=== PATIENT | female | born 2000 | race Caucasian/White ===

== ENCOUNTER 2022-12-10 15:01 | Outpatient (OUT) | payer BC, SELFPAY ==
[2022-12-10 15:49] LABS: Basophils Percent Auto 0.3 % (0.2-2.0); Eosinophils Absolute Auto 0.2 10^3/uL (0.0-0.7); Eosinophils Percent Auto 1.5 % (0.9-7.0); Hematocrit 38.3 % (36.0-48.0); Hemoglobin 12.8 g/dL (12.0-16.0); Immature Granulocytes Abs Auto 0.04 10^3/uL (0.00-0.03); Immature Granulocytes Pct Auto 0.3 % (0.0-0.5); Lymphocytes Absolute Auto 3.1 10^3/uL (1.2-3.8); Mean Corpuscular HGB Conc 33.4 g/dL (29.9-35.2); Mean Corpuscular Hemoglobin 28.4 pg (26.7-34.0); Mean Corpuscular Volume 85.1 fL (81.0-99.0); Mean Platelet Volume 10.7 fL (9.5-13.5); Monocytes Percent Auto 7.3 % (1.7-12.0); Neutrophils Percent Auto 67.6 % (43.0-75.0); Platelet Count 292 10^3/uL (150-450); Red Cell Distribution Width 13.2 % (11.0-15.0); White Blood Count 13.3 10^3/uL (4.0-11.0)
[2022-12-10 15:55] LABS: Bilirubin Urine NEGATIVE (NEGATIVE); Blood Urine NEGATIVE (NEGATIVE); Clarity Urine CLEAR (CLEAR); Color Urine LT. YELLOW (YELLOW); Glucose Urine UA NEGATIVE (NEGATIVE); Ketones Urine NEGATIVE (NEGATIVE); Leukocyte Esterase Urine NEGATIVE (NEGATIVE); Nitrite Urine NEGATIVE (NEGATIVE); Protein Urine NEGATIVE (NEG/TRACE); Specific Gravity Urine <=1.005 (1.005-1.025); Urobilinogen Urine 0.2 EU/dL (0.2-1.0)
[2022-12-10 16:05] LABS: Estimated Average Glucose 97 mg/dL
[2022-12-10 16:12] LABS: Bacteria Urine SMALL #/HPF (NONE SEEN); Cast Seen? NONE SEEN #/LPF (NONE SEEN); Crystals Seen? None Seen #/HPF (None Seen); Mucus Urine NONE SEEN (NONE SEEN); RBC Urine 0-2 #/HPF (0-2); Squamous Epithelial Cell Urine FEW #/LPF (NONE/RARE); Urine Culture Indicated ALREADY ORDERED; WBC Urine 0-2 #/HPF (NONE SEEN)
[2022-12-10 16:14] LABS: Amphetamine Screen Urine NEGATIVE (NEGATIVE); Barbiturates Screen Urine NEGATIVE (NEGATIVE); Benzodiazepines Screen Urine NEGATIVE (NEGATIVE); Buprenorphine Screen Urine NEGATIVE (NEGATIVE); Cannabinoid Screen Urine NEGATIVE (NEGATIVE); Cocaine Screen Urine NEGATIVE (NEGATIVE); Methadone Screen Urine NEGATIVE (NEGATIVE); Methamphetamines Screen Urine NEGATIVE (NEGATIVE); Opiate Screen Urine NEGATIVE (NEGATIVE); Oxycodone Screen Urine NEGATIVE (NEGATIVE); Phencyclidine Screen Urine NEGATIVE (NEGATIVE); Tricyclic Antidepressant Urine NEGATIVE (NEGATIVE)
[2022-12-10 16:50] LABS: Thyroid Stimulating Hormone 1.643 uIU/mL (0.358-3.740)
[2022-12-12 04:11] LABS: HBsAg Screen Negative (Negative); HCV Antibody Non Reactive (Non Reactive); HIV Ab/p24 Ag Screen Non Reactive (Non Reactive)
[2022-12-12 06:11] LABS: Rubella Antibodies, IgG 3.12 index (Immune >0.99)
[2022-12-12 07:08] LABS: Neisseria gonorrhoeae, NAA Negative (Negative)
[2022-12-12 10:08] LABS: Rapid Plasma Reagin, Quant Non Reactive titer (NonRea<1:1)
== END 2022-12-10 15:02 | disposition home or self-care (01) ==
LOC: LAB 15:13
PROVIDERS: PCP Family Medicine; Visit Provider Midwife
DX: Z34.81 Encounter for supervision of other normal pregnancy, first trimester (principal); N91.2 Amenorrhea, unspecified
CPT/HCPCS: 36415; 80307; 81001; 83036; 84443; 85025; 86592; 86762; 86803; 86850; 86900; 86901; 87086; 87340; 87389; 87491; 87591

== ENCOUNTER 2023-01-08 13:00 | Day surgery (SDC) | payer BC, SELFPAY ==
[2023-01-08] VITALS (13 sets, daily range): BP systolic 90–130; BP diastolic 50–79; PULSE 70–103; RESP 10–21; TEMP 36.7; O2SAT 96–100; BMI 25.7
[2023-01-08 13:24] LABS: Basophils Percent Auto 0.2 % (0.2-2.0); Eosinophils Absolute Auto 0.1 10^3/uL (0.0-0.7); Eosinophils Percent Auto 1.1 % (0.9-7.0); Hematocrit 39.9 % (36.0-48.0); Hemoglobin 13.6 g/dL (12.0-16.0); Immature Granulocytes Abs Auto 0.02 10^3/uL (0.00-0.03); Immature Granulocytes Pct Auto 0.2 % (0.0-0.5); Lymphocytes Absolute Auto 2.5 10^3/uL (1.2-3.8); Lymphocytes Percent Auto 24.5 % (20.5-60.0); Mean Corpuscular HGB Conc 34.1 g/dL (29.9-35.2); Mean Corpuscular Hemoglobin 28.7 pg (26.7-34.0); Mean Corpuscular Volume 84.2 fL (81.0-99.0); Mean Platelet Volume 10.7 fL (9.5-13.5); Monocytes Absolute Auto 0.8 10^3/uL (0.3-0.8); Monocytes Percent Auto 7.9 % (1.7-12.0); Neutrophils Absolute Auto 6.7 10^3/uL (1.4-6.5); Neutrophils Percent Auto 66.1 % (43.0-75.0); Platelet Count 273 10^3/uL (150-450); Red Blood Count 4.74 10^6/uL (4.20-5.40); Red Cell Distribution Width 12.9 % (11.0-15.0); White Blood Count 10.2 10^3/uL (4.0-11.0)
[2023-01-08] MEDS: LACTATED RINGER'S SOLUTION 1,000 ML 50 ML IV (13:47)
[2023-01-08 13:58] LABS: HCG Quantitative 4919 mIU/mL
[2023-01-08] MEDS: LACTATED RINGER'S SOLUTION 1,000 ML 150 ML IV (16:20)
--- NOTE | 2023-01-08 16:43 | P.ON_ITS ---
Brief Operative Note Date of procedure: 01/08/23 Pre-op diagnosis: missed Post-op diagnosis: same as pre-op Procedure: NAME OF PROCEDURE: [D&C suction ] PROCEDURE: The patient was taken back to the OR where she was given general anesthesia without difficulty. She was then placed in dorsal lithotomy position, prepped and draped in the normal sterile fashion. A weighted speculum was placed in the patient's vagina and the anterior lip of the cervix was identified and grasped with a single-tooth tenaculum. The patient was then gently dilated using Hegar dilators after we had sounded roughly to 10 cm. The suction curette was then tested. The suction curette was then placed in the patient's uterus and products of conception were removed using an 8-[place] suction curette. ?Excellent hemostasis was noted. The patient tolerated the procedure well. Sponge, lap, and needle counts were correct x 2. All instruments were then removed from the patient's vagina. The patient was taken to the Recovery Room in stable condition. ??
[2023-01-08] MEDS: HYDROCODONE/ACET 5-325 MG TABLET 1 TAB PO (17:32)
--- NOTE | 2023-01-08 17:58 | PC.NURSE ---
pt voids without difficulty
== END 2023-01-08 18:00 | disposition home or self-care (01) ==
PROVIDERS: PCP Family Medicine; Visit Provider Obstetrics & Gynecology
PROC: (CPT 59820; principal; 2023-01-08 14:30)
DX: O02.1 Missed abortion (principal)
CPT/HCPCS: 59820; 36415; 84702; 85025; 86850; 86900; 86901; 88305; J2704

== ENCOUNTER 2023-11-18 13:45 | Inpatient (IN) | payer BC, SELFPAY ==
[2023-11-18] VITALS (30 sets, daily range): BP systolic 107–137; BP diastolic 57–79; PULSE 67–104; TEMP 36.2–36.8
--- OUTSIDE RECORDS SUMMARY | 2023-11-18 14:10 | XMS_ITS | CCD ---
Author Organization [facility] Care Team Providers Care Monomer Recovery Operator Name Role Phone GARRET GOMEZ JR Admitting Unavailable GARRET GOMEZ JR Attending Unavailable JOSSE, DR NIALL Craft Primary Care Unavailable GARRET GOMEZ JR Consulting Unavailable ROSALINDA, DR HERNANDEZ Admitting Unavailable ROSALINDA, DR HERNANDEZ Attending Unavailable ROSALINDA, DR HERNANDEZ Primary Care Unavailable ROSALINDA, DR HERNANDEZ Consulting Unavailable Bk, DO Vesna Attending Provider MD David Pascual Primary Care Provider [phone] DO Olga Santoyo Attending Provider DO Olga Santoyo Admit Provider [phone] David Pascual Primary Care Unavailable Nataprtrentonra, Vesna Admitting Unavailable Natlaura, Vesna Attending Unavailable David Pascual Primary Care Unavailable Nataprawira, Vesna Admitting Unavailable Natkaylinra, Vesna Attending Unavailable Olga Santoyo Attending Unavailable David Pascual Primary Care Unavailable Olga Santoyo Admitting Unavailable David Pascual Primary Care Unavailable William, Lo Admitting Unavailable William, Lo Attending Unavailable Olga Santoyo Attending Unavailable David Pascual Primary Care Unavailable Olga Santoyo Admitting Unavailable Yumiko Key MD Primary Care Provider CECILIA MADDEN Attending Unavailable ROWANOMARIELE Dee Dee Referring Unavailable FLOROCECILIA Attending Unavailable FLOROCECILIA Attending Unavailable FLOROANA LILIACECILIA L Referring Unavailable FLORO, CECILIA Funez Attending Unavailable FLOROCECILIA Attending Unavailable FLOROCECILIA Attending Unavailable FLORO, CECILIA L Referring Unavailable CECILIA MADDEN Attending Unavailable CECILIA MADDEN Attending Unavailable CECILIA MADDEN Attending Unavailable CECILIA MADDEN Attending Unavailable Medications Current Medications Medication Drug Class(es) Dates Sig (Normalized) Sig (Original) ibuprofen 600 mg oral tablet (1 source) Nonsteroidal Anti-inflammatory Drug Start: 12-18-2021 take 600 mg by mouth every six hours Ibuprofen Active 600 MG PO Q6H 30 December 18, 2021 12:00am Pnv Cmb#95-Ferrous Fumarate-Fa () 28 mg iron- 800 mcg tablet (1 source) Start: 12-15-2021 take 1 tablet by mouth once daily Pnv Cmb#95-Ferrous Fumarate-Fa () 28 mg iron- 800 mcg tablet Active 1 TAB PO Daily December 15, 2021 12:00am Vit-Fe Fumarate-FA ( Vitamins) 28-0.8 MG tablet (3 sources) Start: 07-06-2022 take 1 tablet by mouth in the morning Vit-Fe Fumarate-FA ( Vitamins) 28-0.8 MG tablet Take 1 tablet by mouth in the morning. 0 07/06/2022 Active Completed/Discontinued Medications Medication Drug Class(es) Dates Sig (Normalized) Sig (Original) Norethindrone-E.Es tradiol-Iron (4 sources) Estrogen Start: 08-28-2020 End: 11-10-2021 Norethindrone-E.Est radiol-Iron (June04/18 (28)) 1 mg-20 mcg (21)/75 mg (7) tablet Discontinued 1 TAB PO Daily August 28, 2020 12:00am November 10, 2021 4:41pm Magnesium (4 sources) Start: 12-15-2021 End: 12-18-2021 take 400 mg by mouth once daily Magnesium Discontinued 400 MG PO Daily December 15, 2021 12:00am December 18, 2021 12:23pm magnesium 250 MG tablet Problems Active Problems Problem Classification Problem Date Documented Da te Episodic/Chronic Abdominal pain (5 sources) Left lower quadrant pain; Translations: [Left lower quadrant pain] Onset: 09-24-2020 08-28-2020 Episodic Other female genital disorders (2 sources) History of past delivery; Translations: [Status post vaginal delivery] 12-17-2021 Episodic Other gastrointestinal disorders (4 sources) Mixed irritable bowel syndrome; Translations: [MIXED IRRITABLE BOWEL SYNDROME] Onset: 09-19-2020 Chronic Other gastrointestinal disorders (4 sources) Alteration in bowel elimination; Translations: [Change in bowel habit] 08-28-2020 Episodic Other and delivery including normal (2 sources) Normal ; Translations: [Encounter for supervision of other normal , first trimester] 05-14-2023 Episodic Residual codes; unclassified (1 source) 35 weeks gestation of ; Translations: [35 weeks gestation of ] Onset: 11-19-2021 Episodic Unclassified (1 source) Encounter for care and examination of lactating mother; Translations: [Encounter for care and examination of lactating mother] Onset: 12-20-2021 Unclassified (1 source) Encounter for supervision of normal first , third trimester; Translations: [Encounter for supervision of normal first , third trimester] Onset: 12-15-2021 Unclassified (1 source) Other specified related conditions, third trimester; Translations: [Other specified related conditions, third trimester] Onset: 12-07-2021 Unclassified (1 source) Encounter for screening for Streptococcus B; Translations: [Encounter for screening for Streptococcus B] Onset: 11-19-2021 Unclassified (1 source) Decreased movements, third trimester, not applicable or unspecified; Translations: [Decreased movements, third trimester, not applicable or unspecified] Onset: 11-10-2021 Past or Other Problems Problem Classification Problem Date Documented Da te Episodic/Chronic Other gastrointestinal disorders (1 source) Fecal urgency; Translations: [FECAL URGENCY] Onset: 09-24-2020 Episodic Results Test Name Value Interpretation Reference Range Facility US OB FOLLOW UP TRANSABDOMIN AL APPROACHon 09-22-2023 OB FOLLOW UP TRANSABDOMINAL APPROACH FINDINGS: A single, live intrauterine is present with normal cardiac rate of 145 beats per minute. Normal activity and amniotic fluid volume. Amniotic fluid index is 13.0 cm. Morphology is grossly normal. The cervix is long and closed, 3.9cm. The placenta is anterior, Grade 2 not associated with the cervical os. The current sonographic age is 31 weeks and 0 days, based on the following measurements: BPD 7.9 cm (31 weeks, 5 days) Head Circumference 28.3cm (31 weeks, 0 days) Abdominal Circumference 26.6cm (30 weeks, 5 days) Femur Length 5.9 cm (30 weeks, 5 days) Presentation Cephalic Placenta Anterior Grade 2 Weight (g) by Percentile 41.3 % * These measurements result in an estimated date of delivery of November 24, 2023 The current estimated weight is 1674 grams ( 3 pound, 10 ounces). IMPRESSION: Single, live intrauterine , current sonographic age of 31 weeks and 0 days, with an estimated date of delivery of November 24, 2023. * Estimated Weight (g) by Percentile is based upon an accurate estimated age based on last menstrual period. TRANSCRIBED BY: ELECTRONICALLY SIGNED BY: Desean Taylor MD Normal Not Available US OB 14+ WEEKS ANATOMY SCAN on 07-08-2023 US OB 14+ WEEKS ANATOMY SCAN This is a summary report. The complete report is available in the patient's medical record. If you cannot access the medical record, please contact the sending organization for a detailed fax or copy. US OB 14+ WEEKS ANATOMY SCAN: 07/08/2023 4:14 PM CLINICAL HISTORY: . Second/third trimester ultrasound COMPARISON: April 15, 2023 Transabdominal ultrasound of the gravid uterus was performed. FINDINGS: A single live intrauterine is noted in breech position. cardiac activity measures approximately 145 beats per minute. A grade 0 placenta is anterior without evidence of an abnormal subplacental collection or previa. The amniotic fluid volume appears within normal limits for gestation. The amniotic fluid index measures 15.98 cm. The following measurements were obtained: BPD 4.6 cm, HC 17.3 cm, AC 14.6 cm, FL 3.2 cm, which corresponds to an aggregate gestational age of 19 weeks 6 days. Estimated weight is 318 g which corresponds to 69.5 percentile based on LMP.. cerebral ventricles, posterior fossa, spine, kidneys, urinary bladder, four-chamber heart, diaphragm, stomach, three-vessel cord, cord insertion and extremities appear within normal limits. There is no free fluid noted in the maternal pelvis. Neither maternal ovary is identified. IMPRESSION: SINGLE LIVE INTRAUTERINE CORRESPONDING TO APPROXIMATELY 19 WEEKS 6 DAYS WITH AN EXPECTED DUE DATE OF NOVEMBER 26, 2023.. NO GROSS ABNORMALITIES IDENTIFIED, WITHIN THE LIMITS OF THE STUDY. ELECTRONICALLY SIGNED BY: Hevre Leo DO Normal Not Available US OB < 14 WEEKS EARLYon US OB < 14 WEEKS EARLY EXAMINATION: Endovaginal examination of the pelvis. HISTORY: Amenorrhea. COMPARISON: None TECHNIQUE: Endovaginal examination of the pelvis. FINDINGS: Uterus measures 11.2 x 7.1 x 5.6, AP and transverse dimension. There is a single IUP with estimated gestational age based by crown-rump length of 7 weeks 3 days +/-1-week with a heart rate of 153 bpm. Yolk sac is identified. The right ovary measures 3.2 x 2.7 x 2.2 cm. Small cysts most likely physiological function noted. Spectral and color flow seen. The left ovary measures 2.9 x 2.1 x 1.7 cm. Small cyst most likely physiologic nonfunctional noted. Spectral and color flow. No free fluid. IMPRESSION: A SINGLE AP WITH ESTIMATED GESTATIONAL AGE BASED ON CROWN-RUMP LENGTH IS 7 WEEKS 3 DAYS +/-1-WEEK WITH A HEART RATE OF 153 BPM. ANATOMY IS NOT ASSESSED DUE TO EARLY GESTATIONAL AGE ELECTRONICALLY SIGNED BY: Demian Gray MD Normal Not Available Basophils Auto (Bld) [#/Vol] Ordered By: Olga Santoyo on 12-17-2021 Basophils (Bld) [#/Vol] 0.1 10*3/uL 0.0-0.2 [facility] Basophils/100 WBC Auto (Bld) Ordered By: Olga Santoyo on 12-17-2021 Basophils/100 WBC (Bld) 0.4 % . [facility] Blood hemoglobin measurement (mass/volume)Ordered By: Olga Santoyo on 12-17-2021 Hemoglobin (Bld) [Mass/Vol] 9.6 g/dL 11.8-15.4 [facility] Blood leukocytes automated c ount (number/volume)Ordered By: Olga Santoyo on 12-17-2021 WBC (Bld) [#/Vol] 16.1 10*3/uL 4.5-11.0 [facility] Complete Blood Count Auto Di ffon 12-17-2021 Basophils (Bld) [#/Vol] 0.1 10*3/uL Normal 0.0-0.2 [facility] Comment on above: Order Comment: Comme nt Draw at 630 am Result Comment: PERF ORMED BY: [place] [address] PATHOLOGIST PSYCHOLOGIST CHIEF NATALYA ESTEBAN M.D. Performed By: #### C BC #### [address] Basophils/100 WBC (Bld) 0.4 % Normal . [facility] Comment on above: Order Comment: Comme nt Draw at 630 am Performed By: #### C BC #### [address] Eosinophils (Bld) [#/Vol] 0.1 10*3/uL Normal 0.0-0.45 [facility] Comment on above: Order Comment: Comme nt Draw at 630 am Performed By: #### C BC #### [address] Eosinophils/100 WBC (Bld) 0.8 % Normal . [facility] Comment on above: Order Comment: Comme nt Draw at 630 am Performed By: #### C BC #### [address] Erythrocyte distribution width (RBC) [Ratio] 13.7 % Normal 11.9-15.3 [facility] Comment on above: Order Comment: Comme nt Draw at 630 am Performed By: #### C BC #### [address] Hematocrit (Bld) [Volume fraction] 29.4 % Low 34.0-46.4 [facility] Comment on above: Order Comment: Comme nt Draw at 630 am Performed By: #### C BC #### [place] [address] [place] Hemoglobin (Bld) [Mass/Vol] 9.6 g/dL Low 11.8-15.4 [facility] Comment on above: Order Comment: Comme nt Draw at 630 am Performed By: #### C BC #### [place] [address] [place] Lymphocytes (Bld) [#/Vol] 3.1 10*3/uL Normal 1.00-4.8 [facility] Comment on above: Order Comment: Comme nt Draw at 630 am Performed By: #### C BC #### [address] Lymphocytes/100 WBC (Bld) 19.2 % Normal . [facility] Comment on above: Order Comment: Comme nt Draw at 630 am Performed By: #### C BC #### [address] MCH (RBC) [Entitic mass] 28.4 pg Normal 24.7-34.3 [facility] Comment on above: Order Comment: Comme nt Draw at 630 am Performed By: #### C BC #### [address] MCV (RBC) [Entitic vol] 86.6 fL Normal 80-100 [facility] Comment on above: Order Comment: Comme nt Draw at 630 am Performed By: #### C BC #### [address] Mean Corpuscular HGB Conc 32.8 g/dL Normal 32.0-35.0 [facility] Comment on above: Order Comment: Comme nt Draw at 630 am Performed By: #### C BC #### [address] Monocytes (Bld) [#/Vol] 1.4 10*3/uL High 0.0-0.8 [facility] Comment on above: Order Comment: Comme nt Draw at 630 am Performed By: #### C BC #### [place] [address] [place] Monocytes/100 WBC (Bld) 8.5 % Normal . [facility] Comment on above: Order Comment: Comme nt Draw at 630 am Performed By: #### C BC #### [address] Neutrophils (Bld) [#/Vol] 11.5 10*3/uL High 1.8-7.7 [facility] Comment on above: Order Comment: Comme nt Draw at 630 am Performed By: #### C BC #### [place] [address] [place] Neutrophils/100 WBC (Bld) 71.1 % Normal . [facility] Comment on above: Order Comment: Comme nt Draw at 630 am Performed By: #### C BC #### [place] [address] [place] Nucleated RBC/100 WBC (Bld) [Ratio] 0.1 % Normal 0-0.5 [facility] Comment on above: Order Comment: Comme nt Draw at 630 am Performed By: #### C BC #### [address] Platelet mean volume (Bld) [Entitic vol] 10.6 fL Normal 6.3-10.7 [facility] Comment on above: Order Comment: Comme nt Draw at 630 am Performed By: #### C BC #### [place] [address] [place] Platelets (Bld) [#/Vol] 182 10*3/uL Normal 150-450 [facility] Comment on above: Order Comment: Comme nt Draw at 630 am Performed By: #### C BC #### [place] [address] [place] RBC (Bld) [#/Vol] 3.39 10*6/uL Low 3.60-5.00 [facility] Comment on above: Order Comment: Comme nt Draw at 630 am Performed By: #### C BC #### [place] [address] [place] WBC (Bld) [#/Vol] 16.1 10*3/uL High 4.5-11.0 [facility] Comment on above: Order Comment: Comme nt Draw at 630 am Performed By: #### C BC #### [place] [address] [place] Eosinophils Auto (Bld) [#/Vo l]Ordered By: Olga Santoyo on 12-17-2021 Eosinophils (Bld) [#/Vol] 0.1 10*3/uL 0.0-0.45 [facility] Eosinophils/100 WBC Auto (Bl d)Ordered By: Olga Santoyo on 12-17-2021 Eosinophils/100 WBC (Bld) 0.8 % . [facility] Erythrocyte distribution wid th Auto (RBC) [Ratio]Ordered By: Olga Santoyo on 12-17-2021 Erythrocyte distribution width (RBC) [Ratio] 13.7 % 11.9-15.3 [facility] Hematocrit Auto (Bld) [Volum e fraction]Ordered By: Olga Santoyo on 12-17-2021 Hematocrit (Bld) [Volume fraction] 29.4 % 34.0-46.4 [facility] Laboratory - Hematology and Cell countsOrdered By: Olga Santoyo on 12-17-2021 Nucleated RBC/100 WBC (Bld) [Ratio] 0.1 % 0-0.5 [facility] Lymphocytes Auto (Bld) [#/Vo l]Ordered By: Olga Santoyo on 12-17-2021 Lymphocytes (Bld) [#/Vol] 3.1 10*3/uL 1.00-4.8 [facility] Lymphocytes/100 WBC Auto (Bl d)Ordered By: Olga Santoyo on 12-17-2021 Lymphocytes/100 WBC (Bld) 19.2 % . [facility] MCH Auto (RBC) [Entitic mass ]Ordered By: Olga Santoyo on 12-17-2021 MCH (RBC) [Entitic mass] 28.4 pg 24.7-34.3 [facility] MCHC Auto (RBC) [Mass/Vol]Or dered By: Olga Santoyo on 12-17-2021 MCHC (RBC) [Mass/Vol] 32.8 g/dL 32.0-35.0 [facility] MCV Auto (RBC) [Entitic vol] Ordered By: Olga Santoyo on 12-17-2021 MCV (RBC) [Entitic vol] 86.6 fL 80-100 [facility] Monocytes Auto (Bld) [#/Vol] Ordered By: Olga Santoyo on 12-17-2021 Monocytes (Bld) [#/Vol] 1.4 10*3/uL 0.0-0.8 [facility] Monocytes/100 WBC Auto (Bld) Ordered By: Olga Yarelis on 12-17-2021 Monocytes/100 WBC (Bld) 8.5 % . [facility] Neutrophils Auto (Bld) [#/Vo l]Ordered By: Olga Santoyo on 12-17-2021 Neutrophils (Bld) [#/Vol] 11.5 10*3/uL 1.8-7.7 [facility] Neutrophils/100 WBC Auto (Bl d)Ordered By: Olga Yarelis on 12-17-2021 Neutrophils/100 WBC (Bld) 71.1 % . [facility] Platelet mean volume Auto (B ld) [Entitic vol]Ordered By: Olgajas Santoyo on 12-17-2021 Platelet mean volume (Bld) [Entitic vol] 10.6 fL 6.3-10.7 [facility] Platelets Auto (Bld) [#/Vol] Ordered By: Olga Yarelis on 12-17-2021 Platelets (Bld) [#/Vol] 182 10*3/uL 150-450 [facility] RBC Auto (Bld) [#/Vol]Ordere d By: Olgajas Santoyo on 12-17-2021 RBC (Bld) [#/Vol] 3.39 10*6/uL 3.60-5.00 [facility] ABO/RH Typeon 12-16-2021 ABO and Rh group Nom (Bld) Blood group A Rh(D) positive Normal [facility] Comment on above: Result Comment: PERF ORMED BY: [facility] [address] [place] [address] PATHOLOGIST PSYCHOLOGIST CHIEF NATALYA ESTEBAN M.D. COVID-19 Antigenon 2 COVID-19 Antigen Healthcare Worker?: Y Reference Range: Negative Negative results, from patients with symptom onset beyond five days, should be treated as presumptive and confirmation with a molecular assay, if necessary, for patient management, may be performed. Negative results do not rule out COVID-19 and should not be used as the sole basis for treatment or patient management decisions, including infection control decisions. Negative results should be considered in the context of a patient's recent exposures, history and the presence of clinical signs and symptoms consistent with COVID-19. The Lucy SARS Antigen BRODY does not differentiate between SARS-CoV and SARS-CoV-2. This test was developed and its performance characteristic determined by [employer] and validated at [facility]. This test has not been FDA cleared or approved. This test has been authorized by FDA under an Emergency Use Authorization (EUA). This test has been validated in accordance with the FDA's Guidance Document (Policy for Diagnostics Testing in Laboratories Certified to Perform High Complexity Testing under CLIA prior to Emergency Use Authorization for Coronavirus Disease-2019 during the Public Health Emergency) issued on June 30, 2019. This test is only authorized for the duration of time the declaration that circumstances exist justifying the authorization of the emergency use of in vitro diagnostic tests for detection of SARS-CoV-2 virus and/or diagnosis of COVID-19 infection under section 564(b)(1) of the Act, 21 U.S.C. 360bbb-3(b)(1), unless the authorization is terminated or revoked sooner. SARS-CoV+SARS-CoV-2 (COVID-19) Ag [Presence] in Respiratory specimen by Rapid immunoassay Negative for SARS Antigen by BRODY PERFORMED BY: [place] [address] PATHOLOGIST PSYCHOLOGIST CHIEF NATALYA ESTEBAN M.D. Normal [facility] Comment on above: Performed By: #### U A, OBUDS #### [place] [id number] [facility] Complete Blood Count Auto Di ffon 12-16-2021 Basophils (Bld) [#/Vol] 0.1 10*3/uL Normal 0.0-0.2 [facility] Comment on above: Result Comment: PERF ORMED BY: [place] [address] PATHOLOGIST PSYCHOLOGIST CHIEF NATALYA ESTEBAN M.D. Performed By: #### C BC #### [place] [address] [place] Basophils/100 WBC (Bld) 0.8 % Normal . [facility] Comment on above: Performed By: #### C BC #### [address] Eosinophils (Bld) [#/Vol] 0.2 10*3/uL Normal 0.0-0.45 [facility] Comment on above: Performed By: #### C BC #### [address] Eosinophils/100 WBC (Bld) 1.0 % Normal . [facility] Comment on above: Performed By: #### C BC #### [address] Erythrocyte distribution width (RBC) [Ratio] 13.8 % Normal 11.9-15.3 [facility] Comment on above: Performed By: #### C BC #### [address] Hematocrit (Bld) [Volume fraction] 36.7 % Normal 34.0-46.4 [facility] Comment on above: Performed By: #### C BC #### [address] Hemoglobin (Bld) [Mass/Vol] 12.2 g/dL Normal 11.8-15.4 [facility] Comment on above: Performed By: #### C BC #### [address] Lymphocytes (Bld) [#/Vol] 3.1 10*3/uL Normal 1.00-4.8 [facility] Comment on above: Performed By: #### C BC #### [address] Lymphocytes/100 WBC (Bld) 18.2 % Normal . [facility] Comment on above: Performed By: #### C BC #### [address] MCH (RBC) [Entitic mass] 28.4 pg Normal 24.7-34.3 [facility] Comment on above: Performed By: #### C BC #### [facility] [address] [place] [address] [place] MCV (RBC) [Entitic vol] 85.5 fL Normal 80-100 [facility] Comment on above: Performed By: #### C BC #### [facility] [address] [place] [id number] [facility] Mean Corpuscular HGB Conc 33.2 g/dL Normal 32.0-35.0 [facility] Comment on above: Performed By: #### C BC #### [facility] [address] [place] [address] [place] Monocytes (Bld) [#/Vol] 1.4 10*3/uL High 0.0-0.8 [facility] Comment on above: Performed By: #### C BC #### [facility] [address] [place] [address] [place] Monocytes/100 WBC (Bld) 8.1 % Normal . [facility] Comment on above: Performed By: #### C BC #### [facility] [address] [place] [address] [place] Neutrophils (Bld) [#/Vol] 12.2 10*3/uL High 1.8-7.7 [facility] Comment on above: Performed By: #### C BC #### [facility] [address] [place] [id number] [place] Neutrophils/100 WBC (Bld) 71.9 % Normal . [facility] Comment on above: Performed By: #### C BC #### [facility] [address] [place] [address] [place] Nucleated RBC/100 WBC (Bld) [Ratio] 0.1 % Normal 0-0.5 [facility] Comment on above: Performed By: #### C BC #### [facility] [address] Platelet mean volume (Bld) [Entitic vol] 10.8 fL High 6.3-10.7 [facility] Comment on above: Performed By: #### C BC #### [place] [address] [place] Platelets (Bld) [#/Vol] 220 10*3/uL Normal 150-450 [facility] Comment on above: Performed By: #### C BC #### [address] RBC (Bld) [#/Vol] 4.29 10*6/uL Normal 3.60-5.00 [facility] Comment on above: Performed By: #### C BC #### [address] WBC (Bld) [#/Vol] 17.0 10*3/uL High 4.5-11.0 [facility] Comment on above: Performed By: #### C BC #### [place] [address] [place] Dipstick and Microscopicon 0 12-16-2021 Appearance (U) Clear Normal Clear [facility] Comment on above: Order Comment: Name Collection Type:: Clean-Voided Midstream Performed By: #### O BUDS, ADDONUAPLUS #### [address] Bacteria,Urine None Seen Normal None Seen [facility] Comment on above: Order Comment: Name Collection Type:: Clean-Voided Midstream Performed By: #### O BUDS, ADDONUAPLUS #### [address] Bilirubin,Urine Negative Normal Negative [facility] Comment on above: Order Comment: Name Collection Type:: Clean-Voided Midstream Performed By: #### O BUDS, ADDONUAPLUS #### [place] [address] [place] Glucose Ql (U) Normal Normal Normal [facility] Comment on above: Order Comment: Name Collection Type:: Clean-Voided Midstream Performed By: #### O BUDS, ADDONUAPLUS #### [place] [address] [place] Hyaline Casts,Urine 0-8 Normal 0-8 [facility] Comment on above: Order Comment: Name Collection Type:: Clean-Voided Midstream Result Comment: PERF ORMED BY: [place] [address] PATHOLOGIST PSYCHOLOGIST CHIEF NATALYA ESTEBAN M.D. Performed By: #### O BUDS, ADDONUAPLUS #### [facility] [address] [place] [address] [place] Ketones Ql (U) Negative Normal Negative [facility] Comment on above: Order Comment: Name Collection Type:: Clean-Voided Midstream Performed By: #### O BUDS, ADDONUAPLUS #### [place] [address] [place] Leukocyte esterase Test strip Ql (U) Negative Normal Negative [facility] Comment on above: Order Comment: Name Collection Type:: Clean-Voided Midstream Performed By: #### O BUDS, ADDONUAPLUS #### [place] [address] [place] Nitrite,Urine Negative Normal Negative [facility] Comment on above: Order Comment: Name Collection Type:: Clean-Voided Midstream Performed By: #### O BUDS, ADDONUAPLUS #### [place] [address] [place] Occult Blood,Urine Negative Normal Negative [facility] Comment on above: Order Comment: Name Collection Type:: Clean-Voided Midstream Result Comment: PERF ORMED BY: [place] [address] PATHOLOGIST PSYCHOLOGIST CHIEF NATALYA ESTEBAN M.D. Performed By: #### O BUDS, ADDONUAPLUS #### [facility] [address] [place] [address] [place] Protein,Urine Trace High Negative [facility] Comment on above: Order Comment: Name Collection Type:: Clean-Voided Midstream Performed By: #### O BUDS, ADDONUAPLUS #### [facility] [address] [place] [address] [place] RBC,Urine 1-2 Normal 0-4 [facility] Comment on above: Order Comment: Name Collection Type:: Clean-Voided Midstream Performed By: #### O BUDS, ADDONUAPLUS #### [facility] [address] [place] [address] Specificy Albia,Urine 1.022 Normal 1.001-1.030 [facility] Comment on above: Order Comment: Name Collection Type:: Clean-Voided Midstream Performed By: #### O BUDS, ADDONUAPLUS #### [address] Squamous Epithelial Cell,Urine 0-1 Normal 0-2 [facility] Comment on above: Order Comment: Name Collection Type:: Clean-Voided Midstream Performed By: #### O BUDS, ADDONUAPLUS #### [address] Urobilinogen,Urine Normal Normal Normal [facility] Comment on above: Order Comment: Name Collection Type:: Clean-Voided Midstream Performed By: #### O BUDS, ADDONUAPLUS #### [address] WBC,Urine 1-2 Normal 0-4 [facility] Comment on above: Order Comment: Name Collection Type:: Clean-Voided Midstream Performed By: #### O BUDS, ADDONUAPLUS #### [address] OB Urine Drug Screen (NO THC )on 12-16-2021 Amphetamine Screen,Urine Negative Normal Negative [facility] Comment on above: Performed By: #### O BUDS, ADDONUAPLUS #### [address] Barbiturate Screen,Urine Negative Normal Negative [facility] Comment on above: Performed By: #### O BUDS, ADDONUAPLUS #### [place] [address] [place] Benzodiazepines Screen,Urine Negative Normal Negative [facility] Comment on above: Performed By: #### O BUDS, ADDONUAPLUS #### [address] Cocaine Screen,Urine Negative Normal Negative [facility] Comment on above: Performed By: #### O BUDS, ADDONUAPLUS #### [address] Opiate Screen,Urine Negative Normal Negative [facility] Comment on above: Performed By: #### O BUDS, ADDONUAPLUS #### [address] Phencyclidine Screen, Urine Negative Normal Negative [facility] Comment on above: Result Comment: Thes e are unconfirmed results and should not be used for legal purposes. Drug Cut-Off Concentration: AMPH 1000 ng/mL RONEL 200 ng/mL JUANITO 200 ng/mL COCM 300 ng/mL OP 300 ng/mL PCP 25 ng/mL PERFORMED BY: [place] [address] PATHOLOGIST PSYCHOLOGIST CHIEF NATALYA ESTEBAN M.D. Performed By: #### O BUDS, ADDONUAPLUS #### [address] Lucy Ag Negativeon 12-17-19 Lucy Ag Negative Negative Normal Negative [facility] Comment on above: Result Comment: This is a duplicate Lucy SARS Antigen (BRODY) result to be used for statistical tracking purpose only. PERFORMED BY: [place] [address] PATHOLOGIST PSYCHOLOGIST CHIEF NATALYA ESTEBAN M.D. Performed By: #### U A, OBUDS #### [address] Amphetamine Screen Ql (U)Ord ered By: Olga Santoyo on 12-15-2021 Amphetamines Ql (U) Negative Negative [facility] Automated erythrocytes count in urine sediment (number/area)Ordered By: Olga Santoyo on 12-15-2021 RBC Auto (Urine sed) [#/Area] 1-2 [HPF] 0-4 [facility] Automated leukocytes count i n urine sediment (number/area)Ordered By: Olga Santoyo on 12-15-2021 WBC Auto (Urine sed) [#/Area] 1-2 [HPF] 0-4 [facility] Automated urine color determ inationOrdered By: Olga Santoyo on 12-15-2021 Color (U) Yellow Normal Yellow [facility] Comment on above: Order Comment: Name Collection Type:: Clean-Voided Midstream Performed By: #### O BUDS, ADDONUAPLUS #### [facility] [address] Barbiturates [Presence] in U rineOrdered By: Olga Santoyo on 12-15-2021 Barbiturates Ql (U) Negative Negative [facility] Benzodiazepines [Presence] i n UrineOrdered By: Olga Santoyo on 12-15-2021 Benzodiazepines Ql (U) Negative Negative [facility] Bilirubin Test strip Ql (U)O rdered By: Olga Santoyo on 12-15-2021 Bilirubin Ql (U) Negative Negative [facility] COVID-19 SOFIAOrdered By: Cem Santoyo on 12-15-2021 SARS-CoV+SARS-CoV-2 (COVID-19) Ag IA.rapid Ql (Resp) Negative Negative [facility] Comment on above: This is a duplicate Lucy SARS Antigen (BRODY) result to be used for statistical tracking purpose only. Ketones Auto test strip (U) [Mass/Vol]Ordered By: Olga Santoyo on 12-15-2021 Ketones (U) [Mass/Vol] Negative Negative [facility] - Drug toxicology Ordered By: Olga Santoyo on 12-15-2021 Opiates Ql (U) Negative Negative [facility] Laboratory - UrinalysisOrder ed By: Olga Santoyo on 12-15-2021 Hyaline casts LM Ql (Urine sed) 0-8 [LPF] 0-8 [facility] Nitrite Test strip Ql (U)Ord ered By: Olga Santoyo on 12-15-2021 Nitrite Ql (U) Negative Negative [facility] No Panel InformationOrdered By: Olga Santoyo on 12-15-2021 SARS Antigen (LFIA) [facility] Phencyclidine Screen Ql (U)O rdered By: Olga Santoyo on 12-15-2021 Phencyclidine Ql (U) Negative Negative [facility] Comment on above: These are unconfirme d results and should not be used for legal purposes. Drug Cut-Off Concentration: AMPH 1000 ng/mL RONEL 200 ng/mL JUANITO 200 ng/mL COCM 300 ng/mL OP 300 ng/mL PCP 25 ng/mL Protein Auto test strip (U) [Mass/Vol]Ordered By: Olga Santoyo on 12-15-2021 Protein (U) [Mass/Vol] Trace mg/dL Negative [facility] Specific gravity Auto test s trip (U) [Rel density]Ordered By: Olga Santoyo on 12-15-2021 Specific gravity (U) [Rel density] 1.022 1.001-1.030 [facility] Squamous epithelial cells de tection in urine sediment by light microscopyOrdered By: Olga Santoyo on 12-15-2021 Epithelial cells.squamous LM Ql (Urine sed) 0-1 [HPF] 0-2 [facility] Urine bacteria detection by automated methodOrdered By: Olga Santoyo on 12-15-2021 Bacteria Auto Ql (U) None seen None Seen [facility] Urine clarity by refractomet ry automatedOrdered By: Olga Santoyo on 12-15-2021 Clarity Refractometry automated (U) Clear Clear [facility] Urine cocaine detectionOrder ed By: Olga Santoyo on 12-15-2021 Cocaine Ql (U) Negative Negative [facility] Urine glucose measurement by automated test strip (mass/volume)Ordered By: Olga Santoyo on 12-15-2021 Glucose Auto test strip (U) [Mass/Vol] Normal mg/dL Normal [facility] Urine hemoglobin detection b y automated test stripOrdered By: Olga Santoyo on 12-15-2021 Hemoglobin Auto test strip Ql (U) Negative Negative [facility] Urine leukocyte esterase det ection by automated test stripOrdered By: Olga Santoyo on 12-15-2021 Leukocyte esterase Auto test strip Ql (U) Negative Negative [facility] Urine pH measurement by auto mated test stripOrdered By: Olga Santoyo on 12-15-2021 pH (U) 6.5 [pH] Normal 5.0-9.0 [facility] Comment on above: Order Comment: Name Collection Type:: Clean-Voided Midstream Performed By: #### O BUDS, ADDONUAPLUS #### [facility] [address] [place] [address] Urobilinogen Auto test strip (U) [Mass/Vol]Ordered By: Olga Santoyo on 12-15-2021 Urobilinogen (U) [Mass/Vol] Normal mg/dL Normal [facility] Amphetamine Screen Ql (U)Ord ered By: VESNA BOURGEOIS on 12-07-2021 Amphetamines Ql (U) Negative Negative [facility] Barbiturates [Presence] in U rineOrdered By: VESNA BOURGEOIS on 12-07-2021 Barbiturates Ql (U) Negative Negative [facility] Benzodiazepines [Presence] i n UrineOrdered By: VESNA BOURGEOIS on 12-07-2021 Benzodiazepines Ql (U) Negative Negative [facility] Bilirubin Test strip Ql (U)O rdered By: VESNA BOURGEOIS on 12-07-2021 Bilirubin Ql (U) Negative Negative [facility] Color Auto (U)Ordered By: ECHO BOURGEOIS on 12-07-2021 Color (U) Yellow Yellow [facility] Ketones Auto test strip (U) [Mass/Vol]Ordered By: VESNA BOURGEOIS on 12-07-2021 Ketones (U) [Mass/Vol] Negative Negative [facility] - Drug toxicology Ordered By: VESNA BOURGEOIS on 12-07-2021 Opiates Ql (U) Negative Negative [facility] Nitrite Test strip Ql (U)Ord ered By: VESNA BOURGEOIS on 12-07-2021 Nitrite Ql (U) Negative Negative [facility] OB Urine Drug Screen (NO THC )on 12-07-2021 Amphetamine Screen,Urine Negative Normal Negative [facility] Comment on above: Performed By: #### U A, OBUDS #### [facility] [address] [place] [address] Barbiturate Screen,Urine Negative Normal Negative [facility] Comment on above: Performed By: #### U A, OBUDS #### [facility] [address] [place] [address] [place] Benzodiazepines Screen,Urine Negative Normal Negative [facility] Comment on above: Performed By: #### U A, OBUDS #### [facility] [address] [place] [address] [place] Cocaine Screen,Urine Negative Normal Negative [facility] Comment on above: Performed By: #### U A, OBUDS #### [facility] [address] [place] [address] Opiate Screen,Urine Negative Normal Negative [facility] Comment on above: Performed By: #### U A, OBUDS #### [address] Phencyclidine Screen, Urine Negative Normal Negative [facility] Comment on above: Result Comment: Thes e are unconfirmed results and should not be used for legal purposes. Drug Cut-Off Concentration: AMPH 1000 ng/mL RONEL 200 ng/mL JUANITO 200 ng/mL COCM 300 ng/mL OP 300 ng/mL PCP 25 ng/mL PERFORMED BY: [place] [address] PATHOLOGIST PSYCHOLOGIST CHIEF NATALYA ESTEBAN M.D. Performed By: #### U A, OBUDS #### [facility] [address] [place] [address] Phencyclidine Screen Ql (U)O rdered By: VESNA BOURGEOIS on 12-07-2021 Phencyclidine Ql (U) Negative Negative [facility] Comment on above: These are unconfirme d results and should not be used for legal purposes. Drug Cut-Off Concentration: AMPH 1000 ng/mL RONEL 200 ng/mL JUANITO 200 ng/mL COCM 300 ng/mL OP 300 ng/mL PCP 25 ng/mL Protein Auto test strip (U) [Mass/Vol]Ordered By: VESNA BOURGEOIS on 12-07-2021 Protein (U) [Mass/Vol] Negative Negative [facility] Specific gravity Auto test s trip (U) [Rel density]Ordered By: VESNACorazon BOURGEOIS on 12-07-2021 Specific gravity (U) [Rel density] 1.009 1.001-1.030 [facility] Urinalysison 12-07-2021 Appearance (U) Clear Normal Clear [facility] Comment on above: Order Comment: Name Collection Type:: Clean-Voided Midstream Performed By: #### U A, OBUDS #### [facility] [address] [place] [address] Bilirubin,Urine Negative Normal Negative [facility] Comment on above: Order Comment: Name Collection Type:: Clean-Voided Midstream Performed By: #### U A, OBUDS #### [address] Color (U) Yellow Normal Yellow [facility] Comment on above: Order Comment: Name Collection Type:: Clean-Voided Midstream Performed By: #### U A, OBUDS #### [address] Glucose Ql (U) Normal Normal Normal [facility] Comment on above: Order Comment: Name Collection Type:: Clean-Voided Midstream Performed By: #### U A, OBUDS #### [facility] [address] [place] [address] Ketones Ql (U) Negative Normal Negative [facility] Comment on above: Order Comment: Name Collection Type:: Clean-Voided Midstream Performed By: #### U A, OBUDS #### [facility] [address] [place] [address] [place] Leukocyte esterase Test strip Ql (U) Negative Normal Negative [facility] Comment on above: Order Comment: Name Collection Type:: Clean-Voided Midstream Performed By: #### U A, OBUDS #### [facility] [address] [place] [address] [place] Nitrite,Urine Negative Normal Negative [facility] Comment on above: Order Comment: Name Collection Type:: Clean-Voided Midstream Performed By: #### U A, OBUDS #### [address] Occult Blood,Urine Negative Normal Negative [facility] Comment on above: Order Comment: Name Collection Type:: Clean-Voided Midstream Result Comment: PERF ORMED BY: [place] [address] PATHOLOGIST PSYCHOLOGIST CHIEF NATALYA ESTEBAN M.D. Performed By: #### U A, OBUDS #### [address] pH (U) 7.0 [pH] Normal 5.0-9.0 [facility] Comment on above: Order Comment: Name Collection Type:: Clean-Voided Midstream Performed By: #### U A, OBUDS #### [address] Protein,Urine Negative Normal Negative [facility] Comment on above: Order Comment: Name Collection Type:: Clean-Voided Midstream Performed By: #### U A, OBUDS #### [address] Specificy Alb[place],Urine 1.009 Normal 1.001-1.030 [facility] Comment on above: Order Comment: Name Collection Type:: Clean-Voided Midstream Performed By: #### U A, OBUDS #### [place] [address] [place] Urobilinogen,Urine Normal Normal Normal [facility] Comment on above: Order Comment: Name Collection Type:: Clean-Voided Midstream Performed By: #### U A, OBUDS #### [place] [address] [place] Urine clarity by refractomet ry automatedOrdered By: VESNA BOURGEOIS on 12-07-2021 Clarity Refractometry automated (U) Clear Clear [facility] Urine cocaine detectionOrder ed By: VESNA BOURGEOIS on 12-07-2021 Cocaine Ql (U) Negative Negative [facility] Urine glucose measurement by automated test strip (mass/volume)Ordered By: VESNA BOURGEOIS on 12-07-2021 Glucose Auto test strip (U) [Mass/Vol] Normal mg/dL Normal [facility] Urine hemoglobin detection b y automated test stripOrdered By: VESNA BOURGEOIS on 12-07-2021 Hemoglobin Auto test strip Ql (U) Negative Negative [facility] Urine leukocyte esterase det ection by automated test stripOrdered By: VESNA BOURGEOIS on 12-07-2021 Leukocyte esterase Auto test strip Ql (U) Negative Negative [facility] Urobilinogen Auto test strip (U) [Mass/Vol]Ordered By: VESNA BOURGEOIS on 12-07-2021 Urobilinogen (U) [Mass/Vol] Normal mg/dL Normal [facility] pH Auto test strip (U)Ordere d By: VESNA BOURGEOIS on 12-07-2021 pH (U) 7.0 [pH] 5.0-9.0 [facility] S. agalactiae Org specific c x Ql (Unsp spec)Ordered By: Olga Santoyo on 11-23-2021 Streptococcus agalactiae culture No Group B Beta Streptococcus Isolated 3 Days [facility] Strep B Cultureon 11-19-2021 Strep B Culture Reason for Exam 35 weeks gestation of ; screening for stre Vaginal/Rectal Comment vaginal, ecc, rectal Reason for Exam: 35 weeks gestation of ; screening for stre : Vaginal/Rectal Comment: vaginal, ecc, rectal No Group B Beta Streptococcus Isolated 3 Days PERFORMED BY: [place] [address] PATHOLOGIST PSYCHOLOGIST CHIEF NATALYA ESTEBAN M.D. Normal [facility] Comment on above: Performed By: #### C USTB #### [address] Amphetamine Screen Ql (U)Ord ered By: VESNA BOURGEOIS on 11-10-2021 Amphetamines Ql (U) Negative Negative [facility] Barbiturates [Presence] in U rineOrdered By: VESNA BOURGEOIS on 11-10-2021 Barbiturates Ql (U) Negative Negative [facility] Benzodiazepines [Presence] i n UrineOrdered By: VESNA BOURGEOIS on 11-10-2021 Benzodiazepines Ql (U) Negative Negative [facility] Bilirubin Test strip Ql (U)O rdered By: VESNA BOURGEOIS on 11-10-2021 Bilirubin Ql (U) Negative Negative [facility] Color Auto (U)Ordered By: ECHO BOURGEOIS on 11-10-2021 Color (U) Yellow Yellow [facility] Ketones Auto test strip (U) [Mass/Vol]Ordered By: VESNA BOURGEOIS on 11-10-2021 Ketones (U) [Mass/Vol] Negative Negative [facility] - Drug toxicology Ordered By: VESNA BOURGEOIS on 11-10-2021 Opiates Ql (U) Negative Negative [facility] Nitrite Test strip Ql (U)Ord ered By: VESNA BOURGEOIS on 11-10-2021 Nitrite Ql (U) Negative Negative [facility] OB Urine Drug Screen (NO THC )on 11-10-2021 Amphetamine Screen,Urine Negative Normal Negative [facility] Comment on above: Performed By: #### U A, OBUDS #### [facility] [address] [place] [address] [place] Barbiturate Screen,Urine Negative Normal Negative [facility] Comment on above: Performed By: #### U A, OBUDS #### [facility] [address] [place] [address] [place] Benzodiazepines Screen,Urine Negative Normal Negative [facility] Comment on above: Performed By: #### U A, OBUDS #### [facility] [address] [place] [address] [place] Cocaine Screen,Urine Negative Normal Negative [facility] Comment on above: Performed By: #### U A, OBUDS #### [facility] [address] [place] [address] [place] Opiate Screen,Urine Negative Normal Negative [facility] Comment on above: Performed By: #### U A, OBUDS #### [facility] [address] [place] [address] [place] Phencyclidine Screen, Urine Negative Normal Negative [facility] Comment on above: Result Comment: Thes e are unconfirmed results and should not be used for legal purposes. Drug Cut-Off Concentration: AMPH 1000 ng/mL RONEL 200 ng/mL JUANITO 200 ng/mL COCM 300 ng/mL OP 300 ng/mL PCP 25 ng/mL PERFORMED BY: [place] [address] PATHOLOGIST PSYCHOLOGIST CHIEF NATALYA ESTEBAN M.D. Performed By: #### U A, OBUDS #### [facility] [address] [place] [address] Phencyclidine Screen Ql (U)O rdered By: VESNA BOURGEOIS on 11-10-2021 Phencyclidine Ql (U) Negative Negative [facility] Comment on above: These are unconfirme d results and should not be used for legal purposes. Drug Cut-Off Concentration: AMPH 1000 ng/mL RONEL 200 ng/mL JUANITO 200 ng/mL COCM 300 ng/mL OP 300 ng/mL PCP 25 ng/mL Protein Auto test strip (U) [Mass/Vol]Ordered By: VESNA BOURGEOIS on 11-10-2021 Protein (U) [Mass/Vol] Negative Negative [facility] Specific gravity Auto test s trip (U) [Rel density]Ordered By: VESNA BOURGEOIS on 11-10-2021 Specific gravity (U) [Rel density] 1.004 1.001-1.030 [facility] Urinalysison 11-10-2021 Appearance (U) Clear Normal Clear [facility] Comment on above: Order Comment: Name Collection Type:: Clean-Voided Midstream Performed By: #### U A, OBUDS #### [facility] [address] [place] [address] [place] Bilirubin,Urine Negative Normal Negative [facility] Comment on above: Order Comment: Name Collection Type:: Clean-Voided Midstream Performed By: #### U A, OBUDS #### [facility] [address] [place] [address] [place] Color (U) Yellow Normal Yellow [facility] Comment on above: Order Comment: Name Collection Type:: Clean-Voided Midstream Performed By: #### U A, OBUDS #### [facility] [address] [place] [address] [place] Glucose Ql (U) Normal Normal Normal [facility] Comment on above: Order Comment: Name Collection Type:: Clean-Voided Midstream Performed By: #### U A, OBUDS #### [facility] [address] [place] [address] Ketones Ql (U) Negative Normal Negative [facility] Comment on above: Order Comment: Name Collection Type:: Clean-Voided Midstream Performed By: #### U A, OBUDS #### [place] [address] [place] Leukocyte esterase Test strip Ql (U) Negative Normal Negative [facility] Comment on above: Order Comment: Name Collection Type:: Clean-Voided Midstream Performed By: #### U A, OBUDS #### [place] [address] [place] Nitrite,Urine Negative Normal Negative [facility] Comment on above: Order Comment: Name Collection Type:: Clean-Voided Midstream Performed By: #### U A, OBUDS #### [place] [address] [place] Occult Blood,Urine Negative Normal Negative [facility] Comment on above: Order Comment: Name Collection Type:: Clean-Voided Midstream Result Comment: PERF ORMED BY: [place] [address] PATHOLOGIST PSYCHOLOGIST CHIEF NATALYA ESTEBAN M.D. Performed By: #### U A, OBUDS #### [facility] [address] [place] [address] [place] pH (U) 7.0 [pH] Normal 5.0-9.0 [facility] Comment on above: Order Comment: Name Collection Type:: Clean-Voided Midstream Performed By: #### U A, OBUDS #### [facility] [address] [place] [address] [place] Protein,Urine Negative Normal Negative [facility] Comment on above: Order Comment: Name Collection Type:: Clean-Voided Midstream Performed By: #### U A, OBUDS #### [facility] [address] Specificy Alb[place],Urine 1.004 Normal 1.001-1.030 [facility] Comment on above: Order Comment: Name Collection Type:: Clean-Voided Midstream Performed By: #### U A, OBUDS #### [facility] [address] [place] [address] [place] Urobilinogen,Urine Normal Normal Normal [facility] Comment on above: Order Comment: Name Collection Type:: Clean-Voided Midstream Performed By: #### U A, OBUDS #### [facility] [address] Urine clarity by refractomet ry automatedOrdered By: VESNA BOURGEOIS on 11-10-2021 Clarity Refractometry automated (U) Clear Clear [facility] Urine cocaine detectionOrder ed By: VESNA BOURGEOIS on 11-10-2021 Cocaine Ql (U) Negative Negative [facility] Urine glucose measurement by automated test strip (mass/volume)Ordered By: VESNA BOURGEOIS on 11-10-2021 Glucose Auto test strip (U) [Mass/Vol] Normal mg/dL Normal [facility] Urine hemoglobin detection b y automated test stripOrdered By: VESNA BOURGEOIS on 11-10-2021 Hemoglobin Auto test strip Ql (U) Negative Negative [facility] Urine leukocyte esterase det ection by automated test stripOrdered By: VESNA BOURGEOIS on 11-10-2021 Leukocyte esterase Auto test strip Ql (U) Negative Negative [facility] Urobilinogen Auto test strip (U) [Mass/Vol]Ordered By: VESNA BOURGEOIS on 11-10-2021 Urobilinogen (U) [Mass/Vol] Normal mg/dL Normal [facility] pH Auto test strip (U)Ordere d By: VESNA BOURGEOIS on 11-10-2021 pH (U) 7.0 [pH] 5.0-9.0 [facility] CBC AUTO DIFFon 12-28-2020 BASO # 0.0 103/ul Normal 0.0-0.1 [facility] [place] [facility] Comment on above: Performed By: #### C BC #### [facility] [address] [place] [address] Dr. Annie Wright Basophils/100 WBC (Bld) 0.4 % Normal 0.2-2.0 [facility] Comment on above: Performed By: #### C BC #### [facility] [address] [place] [address] Dr. Annie Wright EO # 0.2 103/ul Normal 0.0-0.7 [facility] [place] [facility] Comment on above: Performed By: #### C BC #### [facility] [address] [place] [address] Dr. Annie Wright Eosinophils/100 WBC (Bld) 2.3 % Normal 0.9-7.0 [facility] [place] [facility] Comment on above: Performed By: #### C BC #### [facility] [address] [place] [address] Dr. Annie Wright Erythrocyte distribution width (RBC) [Ratio] 12.4 % Normal 11.0-15.0 [facility] [place] [facility] Comment on above: Performed By: #### C BC #### [facility] [address] [place] [address] Dr. Annie Wright Hematocrit (Bld) [Volume fraction] 39.4 % Normal 36.0-48.0 [facility] [place] [facility] Comment on above: Performed By: #### C BC #### [facility] [address] [place] [address] Dr. Annie Wright Hemoglobin (Bld) [Mass/Vol] 13.3 g/dL Normal 12.0-16.0 [facility] [place] [facility] Comment on above: Performed By: #### C BC #### [facility] [address] [place] [address] Dr. Annie Wright IG # 0.03 10e3/ul Normal 0.00-0.03 [facility] [place] [facility] Comment on above: Performed By: #### C BC #### [facility] [address] [place] [address] Dr. Annie Wright IG % 0.4 % Normal 0.0-0.5 [facility] [place] [facility] Comment on above: Performed By: #### C BC #### [facility] [address] [place] [address] Dr. Annie Wright LYMPH # 3.1 103/ul Normal 1.2-3.8 [facility] [place] [facility] Comment on above: Performed By: #### C BC #### [facility] [address] [place] [address] Dr. Annie Wright Lymphocytes/100 WBC (Bld) 38.3 % Normal 20.5-60.0 [facility] [place] [facility] Comment on above: Performed By: #### C BC #### [facility] [address] [place] [address] Dr. Annie Wright MANUAL DIFF REQ NO Normal [facility] Comment on above: Performed By: #### C BC #### [facility] [address] [place] [address] Dr. Annie Wright MCH (RBC) [Entitic mass] 29.3 pg Normal 26.7-34.0 [facility] [place] [facility] Comment on above: Performed By: #### C BC #### [facility] [address] [place] [address] Dr. Annie Wright MCHC (RBC) [Mass/Vol] 33.8 g/dL Normal 29.9-35.2 [facility] [place] [facility] Comment on above: Performed By: #### C BC #### [facility] [address] [place] [address] Dr. Annie Wright MCV (RBC) [Entitic vol] 86.8 fL Normal 81.0-99.0 [facility] Comment on above: Performed By: #### C BC #### [facility] [address] [place] [address] Dr. Annie Wright MONO # 0.7 103/ul Normal 0.3-0.8 [facility] [place] [facility] Comment on above: Performed By: #### C BC #### [facility] [address] [place] [address] Dr. Annie Wright Monocytes/100 WBC (Bld) 8.5 % Normal 1.7-12.0 [facility] Comment on above: Performed By: #### C BC #### [facility] [address] [place] [address] Dr. Annie Wright NEUT # 4.0 103/ul Normal 1.4-6.5 [facility] [place] [facility] Comment on above: Performed By: #### C BC #### [facility] [address] [place] [address] Dr. Annie Wright Neutrophils/100 WBC (Bld) 50.1 % Normal 43.0-75.0 [facility] [place] [facility] Comment on above: Performed By: #### C BC #### [facility] [address] [place] [address] Dr. Annie Wright Platelet mean volume (Bld) [Entitic vol] 10.9 fL Normal 9.5-13.5 [facility] [place] [facility] Comment on above: Performed By: #### C BC #### [facility] [address] [place] [address] Dr. Annie Wright PLT 228 103/ul Normal 150-450 [facility] [place] [facility] Comment on above: Performed By: #### C BC #### [facility] [address] [place] [address] Dr. Annie Wright RBC 4.54 106/ul Normal 4.20-5.40 [facility] [place] [facility] Comment on above: Performed By: #### C BC #### [facility] [address] [place] [address] Dr. Annie Wright WBC 8.0 103/ul Normal 4.0-11.0 [facility] [place] [facility] Comment on above: Performed By: #### C BC #### [facility] [address] [place] [address] Dr. Annie Wright FREE THYROXINE INDEX T7on FTI 2.02 Normal [facility] [place] [facility] Comment on above: Performed By: #### T SH, LIPID, CMP, T7 #### [facility] [address] [place] [address] Dr. Annie Wright T3U 32.0 % Normal 23.5-40.5 [facility] [place] [facility] Comment on above: Performed By: #### T SH, LIPID, CMP, T7 #### [facility] [address] [address] [address] Annie Wright T4 [Mass/Vol] 6.30 ug/dL Normal 5.53-11.00 [facility] Comment on above: Performed By: #### T SH, LIPID, CMP, T7 #### [facility] [address] [address] [address] Annie Wright GLYCOHEMOGLOBIN A1Con 2020 ADA RECOMMENDATION ADA THERAPEUTIC TARGET 6.0 - 7.0 ACTION SUGGESTED > 7.0 Normal [facility] [place] [facility] Comment on above: Performed By: #### A 1C #### [facility] [address] [address] [address] Annie Wright Glucose [Mass/Vol] 100 mg/dL Normal [facility] Comment on above: Performed By: #### A 1C #### [facility] [address] [address] [address] Annie Wright HbA1c (Bld) [Mass fraction] 5.1 % Normal <=6.0 [facility] [place] [facility] Comment on above: Performed By: #### A 1C #### [facility] [address] [address] [address] Annie Wright LIPID PROFILEon 12-28-2020 CHOL-HDL RATIO NORM SEE BELOW Normal [facility] Comment on above: Result Comment: 3.3 - 4.4 LOW RISK 4.4 - 7.1 AVERAGE RISK 7.1 - 11.0 MODERATE RISK >11.0 HIGH RISK Performed By: #### T SH, LIPID, CMP, T7 #### [facility] [address] [address] [address] Annie Wright Cholesterol [Mass/Vol] 156 mg/dL Normal <=200 [facility] Comment on above: Performed By: #### T SH, LIPID, CMP, T7 #### [facility] [address] [address] [address] Annie Wright Cholesterol in HDL [Mass/Vol] 62 mg/dL Normal [facility] [place] [facility] Comment on above: Performed By: #### T SH, LIPID, CMP, T7 #### [facility] [address] [address] [address] Annie Wright Cholesterol in LDL [Mass/Vol] 82.8 mg/dL Normal [facility] [place] [facility] Comment on above: Performed By: #### T SH, LIPID, CMP, T7 #### [facility] [address] [address] [address] Annie Wright Cholesterol.total/Choles terol in HDL [Mass ratio] 2.5 {ratio} Normal [facility] [place] [facility] Comment on above: Performed By: #### T SH, LIPID, CMP, T7 #### [facility] [address] [address] [address] Annie Wright HDL NORMAL > or = 60 mg/dl - LOW CARDIOVASCULAR RISK <40 mg/dl - HIGH CARDIOVASCULAR RISK Normal [facility] [place] [facility] Comment on above: Performed By: #### T SH, LIPID, CMP, T7 #### [facility] [address] [address] [address] Annie Wright LDL CALC NORMAL SEE BELOW Normal [facility] Comment on above: Result Comment: <100 mg/dl OPTIMAL 100 - 129 mg/dl NEAR OR ABOVE OPTIMAL 130 - 159 mg/dl BORDERLINE HIGH 160 - 189 mg/dl HIGH >190 mg/dl VERY HIGH Performed By: #### T SH, LIPID, CMP, T7 #### [facility] [address] [address] [address] Annie Wright Triglyceride [Mass/Vol] 56 mg/dL Normal <=150 [facility] Comment on above: Performed By: #### T SH, LIPID, CMP, T7 #### [facility] [address] [address] [address] Annie Wright VLDL CALC 11.2 mg/dL Normal [facility] [place] [facility] Comment on above: Performed By: #### T SH, LIPID, CMP, T7 #### [facility] [address] [address] [address] Annie Wright PROF 14(COMP METB)on 021 Albumin [Mass/Vol] 4.2 g/dL Normal 3.5-5.0 [facility] Comment on above: Performed By: #### T SH, LIPID, CMP, T7 #### [facility] [address] [address] [address] Annie Wright Albumin/Globulin [Mass ratio] 1.1 {ratio} Normal [facility] [place] [facility] Comment on above: Performed By: #### T SH, LIPID, CMP, T7 #### [facility] [address] [address] [address] Annie Wright ALP [Catalytic activity/Vol] 53 U/L Normal 38-126 [facility] [place] [facility] Comment on above: Performed By: #### T SH, LIPID, CMP, T7 #### [facility] [address] [address] [address] Annie Wright ALT [Catalytic activity/Vol] 36 U/L Normal 9-52 [facility] [place] [facility] Comment on above: Performed By: #### T SH, LIPID, CMP, T7 #### [facility] [address] [address] [address] Annie Wright Anion gap [Moles/Vol] 11.3 mmol/L Normal [facility] Comment on above: Performed By: #### T SH, LIPID, CMP, T7 #### [facility] [address] [address] [address] Annie Wright AST [Catalytic activity/Vol] 25 U/L Normal 14-36 [facility] [place] [facility] Comment on above: Performed By: #### T SH, LIPID, CMP, T7 #### [facility] [address] [address] [address] Annie Wright Bilirubin [Mass/Vol] 0.4 mg/dL Normal 0.2-1.3 [facility] [place] [facility] Comment on above: Performed By: #### T SH, LIPID, CMP, T7 #### [facility] [address] [address] [address] Annie Wright Calcium [Mass/Vol] 9.2 mg/dL Normal 8.4-10.2 [facility] Comment on above: Performed By: #### T SH, LIPID, CMP, T7 #### [facility] [address] [address] [address] Annie Wright Chloride [Moles/Vol] 105 mmol/L Normal 98-107 [facility] [place] [facility] Comment on above: Performed By: #### T SH, LIPID, CMP, T7 #### [facility] [address] [address] [address] Annie Wright CO2 [Moles/Vol] 28.8 mmol/L Normal 22.0-30.0 [facility] Comment on above: Performed By: #### T SH, LIPID, CMP, T7 #### [facility] [address] [place] [address] Dr. Annie Wright Creatinine [Mass/Vol] 0.63 mg/dL Normal 0.52-1.04 [facility] [place] [facility] Comment on above: Performed By: #### T SH, LIPID, CMP, T7 #### [facility] [address] [place] [address] Dr. Annie Wright EGFR-AF SALVADOREAN >60 Normal >=60 [facility] Comment on above: Performed By: #### T SH, LIPID, CMP, T7 #### [facility] [address] [place] [address] Dr. Annie Wright EGFR-NON AF SALVADOREAN >60 Normal >=60 [facility] [place] [facility] Comment on above: Performed By: #### T SH, LIPID, CMP, T7 #### [facility] [address] [place] [address] Dr. Annie Wright Globulin (S) [Mass/Vol] 3.7 g/dL Normal [facility] Comment on above: Performed By: #### T SH, LIPID, CMP, T7 #### [facility] [address] [address] [address] Annie Wright Glucose [Mass/Vol] 91 mg/dL Normal 74-106 [facility] Comment on above: Performed By: #### T SH, LIPID, CMP, T7 #### [facility] [address] [place] [address] Dr. Annie Wright Potassium [Moles/Vol] 4.1 mmol/L Normal 3.4-5.0 [facility] [place] [facility] Comment on above: Performed By: #### T SH, LIPID, CMP, T7 #### [facility] [address] [place] [address] Dr. Annie Wright Protein [Mass/Vol] 7.9 g/dL Normal 6.1-8.2 [facility] Comment on above: Performed By: #### T SH, LIPID, CMP, T7 #### [facility] [address] [place] [address] Dr. Annie Wright Sodium [Moles/Vol] 141 mmol/L Normal 137-145 [facility] Comment on above: Performed By: #### T SH, LIPID, CMP, T7 #### [facility] [address] [place] [address] Dr. Annie Wright Urea nitrogen [Mass/Vol] 11.0 mg/dL Normal 7.0-17.0 [facility] [place] [facility] Comment on above: Performed By: #### T SH, LIPID, CMP, T7 #### [facility] [address] [place] [address] Dr. Annie Wright Urea nitrogen/Creatinine [Mass ratio] 17.5 mg/mg Normal [facility] [place] [facility] Comment on above: Performed By: #### T SH, LIPID, CMP, T7 #### [facility] [address] [place] [address] Dr. Annie Wright TSHon 12-28-2020 TSH 1.702 uIU/mL Normal 0.470-4.680 [facility] Comment on above: Performed By: #### T SH, LIPID, CMP, T7 #### [facility] [address] [place] [address] Dr. Annie Wright TSH RANGE SEE BELOW Normal [facility] Comment on above: Result Comment: <0.3 4 UIU/ml HYPERTHYROID 0.34-5.60 UIU/ml EUTHYROID >5.60 UIU/ml HYPOTHYROID Performed By: #### T SH, LIPID, CMP, T7 #### [facility] [address] [place] [address] Dr. Annie Wright [employer] Cytology Reporton 2020 [employer] Cytology Report Clinical Information Specimen Collection Date: 11/15/20 LMP: 11/01/20 Type of specimen: Cervical/endocervica l Hormonal Rx: Yes HPV testing ordered only if ASCUS Pap. Purpose of smear: Regular periodic exam/screening Pap. GY Specimen A Liquid Prep Pap Smear, Reflex if ASCUS Adequacy Alpha Response SAT ANATOMICPATHOLOGY Endocervical Alpha Response EC/TZONE + ANATOMICPATHOLOGY Statement of Adequacy Satisfactory for Evaluation. Transformation Zone Present. Diagnosis Alpha Response GY NILM ANATOMICPATHOLOGY Diagnosis NEGATIVE FOR INTRAEPITHELIAL LESION OR MALIGNANCY. Completed by: RIZWAN Chacon (ASCP) (Electronically signed by) 11/22/20 11:29 EDT GY Disclaimer Interp The PAP smear is a screening test with an inherent, but low, probability of error. A negative report indicates a low probability of significant cervical pathology. Your patient should be reminded to consult you immediately if she experiences new symptoms and to continue having regular PAP smears in the future. GY Disclaimer Alpha [employer] Disclaimer ANATOMICPATHOLOGY Normal [facility] Comment on above: Performed By: #### G YNCYTREP #### [facility] (DEFAULT) [address] [place] [address] Gynecology Office/Clinic Not cam 11-15-2020 Gynecology Office/Clinic Note Chief Complaint Annual History of Present Illness Pelvic Pain: No Painful Sex: No Abnormal Vaginal Discharge: No Abnormal Vaginal Bleeding: No Vaginal Dryness: No Vaginal Itch: No Vaginal Burning: No Vaginal Odor: No Hot Flashes: No Breast Lump: No Breast Pain: No Contraception Type: control pill (Micronor) Menstrual Periods: Yes Last Menstrual Period: 11/01/20 Periods Are: Heavy Days Between Periods: 28-30 days Menstrual Flow Days: 3 Pain With Period: Yes Flow Start Pain: Yes Pain Starts Days Before Period: back pain 1 day prior Periods Regular: Yes Pass Clots: No Miss School/Work Due to Periods: No Sexually Active: Yes Forced to Have Sex: No 20 y/o G0 Annual. First pap smear. Started Micronor in August and had menses in September and October. Menses are improved with personal care aide bleeding since starting Micronor. Back pain starts day before and cramps start day of menses. She got in August. They are considering attempting in the next couple of months. Menses: At age 10. Due to significant menorrhagia. Patient was placed on an OCP at the age of 13. Patient has been on oral contraceptive pill since that time. She has attempted at least 3 different pills including Junel 04/18. Patient is currently on Micronor. Patient also notices low back pain each time she is bleeding. Patient complains of sharp LLQ pain off and on x 2 years. The pain is followed by urgent diarrhea. Patient experiences this several times weekly. She does also admit to occasional constipation. She was evaluated by her primary care physician who diagnosed her with IBS?D and placed her on Xifaxan. Patient notices minimal improvement. She was evaluated by GI and had colonoscopy. No abnormalities found. She states that her primary care physician advised that she follow-up with our office due to her concern of endometriosis. Family history: Patient with a maternal aunt who has endometriosis. Not in her mother. Saw Dr. Gomez ([facility] GI on 08/02/20. Had colonoscopy 08/28/20: Normal per patient. She has tried Xifaxan and dicyclomine. Review of Systems Head Migraines: No Headaches: No Eyes Corrective lenses: Yes Blurred vision: No Ears, Nose, Throat Congestion: No Vertigo: No Sore throat: No Nasal drainage: No Cardio Respiratory Peripheral edema: No Heart Irregularity: No Chest Pain: No Shortness of Breath: No Gastrointestinal Bloating: Yes Bloating comment: IBS Reflux/heartburn: No Abdominal Pain: Yes Abdominal Pain comment: IBS Change in bowel habits: No Urinary Urinary Incontinence: No Urinary frequency: No Nocturia: No Urgency: No Painful urination: No Musculoskeletal Back pain: Yes Back pain comment: on menses Muscle aches: No Joint pain: No Integumentary Lesions: No Moles: No Acne: No Hair changes: No Psycho Social Sleep Problems: Yes Sleep Problems comment: falling asleep Anxiety: No Suicidal Ideation: No Homicidal Ideation: No Depression: No Hematologic/Lymphati c Thromboembolism: No Bruising: No Bleeding tendencies: No Endocrine Abnormal weight gain: No Abnormal weight loss: No Fatigue: No Physical Exam Vitals & Measurements BP: 110/60 HT: 167 cm WT: 64.6 kg WT: 64.6 kg (Dosing) BMI: 23.16 General: Alert and oriented, well nourished, no acute distress. Eye: PERRL, EOMI, normal conjunctiva. HEENT: Normocephalic, clear tympanic membranes, normal hearing, moist oral mucosa, no scleral icterus, no sinus tenderness. Neck: Supple, non-tender, no lymphadenopathy. Lungs: Clear to auscultation and percussion, non-labored respiration. Heart: Normal rate, regular rhythm, no murmur, gallop or edema. Abdomen: Soft, non-tender, non-distended, normal bowel sounds, no masses. Musculoskeletal: Normal range of motion and strength, no tenderness or swelling. Skin: Skin is warm, dry and pink, no rashes or lesions. Neurologic: Awake, alert, and oriented X3. Psychiatric: Cooperative, appropriate mood and affect. Breast exam: No fibrocystic changes noted bilaterally, no masses, tenderness, skin changes or nipple discharge. External Genitalia: Normal urethral meatus, no lesions, vulvar skin intact. Genitourinary: Normal vaginal mucosa, no lesions or abnormal discharge, cervix intact without lesions or bleeding. Pap smear done. No cystocele or rectocele. Bimanual exam: Normal sized, non-tender, mobile uterus. No adnexal tenderness or masses. Assessment/Plan 1. Encounter for gynecological examination . Recommend monthly self breast exam and call with any changes or concerns. 2. Recommend healthy diet. 3. Recommend exercise 30 min 5 days weekly. 4. Recommend vitamin D 1000-2000IU daily. 5. Will start daily PNV. 6. You will be notified of pap smear results with in 1-2 weeks. Please call the office if you have not been notified with in 2 weeks. Follow up with Annual and as needed Medical Decision Making Chronic conditions (more content not included)... Normal [facility] CELIAC ANTIBODIES PROFILEon 09-20-2020 Deamidated Gliadin Abs, IgA 11 units Normal 0-19 [facility] [place] [facility] Comment on above: Result Comment: Nega tive 0 - 19 Weak Positive 20 - 30 Moderate to Strong Positive >30 Performed By: #### C ELIACP #### [facility] [address] [place], [place] [address] Fredrick Paez Deamidated Gliadin Abs, IgG 2 units Normal 0-19 [facility] [place] [facility] Comment on above: Result Comment: Nega tive 0 - 19 Weak Positive 20 - 30 Moderate to Strong Positive >30 Performed By: #### C ELIACP #### [facility] [address], [place] [address] Fredrick Paez Endomysial Antibody IgA Negative Normal Negative [facility] Comment on above: Performed By: #### C ELIACP #### [facility] [address] [place], [place] [id number] Fredrick Paez Immunoglobulin A, Qn, Serum 223 mg/dL Normal 87-352 [facility] [place] [facility] Comment on above: Performed By: #### C ELIACP #### [facility] [address] [place], [place] [id number] Fredrick Paez t-Transglutaminase (tTG) IgA <2 Normal 0-3 [facility] [place] [facility] Comment on above: Result Comment: Nega tive 0 - 3 Weak Positive 4 - 10 Positive >10 . Tissue Transglutaminase (tTG) has been identified as the endomysial antigen. Studies have demonstr- ated that endomysial IgA antibodies have over 99% specificity for gluten sensitive enteropathy. Performed By: #### C ELIACP #### [facility] [address] [place] [address] Fredrick Paez t-Transglutaminase (tTG) IgG 5 U/mL Normal 0-5 [facility] [place] [facility] Comment on above: Result Comment: Nega tive 0 - 5 Weak Positive 6 - 9 Positive >9 Performed By: #### C ELIACP #### [facility] [address] [place] [address] Fredrick Jeannine CBC AUTO DIFFon 09-19-2020 BASO # 0.0 103/ul Normal 0.0-0.1 [facility] [place] [facility] Comment on above: Performed By: #### C BC #### [facility] [address] [place], [place] [id number] Fredrick Paez Basophils/100 WBC (Bld) 0.5 % Normal 0.2-2.0 [facility] Comment on above: Performed By: #### C BC #### [facility] [address] [place], [place] [id number] Fredrickmichele Paez EO # 0.2 103/ul Normal 0.0-0.7 [facility] [place] [facility] Comment on above: Performed By: #### C BC #### [facility] [address] [place], [place] [id number] Fredrick Jeannine Eosinophils/100 WBC (Bld) 1.9 % Normal 0.9-7.0 [facility] [place] [facility] Comment on above: Performed By: #### C BC #### [facility] [address] [place] [address] Fredrickmichele Paez Erythrocyte distribution width (RBC) [Ratio] 12.5 % Normal 11.0-15.0 [facility] [place] [facility] Comment on above: Performed By: #### C BC #### [facility] [address] [place] [address] Fredrick Jeannine Hematocrit (Bld) [Volume fraction] 40.1 % Normal 36.0-48.0 [facility] [place] [facility] Comment on above: Performed By: #### C BC #### [facility] [address] [place] [address] Fredrickmichele Paez Hemoglobin (Bld) [Mass/Vol] 13.1 g/dL Normal 12.0-16.0 [facility] [place] [facility] Comment on above: Performed By: #### C BC #### [facility] [address] [place] [address] Fredrick Jeannine IG # 0.03 10e3/ul Normal 0.00-0.03 [facility] [place] [facility] Comment on above: Performed By: #### C BC #### [facility] [address] [place] [address] Fredrick Jeannine IG % 0.4 % Normal 0.0-0.5 [facility] [place] [facility] Comment on above: Performed By: #### C BC #### [facility] [address] [place] [address] Fredrick Jeannine LYMPH # 2.5 103/ul Normal 1.2-3.8 [facility] Comment on above: Performed By: #### C BC #### [facility] [address] [place] [address] Fredrick Jeannine Lymphocytes/100 WBC (Bld) 32.0 % Normal 20.5-60.0 [facility] [place] [facility] Comment on above: Performed By: #### C BC #### [facility] [address] [place] [address] Fredrick Jeannine MANUAL DIFF REQ NO Normal [facility] Comment on above: Performed By: #### C BC #### [facility] [address] [place], [place] [address] Fredrickmichele Paez MCH (RBC) [Entitic mass] 28.5 pg Normal 26.7-34.0 [facility] [place] [facility] Comment on above: Performed By: #### C BC #### [facility] [address] [place] [id number] Fredrickmichele Paez MCHC (RBC) [Mass/Vol] 32.7 g/dL Normal 29.9-35.2 [facility] [place] [facility] Comment on above: Performed By: #### C BC #### [facility] [address] [id number] Fredrickmichele Paez MCV (RBC) [Entitic vol] 87.4 fL Normal 81.0-99.0 [facility] Comment on above: Performed By: #### C BC #### [facility] [address] [place], [place] [id number] Fredrick Jonesen MONO # 0.7 103/ul Normal 0.3-0.8 [facility] [place] [facility] Comment on above: Performed By: #### C BC #### [facility] [address] [place], [place] [phone] Fredrick Jonesen Monocytes/100 WBC (Bld) 9.1 % Normal 1.7-12.0 [facility] Comment on above: Performed By: #### C BC #### [facility] [address] [place], [place] [phone] Fredrickmichele Jonesen NEUT # 4.4 103/ul Normal 1.4-6.5 [facility] [place] [facility] Comment on above: Performed By: #### C BC #### [facility] [address] [place], [place] [phone] Fredrick Jeannine Neutrophils/100 WBC (Bld) 56.1 % Normal 43.0-75.0 [facility] [place] [facility] Comment on above: Performed By: #### C BC #### [facility] [address] [place], [place] [phone] Fredrick Jeannine Platelet mean volume (Bld) [Entitic vol] 10.8 fL Normal 9.5-13.5 [facility] [place] [facility] Comment on above: Performed By: #### C BC #### [facility] [address], [place] [address] Fredrick Jeannine PLT 266 103/ul Normal 150-450 [facility] [place] [facility] Comment on above: Performed By: #### C BC #### [facility] [address] [place], [place] [address] Fredrick Jeannine RBC 4.59 106/ul Normal 4.20-5.40 [facility] [place] [facility] Comment on above: Performed By: #### C BC #### [facility] [address] [place], [place] [address] Fredrick Jeannine WBC 7.9 103/ul Normal 4.0-11.0 [facility] [place] [facility] Comment on above: Performed By: #### C BC #### [facility] [address] [place] [phone] Fredrickmichele Jonesen PROF 14(COMP METB)on 021 Albumin [Mass/Vol] 3.9 g/dL Normal 3.5-5.0 [facility] Comment on above: Performed By: #### C MP #### [facility] [address] [place] [address] Fredrick Jeannine Albumin/Globulin [Mass ratio] 1.0 {ratio} Normal [facility] [place] [facility] Comment on above: Performed By: #### C MP #### [facility] [address] [place] [address] Fredrick Jeannine ALP [Catalytic activity/Vol] 55 U/L Normal 38-126 [facility] Comment on above: Performed By: #### C MP #### [facility] [address] [place] [address] Fredrick Jeannine ALT [Catalytic activity/Vol] 22 U/L Normal 9-52 [facility] [place] [facility] Comment on above: Performed By: #### C MP #### [facility] [address] [place], [place] [phone] Fredrick Jeannine Anion gap [Moles/Vol] 13.2 mmol/L Normal [facility] Comment on above: Performed By: #### C MP #### [facility] [address] [address] Fredrick Jeannine AST [Catalytic activity/Vol] 17 U/L Normal 14-36 [facility] [place] [facility] Comment on above: Performed By: #### C MP #### [facility] [address] [address] Fredrick Jeannine Bilirubin [Mass/Vol] 0.3 mg/dL Normal 0.2-1.3 [facility] [place] [facility] Comment on above: Performed By: #### C MP #### [facility] [address] [address] Fredrick Jeannine Calcium [Mass/Vol] 9.0 mg/dL Normal 8.4-10.2 [facility] Comment on above: Performed By: #### C MP #### [facility] [address] [place] [address] Fredrick Jeannine Chloride [Moles/Vol] 105 mmol/L Normal 98-107 [facility] [place] [facility] Comment on above: Performed By: #### C MP #### [facility] [address] [place] [address] Fredrick Jeannine CO2 [Moles/Vol] 27.7 mmol/L Normal 22.0-30.0 [facility] Comment on above: Performed By: #### C MP #### [facility] [address] [place] [address] Fredrick Jeannine Creatinine [Mass/Vol] 0.65 mg/dL Normal 0.52-1.04 [facility] [place] [facility] Comment on above: Performed By: #### C MP #### [facility] [address] [place] [address] Fredrick Jeannine EGFR-AF SALVADOREAN >60 Normal >=60 [facility] Comment on above: Performed By: #### C MP #### [facility] [address] [place], [place] [phone] Fredrick Jeannine EGFR-NON AF SALVADOREAN >60 Normal >=60 [facility] [place] [facility] Comment on above: Performed By: #### C MP #### [facility] [address] [place] [address] Fredrick Jeannine Globulin (S) [Mass/Vol] 4.1 g/dL Normal [facility] Comment on above: Performed By: #### C MP #### [facility] [address] [place], [place] [address] Fredrick Jeannine Glucose [Mass/Vol] 98 mg/dL Normal 74-106 [facility] Comment on above: Performed By: #### C MP #### [facility] [address] [place], [place] [address] Fredrick Jeannine Potassium [Moles/Vol] 3.9 mmol/L Normal 3.4-5.0 [facility] [place] [facility] Comment on above: Performed By: #### C MP #### [facility] [address] [place], [place] [address] Fredrick Jeannine Protein [Mass/Vol] 8.0 g/dL Normal 6.1-8.2 [facility] Comment on above: Performed By: #### C MP #### [facility] [address] [id number] Fredrick Jeannine Sodium [Moles/Vol] 142 mmol/L Normal 137-145 [facility] Comment on above: Performed By: #### C MP #### [facility] [address] [place], [place] [address] Fredrick Jeannine Urea nitrogen [Mass/Vol] 10.0 mg/dL Normal 7.0-17.0 [facility] [place] [facility] Comment on above: Performed By: #### C MP #### [facility] [address], [place] [address] Fredrick Jeannine Urea nitrogen/Creatinine [Mass ratio] 15.4 mg/mg Normal [facility] [place] [facility] Comment on above: Performed By: #### C MP #### [facility] [address], [place] [address] Fredrick Jeannine Gynecology Office/Clinic Not cam 09-03-2020 Gynecology Office/Clinic Note Chief Complaint F/u pelvic pain per SW History of Present Illness Contraception Type: control pill Last Menstrual Period: 06/02/20 Frequency of Menstruation: irregular Abnormal vaginal discharge: No Clotting with periods: No Heavy periods: No Irregular periods: Yes Painful periods: No Pelvic pain: No Spotting: Yes Vaginal itch/burning/odor: No Additional HPI details: 20 y/o G0 F/u pelvic pain per Monique. Was to symptom track. Lower back pain day before and day one of menses. She has been on OCPs x 7 years. Menses were moderate to heavy prior to being on OCPs. Denies any significant cramping or pain. She has abdominal bloating. She takes Pepto Bismol regularly. Will be attempting in the next year. Symptom tracker showed abdominal bloating many days of the month. She just got this past weekend. Leaving for her honeymoon in one week. Menses: At age 10. Due to significant menorrhagia. Patient was placed on an OCP at the age of 13. Patient has been on oral contraceptive pill since that time. She has attempted at least [address] Tuyet Estrella due to breakthrough bleeding. Patient is currently on 04/18. She continues to experience BTB during active pills and have very light flow during the placebo week. Patient also notices low back pain each time she is bleeding. Patient complains of sharp LLQ pain off and on x 2 years. The pain is followed by urgent diarrhea. Patient experiences this several times weekly. She does also admit to occasional constipation. Patient was recently seen by her primary care physician who diagnosed her with IBS?D and placed her on Xifaxan. Patient notices minimal improvement. She was evaluated by GI and had colonoscopy. No abnormalities found. She states that her primary care physician advised that she follow-up with our office due to her concern of endometriosis. Family history: Patient with a maternal aunt who has endometriosis. Not in her mother. Saw Dr. Gomez ([facility] GI on 08/02/20. Had colonoscopy 08/28/20: Normal per patient. She has tried Xifaxan and dicyclomine 06/14/2020 US Transvaginal EXAM(S) PREFORMED: Transvaginal ultrasound INDICATIONS: Left lower abdominal pain/back pain Irregular menses History of IBS and bowel issues Patient on control since age of 13 LMP: June 02, 2020 UTERUS: 7.6 x 3.6 x 3.1 cm ENDOMETRIAL THICKNESS: 2.4mm LEFT OVARY: 3.3 x 3.0 x 2.3 cm RIGHT OVARY: 3.8 x 4.6 x 3.6 cm IMPRESSION: Anteverted, mostly homogeneous uterus. The uterus appears normal and size shape and architecture. The endometrial lining is thin. No obvious uterine or endometrial masses could be visualized. Left ovary is normal in size and shape Good follicular reserve. There is a simple cyst seen within the right ovarian tissue measuring 3.5 x 2.8 x 3.6 cm. Several small daughter cyst are seen within this cyst. A small amount of free fluid is seen adjacent to the right ovary. Review of Systems Ears, Nose, Throat Congestion: No Vertigo: No Sore throat: No Nasal drainage: No Cardio Respiratory Peripheral edema: No Heart Irregularity: No Chest Pain: No Shortness of Breath: No Gastrointestinal Bloating: No Reflux/heartburn: No Abdominal Pain: No Change in bowel habits: Yes Urinary Urinary Incontinence: No Urinary frequency: No Nocturia: No Urgency: No Painful urination: No Musculoskeletal Backpain: Yes Physical Exam Vitals & Measurements T: 37.0 ?C (Oral) HR: 74 (Peripheral) RR: 16 BP: 112/73 HT: 166 cm WT: 63.5 kg BMI: 23.04 General: Alert and oriented, well nourished, no acute distress. Abdomen: Soft, non-tender, non-distended, normal bowel sounds, no masses. Neurologic: Awake, alert, and oriented X3. Psychiatric: Cooperative, appropriate mood and affect. Assessment/Plan 1. Bloating 2. Upset stomach Discussed possible endometriosis but her symptoms are not classic for this. Recommend trial of progesterone only control first. She is agreeable to this. Discussed progesterone only control pills. They need to be taken daily at the same time each day. If you miss a pill by 3 hours or more then you must use a back up method of control, such as condoms, for 48 hours. You may experience irregular menstrual cycles with this control. Possible side effects include nausea, breast tenderness, headaches, or dizziness. These usually clear up with in 2-3 months. Please call if you have any significant side effects. Continue following with GI and there recommendations. Discussed doing a trial of a gluten free diet. She is given information on this. Discussed food sensitivity testing at [facility] Follow up 3 months Medical Decision Making Chronic conditions NOT treated during this visit that affected my overall medical decision making: [none] Treatment plans discussed but not opted for at this time: [Diagnostic laparoscopy] Prescribed medication that (more content not included)... Normal [facility] Gynecology Office/Clinic Not cam 06-21-2020 Gynecology Office/Clinic Note Chief Complaint Follow up on Pelvic Ultrasound Results due to Irregular Menses History of Present Illness Contraception Type: control pill Last Menstrual Period: 06/02/20 Abnormal vaginal discharge: No Breast lumps/pain: No Hot flashes: No Night sweats: No Painful sex: No Pelvic pain: No Vaginal dryness: No Vaginal itch/burning/odor: No Additional HPI details: 20 y/o, G0, Follow up on Pelvic Ultrasound Results due to Irregular Menses Patient is here as an ultrasound follow-up done due to pelvic pain. The ultrasound that is done is essentially normal. Normal-sized uterus with thin endometrial stripe. Normal-appearing ovaries with a simple cyst noted on the right ovary. Nothing on the left ovary in the area of patient's pain. There appears to be normal movement of bilateral ovary. No acute signs of endometriosis. We reviewed the ultrasound in addition to patient's current symptoms. Patient does have gastrointestinal symptoms, specifically diarrhea that affects her on a daily basis. Patient has never been evaluated by GI. From Last OV Note on 06/13/20: Additional HPI details: 20 y/o, G0, Irregular periods, and Discuss Endometriosis. Patient here to discuss her symptoms of pelvic pain and irregular menses. Menses: At age 10. Due to significant dysmenorrhea and menorrhagia patient was placed on an OCP at the age of 13. Patient has been on oral contraceptive pill since that time. She has attempted at least [address] Tuyet Estrella due to breakthrough bleeding. Patient is currently on 04/18. She continues to experience BTB during active pills and have very light flow during the placebo week. Patient also notices low back pain each time she is bleeding. Patient complains of sharp LLQ pain off and on x 2 years. The pain is followed by urgent diarrhea. Patient experiences this several times weekly. She does also admit to occasional constipation. Patient was recently seen by her primary care physician who diagnosed her with IBS?D and placed her on Xifaxan. She has been on this medication for just 2 weeks. Patient notices minimal improvement. She states that her primary care physician advised that she follow-up with our office due to her concern of endometriosis. Family history: Patient with a maternal aunt who has endometriosis. Not in her mother. Review of Systems Cardio Respiratory Peripheral edema: No Heart Irregularity: No Chest Pain: No Shortness of Breath: No Gastrointestinal Bloating: No Reflux/heartburn: No Abdominal Pain: No Change in bowel habits: No Urinary Urinary Incontinence: No Urinary frequency: No Nocturia: No Urgency: No Painful urination: No Physical Exam Vitals & Measurements BP: 102/56 HT: 165 cm WT: 64.3 kg WT: 64.3 kg (Dosing) BMI: 23.62 Constitutional: Alert and oriented x 3. Neurologic: CN II-XII grossly intact. Psychiatric: Pleasant and cooperative. NAD. Additional Vitals BP Position/Location: Sitting, Left arm Assessment/Plan 1. Irregular menses Ordered: Referral to Gastroenterology 2. Abdominal pain Patient is aware of the essentially normal pelvic ultrasound. 2 months worth of symptom tracker's are given to the patient in order to for her to document the bleeding/pain. She will remain on 04/18. She will see gastrointestinal specialist to assure not the main source of her symptoms. Patient's mother request patient to see Dr. Paniagua [place]. Referral is placed. Follow-up with Dr. Tuyet Andrade in 2 months time to reevaluate patient's symptoms, follow-up on results of the GI referral, and further determine the need for diagnostic laparoscopy based on patient's symptoms. Patient verbalized understanding and is agreeable. 3. Diarrhea Orders: External Referral Medical Decision Making Chronic conditions NOT treated during this visit that affected my overall medical decision making: [] Treatment plans discussed but not opted for at this time: [] Prescribed medication that requires intensive monitoring for toxicity: [] I have reviewed the patient?s medication list for medication interactions/contrai ndications and/or for upcoming procedures: [yes or no] Time Spent with the Patient I have personally spent [] minutes on this date, directly related to today's patient visit, including pre and post visit work, for this date of service. Time listed does not include time spent on separately billable services. Problem List/Past Medical History Ongoing Abdominal pain Back pain Irregular menses Historical No qualifying data Procedure/Surgical History wisdom teeth extraction (09/07/2017) Medications 04/18 oral tablet, See Instructions, 3 refills multivitamin, Daily Xifaxan 550 mg oral tablet, 1650 mg= 3 tabs, Oral, Daily Allergies No Known Allergies Social History Alcohol Current, 1-2 times per month Nutrition/Health Caffeine intake amount: denies. Sexual Sexually active: Yes. Substance Abus (more content not included)... Normal [facility] US Transvaginalon 06-18-2020 US Transvaginal EXAM(S) PREFORMED: Transvaginal ultrasound INDICATIONS: Left lower abdominal pain/back pain Irregular menses History of IBS and bowel issues Patient on control since age of 13 LMP: June 02, 2020 UTERUS: 7.6 x 3.6 x 3.1 cm ENDOMETRIAL THICKNESS: 2.4mm LEFT OVARY: 3.3 x 3.0 x 2.3 cm RIGHT OVARY: 3.8 x 4.6 x 3.6 cm COMMENTS: IMPRESSION: Anteverted, mostly homogeneous uterus. The uterus appears normal and size shape and architecture. The endometrial lining is thin. No obvious uterine or endometrial masses could be visualized. Left ovary is normal in size and shape Good follicular reserve. There is a simple cyst seen within the right ovarian tissue measuring 3.5 x 2.8 x 3.6 cm. Several small daughter cyst are seen within this cyst. A small amount of free fluid is seen adjacent to the right ovary. Patient does not have any pain in the area of the right ovary during ultrasound. Final Signed by: Tuyet Estrella DO Signed (Electronic Signature): 06/18/2020 9:09 am Transcribed by: CONCHITA Transcribed DT/TM: 06/14/2020 2:23 (If Report Is Signed, Electronically Signed in Other Vendor System) Normal [facility] Gynecology Office/Clinic Not cam 06-13-2020 Gynecology Office/Clinic Note Chief Complaint Discuss Endometriosis History of Present Illness Contraception Type: control pill Last Menstrual Period: 06/02/20 Frequency of Menstruation: Irregular Abnormal vaginal discharge: No Breast lumps/pain: No Clotting with periods: No Heavy periods: No Hot flashes: No Irregular periods: Yes Night sweats: No Painful periods: Yes Painful sex: No Pelvic pain: No Spotting: No Vaginal dryness: No Vaginal itch/burning/odor: No Additional HPI details: 20 y/o, G0, Irregular periods, and Discuss Endometriosis. Patient here to discuss her symptoms of pelvic pain and irregular menses. Menses: At age 10. Due to significant dysmenorrhea and menorrhagia patient was placed on an OCP at the age of 13. Patient has been on oral contraceptive pill since that time. She has attempted at least [address] Tuyet Estrella due to breakthrough bleeding. Patient is currently on June04/18. She continues to experience BTB during active pills and have very light flow during the placebo week. Patient also notices low back pain each time she is bleeding. Patient complains of sharp LLQ pain off and on x 2 years. The pain is followed by urgent diarrhea. Patient experiences this several times weekly. She does also admit to occasional constipation. Patient was recently seen by her primary care physician who diagnosed her with IBS?D and placed her on Xifaxan. She has been on this medication for just 2 weeks. Patient notices minimal improvement. She states that her primary care physician advised that she follow-up with our office due to her concern of endometriosis. Family history: Patient with a maternal aunt who has endometriosis. Not in her mother. Review of Systems Cardio Respiratory Peripheral edema: No Heart Irregularity: No Chest Pain: No Shortness of Breath: No Gastrointestinal Bloating: No Reflux/heartburn: No Abdominal Pain: Yes Abdominal Pain comment: I am on medication for this from my family doctor, and having a lot of lower left sharp abdominal pain per pt. Change in bowel habits: Yes Change in bowel habits comment: Constipation/diarrhe a per pt. Urinary Urinary Incontinence: No Urinary frequency: No Nocturia: No Urgency: No Painful urination: No Physical Exam Vitals & Measurements BP: 118/78 HT: 165 cm WT: 64.4 kg WT: 64.4 kg (Dosing) BMI: 23.65 Constitutional: Alert and oriented x 3. Neck: Supple, non-tender. Normal thyroid. No lymphadenopathy. Lungs: Clear to auscultation and percussion. Non-labored respiration. Heart: Normal rate and regular rhythm. No murmur. No edema. Abdominal: BS active. Soft and non-distended. No tenderness. Negative rebound. Neurologic: CN II-XII grossly intact. Psychiatric: Pleasant and cooperative. NAD. Additional Vitals Body Mass Index Measured: 23.65 kg/m2 BP Position/Location: Sitting, Left arm Assessment/Plan 1. Irregular menses We have a lengthy discussion about endometriosis. Patient is aware we can evaluate an ultrasound to look for acute findings, however, endometriosis cannot fully be diagnosed without surgery. We do discuss her symptoms as being consistent with IBS?D. She is aware that gastrointestinal symptoms can often times be similar. She is encouraged to continue tracking those symptoms and following up with her primary care provider. Ultrasound and follow-up. Ordered: US Transvaginal 2. Abdominal pain 3. Back pain Medical Decision Making Chronic conditions NOT treated during this visit that affected my overall medical decision making: [] Treatment plans discussed but not opted for at this time: [] Prescribed medication that requires intensive monitoring for toxicity: [] I have reviewed the patient?s medication list for medication interactions/contrai ndications and/or for upcoming procedures: [yes or no] Time Spent with the Patient I have personally spent [] minutes on this date, directly related to today's patient visit, including pre and post visit work, for this date of service. Time listed does not include time spent on separately billable services. Problem List/Past Medical History Ongoing Abdominal pain Back pain Irregular menses Historical No qualifying data Procedure/Surgical History wisdom teeth extraction (09/07/2017) Medications 04/18 oral tablet, See Instructions, 3 refills multivitamin, Daily Xifaxan 550 mg oral tablet, 1650 mg= 3 tabs, Oral, Daily Allergies No Known Allergies Social History Alcohol Never Nutrition/Health Caffeine intake amount: denies. Sexual Sexually active: Yes. Substance Abuse Denies All Tobacco Never (less than 100 in lifetime) Use:. Family History Breast cancer: Grandmother (P). Endometriosis: Mother.Negative: Father, Grandfather (M), Grandfather (P), Grandmother (M) and Grandmother (P). Diagnostic Results No qualifying data available (XRay) No qualifying data available (CT) No qualifying data availa (more content not included)... Normal [facility] Dermatopathologyon 0 Dermatopathology [facility] [address] [place] [id number] DERMATOPATHOLOGY REPORT Name:MAHNAZ MATA. Rec #. [id number] Location: [facility] Date of Procedure: 10/27/2019 Race: Date Received: 10/31/2019 /Sex: 2000 (Age: 19) / F Date Reported: 11/01/2019 Other: Submitting Physician:KELLIE MCCORMICK APRN, INDEPENDENT LIVING SPECIALIST-C FINAL DIAGNOSIS SKIN, MID BACK, BIOPSY: COMPOUND NEVUS, PRESENT ON THE DEEP AND PERIPHERAL MARGIN. Electronically Signed Out by SRINIVASA PERALES M.D. Electronically Signed Out By SRINIVASA PERALES MD/[facility] By the signature on this report, the individual or group listed as making the Final Interpretation/Diagn osis certifies that they have reviewed this case. Clinical History: 1.1 x 1.0cm IDN vs. dysplastic nevus. Biopsy. Specimens Submitted As: A: SKIN, MID BACK Gross Description: Received in formalin is one pineda-brown piece of skin measuring [id number]. The specimen is inked and embedded in toto. ink/10/31/2019 Microscopic Description: Microscopic analysis shows a symmetric proliferation of melanocytes in epidermis and dermis. Melanocytes nest regularly along the dermal-epidermal junction, and dermal melanocytes mature with increasing depth in dermis. The melanocytes show no cytologic atypia. Normal [facility] Comment on above: Performed By: #### D #### Dermatopathology Vital Signs Date Time Vital Sign Value Performing Clinician Robert harrison 05-14-2023 15:57-0500 Body mass index (BMI) [Ratio] 27.96 kg/m2 CeciliaAsteres [facility] Work Phone: [facility] 05-14-2023 15:57-0500 Body weight 76.2 kg [employer] [facility] Work Phone: [facility] 05-14-2023 15:57-0500 Diastolic blood pressure 78 mm[Hg] [facility] 05-14-2023 15:57-0500 Systolic blood pressure 120 mm[Hg] [facility] 12-18-2021 08:35-0400 Body temperature 97.8 [degF] DO Vesna Nataprawira Work Phone: [facility] 12-18-2021 08:35-0400 Diastolic blood pressure 74 mm[Hg] DO Vesna Nataprawira Work Phone: [facility] 12-18-2021 08:35-0400 Heart rate 75 /min DO Vesna Nataprawira Work Phone: [facility] 12-18-2021 08:35-0400 Respiratory rate 16 /min DO Vesna Nataprawira Work Phone: [facility] 12-18-2021 08:35-0400 SaO2% (BldA) [Mass fraction] 98 % DO Vesna Nataprawira Work Phone: [facility] 12-18-2021 08:35-0400 Systolic blood pressure 119 mm[Hg] DO Vesna Nataprawira Work Phone: [facility] 12-15-2021 22:59-0400 Body height 165.1 cm DO Vesna Nataprawira Work Phone: [facility] 12-15-2021 22:59-0400 Body weight 83.91 kg DO Vesna Nataprawira Work Phone: [facility] 12-07-2021 16:38-0400 Respiratory rate 20 /min DO Vesna Nataprawira Work Phone: [facility] 12-07-2021 15:02-0400 Body height 167.64 cm DO Vesna Nataprawira Work Phone: [facility] 12-07-2021 15:02-0400 Body weight 81.64 kg DO Vesna Nataprawira Work Phone: [facility] 12-07-2021 15:01-0400 Body temperature 98.1 [degF] DO Vesna Nataprawira Work Phone: [facility] 12-07-2021 15:01-0400 Diastolic blood pressure 70 mm[Hg] DO Vesna Nataprawira Work Phone: [facility] 12-07-2021 15:01-0400 Heart rate 85 /min DO Vesna Nataprawira Work Phone: [facility] 12-07-2021 15:01-0400 Systolic blood pressure 124 mm[Hg] DO Vesna Nataprawira Work Phone: [facility] 11-10-2021 16:47-0400 SaO2% (BldA) [Mass fraction] 100 % DO Vesna Nataprawira Work Phone: [facility] 11-10-2021 16:46-0400 Diastolic blood pressure 66 mm[Hg] DO Vesna Nataprawira Work Phone: [facility] 11-10-2021 16:46-0400 Heart rate 75 /min DO Vesna Nataprawira Work Phone: [facility] 11-10-2021 16:46-0400 Systolic blood pressure 122 mm[Hg] DO Vesna Nataprawira Work Phone: [facility] 11-10-2021 16:43-0400 Body height 165.1 cm DO Vesna Nataprawira Work Phone: [facility] 11-10-2021 16:43-0400 Body weight 77.11 kg DO Vesna Nataprawira Work Phone: [facility] Encounters Encounter Date Encounter Type Care Provider Facility Start: 11-10-2023 End: 11-10-2023 ambulatory CECILIA L FLORO Not Available Start: 11-03-2023 End: 11-03-2023 ambulatory CECILIA L FLORO Not Available Start: 10-20-2023 End: 10-20-2023 ambulatory CECILIA L FLORO Not Available Start: 10-06-2023 End: 10-06-2023 ambulatory CECILIA L FLORO Not Available Start: 09-22-2023 End: 09-22-2023 ambulatory CECILIA L FLORO Not Available Start: 09-08-2023 End: 09-08-2023 ambulatory CECILIA L FLORO Not Available Start: 08-05-2023 End: 08-05-2023 ambulatory CECILIA L FLORO Not Available Start: 07-09-2023 End: 07-09-2023 ambulatory CECILIA L FLORO Not Available Start: 07-08-2023 End: 07-08-2023 ambulatory CECILIA L FLORO Not Available Start: 06-11-2023 End: 06-11-2023 ambulatory CECILIA L FLORO Not Available Start: 05-14-2023 End: 05-14-2023 Subsequent care visit Cecilia Dee Dee Elamo CNM Work Phone: [facility] Comment on above: Encounter for superv ision of other normal in first trimester (Primary Dx) Start: 05-14-2023 End: 05-14-2023 ambulatory CECILIA L FLORO Not Available Start: 05-14-2023 Bamboo flowsheet Cecilia L Uday ro CNM Work Phone: [facility] Start: 05-14-2023 Bamboo flowsheet Cecilia L Uday ro CNM Work Phone: [facility] Start: 04-15-2023 End: 04-15-2023 ambulatory CECILIA L FLORO Not Available Start: 12-20-2021 End: 12-20-2021 ambulatory David Pascual Facility:[facility] Start: 12-15-2021 End: 12-18-2021 Evaluation and management of inpatient Olgajas Santoyo Facility:[facility] Start: 12-15-2021 End: 12-18-2021 Evaluation and management of inpatient DO Vesna Vinodra Work Phone: [facility] Start: 12-07-2021 End: 12-07-2021 ambulatory David M Elderpadmini Facility:[facility] Start: 12-07-2021 End: 12-07-2021 Patient encounter procedure DO Vesna Nataprawira Work Phone: [facility] - [facility] Start: 11-19-2021 End: 11-19-2021 ambulatory Olga Murciaradha Facility:[facility] Start: 11-19-2021 End: 11-19-2021 Departed Referred DO Vesna Bourgeois Work Phone: [facility] Start: 11-10-2021 End: 11-10-2021 ambulatory David Pascual Facility:[facility] Start: 11-10-2021 End: 11-10-2021 Patient encounter procedure DO Vesna Bougreois Work Phone: [facility] - [facility] Start: 01-04-2021 Encounter for genera l adult medical examination without abnormal findings DR DAVID PASCUAL [facility] Start: 12-28-2020 End: 12-29-[address] DAVID PASCUAL Facility:[facility] Start: 12-28-2020 End: 12-29-2020 Encounter for general adult medical examination without abnormal findings DR DAVID PASCUAL Facility:[facility] Start: 09-19-2020 End: 09-20-2020 ambulatory GARRET GOMEZ Facility:[facility] Procedures Date Procedure Procedure Detail Performing Clinician SARS Antigen (LFIA) DO Vesna Bourgeois Work Phone: Streptococcus agalactiae culture DO Vesna Bourgeois Work Phone: Plan of Treatment Date Care Activity Detail Author Start: 06-11-2023 End: 06-11-2023 Patient encounter procedure 06/11/2023 4:30 PM EDT Routine [facility] [address] [place] [address] Cecilia Madden, CNM [address] [place] [address] [facility] Start: 05-14-2023 End: 05-14-2023 Patient encounter procedure 05/14/2023 4:00 PM EST Routine [facility] [address] [place] [address] Cecilia Madden, CNM [address] [place] [address] Arrived [facility] Comment on above: Arrived Start: 11-28-2022 Influenza vaccination Influenz a Vaccine (#1) [facility] Start: 12-18-2021 [facility] Work Phone: Start: 12-16-2021 Hospital admission [facility] Work Phone: Start: 12-15-2021 End: 12-15-2021 [facility] Work Phone: Start: 12-07-2021 [facility] Work Phone: Start: 12-07-2021 Hospital admission [facility] Work Phone: Start: 11-19-2021 End: 11-19-2021 Departed Referred Departed Referred [facility] Start: 11-10-2021 [facility] Work Phone: Start: 11-10-2021 Hospital admission [facility] Work Phone: Patient Education [facility] Work Phone: Patient referral [facility] Work Phone: Reagin Ab [Presence] in Serum by RPR [facility] Work Phone: Payers Date Payer Category Payer Self-pay [id number] 2021 Unknown BCBS BCBS [id number] 2021-Present [phone] [address] [place] [address] [id number] 1999 Unknown [id number] 2.16.840.1.386000.3.579.2.593 1999 Unknown [id number] 2.16.840.1.402270.3.579.2.593 1999 Unknown [id number] 2.16.840.1.959597.3.579.2.1259 1999 Unknown [id number] 2.16.840.1.393405.3.579.2.1259 1999 Unknown [id number] 2.16.840.1.087012.3.579.2.1259 1999 Unknown [id number] 2.16.840.1.207818.3.579.2.1259 1999 Unknown [id number] 2.16.840.1.397049.3.579.2.1259 1999 Unknown [id number] 2.16.840.1.903467.3.579.2.1259 1999 Unknown [id number] 2.16.840.1.092485.3.579.2.1259 1999 Unknown [id number] 2.16.840.1.989918.3.579.2.1259 1999 Unknown [id number] 2.16.840.1.714161.3.579.2.1259 1999 Unknown [id number] 2.16.840.1.613556.3.579.2.1259 1999 Unknown [id number] 2.16.840.1.464720.3.579.2.1259 1999 Unknown [id number] 2.16.840.1.728755.3.579.2.1259 1999 Unknown [id number] 2.16.840.1.713772.3.579.2.1259 1959 Unknown [id number] 1959 Unknown [id number] Unknown [id number] 2.16.840.1.762125.3.579.2.531 Unknown [id number] 2.16.840.1.345051.3.579.2.531 Unknown [id number] 2.16.840.1.280221.3.579.2.531 Unknown [id number] 2.16.840.1.019548.3.579.2.531 Unknown [id number] 2.16.840.1.300442.3.579.2.531 Social History Date Type Detail Facility Start: 08-28-2020 End: 12-04-2022 Tobacco smoking status NHIS Never smoked tobacco (finding) [facility] Start: 2000 Sex Assigned At Female [facility] Start: 12-04-2022 Tobacco use and exposure Smokeless tobacco non-user [facility] Start: 04-15-2023 Alcohol intake Ex-drinker (finding) [facility] Start: 04-15-2023 History of Social function [facility] Start: 04-15-2023 Tobacco use panel [facility] Start: 03-05-2023 [facility] Start: 11-06-2022 Gender identity Identifies as female gender (finding) [facility] Start: 11-06-2022 Sexual orientation Heterosexual (finding) [facility] Goals Date Patient Goal Desired Activity /State Functional Status Date Assessment Result Facility 12-18-2021 Functional status Patient at Baseline [facility] Work Phone: Mental Status Date Assessment Result Facility 12-18-2021 Cognitive function Cognitive Sta tus Patient at Baseline [facility] Work Phone: History of Present illness Narrative 05-14-2023 Cecilia Madden CNM - 05/14/2023 4:00 PM EST Note Date & Type Note Facility 05-14-2023 History of Presen t illness Narrative Subjective No chief complaint on file. Mahnaz River is a 23 y.o. at 12w0d with a working estimated date of delivery of 11/26/2023, by Last Menstrual Period who presents for a routine visit. She denies vaginal bleeding, leakage of fluid, decreased movements, and contractions. Her is complicated by: history of miscarriage The following portions of the chart were reviewed this encounter and updated as appropriate: Objective Physical Exam weight: 168 lb, Pregravid BMI: 27.96 Expected Total Weight Gain: 15 lb-25 lb BP: 120/78 Urine glucose-negative,protein-negative Labs reviewed Imaging Assessment/Plan Diagnoses and all orders for this visit: Encounter for supervision of other normal in first trimester Continue vitamin. Labs reviewed. Follow up in 4 weeks for a routine visit. documented in this encounter [facility] Progress note 12-18-2021 Note Date & Type Note Facility 12-18-2021 Progress note Note Date/Time December 18, 2021 6:25am [facility] [address] [place] [address] [facility] [facility] Progress Note Signed Patient: Mahnaz River MR#: [id number] : 2000 Acct:[id number] Age/Sex: 21 / F Adm Date: 2 Loc: Room: [address] [place] [address] Type: ADM IN Attending Dr: Olga Santoyo DO Copies to: ~ Date of Service: 12/18/2021 OB - PN: Subj Subjective Post Delivery Day #: Day 2 Interval history: Patient is doing well and denies complaints. She is ambulating and urinating without difficulty. Positive bowel movements since delivery.Tolerating meals. Denies shortness of breath, swelling, calf tenderness, EDGAR, vision changes. Baby is doing well. She is but has been experiencing breast pain. She is working with consultants and baby is currently supplementing with donor milk. OB - PN: Obj Exam Physical Exam Vital signs: Vital Signs - 8 hr 12/17/21 23:30 Temperature 98.0 F Pulse Rate [Monitor] 77 Respiratory Rate 18 Blood Pressure [Left Arm] 111/65 02 Sat by Pulse Oximetry 96 Oxygen Delivery Method Room Air Narrative: General: No acute distress. HEENT: Conjunctivae clear. No scleral icterus. CV: Regular rate and rhythm. No murmurs, rubs, or gallops Respiratory: Breathing comfortably on room air. Clear to auscultation bilaterally. No wheezes, rhonchi, rales Abdominal: Soft, nondistended, nontender. Normoactive bowel sounds. Fundus is firm below the umbilicus Extremities: Mild swelling, No cyanosis, clubbing.No calf tenderness Skin: No rashes or lesions Neuro: No focal neurologic deficit Psych: Good eye contact, appropriate mood and affect, speech is clear OB - PN: Obj Data Labs CBC & Chem 7: 12/17/21 06:33 Labs: 12/17/21 06:33: Uncorrected WBC Count 16.1 H, MCV 86.6, MCH 28.4, MCHC 32.8, RDW13.7, Plt Count 182, MPV 10.6, Neut % (Auto) 71.1, Lymph % (Auto) 19.2, [place] % (Auto) 8.5, Eos % (Auto) 0.8, Baso % (Auto) 0.4, Neut # (Auto) 11.5 H, Lymph # (Auto) 3.1, [place] # (Auto) 1.4 H, Eos # (Auto) 0.1, Baso # (Auto) 0.1, Nucleated RBC % (auto) 0.1 Assessment/Plan Assessment (1) Status post vaginal delivery: Status: Acute Plan Ms. River is 21 year old primipara female 2 status post vaginal delivery at 39 weeks and 1 day. Delivery with nuchal cord x2 and second degree perineal laceration. Continue Routine care Blues: Patient reports appropriately, spouse in room for support Breast: Working with management consultant. She has been experiencing breast pain with . Baby is supplementing with donor milk as needed. Belly: Abdominal pain is controlled. Fundus is appropriately sized Bottom: pain is controlled. Continue ibuprofen and Tylenol Bladder: Urinating appropriately Baby: Baby is doing well. Bowels: Pt has had one BM post delivery. Encourage ambulation and hydration. Offer stool softener as needed Bleeding: lochia appropriate. Predelivery Hgb 12.2. EBL 300cc. Postdelivery Hgb 9.6. Asymptomatic Plan day: 2 Vaginal delivery plan (if applicable): routine care, discharge home and follow up 6 weeks Documented By: Ashli Cruz DO, RES 12/18/21 0625 Signed By: <Electronically signed by RES Ashli Cruz> 12/18/21 [id number] <Electronically signed by MD FLOYD GAVIN> 12/18/21 0744 [facility] Work Phone: Progress note 12-17-2021 Note Date & Type Note Facility 12-17-2021 Progress note Note Date/Time December 17, 2021 6:25am [facility] [address] [place] [address] [address] [facility] [facility] Progress Note Signed Patient: Mahnaz River MR#: [id number] : 2000 Acct:[id number] Age/Sex: 21 / F Adm Date: 2 Loc: Room: [address] [place] [address] Type: ADM IN Attending Dr: Olga Santoyo DO Copies to: ~ Date of Service: 12/17/2021 OB - PN: Subj Subjective Post Delivery Day #: Day 1 Interval history: Patient is doing well and denies complaints. She is ambulating and urinating without difficulty. She has not had a bowel movement since delivery, but is passing flatus. Pain and cramping is tolerable, rates a 3. Reports minimal vaginal bleeding, denies large clots. Denies lightheadedness, dizziness, chest pain, shortness of breath, swelling, calf tenderness, EDGAR, vision changes. Baby is doing well. She is but has been experiencing breast pain. She is working with consultants and baby is currently using donor milk. OB - PN: Obj Exam Physical Exam Vital signs: Vital Signs - 8 hr 12/16/21 23:28 Temperature 97.3 F L Pulse Rate [Monitor] 88 Respiratory Rate 18 Blood Pressure [Left Arm] 120/78 02 Sat by Pulse Oximetry 96 Oxygen Delivery Method Room Air Narrative: General: No acute distress. Resting comfortably in bed. HEENT: Conjunctivae clear. No scleral icterus. CV: Regular rate and rhythm. No murmurs, rubs, or gallops Respiratory: Breathing comfortably on room air. Clear to auscultation bilaterally. No wheezes, rhonchi, rales Abdominal: Soft, nondistended, nontender. Normoactive bowel sounds. Fundus is firm below the umbilicus Extremities: No swelling, cyanosis, clubbing.No calf tenderness Skin: No rashes or lesions Neuro: No focal neurologic deficit Psych: Good eye contact, appropriate mood and affect, speech is clear OB - PN: Obj Data Labs CBC & Chem 7: 12/17/21 06:33 Assessment/Plan Assessment (1) Status post vaginal delivery: Status: Acute Plan Ms. River is 21 year old primipara female 1 status post vaginal delivery at 39 weeks and 1 day. Delivery with nuchal cord x2 and second degree perineal laceration. Continue Routine care Blues: Patient reports appropriately, spouse in room for support Breast: Working with management consultant to breast feed. She was experiencing significant breast pain. Baby is on donor milk currently. She is planning on trying to pump today and continue working with .Denies issues with babylatching Belly: Abdominal pain is controlled. Fundus is appropriately sized Bottom: pain is controlled. Continue ibuprofen and Tylenol Bladder: Urinating appropriately Baby: Baby is doing well. Bowels: Bowel movements. Encourage ambulation and hydration. Offer stool softener as needed Bleeding: lochia appropriate. Predelivery Hgb 12.2. EBL 300cc. Postdelivery Hgb 9.6. Asymptomatic Plan day: 1 Vaginal delivery plan (if applicable): routine care Documented By: Ashli Cruz DO, RES 12/17/21 0622 Signed By: <Electronically signed by DO HENRY Cruz> 12/17/21 0750 <Electronically signed by Max Sheridan DO> 12/17/21 1142 [facility] Work Phone: Procedure note 12-16-2021 Note Date & Type Note Facility 12-16-2021 Procedure note [facility] Clinical Note 11-12-2020 Note Date & Type Note Facility 11-12-2020 Note Patient Education Ma terials Name: Esperanza Mahnazselin Anne Current Date: 11/12/2020 14:04:51 [place] : 2000 The following sheet(s) are the Patient Education Leaflets for [facility] Breast Health: Breast Self-Awareness What is breast self-awareness? Breast self-awareness is knowing how your breasts normally look and feel. Your breasts change as you go through different stages of your life. So it's important to learn what is normal for your breasts. Breast self-awareness helps you notice any changes in your breasts right away. Report any changes to your healthcare provider. Why is breast self-awareness important? Many experts now say that women should focus on breast self-awareness instead of doing a breast self-examination (BSE). These experts include the [place] [employer], the U.S. Preventive Services Task Force, and the [place] [employer]st[employer] Gynec[employer]. Some experts even advise not teaching women to do a BSE. That's because research hasn't shown a clear benefit to doing BSEs. Breast self-awareness is different than a BSE. Breast self-awareness isn't about following a certain method and schedule. It's about knowing what's normal for your breasts. That way you can notice even small changes right away. If you see any changes, report them to your healthcare provider. Changes to look for Call your healthcare provider if you find any changes in your breasts that concern you. These changes may include: ? A lump ? Nipple discharge other than breastmilk, especially a bloody discharge ? Swelling ? A change in size or shape ? Skin irritation, such as redness, thickening, or dimpling of the skin ? Swollen lymph nodes in the armpit ? Nipple problems, such as pain or redness If you find a lump Contact your provider if you find lumpiness in one breast, feel something different in the tissue, or feel a definite lump. Sometimes lumpiness may be due to menstrual changes. But there may be reason for concern. Your provider may want to see you right away if you have: ? Nipple discharge that is bloody ? Skin changes on your breast, such as dimpling or puckering It's normal to be upset if you find a lump. But it's important to contact your provider right away. Remember that most breast lumps are benign. This means they are not cancer. ? 2914-0009 [employer]. [address] [place] [address], [place] [address]. All rights reserved. This information is not intended as a substitute for professional medical care. Always follow your healthcare professional's instructions. [facility] Clinical Note 08-29-2020 Note Date & Type Note Facility 08-29-2020 Note Patient Education Ma terials Name: Mahnaz Mata Current Date: 08/29/2020 09:18:19 [place] : 2000 [facility]: [id number] The following sheet(s) are the Patient Education Leaflets for Mahnaz Mata 4 Steps for Eating Healthier Changing the way you eat can improve your health. It can lower your cholesterol and blood pressure, and help you stay at a healthy weight. Your diet doesn't have to be bland and boring to be healthy. Just watch your calories and follow these steps: Step 1. Eat fewer unhealthy fats ? Choose more fish and lean meats instead of fatty cuts of meat. ? Skip butter and lard, and use less margarine. ? Pass on foods that have palm, coconut, or hydrogenated oils. ? Eat fewer high-fat dairy foods like cheese, ice cream, and whole milk. ? Get a heart-healthy cookbook and try some low-fat recipes. Step 2. Go light on salt ? Keep the saltshaker off the table. ? Limit high-salt ingredients, such as soy sauce, bouillon, and garlic salt. ? Instead of adding salt when cooking, season your food with herbs and flavorings. Try lemon, garlic, and onion, or salt-free herb seasonings. ? Limit convenience foods, such as boxed or canned foods and restaurant food. ? Read food labels and choose lower-sodium options. Step 3. Limit sugar ? Pause before you add sugars to pancakes, cereal, coffee, or tea. This includes white and brown table sugar, syrup, honey, and molasses. Cut your usual amount by half. ? Use non-sugar sweeteners. Stevia, aspartame, and sucralose can satisfy a sweet tooth without adding calories. ? Swap out sugar-filled soda and other drinks. Buy sugar-free or low-calorie beverages. Remember water is always the best choice. ? Read labels and choose foods with less added sugar. Keep in mind that dairy foods and foods with fruit will have some natural sugar. ? Cut the sugar in recipes by 1/3 to 1/2. Boost the flavor with extracts like almond, vanilla, or orange. Or add spices such as cinnamon or nutmeg. Step 4. Eat more fiber ? Eat fresh fruits and vegetables every day. ? Boost your diet with whole grains. Go for oats, whole-grain rice, and bran. ? Add beans and lentils to your meals. ? Drink more water to match your fiber increase to help prevent constipation. ? 4016-9896 [employer]. [address] [place] [address]. All rights reserved. This information is not intended as a substitute for professional medical care. Always follow your healthcare professional's instructions. [facility] Evaluation note Note Date & Type Note Facility Evaluation note No assessment information availa [facility] [facility] Work Phone: Evaluation note Note Date & Type Note Facility Evaluation note Diagnosis Onset Date Status post vaginal delivery acute [facility] Work Phone: Evaluation note Note Date & Type Note Facility Evaluation note Diagnosis Encounter for supervision of other normal in first trimester- Primary documented in this encounter [facility] Summary Purpose Family History No Family History Records Found Relationship Condition Age at Onset Recorded Date/T [place] Not Specified No pertinent family history Unknown Advance Directives No Advanced Directives Records Found Advance Directive Response Recorded Date/ Time Advance Directives No August 21 1 2:19pm Chief Complaint and Reason for Visit Chief Complaint no baby movement z3A.35 Z36.85 Chief Complaint no baby movement z3A.35 Z36.85 IUP (Intrauterine ) Chief Complaint no baby movement z3A.35 Z36.85 IUP (Intrauterine ) IUP (Intrauterine ) Reason for Visit Status post vaginal delivery Additional Source Comments INFORMATION SOURCE (unrecogn ized section and content) DATE CREATED AUTHOR 11/02/2019 [facility] DATE CREATED AUTHOR AUTHOR'S ORGANIZ ATION 04/26/2021 [facility] DATE CREATED AUTHOR AUTHOR'S ORGANIZ ATION 05/14/[address] [facility] DATE CREATED AUTHOR AUTHOR'S ORGANIZ ATION 01/08/2022 [facility] DATE CREATED AUTHOR AUTHOR'S ORGANIZ ATION 11/15/2023 [facility] EPIC Care Teams (unrecognized sec tion and content) Team Status: Inactive Member Role Status Dates David Pascual MD Primary Care Provider Active Olga Rinkes , DO Attending Provider Active Team Status: Inactive Member Role Status Dates Vesna Bourgeois , DO Attending Provider Active David Pascual MD Primary Care Provider Active Team Status: Active Member Role Status Doug Pascual MD Primary Care Provider Active Team Status: Inactive Member Role Status Doug Pascual MD Primary Care Provider Active Vesna Bourgeois , DO Attending Provider Active Team Status: Inactive Member Role Status Dates David Pascual MD Primary Care Provider Active Olga Santoyo , Admit Provider, Attending Provide r Active [employer] Relationship Specialty Start Date End Date Yumiko Key MD [address] [place] [address] PCP - General Family Medicine 11/10/22 [employer] Relationship Specialty Start Date End Date Yumiko Key MD [address] [place] [address] PCP - General Family Medicine 11/10/22 Goals (unrecognized section and content) Goals may be documented in a n alternate sectionGoals may be documented in an alternate sectionGoals may be documented in an alternate section FOR RECORDS PERTAINING TO PATIENTS WHO ARE OR HAVE BEEN ENROLLED IN A CHEMICAL DEPENDENCY/SUBSTANCEABUSE PROGRAM, SOME INFORMATION MAY BE OMITTED. This clinical summary was aggregated from multiple sources. Caution should be exercised in using it in the provision of clinical care. This summary normalizes information from multiple sources, and as a consequence, information in this document may materially change the coding, format and clinical context of patient data. In addition, data may be omitted in some cases. CLINICAL DECISIONS SHOULD BE BASED ON THE PRIMARY CLINICAL RECORDS. [facility] [employer] [facility] provides no warranty or guarantee of the accuracy or completeness of information in this document.
[2023-11-18] MEDS: LACTATED RINGER'S SOLUTION 1,000 ML 125 ML IV ×2 (15:30→16:59)
[2023-11-18 15:46] LABS: Hematocrit 39.7 % (36.0-48.0); Hemoglobin 12.9 g/dL (12.0-16.0); Mean Corpuscular HGB Conc 32.5 g/dL (29.9-35.2); Mean Corpuscular Hemoglobin 27.9 pg (26.7-34.0); Mean Corpuscular Volume 85.7 fL (81.0-99.0); Mean Platelet Volume 11.7 fL (9.5-13.5); Platelet Count 233 10^3/uL (150-450); Red Blood Count 4.63 10^6/uL (4.20-5.40); Red Cell Distribution Width 13.6 % (11.0-15.0); White Blood Count 15.5 10^3/uL (4.0-11.0)
[2023-11-18 15:56] LABS: Amphetamine Screen Urine NEGATIVE (NEGATIVE); Barbiturates Screen Urine NEGATIVE (NEGATIVE); Benzodiazepines Screen Urine NEGATIVE (NEGATIVE); Buprenorphine Screen Urine NEGATIVE (NEGATIVE); Cannabinoid Screen Urine NEGATIVE (NEGATIVE); Cocaine Screen Urine NEGATIVE (NEGATIVE); Methadone Screen Urine NEGATIVE (NEGATIVE); Methamphetamines Screen Urine NEGATIVE (NEGATIVE); Opiate Screen Urine NEGATIVE (NEGATIVE); Oxycodone Screen Urine NEGATIVE (NEGATIVE); Phencyclidine Screen Urine NEGATIVE (NEGATIVE); Tricyclic Antidepressant Urine NEGATIVE (NEGATIVE)
[2023-11-18] MEDS: ROPIVACAINE HCL/PF 400 MG/200 ML PREMIX 6 MG EPIDURAL (17:00)
[2023-11-18] MEDS: OXYTOCIN/0.9 % SODIUM CHLORIDE 20 UNITS/1,000 ML PLAST..BAG 125 UNIT IV (17:56)
--- NOTE | 2023-11-18 18:39 | PM.OBHP ---
OB - H&P: HPI History of Present Illness Chief complaint: LABOR : 3 Para: 1 Gestational age based on last menstrual period: 38.6 History of Present Dating criteria: LMP confirmed by 1st trimester US care: good care Ultrasounds: normal 1st trimester US and normal mid trimester US Medical complications OB: none Labs Blood type: A (+) positive Rubella: immune RPR/VDLR: nonreactive GBS status: negative HBsAG: negative PFSH PFSH Medical History (Updated 11/18/23 @ 18:48 by CECILIA RECINOS APRN, PRISCILA) Miscarriage ?O03.9 - Complete or unspecified spontaneous without complication (ICD-10) Surgical History (Updated 01/08/23 @ 13:27 by Kesha Haro, JACOBO) H/O hernia repair ?Z98.890 - Other specified postprocedural states (ICD-10) ?Z87.19 - Personal history of other diseases of the digestive system (ICD-10) Family History (Updated 01/08/23 @ 13:27 by Kesha Haro, RN) Other Family history of cancer Social History (Updated 01/08/23 @ 13:28 by Kesha Haro, RN) Within the past year, how often did you have a drink containing alcohol: never Score interpretation: A score less than 3 is consistent with normal alcohol consumption. 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 Highest level of school completed/degree received: Bachelor's degree Meds Home Medications and Allergies Home Medications ?Medication ?Instructions ?Recorded ?Confirmed ?Type doxycycline hyclate 100 mg capsule 100 mg PO BID 7 days #14 caps 01/08/23 Rx magnesium 250 mg tablet 250 mg PO DAILY 01/08/23 01/08/23 History Allergies Allergy/AdvReac Type Severity Reaction Status Date / Time No Known Drug Allergies Allergy Unverified 01/08/23 13:28 Exam Constitutional Vital Signs, click to edit/add: Last Vital Signs Temp 97.2 F L 11/18/23 15:00 Pulse 76 11/18/23 18:31 BP 115/61 11/18/23 18:31 Documenting provider has reviewed patient's vital signs: yes Common normals: no apparent distress General appearance: cooperative HENMT Common normals: normocephalic Eye Common normals: EOMs intact bilaterally General eye: normal appearance of both eyes Neck & C-Spine Common normals: full ROM Lymph Lymphatic: no lymphadenopathy noted Chest Common normals: inspection of chest normal Respiratory Common normals: normal respiratory effort and no retractions Effort & inspection: able to speak in complete sentences Auscultation: clear to auscultation bilaterally Cardio Common normals: regular rate and regular rhythm Rate: regular rate Rhythm: regular rhythm GI Inspection: normal to inspection Auscultation: normoactive bowel sounds Palpation: soft Percussion: normal to percussion Common normals: no CVA tenderness Extremity Common normals: normal to inspection Neuro Common normals: oriented x3 Sensorium/orientation: awake, alert, oriented to person, oriented to place and oriented to time Psych Common normals: mental status grossly normal, thought process normal, cooperative, affect normal, speech normal and activity/motor behavior normal Attitude: calm Thought process: normal thought process Results Labs Labs: Short CBC 11/18/23 Range/Units 15:26 WBC 15.5 H (4.0-11.0) 10^3/uL Hgb 12.9 (12.0-16.0) g/dL Hct 39.7 (36.0-48.0) % Plt Count 233 (150-450) 10^3/uL OB - A/P Assessment and Plan (1) Term :
--- NOTE | 2023-11-18 18:48 | PM.OBPRCVD ---
Procedure Intrapartal events: None Induction method: none Delivery monitor: external FHT and external uterine Route of delivery: (compound presentation ) Episiotomy Description: none L&D Laceration Description: perineal - 1st degree Delivery repair: Vicryl Anesthesia type: Epidural Delivery date: 11/18/23 Gender: female presentation: vertex Placental delivery description: Spontaneous cord description: 3 Vessels heart rate - 1 minute: 100 bpm or Greater respiratory effort - 1 minute: Spontaneous/Strong Cry muscle tone - 1 minute: Active Movement reflex response - 1 minute: Prompt Response color - 1 minute: Bluish Hands or Feet total score - 1 minute: 9 heart rate - 5 minute: 100 bpm or Greater respiratory effort - 5 minute: Spontaneous/Strong Cry muscle tone - 5 minute: Active Movement reflex response - 5 minute: Prompt Response color - 5 minute: Bluish Hands or Feet total score - 5 minute: 9
[2023-11-18] MEDS: IBUPROFEN 400 MG TABLET 800 MG PO (19:33)
[2023-11-19] VITALS (7 sets, daily range): BP systolic 100–124; BP diastolic 51–61; PULSE 73–98; TEMP 36.4–36.8
[2023-11-19] MEDS: IBUPROFEN 400 MG TABLET 800 MG PO ×3 (05:00→21:55)
--- NOTE | 2023-11-19 07:42 | P.OBPN_ITS ---
OB - PN: Subj Subjective Patient comments: no complaints [place] status: doing well [place] feeding status: exclusively Exam Constitutional Vital Signs, click to edit/add: Last Vital Signs Temp 98.2 F 11/18/23 20:00 Pulse 92 H 11/19/23 00:01 Resp 16 11/19/23 00:09 BP 117/54 11/19/23 00:01 O2 Del Method Room Air 11/18/23 20:00 Documenting provider has reviewed patient's vital signs: yes Common normals: no apparent distress, average body habitus, oriented x3, no kang itations, healthy appearing, alert and well nourished Exam limitations: altered mental status General appearance: cooperative, comfortable and well kempt Orientation/consciousness: Yes awake, Yes oriented to person, Yes oriented to place and Yes oriented to time HENMT Common normals: normocephalic Eye Common normals: EOMs intact bilaterally General eye: normal appearance of both eyes Neck & C-Spine Common normals: full ROM Lymph Lymphatic: no lymphadenopathy noted Chest Common normals: inspection of chest normal Respiratory Common normals: normal respiratory effort, no retractions, no use of accessory m uscles, clear to auscultation bilaterally and percussion normal Auscultation: clear to auscultation bilaterally Cardio Common normals: regular rate and regular rhythm Rate: regular rate Rhythm: regular rhythm GI Common normals: Normal to inspection, nondistended, normoactive bowel sounds present, soft to palpation and non-tender Auscultation: normoactive bowel sounds Palpation: soft and tender Common normals: no CVA tenderness Back & Pelvis Common normals: no CVA tenderness Extremity Common normals: normal to inspection, full ROM, normal capillary refill, no joint enlargement, no clubbing, cyanosis or edema, no calf tenderness and no pedal edema Neuro Common normals: oriented x3 Sensorium/orientation: awake, alert, oriented to person, oriented to place and oriented to time Psych Common normals: mental status grossly normal, thought process normal, cooperative, affect normal, speech normal, activity/motor behavior normal, denies hallucinations, denies homicidal ideation and denies suicidal ideation Attitude: calm Results Labs Labs: Short CBC 11/18/23 Range/Units 15:26 WBC 15.5 H (4.0-11.0) 10^3/uL Hgb 12.9 (12.0-16.0) g/dL Hct 39.7 (36.0-48.0) % Plt Count 233 (150-450) 10^3/uL OB - PN: A/P Assessment and Plan (1) Term : Plan - Vaginal Delivery day: 1 Plan: routine care Time Spent with Patient Time: Total time spent is greater than 50% in coordination of care (as documented) at patient's floor/unit and/or counseling patient: Total time spent with greater than 50% in coordination of care (as documented) at patient's floor/unit and/or counseling patient: less than 15 minutes
[2023-11-19] MEDS: DOCUSATE SODIUM 100 MG CAPSULE PO ×2 (09:02→21:55)
[2023-11-19] MEDS: ACETAMINOPHEN 325 MG TABLET 650 MG PO ×2 (11:32→17:50)
--- NOTE | 2023-11-19 13:31 | PC.NURSE ---
LC into room to assess latch as mom reports terrible pinch and stinging . 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 Nipples bilaterally excoriated and very tender. No bleeding or cracks noted. Infant in football hold for latch on sofa. Deep latch achieved, immediate suck with audible intermittent swallows noted. Mom states still feels pinch Unable to determine if current pain or discomfort from previous damage. Nipple rounded with 1mm nipple edge appearing to be pinched/compressed. To secong breast in laid back position on bed, mom reports increased comfort, States just old tenderness as baby nurses. Audible swallows noted. attentive to learning and supportive.
[2023-11-20] MEDS: IBUPROFEN 400 MG TABLET 800 MG PO (04:38)
--- NOTE | 2023-11-20 07:51 | P.OBPN_ITS ---
OB - PN: Subj Subjective Patient comments: no complaints and pain well controlled [place] status: doing well Exam Constitutional Vital Signs, click to edit/add: Last Vital Signs Temp 98.2 F 11/19/23 15:45 Pulse 73 11/19/23 21:54 Resp 16 11/19/23 22:00 BP 108/51 11/19/23 21:54 O2 Del Method Room Air 11/19/23 15:45 Documenting provider has reviewed patient's vital signs: yes Common normals: no apparent distress Respiratory Common normals: normal respiratory effort and clear to auscultation bilaterally Cardio Common normals: regular rate and regular rhythm GI Common normals: Normal to inspection, nondistended, normoactive bowel sounds present Extremity Common normals: no clubbing, cyanosis or edema and no calf tenderness OB - PN: A/P Assessment and Plan (1) Term : Plan - Vaginal Delivery day: 1 Plan: routine care Time Spent with Patient Time: Total time spent is greater than 50% in coordination of care (as documented) at patient's floor/unit and/or counseling patient: Total time spent with greater than 50% in coordination of care (as documented) at patient's floor/unit and/or counseling patient: less than 15 minutes
[2023-11-20 09:05] VITALS: BP 112/58; PULSE 77; TEMP 36.5
[2023-11-20 09:07] VITALS: BP 112/58; PULSE 77
[2023-11-20] MEDS: DOCUSATE SODIUM 100 MG CAPSULE PO (09:10)
== END 2023-11-20 11:40 | disposition home or self-care (01) | DRG 807 ==
PROVIDERS: Admitting Provider Midwife; PCP Family Medicine; Visit Provider Midwife
DX: O32.6XX0 Maternal care for compound presentation, not applicable or unspecified (principal); Z37.0 Single live birth; O70.0 First degree perineal laceration during delivery; Z3A.38 38 weeks gestation of pregnancy
CPT/HCPCS: 36415; 59050; 59410; 80307; 85027; 86850; 86900; 86901; 96365; 96366; J0665; J2795; J3010

== ENCOUNTER 2023-11-24 08:30 | Outpatient (OUT) | payer BC, SELFPAY ==
--- OUTSIDE RECORDS SUMMARY | 2023-11-24 08:51 | XMS_ITS | CCD ---
Author Organization [facility] Care Team Providers Care Nailhead Operator Name Role Phone GARRET GOMEZ JR Admitting Unavailable GARRET GOMEZ JR Attending Unavailable JOSSE, DR NIALL Craft Primary Care Unavailable GARRET GOMEZ JR Consulting Unavailable ROSALINDA, DR HERNANDEZ Admitting Unavailable ROSALINDA, DR HERNANDEZ Attending Unavailable ROSALINDA, DR HERNANDEZ Primary Care Unavailable ROSALINDA, DR HERNANDEZ Consulting Unavailable Bk, DO Vesna Attending Provider [phone] MD David Pascual Primary Care Provider [phone] DO Olga Santoyo Attending Provider DO Olga Santoyo Admit Provider [phone] David Pascual Primary Care Unavailable Nataprtrentonra, Vesna Admitting Unavailable Natluara, Vesna Attending Unavailable David Pascual Primary Care [...] Unavailable CECILIA MADDEN Attending Unavailable CECILIA MADDEN Referring Unavailable Medications Current Medications Medication Drug Class(es) [...] Estrogen Start: 08-28-2020 End: 11-10-2021 Norethindrone-E.Est radiol-Iron (Junel Fe 04/18 (28)) 1 mg-20 mcg (21)/75 mg (7) [...] US OB FOLLOW UP TRANSABDOMIN AL APPROACHon 11-17-2023 US OB FOLLOW UP TRANSABDOMINAL APPROACH TITLE OF EXAM: OB Ultrasound: REASON FOR EXAM: Growth TECHNIQUE: Grayscale and color Doppler imaging is performed. Measurements: heart rate: 145 bpm WOLFGANG: 10.9 cm (7.2-23.1) BPD: 9.5 cm HC: 33.6 cm AC: 34.7 cm FL: 7.7 cm GA for sonogram: 38.6 wk (36.3-40.9) Cervix length: 3.7 cm DARCI: 11/27/2023 Weight Estimate: Weight: 3608 gm / 7 lbs, 15 oz (9264-8936) [place]lock Normal: 3359 gm (3087-9931 gm) [place] Wt%: 72% for 38.6 wk (GA selected) 69% for 38.7 wks (LMP) CLINICAL SUMMARY: A single intrauterine is noted in cephalic presentation. heart is observed with a heart rate of 145. growth: Consistent with normal growth. Placenta is located anteriorly. Placenta is Grade II/III Amniotic fluid volume is normal. Limited study. Full anatomical survey not performed. Dictated and transcribed 11/18/23/dpd This report has been electronically signed and approved by the interpreting radiologist. Electronically Signed Harshad Lopez M.D. 2023-11-18 11:08:57 Normal Not Available US OB FOLLOW UP TRANSABDOMIN AL APPROACHon 09-22-2023 US OB FOLLOW UP TRANSABDOMINAL APPROACH FINDINGS: A [...] LIMITS OF THE STUDY. ELECTRONICALLY SIGNED BY: Hever Leo, DO Normal Not Available US OB < [...] 12-17-2021 Basophils (Bld) [#/Vol] 0.1 10*3/uL 0.0-0.2 [facility] Basophils/100 WBC Auto (Bld) Ordered By: Olga Santoyo on 12-17-2021 Basophils/100 WBC (Bld) 0.4 % . [facility] Blood hemoglobin measurement (mass/volume)Ordered By: Olga Santoyo on 12-17-2021 Hemoglobin (Bld) [Mass/Vol] 9.6 g/dL 11.8-15.4 [facility] Blood leukocytes automated c ount (number/volume)Ordered By: Olga Santoyo on 12-17-2021 WBC (Bld) [#/Vol] 16.1 10*3/uL 4.5-11.0 [place] Complete Blood Count Auto Di ffon 12-17-2021 Basophils (Bld) [#/Vol] 0.1 10*3/uL Normal 0.0-0.2 [facility] Comment on above: Order Comment: Comme nt Draw at 630 am Result Comment: PERF ORMED BY: [place] [address] PATHOLOGIST VISUAL MERCHANDISING ASSISTANT NATALYA ESTEBAN M.D. Performed By: #### C BC #### [facility] [address] [place] [address] Basophils/100 WBC (Bld) 0.4 % Normal . [facility] Comment on above: Order Comment: Comme nt Draw at 630 am Performed By: #### C BC #### [facility] [address] Eosinophils (Bld) [#/Vol] 0.1 10*3/uL Normal 0.0-0.45 [facility] Comment on above: Order Comment: Comme nt Draw at 630 am Performed By: #### C BC #### [address] Eosinophils/100 WBC (Bld) 0.8 % Normal . [facility] Comment on above: Order Comment: Comme nt Draw at 630 am Performed By: #### C BC #### [address] Erythrocyte distribution width (RBC) [Ratio] 13.7 % Normal 11.9-15.3 [facility] Comment on above: Order Comment: Comme nt Draw at 630 am Performed By: #### C BC #### [address] Hematocrit (Bld) [Volume fraction] 29.4 % Low 34.0-46.4 [facility] Comment on above: Order Comment: Comme nt Draw at 630 am Performed By: #### C BC #### [address] Hemoglobin (Bld) [Mass/Vol] 9.6 g/dL Low 11.8-15.4 [facility] Comment on above: Order Comment: Comme nt Draw at 630 am Performed By: #### C BC #### [address] Lymphocytes (Bld) [#/Vol] 3.1 10*3/uL Normal 1.00-4.8 [facility] Comment on above: Order Comment: Comme nt Draw at 630 am Performed By: #### C BC #### [address] Lymphocytes/100 WBC (Bld) 19.2 % Normal . [facility] Comment on above: Order Comment: Comme nt Draw at 630 am Performed By: #### C BC #### [address] MCH (RBC) [Entitic mass] 28.4 pg Normal 24.7-34.3 [facility] Comment on above: Order Comment: Comme nt Draw at 630 am Performed By: #### C BC #### [facility] [address] [place] [address] MCV (RBC) [Entitic vol] 86.6 fL Normal 80-100 F [facility] Comment on above: Order Comment: Comme nt Draw at 630 am Performed By: #### C BC #### [address] Mean Corpuscular HGB Conc 32.8 g/dL Normal 32.0-35.0 [facility] Comment on above: Order Comment: Comme nt Draw at 630 am Performed By: #### C BC #### [facility] [address] [place] [address] [place] Monocytes (Bld) [#/Vol] 1.4 10*3/uL High 0.0-0.8 [facility] Comment on above: Order Comment: Comme nt Draw at 630 am Performed By: #### C BC #### [facility] [address] [place] [address] [place] Monocytes/100 WBC (Bld) 8.5 % Normal . [facility] Comment on above: Order Comment: Comme nt Draw at 630 am Performed By: #### C BC #### [facility] [address] [place] [address] [place] Neutrophils (Bld) [#/Vol] 11.5 10*3/uL High 1.8-7.7 [facility] Comment on above: Order Comment: Comme nt Draw at 630 am Performed By: #### C BC #### [place] [address] [place] Neutrophils/100 WBC (Bld) 71.1 % Normal . [facility] Comment on above: Order Comment: Comme nt Draw at 630 am Performed By: #### C BC #### [place] [address] [place] Nucleated RBC/100 WBC (Bld) [Ratio] 0.1 % Normal 0-0.5 [facility] Comment on above: Order Comment: Comme nt Draw at 630 am Performed By: #### C BC #### [address] [address] [place] Platelet mean volume (Bld) [Entitic vol] 10.6 fL Normal 6.3-10.7 [facility] Comment on above: Order Comment: Comme nt Draw at 630 am Performed By: #### C BC #### [facility] [address] Platelets (Bld) [#/Vol] 182 10*3/uL Normal 150-450 [facility] Comment on above: Order Comment: Comme nt Draw at 630 am Performed By: #### C BC #### [facility] [address] [place] [address] RBC (Bld) [#/Vol] 3.39 10*6/uL Low 3.60-5.00 [place] Comment on above: Order Comment: Comme nt Draw at 630 am Performed By: #### C BC #### [facility] [address] [place] [address] WBC (Bld) [#/Vol] 16.1 10*3/uL High 4.5-11.0 [place] Comment on above: Order Comment: Comme nt Draw at 630 am Performed By: #### C BC #### [facility] [address] [place] [address] Eosinophils Auto (Bld) [#/Vo l]Ordered By: Olga Santoyo on 12-17-2021 Eosinophils (Bld) [#/Vol] 0.1 10*3/uL 0.0-0.45 [facility] Eosinophils/100 WBC Auto (Bl d)Ordered By: Olga Santoyo on 12-17-2021 Eosinophils/100 WBC (Bld) 0.8 % . [facility] Erythrocyte distribution wid th Auto (RBC) [Ratio]Ordered By: Olga Santoyo on 12-17-2021 Erythrocyte distribution width (RBC) [Ratio] 13.7 % 11.9-15.3 [facility] Hematocrit Auto (Bld) [Volum e fraction]Ordered By: Olga Santoyo on 12-17-2021 Hematocrit (Bld) [Volume fraction] 29.4 % 34.0-46.4 [facility] - Hematology and Cell countsOrdered By: Olga Santoyo on 12-17-2021 Nucleated RBC/100 WBC (Bld) [Ratio] 0.1 % 0-0.5 [facility] Lymphocytes Auto (Bld) [#/Vo l]Ordered By: Olga Santoyo on 12-17-2021 Lymphocytes (Bld) [#/Vol] 3.1 10*3/uL 1.00-4.8 [facility] Lymphocytes/100 WBC Auto (Bl d)Ordered By: Olga Santoyo on 12-17-2021 Lymphocytes/100 WBC (Bld) 19.2 % . [facility] MCH Auto (RBC) [Entitic mass ]Ordered By: Olga Santoyo on 12-17-2021 MCH (RBC) [Entitic mass] 28.4 pg 24.7-34.3 [facility] MCHC Auto (RBC) [Mass/Vol]Or dered By: Olga Santoyo on 12-17-2021 MCHC (RBC) [Mass/Vol] 32.8 g/dL 32.0-35.0 [facility]ir [facility] MCV Auto (RBC) [Entitic vol] Ordered By: Olga Santoyo on 12-17-2021 MCV (RBC) [Entitic vol] 86.6 fL 80-100 [facility] Monocytes Auto (Bld) [#/Vol] Ordered By: Olga Santoyo on 12-17-2021 Monocytes (Bld) [#/Vol] 1.4 10*3/uL 0.0-0.8 [facility] Monocytes/100 WBC Auto (Bld) Ordered By: Olga Santoyo on 12-17-2021 Monocytes/100 WBC (Bld) 8.5 % . [facility] Neutrophils Auto (Bld) [#/Vo l]Ordered By: Olga Santoyo on 12-17-2021 Neutrophils (Bld) [#/Vol] 11.5 10*3/uL 1.8-7.7 [facility] Neutrophils/100 WBC Auto (Bl d)Ordered By: Olga Santoyo on 12-17-2021 Neutrophils/100 WBC (Bld) 71.1 % . [facility] Platelet mean volume Auto (B ld) [Entitic vol]Ordered By: Olga Santoyo on 12-17-2021 Platelet mean volume (Bld) [Entitic vol] 10.6 fL 6.3-10.7 [facility] Platelets Auto (Bld) [#/Vol] Ordered By: Olga Santoyo on 12-17-2021 Platelets (Bld) [#/Vol] 182 10*3/uL 150-450 [facility] RBC Auto (Bld) [#/Vol]Ordere d By: Olga Divinaradha on 12-17-2021 RBC (Bld) [#/Vol] 3.39 10*6/uL 3.60-5.00 [place] ABO/RH Typeon 12-16-2021 ABO and Rh group Nom (Bld) Blood group A Rh(D) positive Normal [facility] Comment on above: Result Comment: PERF ORMED BY: [facility] [address] [place] [address] PATHOLOGIST VISUAL MERCHANDISING ASSISTANT NATALYA ESTEBAN M.D. COVID-19 Antigenon 2 COVID-19 [...] developed and its performance characteristic determined by [employer] and validated at [facility]. This test has not been FDA cleared [...] for SARS Antigen by [facility] PERFORMED BY: [place] [address] PATHOLOGIST VISUAL MERCHANDISING ASSISTANT NATALYA ESTEBAN M.D. Normal [facility] Comment on above: Performed By: #### U A, OBUDS #### [address] Complete Blood Count Auto Di ffon 12-16-2021 Basophils (Bld) [#/Vol] 0.1 10*3/uL Normal 0.0-0.2 [facility] Comment on above: Result Comment: PERF ORMED BY: [place] [address] PATHOLOGIST VISUAL MERCHANDISING ASSISTANT NATALYA ESTEBAN M.D. Performed By: #### C BC #### [address] Basophils/100 WBC (Bld) 0.8 % Normal . [facility] Comment on above: Performed By: #### C BC #### [address] Eosinophils (Bld) [#/Vol] 0.2 10*3/uL Normal 0.0-0.45 [facility] Comment on above: Performed By: #### C BC #### [address] Eosinophils/100 WBC (Bld) 1.0 % Normal . [facility] Comment on above: Performed By: #### C BC #### [address] Erythrocyte distribution width (RBC) [Ratio] 13.8 % Normal 11.9-15.3 [facility] Comment on above: Performed By: #### C BC #### [address] Hematocrit (Bld) [Volume fraction] 36.7 % Normal 34.0-46.4 [facility] Comment on above: Performed By: #### C BC #### [address] Hemoglobin (Bld) [Mass/Vol] 12.2 g/dL Normal 11.8-15.4 [facility] Comment on above: Performed By: #### C BC #### [address] Lymphocytes (Bld) [#/Vol] 3.1 10*3/uL Normal 1.00-4.8 [facility] Comment on above: Performed By: #### C BC #### [address] Lymphocytes/100 WBC (Bld) 18.2 % Normal . [facility] Comment on above: Performed By: #### C BC #### [address] MCH (RBC) [Entitic mass] 28.4 pg Normal 24.7-34.3 [facility] Comment on above: Performed By: #### C BC #### [address] MCV (RBC) [Entitic vol] 85.5 fL Normal 80-100 F [facility] Comment on above: Performed By: #### C BC #### [address] Mean Corpuscular HGB Conc 33.2 g/dL Normal 32.0-35.0 [facility] Comment on above: Performed By: #### C BC #### [address] Monocytes (Bld) [#/Vol] 1.4 10*3/uL High 0.0-0.8 [facility] Comment on above: Performed By: #### C BC #### [facility] [address] [place] [id number] [place] Monocytes/100 WBC (Bld) 8.1 % Normal . [facility] Comment on above: Performed By: #### C BC #### [facility] [address] [place] [address] [place] Neutrophils (Bld) [#/Vol] 12.2 10*3/uL High 1.8-7.7 [facility] Comment on above: Performed By: #### C BC #### [facility] [address] Neutrophils/100 WBC (Bld) 71.9 % Normal . [facility] Comment on above: Performed By: #### C BC #### [facility] [address] [place] [address] [place] Nucleated RBC/100 WBC (Bld) [Ratio] 0.1 % Normal 0-0.5 [facility] Comment on above: Performed By: #### C BC #### [facility] [address] [place] [address] [place] Platelet mean volume (Bld) [Entitic vol] 10.8 fL High 6.3-10.7 [facility] Comment on above: Performed By: #### C BC #### [facility] [address] [place] [id number] [place] Platelets (Bld) [#/Vol] 220 10*3/uL Normal 150-450 [facility] Comment on above: Performed By: #### C BC #### [facility] [address] [place] [id number] [place] RBC (Bld) [#/Vol] 4.29 10*6/uL Normal 3.60-5.00 [place] Comment on above: Performed By: #### C BC #### [facility] [address] [place] [id number] [place] WBC (Bld) [#/Vol] 17.0 10*3/uL High 4.5-11.0 [place] Comment on above: Performed By: #### C BC #### [place] [address] [place] Dipstick and Microscopicon 0 12-16-2021 Appearance (U) Clear Normal Clear [facility] Comment on above: Order Comment: Name Collection Type:: Clean-Voided Midstream Performed By: #### O BUDS, ADDONUAPLUS #### [place] [address] [place] Bacteria,Urine None Seen Normal None Seen [facility] Comment on above: Order Comment: Name Collection Type:: Clean-Voided Midstream Performed By: #### O BUDS, ADDONUAPLUS #### [place] [address] [place] Bilirubin,Urine Negative Normal Negative [facility] Comment on above: Order Comment: Name Collection Type:: Clean-Voided Midstream Performed By: #### O BUDS, ADDONUAPLUS #### [address] Glucose Ql (U) Normal Normal Normal [facility] Comment on above: Order Comment: Name Collection Type:: Clean-Voided Midstream Performed By: #### O BUDS, ADDONUAPLUS #### [address] Hyaline Casts,Urine 0-8 Normal 0-8 [place] Comment on above: Order Comment: Name Collection Type:: Clean-Voided Midstream Result Comment: PERF ORMED BY: [place] [address] PATHOLOGIST VISUAL MERCHANDISING ASSISTANT NATALYA ESTEBAN M.D. Performed By: #### O BUDS, ADDONUAPLUS #### [place] [address] [place] Ketones Ql (U) Negative Normal Negative [facility] Comment on above: Order Comment: Name Collection Type:: Clean-Voided Midstream Performed By: #### O BUDS, ADDONUAPLUS #### [address] Leukocyte esterase Test strip Ql (U) Negative Normal Negative [facility] Comment on above: Order Comment: Name Collection Type:: Clean-Voided Midstream Performed By: #### O BUDS, ADDONUAPLUS #### [place] [address] [place] Nitrite,Urine Negative Normal Negative [facility] Comment on above: Order Comment: Name Collection Type:: Clean-Voided Midstream Performed By: #### O BUDS, ADDONUAPLUS #### [address] Occult Blood,Urine Negative Normal Negative [facility] Comment on above: Order Comment: Name Collection Type:: Clean-Voided Midstream Result Comment: PERF ORMED BY: [place] [address] PATHOLOGIST VISUAL MERCHANDISING ASSISTANT NATALYA ESTEBAN M.D. Performed By: #### O BUDS, ADDONUAPLUS #### [address] Protein,Urine Trace High Negative [facility] Comment on above: Order Comment: Name Collection Type:: Clean-Voided Midstream Performed By: #### O BUDS, ADDONUAPLUS #### [address] RBC,Urine 1-2 Normal 0-4 [facility] Comment on above: Order Comment: Name Collection Type:: Clean-Voided Midstream Performed By: #### O BUDS, ADDONUAPLUS #### [address] Specificy [place],Urine 1.022 Normal 1.001-1.030 [facility] Comment on above: Order Comment: Name Collection Type:: Clean-Voided Midstream Performed By: #### O BUDS, ADDONUAPLUS #### [place] [address] [place] Squamous Epithelial Cell,Urine 0-1 Normal 0-2 [facility] Comment on above: Order Comment: Name Collection Type:: Clean-Voided Midstream Performed By: #### O BUDS, ADDONUAPLUS #### [address] [place] [address] [place] Urobilinogen,Urine Normal Normal Normal [facility] Comment on above: Order Comment: Name Collection Type:: Clean-Voided Midstream Performed By: #### O BUDS, ADDONUAPLUS #### [facility] [address] [place] [address] [place] WBC,Urine 1-2 Normal 0-4 [facility] Comment on above: Order Comment: Name Collection Type:: Clean-Voided Midstream Performed By: #### O BUDS, ADDONUAPLUS #### [address] OB Urine Drug Screen (NO THC )on 12-16-2021 Amphetamine Screen,Urine Negative Normal Negative [facility] Comment on above: Performed By: #### O BUDS, ADDONUAPLUS #### [address] Barbiturate Screen,Urine Negative Normal Negative [facility] Comment on above: Performed By: #### O BUDS, ADDONUAPLUS #### [place] [address] [place] Benzodiazepines Screen,Urine Negative Normal Negative [facility] Comment on above: Performed By: #### O BUDS, ADDONUAPLUS #### [place] [address] [place] Cocaine Screen,Urine Negative Normal Negative [facility] Comment on above: Performed By: #### O BUDS, ADDONUAPLUS #### [facility] [address] [place] [address] [place] Opiate Screen,Urine Negative Normal Negative [place] Comment on above: Performed By: #### O BUDS, ADDONUAPLUS #### [facility] [address] [place] [address] [place] Phencyclidine Screen, Urine Negative Normal Negative [facility] Comment on above: Result Comment: Thes e are unconfirmed results and should not be used for legal purposes. Drug Cut-Off Concentration: AMPH 1000 ng/mL RONEL 200 ng/mL JUANITO 200 ng/mL COCM 300 ng/mL OP 300 ng/mL PCP 25 ng/mL PERFORMED BY: [place] [address] PATHOLOGIST VISUAL MERCHANDISING ASSISTANT NATALYA ESTEBAN M.D. Performed By: #### O BUDS, ADDONUAPLUS #### [address] Lucy Ag Negativeon 12-17-19 Lucy Ag Negative Negative Normal Negative [facility] Comment on above: Result Comment: This is a duplicate Lucy SARS Antigen (BRODY) result to be used for statistical tracking purpose only. PERFORMED BY: [place] [address] PATHOLOGIST VISUAL MERCHANDISING ASSISTANT NATALYA ESTEBAN M.D. Performed By: #### U A, OBUDS #### [address] Amphetamine Screen Ql (U)Ord ered By: Olga Santoyo on 12-15-2021 Amphetamines Ql (U) Negative Negative [place] Automated erythrocytes count in urine sediment (number/area)Ordered By: Olga Santoyo on 12-15-2021 RBC Auto (Urine sed) [#/Area] 1-2 [HPF] 0-4 [facility] Automated leukocytes count i n urine sediment (number/area)Ordered By: Olga Santoyo on 12-15-2021 WBC Auto (Urine sed) [#/Area] 1-2 [HPF] 0-4 [facility] Automated urine color determ inationOrdered By: Olga Santoyo on 12-15-2021 Color (U) Yellow Normal Yellow [facility] Comment on above: Order Comment: Name Collection Type:: Clean-Voided Midstream Performed By: #### O BUDS, ADDONUAPLUS #### [facility] [address] [place] [address] [place] Barbiturates [Presence] in U rineOrdered By: Olga Santoyo on 12-15-2021 Barbiturates Ql (U) Negative Negative [place] Benzodiazepines [Presence] i n UrineOrdered By: Olga Santoyo on 09-18-2022 Benzodiazepines Ql (U) Negative Negative [facility] Bilirubin Test strip Ql (U)O rdered By: Olga Santoyo on 12-15-2021 Bilirubin Ql (U) Negative Negative [facility] COVID-19 SOFIAOrdered By: Cem Santoyo on 12-15-2021 SARS-CoV+SARS-CoV-2 (COVID-19) Ag IA.rapid Ql (Resp) Negative Negative [facility] Comment on above: This is a duplicate Lucy SARS Antigen (BRODY) result to be used for statistical tracking purpose only. Ketones Auto test strip (U) [Mass/Vol]Ordered By: Olga Santoyo on 12-15-2021 Ketones (U) [Mass/Vol] Negative Negative [facility] - Drug toxicology Ordered By: Olga Santoyo on 12-15-2021 Opiates Ql (U) Negative Negative [facility] - UrinalysisOrder ed By: Olga Santoyo on 12-15-2021 Hyaline casts LM Ql (Urine sed) 0-8 [LPF] 0-8 [facility] Nitrite Test strip Ql (U)Ord ered By: Olga Santoyo on 12-15-2021 Nitrite Ql (U) Negative Negative [facility] No Panel InformationOrdered By: Olga Santoyo on 12-15-2021 SARS Antigen (LFIA) [place] Phencyclidine Screen Ql (U)O rdered By: Olga Santoyo on 12-15-2021 Phencyclidine Ql (U) Negative Negative [facility] Comment on above: These are unconfirme d results and should not be used for legal purposes. Drug Cut-Off Concentration: AMPH 1000 ng/mL RONEL 200 ng/mL JUANTIO 200 ng/mL COCM 300 ng/mL OP 300 ng/mL PCP 25 ng/mL Protein Auto test strip (U) [Mass/Vol]Ordered By: Olga Santoyo on 12-15-2021 Protein (U) [Mass/Vol] Trace mg/dL Negative [facility] Specific gravity Auto test s trip (U) [Rel density]Ordered By: Olga Santoyo on 12-15-2021 Specific gravity (U) [Rel density] 1.022 1.001-1.030 [facility] Squamous epithelial cells de tection in urine sediment by light microscopyOrdered By: Olga Santoyo on 12-15-2021 Epithelial cells.squamous LM Ql (Urine sed) 0-1 [HPF] 0-2 [facility] Urine bacteria detection by automated methodOrdered By: Olga Santoyo on 12-15-2021 Bacteria Auto Ql (U) None seen None Seen [facility] Urine clarity by refractomet ry automatedOrdered By: Olga Santoyo on 12-15-2021 Clarity Refractometry automated (U) Clear Clear [facility] Urine cocaine detectionOrder ed By: Olga Santoyo on 12-15-2021 Cocaine Ql (U) Negative Negative [facility] Urine glucose measurement by automated test strip (mass/volume)Ordered By: Olga Santoyo on 12-15-2021 Glucose Auto test strip (U) [Mass/Vol] Normal mg/dL Normal [facility] Urine hemoglobin detection b y automated test stripOrdered By: Olga Santoyo on 12-15-2021 Hemoglobin Auto test strip Ql (U) Negative Negative [facility] Urine leukocyte esterase det ection by automated test stripOrdered By: Olga Santoyo on 12-15-2021 Leukocyte esterase Auto test strip Ql (U) Negative Negative [facility] Urine pH measurement by auto mated test stripOrdered By: Olga Santoyo on 12-15-2021 pH (U) 6.5 [pH] Normal 5.0-9.0 [facility] Comment on above: Order Comment: Name Collection Type:: Clean-Voided Midstream Performed By: #### O BUDS, ADDONUAPLUS #### [address] Urobilinogen Auto test strip (U) [Mass/Vol]Ordered By: Olga Santoyo on 12-15-2021 Urobilinogen (U) [Mass/Vol] Normal mg/dL Normal [facility] Amphetamine Screen Ql (U)Ord ered By: VESNA BOURGEOIS on 12-07-2021 Amphetamines Ql (U) Negative Negative [place] Barbiturates [Presence] in U rineOrdered By: VESNA BOURGEOIS on 12-07-2021 Barbiturates Ql (U) Negative Negative [place] Benzodiazepines [Presence] i n UrineOrdered By: VESNA BOURGEOIS on 12-07-2021 Benzodiazepines Ql (U) Negative Negative [facility] Bilirubin Test strip Ql (U)O rdered By: VESNA BOURGEOIS on 12-07-2021 Bilirubin Ql (U) Negative Negative [facility] Color Auto (U)Ordered By: ECHO BOURGEOIS on 12-07-2021 Color (U) Yellow Yellow [facility] Ketones Auto test strip (U) [Mass/Vol]Ordered By: VESNA BOURGEOIS on 12-07-2021 Ketones (U) [Mass/Vol] Negative Negative [facility] - Drug toxicology Ordered By: VESNA BOURGEOIS on 12-07-2021 Opiates Ql (U) Negative Negative [facility] Nitrite Test strip Ql (U)Ord ered By: VESNA BOURGEOIS on 12-07-2021 Nitrite Ql (U) Negative Negative [facility] OB Urine Drug Screen (NO THC )on 12-07-2021 Amphetamine Screen,Urine Negative Normal Negative [facility] Comment on above: Performed By: #### U A, OBUDS #### [facility] [address] [place] [address] Barbiturate Screen,Urine Negative Normal Negative [facility] Comment on above: Performed By: #### U A, OBUDS #### [facility] [address] [place] [address] [place] Benzodiazepines Screen,Urine Negative Normal Negative [facility] Comment on above: Performed By: #### U A, OBUDS #### [facility] [address] [place] [address] [place] Cocaine Screen,Urine Negative Normal Negative [facility] Comment on above: Performed By: #### U A, OBUDS #### [facility] [address] [place] [address] [place] Opiate Screen,Urine Negative Normal Negative [place] Comment on above: Performed By: #### U A, OBUDS #### [facility] [address] [place] [address] Phencyclidine Screen, Urine Negative Normal Negative [facility] Comment on above: Result Comment: Thes e are unconfirmed results and should not be used for legal purposes. Drug Cut-Off Concentration: AMPH 1000 ng/mL RONEL 200 ng/mL JUANITO 200 ng/mL COCM 300 ng/mL OP 300 ng/mL PCP 25 ng/mL PERFORMED BY: [place] [address] PATHOLOGIST VISUAL MERCHANDISING ASSISTANT NATALYA ESTEBAN M.D. Performed By: #### U A, OBUDS #### [address] Phencyclidine Screen Ql (U)O rdered By: VESNA BOURGEOIS on 12-07-2021 Phencyclidine Ql (U) Negative Negative [facility] Comment on above: These are unconfirme d results and should not be used for legal purposes. Drug Cut-Off Concentration: AMPH 1000 ng/mL RONEL 200 ng/mL JUANITO 200 ng/mL COCM 300 ng/mL OP 300 ng/mL PCP 25 ng/mL Protein Auto test strip (U) [Mass/Vol]Ordered By: VESNA BOURGEOIS on 12-07-2021 Protein (U) [Mass/Vol] Negative Negative [facility] Specific gravity Auto test s trip (U) [Rel density]Ordered By: VESNA BOURGEOIS on 12-07-2021 Specific gravity (U) [Rel density] 1.009 1.001-1.030 [facility] Urinalysison 12-07-2021 Appearance (U) Clear Normal Clear [facility] Comment on above: Order Comment: Name Collection Type:: Clean-Voided Midstream Performed By: #### U A, OBUDS #### [address] Bilirubin,Urine Negative Normal Negative [facility] Comment on above: Order Comment: Name Collection Type:: Clean-Voided Midstream Performed By: #### U A, OBUDS #### [address] [place] [address] [place] Color (U) Yellow Normal Yellow [facility] Comment on above: Order Comment: Name Collection Type:: Clean-Voided Midstream Performed By: #### U A, OBUDS #### [place] [address] [place] Glucose Ql (U) Normal Normal Normal [facility] Comment on above: Order Comment: Name Collection Type:: Clean-Voided Midstream Performed By: #### U A, OBUDS #### [place] [address] [place] Ketones Ql (U) Negative Normal Negative [facility] Comment on above: Order Comment: Name Collection Type:: Clean-Voided Midstream Performed By: #### U A, OBUDS #### [address] Leukocyte esterase Test strip Ql (U) Negative Normal Negative [facility] Comment on above: Order Comment: Name Collection Type:: Clean-Voided Midstream Performed By: #### U A, OBUDS #### [place] [address] [place] Nitrite,Urine Negative Normal Negative [facility] Comment on above: Order Comment: Name Collection Type:: Clean-Voided Midstream Performed By: #### U A, OBUDS #### [place] [address] [place] Occult Blood,Urine Negative Normal Negative [facility] Comment on above: Order Comment: Name Collection Type:: Clean-Voided Midstream Result Comment: PERF ORMED BY: [place] [address] PATHOLOGIST VISUAL MERCHANDISING ASSISTANT NATALYA ESTEBAN M.D. Performed By: #### U A, OBUDS #### [facility] [address] [place] [address] [place] pH (U) 7.0 [pH] Normal 5.0-9.0 [facility] Comment on above: Order Comment: Name Collection Type:: Clean-Voided Midstream Performed By: #### U A, OBUDS #### [facility] [address] [place] [address] [place] Protein,Urine Negative Normal Negative [facility] Comment on above: Order Comment: Name Collection Type:: Clean-Voided Midstream Performed By: #### U A, OBUDS #### [facility] [address] Specificy [place],Urine 1.009 Normal 1.001-1.030 [facility] Comment on above: Order Comment: Name Collection Type:: Clean-Voided Midstream Performed By: #### U A, OBUDS #### [facility] [address] Urobilinogen,Urine Normal Normal Normal [facility] Comment on above: Order Comment: Name Collection Type:: Clean-Voided Midstream Performed By: #### U A, OBUDS #### [facility] [address] [place] [address] Urine clarity by refractomet ry automatedOrdered By: VESNA BOURGEOIS on 12-07-2021 Clarity Refractometry automated (U) Clear Clear [facility] Urine cocaine detectionOrder ed By: VESNA BOURGEOIS on 12-07-2021 Cocaine Ql (U) Negative Negative [facility] Urine glucose measurement by automated test strip (mass/volume)Ordered By: VESNA BOURGEOIS on 12-07-2021 Glucose Auto test strip (U) [Mass/Vol] Normal mg/dL Normal [facility] Urine hemoglobin detection b y automated test stripOrdered By: VESNA BOURGEOIS on 12-07-2021 Hemoglobin Auto test strip Ql (U) Negative Negative [facility] Urine leukocyte esterase det ection by automated test stripOrdered By: VESNA BOURGEOIS on 12-07-2021 Leukocyte esterase Auto test strip Ql (U) Negative Negative [facility] Urobilinogen Auto test strip (U) [Mass/Vol]Ordered By: VESNA BOURGEOIS on 12-07-2021 Urobilinogen (U) [Mass/Vol] Normal mg/dL Normal [facility] pH Auto test strip (U)Ordere d By: VESNA BOURGEOIS on 12-07-2021 pH (U) 7.0 [pH] 5.0-9.0 [facility] S. agalactiae Org specific c x Ql (Unsp spec)Ordered By: Olga Santoyo on 11-23-2021 Streptococcus agalactiae culture No Group B Beta Streptococcus Isolated 3 Days [facility] Strep B Cultureon 11-19-2021 Strep B Culture Reason for Exam 35 weeks gestation of ; screening for stre Vaginal/Rectal Comment vaginal, ecc, rectal Reason for Exam: 35 weeks gestation of ; screening for stre : Vaginal/Rectal Comment: vaginal, ecc, rectal No Group B Beta Streptococcus Isolated 3 Days PERFORMED BY: [facility] [address] [place] [address] PATHOLOGIST VISUAL MERCHANDISING ASSISTANT NATALYA ESTEBAN M.D. Normal [facility] Comment on above: Performed By: #### C USTB #### [facility] [address] Amphetamine Screen Ql (U)Ord ered By: VESNA BOURGEOIS on 11-10-2021 Amphetamines Ql (U) Negative Negative [place] Barbiturates [Presence] in U rineOrdered By: VESNA BOURGEOIS on 11-10-2021 Barbiturates Ql (U) Negative Negative [place] Benzodiazepines [Presence] i n UrineOrdered By: VESNA BOURGEOIS on 11-10-2021 Benzodiazepines Ql (U) Negative Negative [facility] Bilirubin Test strip Ql (U)O rdered By: VESNA BOURGEOIS on 11-10-2021 Bilirubin Ql (U) Negative Negative [facility] Color Auto (U)Ordered By: ECHO BOURGEOIS on 11-10-2021 Color (U) Yellow Yellow [facility] Ketones Auto test strip (U) [Mass/Vol]Ordered By: VESNA BOURGEOIS on 11-10-2021 Ketones (U) [Mass/Vol] Negative Negative [facility] Laboratory - Drug toxicology Ordered By: VESNA BOURGEOIS on 11-10-2021 Opiates Ql (U) Negative Negative [facility] Nitrite Test strip Ql (U)Ord ered By: VESNA BOURGEOIS on 11-10-2021 Nitrite Ql (U) Negative Negative [facility] OB Urine Drug Screen (NO THC )on 11-10-2021 Amphetamine Screen,Urine Negative Normal Negative [facility] Comment on above: Performed By: #### U A, OBUDS #### [facility] [address] [place] [address] [place] Barbiturate Screen,Urine Negative Normal Negative [facility] Comment on above: Performed By: #### U A, OBUDS #### [facility] [address] [place] [address] [place] Benzodiazepines Screen,Urine Negative Normal Negative [facility] Comment on above: Performed By: #### U A, OBUDS #### [facility] [address] [place] [address] [place] Cocaine Screen,Urine Negative Normal Negative [facility] Comment on above: Performed By: #### U A, OBUDS #### [facility] [address] [place] [address] [place] Opiate Screen,Urine Negative Normal Negative [place] Comment on above: Performed By: #### U A, OBUDS #### [facility] [address] [place] [address] [place] Phencyclidine Screen, Urine Negative Normal Negative [facility] Comment on above: Result Comment: Thes e are unconfirmed results and should not be used for legal purposes. Drug Cut-Off Concentration: AMPH 1000 ng/mL RONEL 200 ng/mL JUANITO 200 ng/mL COCM 300 ng/mL OP 300 ng/mL PCP 25 ng/mL PERFORMED BY: [place] [address] PATHOLOGIST VISUAL MERCHANDISING ASSISTANT NATALYA ESTEBAN M.D. Performed By: #### U A, OBUDS #### [facility] [address] [place] [address] [place] Phencyclidine Screen Ql (U)O rdered By: VESNA BOURGEOIS on 11-10-2021 Phencyclidine Ql (U) Negative Negative [facility] Comment on above: These are unconfirme d results and should not be used for legal purposes. Drug Cut-Off Concentration: AMPH 1000 ng/mL RONEL 200 ng/mL JUANITO 200 ng/mL COCM 300 ng/mL OP 300 ng/mL PCP 25 ng/mL Protein Auto test strip (U) [Mass/Vol]Ordered By: VESNA BOURGEOIS on 11-10-2021 Protein (U) [Mass/Vol] Negative Negative [facility] Specific gravity Auto test s trip (U) [Rel density]Ordered By: VESNA BOURGEOIS on 11-10-2021 Specific gravity (U) [Rel density] 1.004 1.001-1.030 [facility] Urinalysison 11-10-2021 Appearance (U) Clear Normal Clear [facility] Comment on above: Order Comment: Name Collection Type:: Clean-Voided Midstream Performed By: #### U A, OBUDS #### [facility] [address] [place] [address] [place] Bilirubin,Urine Negative Normal Negative [facility] Comment on above: Order Comment: Name Collection Type:: Clean-Voided Midstream Performed By: #### U A, OBUDS #### [facility] [address] [place] [address] [place] Color (U) Yellow Normal Yellow [facility] Comment on above: Order Comment: Name Collection Type:: Clean-Voided Midstream Performed By: #### U A, OBUDS #### [facility] [address] [place] [id number] [place] Glucose Ql (U) Normal Normal Normal [facility] Comment on above: Order Comment: Name Collection Type:: Clean-Voided Midstream Performed By: #### U A, OBUDS #### [facility] [address] [place] [id number] [place] Ketones Ql (U) Negative Normal Negative [facility] Comment on above: Order Comment: Name Collection Type:: Clean-Voided Midstream Performed By: #### U A, OBUDS #### [facility] [address] [place] [id number] [place] Leukocyte esterase Test strip Ql (U) Negative Normal Negative [facility] Comment on above: Order Comment: Name Collection Type:: Clean-Voided Midstream Performed By: #### U A, OBUDS #### [address] Nitrite,Urine Negative Normal Negative [facility] Comment on above: Order Comment: Name Collection Type:: Clean-Voided Midstream Performed By: #### U A, OBUDS #### [address] Occult Blood,Urine Negative Normal Negative [facility] Comment on above: Order Comment: Name Collection Type:: Clean-Voided Midstream Result Comment: PERF ORMED BY: [place] [address] PATHOLOGIST VISUAL MERCHANDISING ASSISTANT NATALYA ESTEBAN M.D. Performed By: #### U A, OBUDS #### [address] pH (U) 7.0 [pH] Normal 5.0-9.0 [facility] Comment on above: Order Comment: Name Collection Type:: Clean-Voided Midstream Performed By: #### U A, OBUDS #### [address] Protein,Urine Negative Normal Negative [facility] Comment on above: Order Comment: Name Collection Type:: Clean-Voided Midstream Performed By: #### U A, OBUDS #### [address] Specificy [place],Urine 1.004 Normal 1.001-1.030 [facility] Comment on above: Order Comment: Name Collection Type:: Clean-Voided Midstream Performed By: #### U A, OBUDS #### [place] [address] [place] Urobilinogen,Urine Normal Normal Normal [facility] Comment on above: Order Comment: Name Collection Type:: Clean-Voided Midstream Performed By: #### U A, OBUDS #### [address] Urine clarity by refractomet ry automatedOrdered By: VESNA BOURGEOIS on 11-10-2021 Clarity Refractometry automated (U) Clear Clear [facility] Urine cocaine detectionOrder ed By: VESNA BOURGEOIS on 11-10-2021 Cocaine Ql (U) Negative Negative [facility] Urine glucose measurement by automated test strip (mass/volume)Ordered By: VESNA BOURGEOIS on 11-10-2021 Glucose Auto test strip (U) [Mass/Vol] Normal mg/dL Normal [facility] Urine hemoglobin detection b y automated test stripOrdered By: VESNA BOURGEOIS on 11-10-2021 Hemoglobin Auto test strip Ql (U) Negative Negative [facility] Urine leukocyte esterase det ection by automated test stripOrdered By: VESNA BOURGEOIS on 11-10-2021 Leukocyte esterase Auto test strip Ql (U) Negative Negative [facility] Urobilinogen Auto test strip (U) [Mass/Vol]Ordered By: VESNA BOURGEOIS on 11-10-2021 Urobilinogen (U) [Mass/Vol] Normal mg/dL Normal [facility] pH Auto test strip (U)Ordere d By: VESNA BOURGEOIS on 11-10-2021 pH (U) 7.0 [pH] 5.0-9.0 [facility] CBC AUTO DIFFon 12-28-2020 BASO # 0.0 103/ul Normal 0.0-0.1 [facility] Comment on above: Performed By: #### C BC #### [facility] [address] [place] [address] Dr. Annie Wright Basophils/100 WBC (Bld) 0.4 % Normal 0.2-2.0 [facility] Comment on above: Performed By: #### C BC #### [facility] [address] [place] [address] Dr. Annie Wright EO # 0.2 103/ul Normal 0.0-0.7 [facility] Comment on above: Performed By: #### C BC #### [facility] [address] [place] [address] Dr. Annie Wright Eosinophils/100 WBC (Bld) 2.3 % Normal 0.9-7.0 [facility] Comment on above: Performed By: #### C BC #### [facility] [address] [place] [address] Dr. Annie Wright Erythrocyte distribution width (RBC) [Ratio] 12.4 % Normal 11.0-15.0 [facility] Comment on above: Performed By: #### C BC #### [facility] [address] [place] [address] Dr. Annie Wright Hematocrit (Bld) [Volume fraction] 39.4 % Normal 36.0-48.0 [facility] Comment on above: Performed By: #### C BC #### [facility] [address] [place] [address] Dr. Annie Wright Hemoglobin (Bld) [Mass/Vol] 13.3 g/dL Normal 12.0-16.0 [facility] Comment on above: Performed By: #### C BC #### [facility] [address] [place] [address] Dr. Annie Wright IG # 0.03 10e3/ul Normal 0.00-0.03 [facility] Comment on above: Performed By: #### C BC #### [facility] [address] [place] [address] Dr. Annie Wright IG % 0.4 % Normal 0.0-0.5 [facility] Comment on above: Performed By: #### C BC #### [facility] [address] [place] [address] Dr. Annie Wright LYMPH # 3.1 103/ul Normal 1.2-3.8 [facility] Comment on above: Performed By: #### C BC #### [facility] [address] [place] [address] Dr. Annie Wright Lymphocytes/100 WBC (Bld) 38.3 % Normal 20.5-60.0 [facility] Comment on above: Performed By: #### C BC #### [facility] [address] [place] [address] Dr. Annie Wright MANUAL DIFF REQ NO Normal [facility] Comment on above: Performed By: #### C BC #### [facility] [address] [place] [address] Dr. Annie Wright MCH (RBC) [Entitic mass] 29.3 pg Normal 26.7-34.0 [facility] Comment on above: Performed By: #### C BC #### [facility] [address] [place] [address] Dr. Annie Wright MCHC (RBC) [Mass/Vol] 33.8 g/dL Normal 29.9-35.2 [facility] Comment on above: Performed By: #### C BC #### [facility] [address] [place] [address] Dr. Annie Wright MCV (RBC) [Entitic vol] 86.8 fL Normal 81.0-99.0 [facility] Comment on above: Performed By: #### C BC #### [facility] [address] [place] [address] Dr. Annie Wright MONO # 0.7 103/ul Normal 0.3-0.8 [facility] Comment on above: Performed By: #### C BC #### [facility] [address] [place] [address] Dr. Annie Wright Monocytes/100 WBC (Bld) 8.5 % Normal 1.7-12.0 [facility] Comment on above: Performed By: #### C BC #### [facility] [address] [place] [address] Dr. Annie Wright NEUT # 4.0 103/ul Normal 1.4-6.5 [facility] Comment on above: Performed By: #### C BC #### [facility] [address] [place] [address] Dr. Annie Wright Neutrophils/100 WBC (Bld) 50.1 % Normal 43.0-75.0 [facility] Comment on above: Performed By: #### C BC #### [facility] [address] [place] [address] Dr. Annie Wright Platelet mean volume (Bld) [Entitic vol] 10.9 fL Normal 9.5-13.5 [facility] Comment on above: Performed By: #### C BC #### [facility] [address] [place] [address] [address] Annie Wright PLT 228 103/ul Normal 150-450 [facility] Comment on above: Performed By: #### C BC #### [facility] [address] [place] [address] [address] Annie Wright RBC 4.54 106/ul Normal 4.20-5.40 [facility] Comment on above: Performed By: #### C BC #### [facility] [address] [place] [address] [address] Annie Wright WBC 8.0 103/ul Normal 4.0-11.0 [facility] Comment on above: Performed By: #### C BC #### [facility] [address] [place] [address] Dr. Annie Wright FREE THYROXINE INDEX T7on FTI 2.02 Normal [facility] Comment on above: Performed By: #### T SH, LIPID, CMP, T7 #### [facility] [address] [place] [address] Dr. Annie Wright T3U 32.0 % Normal 23.5-40.5 [facility] Comment on above: Performed By: #### T SH, LIPID, CMP, T7 #### [facility] [address] [place] [address] [address] Annie Wright T4 [Mass/Vol] 6.30 ug/dL Normal 5.53-11.00 [facility] Comment on above: Performed By: #### T SH, LIPID, CMP, T7 #### [facility] [address] [place] [address] [address] Annie Wright GLYCOHEMOGLOBIN A1Con 2020 ADA RECOMMENDATION ADA THERAPEUTIC TARGET 6.0 - 7.0 ACTION SUGGESTED > 7.0 Normal [facility] Comment on above: Performed By: #### A 1C #### [facility] [address] [place] [address] Dr. Annie Wright Glucose [Mass/Vol] 100 mg/dL Normal [facility] Comment on above: Performed By: #### A 1C #### [facility] [address] [address] [address] Annie Wright HbA1c (Bld) [Mass fraction] 5.1 % Normal <=6.0 [facility] Comment on above: Performed By: #### A 1C #### [facility] [address] [place] [address] [address] Annie Wright LIPID PROFILEon 12-28-2020 CHOL-HDL RATIO NORM SEE BELOW Normal [facility] Comment on above: Result Comment: 3.3 - 4.4 LOW RISK 4.4 - 7.1 AVERAGE RISK 7.1 - 11.0 MODERATE RISK >11.0 HIGH RISK Performed By: #### T SH, LIPID, CMP, T7 #### [facility] [address] [place] [address] Dr. Annie Wright Cholesterol [Mass/Vol] 156 mg/dL Normal <=200 [facility] Comment on above: Performed By: #### T SH, LIPID, CMP, T7 #### [facility] [address] [place] [address] [address] Annie Wright Cholesterol in HDL [Mass/Vol] 62 mg/dL Normal [facility] Comment on above: Performed By: #### T SH, LIPID, CMP, T7 #### [facility] [address] [place] [address] [address] Annie Wright Cholesterol in LDL [Mass/Vol] 82.8 mg/dL Normal [facility] Comment on above: Performed By: #### T SH, LIPID, CMP, T7 #### [facility] [address] [address] [address] Annie Wright Cholesterol.total/Choles terol in HDL [Mass ratio] 2.5 {ratio} Normal [facility] Comment on above: Performed By: #### T SH, LIPID, CMP, T7 #### [facility] [address] [place] [address] Dr. Annie Wright HDL NORMAL > or = 60 mg/dl - LOW CARDIOVASCULAR RISK <40 mg/dl - HIGH CARDIOVASCULAR RISK Normal [facility] Comment on above: Performed By: #### T SH, LIPID, CMP, T7 #### [facility] [address] [place] [address] [address] Annie Wright LDL CALC NORMAL SEE BELOW Normal [facility] Comment on above: Result Comment: <100 mg/dl OPTIMAL 100 - 129 mg/dl NEAR OR ABOVE OPTIMAL 130 - 159 mg/dl BORDERLINE HIGH 160 - 189 mg/dl HIGH >190 mg/dl VERY HIGH Performed By: #### T SH, LIPID, CMP, T7 #### [facility] [address] [address] [address] Annie Wright Triglyceride [Mass/Vol] 56 mg/dL Normal <=150 T [facility] Comment on above: Performed By: #### T SH, LIPID, CMP, T7 #### [facility] [address] [address] [address] Annie Wright VLDL CALC 11.2 mg/dL Normal [facility] Comment on above: Performed By: #### T SH, LIPID, CMP, T7 #### [facility] [address] [address] [address] Annie Wright PROF 14(COMP METB)on 021 Albumin [Mass/Vol] 4.2 g/dL Normal 3.5-5.0 [facility] Comment on above: Performed By: #### T SH, LIPID, CMP, T7 #### [facility] [address] [address] [address] Annie Wright Albumin/Globulin [Mass ratio] 1.1 {ratio} Normal [facility] Comment on above: Performed By: #### T SH, LIPID, CMP, T7 #### [facility] [address] [address] [address] Annie Wright ALP [Catalytic activity/Vol] 53 U/L Normal 38-126 [facility] Comment on above: Performed By: #### T SH, LIPID, CMP, T7 #### [facility] [address] [place] [address] [address] Annie Wright ALT [Catalytic activity/Vol] 36 U/L Normal 9-52 [facility] Comment on above: Performed By: #### T SH, LIPID, CMP, T7 #### [facility] [address] [place] [address] [address] Annie Wright Anion gap [Moles/Vol] 11.3 mmol/L Normal [facility] Comment on above: Performed By: #### T SH, LIPID, CMP, T7 #### [facility] [address] [address] [address] Annie Wright AST [Catalytic activity/Vol] 25 U/L Normal 14-36 [facility] Comment on above: Performed By: #### T SH, LIPID, CMP, T7 #### [facility] [address] [address] [address] Annie Wright Bilirubin [Mass/Vol] 0.4 mg/dL Normal 0.2-1.3 [facility] Comment on above: Performed By: #### T SH, LIPID, CMP, T7 #### [facility] [address] [place] [address] Dr. Annie Wright Calcium [Mass/Vol] 9.2 mg/dL Normal 8.4-10.2 [facility] Comment on above: Performed By: #### T SH, LIPID, CMP, T7 #### [facility] [address] [place] [address] Dr. Annie Wright Chloride [Moles/Vol] 105 mmol/L Normal 98-107 [facility] Comment on above: Performed By: #### T SH, LIPID, CMP, T7 #### [facility] [address] [address] [address] Annie Wright CO2 [Moles/Vol] 28.8 mmol/L Normal 22.0-30.0 [facility] Comment on above: Performed By: #### T SH, LIPID, CMP, T7 #### [facility] [address] [place] [address] Dr. Annie Wright Creatinine [Mass/Vol] 0.63 mg/dL Normal 0.52-1.04 [facility] Comment on above: Performed By: #### T SH, LIPID, CMP, T7 #### [facility] [address] [address] [address] Annie Wright EGFR-AF PALAUAN >60 Normal >=60 [facility] Comment on above: Performed By: #### T SH, LIPID, CMP, T7 #### [facility] [address] [address] [address] Annie Wright EGFR-NON AF PALAUAN >60 Normal >=60 [facility] Comment on above: Performed By: #### T SH, LIPID, CMP, T7 #### [facility] [address] [address] [address] Annie Wright Globulin (S) [Mass/Vol] 3.7 g/dL Normal [facility] Comment on above: Performed By: #### T SH, LIPID, CMP, T7 #### [facility] [address] [place] [address] Dr. Annie Wright Glucose [Mass/Vol] 91 mg/dL Normal 74-106 [facility] Comment on above: Performed By: #### T SH, LIPID, CMP, T7 #### [facility] [address] [place] [address] Dr. Annie Wright Potassium [Moles/Vol] 4.1 mmol/L Normal 3.4-5.0 [facility] Comment on above: Performed By: #### T SH, LIPID, CMP, T7 #### [facility] [address] [place] [address] Dr. Annie Wright Protein [Mass/Vol] 7.9 g/dL Normal 6.1-8.2 [facility] Comment on above: Performed By: #### T SH, LIPID, CMP, T7 #### [facility] [address] [address] [address] Annie Wright Sodium [Moles/Vol] 141 mmol/L Normal 137-145 [facility] Comment on above: Performed By: #### T SH, LIPID, CMP, T7 #### [facility] [address] [address] [address] Annie Wright Urea nitrogen [Mass/Vol] 11.0 mg/dL Normal 7.0-17.0 [facility] Comment on above: Performed By: #### T SH, LIPID, CMP, T7 #### [facility] [address] [place], [place] [address] Dr. Annie Wright Urea nitrogen/Creatinine [Mass ratio] 17.5 mg/mg Normal [facility] Comment on above: Performed By: #### T SH, LIPID, CMP, T7 #### [facility] [address] [place], [place] [address] Dr. Annie Wright TSHon 12-28-2020 TSH 1.702 uIU/mL Normal 0.470-4.680 [facility] Comment on above: Performed By: #### T SH, LIPID, CMP, T7 #### [facility] [address] [place], [place] [address] Dr. Annie Wright TSH RANGE SEE BELOW Normal [facility] Comment on above: Result Comment: <0.3 4 UIU/ml HYPERTHYROID 0.34-5.60 UIU/ml EUTHYROID >5.60 UIU/ml HYPOTHYROID Performed By: #### T SH, LIPID, CMP, T7 #### [facility] [address] [place], [place] [address] Dr. Annie Wright Cement Sack Breaker Cytology Reporton 2020 Cement Sack Breaker Cytology Report Clinical Information Specimen Collection Date: [...] smears in the future. GY Disclaimer Alpha Cement Sack Breaker Disclaimer ANATOMICPATHOLOGY Normal [facility] Comment on above: Performed By: #### G YNCYTREP #### [facility] (DEFAULT) [address] [place] [address] Gynecology Office/Clinic Not cam 11-15-2020 Gynecology Office/Clinic [...] September and October. 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 Back pain starts [...] attempted at least 3 different pills including 04/18. Patient is currently on Micronor. Patient [...] Not in her mother. Saw Dr. Gomez ([facility]) GI on 08/02/20. Had colonoscopy 08/28/20: Normal [...] Chronic conditions (more content not included)... Normal [facility] CELIAC ANTIBODIES PROFILEon 09-20-2020 Deamidated Gliadin Abs, IgA 11 units Normal 0-19 [facility] Comment on above: Result Comment: Nega tive 0 - 19 Weak Positive 20 - 30 Moderate to Strong Positive >30 Performed By: #### C ELIACP #### [facility] [address] [address] Fredrick Paez Deamidated Gliadin Abs, IgG 2 units Normal 0-19 [facility] Comment on above: Result Comment: Nega tive 0 - 19 Weak Positive 20 - 30 Moderate to Strong Positive >30 Performed By: #### C ELIACP #### [facility] [address] [address] Fredrick Jeannine Endomysial Antibody IgA Negative Normal Negative T [facility] Comment on above: Performed By: #### C ELIACP #### [facility] [address] [address] Fredrickmichele Jonesen Immunoglobulin A, Qn, Serum 223 mg/dL Normal 87-352 [facility] Comment on above: Performed By: #### C ELIACP #### [facility] [address] [address] Fredrickmichele Jonesen t-Transglutaminase (tTG) IgA <2 Normal 0-3 [facility] Comment on above: Result Comment: Nega tive 0 - 3 Weak Positive 4 - 10 Positive >10 . Tissue Transglutaminase (tTG) has been identified as the endomysial antigen. Studies have demonstr- ated that endomysial IgA antibodies have over 99% specificity for gluten sensitive enteropathy. Performed By: #### C ANTHONYACP #### [facility] [address] [place], [place] [id number] Fredrick Paez t-Transglutaminase (tTG) IgG 5 U/mL Normal 0-5 [facility] Comment on above: Result Comment: Nega tive 0 - 5 Weak Positive 6 - 9 Positive >9 Performed By: #### C ELIACP #### [facility] [address] [place], [place] [phone] Fredrick Jeannine CBC AUTO DIFFon 09-19-2020 BASO # 0.0 103/ul Normal 0.0-0.1 [facility] Comment on above: Performed By: #### C BC #### [facility] [address] [place], [place] [phone] Fredrick Jeannine Basophils/100 WBC (Bld) 0.5 % Normal 0.2-2.0 [facility] Comment on above: Performed By: #### C BC #### [facility] [address] [place] [address] Fredrick Jeannine EO # 0.2 103/ul Normal 0.0-0.7 [facility] Comment on above: Performed By: #### C BC #### [facility] [address] [place], [place] [phone] Fredrick Jonesen Eosinophils/100 WBC (Bld) 1.9 % Normal 0.9-7.0 [facility] Comment on above: Performed By: #### C BC #### [facility] [address] [place], [place] [address] Fredrickmichele Jonesen Erythrocyte distribution width (RBC) [Ratio] 12.5 % Normal 11.0-15.0 [facility] Comment on above: Performed By: #### C BC #### [facility] [address] [place], [place] [phone] Fredrick Jeannine Hematocrit (Bld) [Volume fraction] 40.1 % Normal 36.0-48.0 [facility] Comment on above: Performed By: #### C BC #### [facility] [address] [phone] Fredrick Jeannine Hemoglobin (Bld) [Mass/Vol] 13.1 g/dL Normal 12.0-16.0 [facility] Comment on above: Performed By: #### C BC #### [facility] [address] [place] [address] Fredrick Jeannine IG # 0.03 10e3/ul Normal 0.00-0.03 [facility] Comment on above: Performed By: #### C BC #### [facility] [address] [place] [address] Fredrick Jeannine IG % 0.4 % Normal 0.0-0.5 [facility] Comment on above: Performed By: #### C BC #### [facility] [address] [place] [address] Fredrick Jeannine LYMPH # 2.5 103/ul Normal 1.2-3.8 [facility] Comment on above: Performed By: #### C BC #### [facility] [address] [place] [address] Fredrick Jeannine Lymphocytes/100 WBC (Bld) 32.0 % Normal 20.5-60.0 [facility] Comment on above: Performed By: #### C BC #### [facility] [address] [place], [place] [phone] Fredrick Jeannine MANUAL DIFF REQ NO Normal [facility] Comment on above: Performed By: #### C BC #### [facility] [address] [place], [place] [address] Fredrick Jeannine MCH (RBC) [Entitic mass] 28.5 pg Normal 26.7-34.0 [facility] Comment on above: Performed By: #### C BC #### [facility] [address] [place], [place] [address] Fredrick Jeannine MCHC (RBC) [Mass/Vol] 32.7 g/dL Normal 29.9-35.2 [facility] Comment on above: Performed By: #### C BC #### [facility] [address] [place], [place] [address] Fredrick Jeannine MCV (RBC) [Entitic vol] 87.4 fL Normal 81.0-99.0 [facility] Comment on above: Performed By: #### C BC #### [facility] [address] [place], [place] [address] Fredrick Paez MONO # 0.7 103/ul Normal 0.3-0.8 [facility] Comment on above: Performed By: #### C BC #### [facility] [address] [place] [address] Fredrick Paez Monocytes/100 WBC (Bld) 9.1 % Normal 1.7-12.0 [facility] Comment on above: Performed By: #### C BC #### [facility] [address] [place] [address] Fredrick Paez NEUT # 4.4 103/ul Normal 1.4-6.5 [facility] Comment on above: Performed By: #### C BC #### [facility] [address] [place] [address] Fredrick Paez Neutrophils/100 WBC (Bld) 56.1 % Normal 43.0-75.0 [facility] Comment on above: Performed By: #### C BC #### [facility] [address] [place] [address] Fredrick Paez Platelet mean volume (Bld) [Entitic vol] 10.8 fL Normal 9.5-13.5 [facility] Comment on above: Performed By: #### C BC #### [facility] [address] [place] [address] Fredrickmichele Jonesen PLT 266 103/ul Normal 150-450 [facility] Comment on above: Performed By: #### C BC #### [facility] [address] [place] [address] Fredrick Jeannine RBC 4.59 106/ul Normal 4.20-5.40 [facility] Comment on above: Performed By: #### C BC #### [facility] [address] [place] [address] Fredrick Jeannine WBC 7.9 103/ul Normal 4.0-11.0 [facility] Comment on above: Performed By: #### C BC #### [facility] [address] [address] Fredrick Paez PROF 14(COMP METB)on 021 Albumin [Mass/Vol] 3.9 g/dL Normal 3.5-5.0 [facility] Comment on above: Performed By: #### C MP #### [facility] [address] [place], [place] [address] Fredrick Jeannine Albumin/Globulin [Mass ratio] 1.0 {ratio} Normal [facility] Comment on above: Performed By: #### C MP #### [facility] [address] [place], [place] [address] Fredrick Jeannine ALP [Catalytic activity/Vol] 55 U/L Normal 38-126 [facility] Comment on above: Performed By: #### C MP #### [facility] [address] [place] [address] Fredrick Jeannine ALT [Catalytic activity/Vol] 22 U/L Normal 9-52 [facility] Comment on above: Performed By: #### C MP #### [facility] [address] [place], [place] [address] Fredrick Jeannine Anion gap [Moles/Vol] 13.2 mmol/L Normal [facility] Comment on above: Performed By: #### C MP #### [facility] [address] [place] [address] Fredrick Jeannine AST [Catalytic activity/Vol] 17 U/L Normal 14-36 [facility] Comment on above: Performed By: #### C MP #### [facility] [address] [place], [place] [address] Fredrick Jeannine Bilirubin [Mass/Vol] 0.3 mg/dL Normal 0.2-1.3 [facility] Comment on above: Performed By: #### C MP #### [facility] [address] [place], [place] [address] Fredrick Jeannine Calcium [Mass/Vol] 9.0 mg/dL Normal 8.4-10.2 [facility] Comment on above: Performed By: #### C MP #### [facility] [address] [id number] Fredrick Jeannine Chloride [Moles/Vol] 105 mmol/L Normal 98-107 [facility] Comment on above: Performed By: #### C MP #### [facility] [address] [place], [place] [address] Fredrick Jeannine CO2 [Moles/Vol] 27.7 mmol/L Normal 22.0-30.0 [facility] Comment on above: Performed By: #### C MP #### [facility] [address] [place], [place] [address] Fredrick Jeannine Creatinine [Mass/Vol] 0.65 mg/dL Normal 0.52-1.04 [facility] Comment on above: Performed By: #### C MP #### [facility] [address] [place], [place] [address] Fredrick Jeannine EGFR-AF PALAUAN >60 Normal >=60 [facility] Comment on above: Performed By: #### C MP #### [facility] [address] [place] [address] Fredrick Jeannine EGFR-NON AF PALAUAN >60 Normal >=60 [facility] Comment on above: Performed By: #### C MP #### [facility] [address] [place], [place] [address] Fredrick Jeannine Globulin (S) [Mass/Vol] 4.1 g/dL Normal T [facility] Comment on above: Performed By: #### C MP #### [facility] [address] [place] [address] Fredrick Jeannine Glucose [Mass/Vol] 98 mg/dL Normal 74-106 [facility] Comment on above: Performed By: #### C MP #### [facility] [address] [place], [place] [address] Fredrick Jeannine Potassium [Moles/Vol] 3.9 mmol/L Normal 3.4-5.0 [facility] Comment on above: Performed By: #### C MP #### [facility] [address] [place], [place] [address] Fredrick Jeannine Protein [Mass/Vol] 8.0 g/dL Normal 6.1-8.2 [facility] Comment on above: Performed By: #### C MP #### [facility] [address] [id number] Fredrick Paez Sodium [Moles/Vol] 142 mmol/L Normal 137-145 [facility] Comment on above: Performed By: #### C MP #### [facility] [address] [id number] Fredrick Paez Urea nitrogen [Mass/Vol] 10.0 mg/dL Normal 7.0-17.0 [facility] Comment on above: Performed By: #### C MP #### [facility] [address] [id number] Fredrick Paez Urea nitrogen/Creatinine [Mass ratio] 15.4 mg/mg Normal [facility] Comment on above: Performed By: #### C MP #### [facility] [address] [address] Fredrick Paez Gynecology Office/Clinic Not cam 09-03-2020 Gynecology Office/Clinic Note Chief Complaint F/u pelvic pain per History of Present Illness Contraception Type: control [...] got this past weekend. [facility]. Menses: At age 10. [...] Not in her mother. Saw Dr. Gomez ([facility]) GI on 08/02/20. Had colonoscopy 08/28/20: Normal [...] on this. Discussed food sensitivity testing at [facility] Follow up 3 months Medical Decision Making Chronic conditions NOT treated during this visit that affected my overall medical decision making: [none] Treatment plans discussed but not opted for at this time: [Diagnostic laparoscopy] Prescribed medication that (more content not included)... Normal [facility] Gynecology Office/Clinic Not cam 06-21-2020 Gynecology Office/Clinic [...] least [address] Tuyet Esterlla due to breakthrough bleeding. Patient is currently [...] Patient's mother request patient to see Dr. Robertsy. Referral is placed. Follow-up with Dr. Tuyet [...] Substance Abus (more content not included)... Normal [facility] US Transvaginalon 06-18-2020 US Transvaginal EXAM(S) [...] Electronically Signed in Other Vendor System) Normal [facility] Gynecology Office/Clinic Not cam 06-13-2020 Gynecology [...] data availa (more content not included)... Normal [facility] Dermatopathologyon 0 Dermatopathology [facility] Dermatopathology Laboratory [address] [place], [place] [id number] DERMATOPATHOLOGY REPORT Name:MAHNAZ MATA. Rec #. [id number] Location: [facility] Date of Procedure: 10/27/2019 Race: Date Received: 10/31/2019 /Sex: 2000 (Age: 19) / F Date Reported: 11/01/2019 Other: Submitting Physician:KELLIE MCCORMICK APRN, REFRIGERATION ENGINEERING TEACHER-C FINAL DIAGNOSIS SKIN, MID BACK, BIOPSY: COMPOUND NEVUS, PRESENT ON THE DEEP AND PERIPHERAL MARGIN. Electronically Signed Out by SRINIVASA PERALES M.D. Electronically Signed Out By SRINIVASA PERALES MD/[facility] By the signature on this report, the individual or group listed as making the Final Interpretation/Diagn osis certifies that they have reviewed this case. Clinical History: 1.1 x 1.0cm IDN vs. dysplastic nevus. Biopsy. Specimens Submitted As: A: SKIN, MID BACK Gross Description: Received in formalin is one pineda-brown piece of skin measuring [id number]. The specimen is inked and embedded in toto. 10/31/2019 Microscopic Description: Microscopic analysis shows a symmetric proliferation of melanocytes in epidermis and dermis. Melanocytes nest regularly along the dermal-epidermal junction, and dermal melanocytes mature with increasing depth in dermis. The melanocytes show no cytologic atypia. Normal [facility] Comment on above: Performed By: #### D #### Dermatopathology Vital Signs Date Time Vital Sign Value Performing Clinician Faci lity 05-14-2023 15:57-0500 Body mass index (BMI) [Ratio] 27.96 kg/m2 Cecilia RackHunt [facility] Work Phone: [facility] 05-14-2023 15:57-0500 Body weight 76.2 kg [facility]: [facility] 05-14-2023 15:57-0500 Diastolic blood pressure 78 mm[Hg] [facility] Work Phone: [facility] 05-14-2023 15:57-0500 Systolic blood pressure 120 mm[Hg] [facility] Work [facility]: [facility] 12-18-2021 08:35-0400 Body temperature 97.8 [degF] DO Vesna Nataprawira Work Phone: [facility] 12-18-2021 08:35-0400 Diastolic blood pressure 74 mm[Hg] DO Vesna Nataprawira Work Phone: [facility] 12-18-2021 08:35-0400 Heart rate 75 /min DO Vesna Nataprawira Work Phone: [facility] 12-18-2021 08:35-0400 Respiratory rate 16 /min DO Vesna Nataprawira Work Phone: [facility] 12-18-2021 08:35-0400 SaO2% (BldA) [Mass fraction] 98 % DO Vesna Nataprawira Work Phone: [facility] 12-18-2021 08:35-0400 Systolic blood pressure 119 mm[Hg] DO Vesna Nataprawira Work Phone: [facility] 12-15-2021 22:59-0400 Body height 165.1 cm DO Vesna Nataprawira Work Phone: [facility] 12-15-2021 22:59-0400 Body weight 83.91 kg DO Vesna Nataprawira Work Phone: [facility] 12-07-2021 16:38-0400 Respiratory rate 20 /min DO Vesna Nataprawira Work Phone: [facility] 12-07-2021 15:02-0400 Body height 167.64 cm DO Vesna Nataprawira Work Phone: [facility] 12-07-2021 15:02-0400 Body weight 81.64 kg DO Vesna Nataprawira Work Phone: [facility] 12-07-2021 15:01-0400 Body temperature 98.1 [degF] DO Vesna Nataprawira Work Phone: [facility] 12-07-2021 15:01-0400 Diastolic blood pressure 70 mm[Hg] DO Vesna Nataprawira Work Phone: [facility] 12-07-2021 15:01-0400 Heart rate 85 /min DO Vesna Nataprawira Work Phone: [facility] 12-07-2021 15:01-0400 Systolic blood pressure 124 mm[Hg] DO Vesna Nataprawira Work Phone: [facility] 11-10-2021 16:47-0400 SaO2% (BldA) [Mass fraction] 100 % DO Vesna Nataprawira Work Phone: [facility] 11-10-2021 16:46-0400 Diastolic blood pressure 66 mm[Hg] DO Vesna Nataprawira Work Phone: [facility] 11-10-2021 16:46-0400 Heart rate 75 /min DO Vesna Nataprawira Work Phone: [facility] 11-10-2021 16:46-0400 Systolic blood pressure 122 mm[Hg] DO Vesna Nataprawira Work Phone: [facility] 11-10-2021 16:43-0400 Body height 165.1 cm DO Vesna Nataprawira Work Phone: [facility] 11-10-2021 16:43-0400 Body weight 77.11 kg DO Vesna Nataprawira Work Phone: [facility] Encounters Encounter Date Encounter Type Care Provider Facility Start: 11-17-2023 End: 11-17-2023 ambulatory CECILIA L FLORO Not Available Start: 11-10-2023 End: 11-10-2023 ambulatory CECILIA L [...] 05-14-2023 End: 05-14-2023 Subsequent care visit Cecilia Madden CNM Work Phone: [facility] Comment on above: Encounter for superv ision of other normal in first trimester (Primary Dx) Start: 05-14-2023 End: 05-14-2023 ambulatory CECILIA DONAHUEO Not Available Start: 05-14-2023 Bamboo flowsheet Cecilia Dee Dee Uday ro CNM Work Phone: [facility] Start: 05-14-2023 Bamboo flowsheet Cecilia L Uday ro CNM Work Phone: [facility] Start: 04-15-2023 End: 04-15-2023 ambulatory CECILIA DONAHUEO Not Available Start: 12-20-2021 End: 12-20-2021 ambulatory David M Hoy Facility:[facility] Start: 12-15-2021 End: 12-18-2021 Evaluation and management of inpatient Olga Rinkes Facility:[facility] Start: 12-15-2021 End: 12-18-2021 Evaluation and management of inpatient DO Vesna Nataprawira Work Phone: [facility] Start: 12-07-2021 End: 12-07-2021 ambulatory David M Hoy Facility:[facility] Start: 12-07-2021 End: 12-07-2021 Patient encounter procedure DO Vesna Nataprawira Work Phone: [facility] - [facility] Start: 11-19-2021 End: 11-19-2021 ambulatory Olga Rinkes Facility:[facility] Start: 11-19-2021 End: 11-19-2021 Departed Referred DO Vesna Nataprawira Work Phone: [facility] [place] Start: 11-10-2021 End: 11-10-2021 ambulatory David M Hoy Facility:[facility] Start: 11-10-2021 End: 11-10-2021 Patient encounter procedure DO Vesna Nataprawira Work Phone: [facility] Start: 01-04-2021 Encounter for genera l adult medical examination without abnormal findings DR DAVID PASCUAL [facility] Start: 12-28-2020 End: 12-29-[address] DAVID PASCUAL Facility:[facility] Start: 12-28-2020 End: 12-29-2020 Encounter for general adult medical examination without abnormal findings DR DAVID PASCUAL Facility:[facility] Start: 09-19-2020 End: 09-20-2020 ambulatory GARRET GOMEZ Facility:[facility] Procedures Date Procedure Procedure Detail Performing Clinician SARS Antigen (LFIA) DO Vesna Bourgeois Work Phone: Streptococcus agalactiae culture DO Vesna Bk Work Phone: Plan of Treatment Date Care Activity Detail Author Start: 06-11-2023 End: 06-11-2023 Patient encounter procedure 06/11/2023 4:30 PM EDT Routine [facility] [address] [place] [id number] Cecilia Madden, [facility] [address] [place] [address] [facility] Start: 05-14-2023 End: 05-14-2023 Patient encounter procedure 05/14/2023 4:00 PM EST Routine [facility] [address] [place] [id number] Cecilia Madden, M [address] [place] [address] Arrived [facility] Comment on above: Arrived Start: 11-28-2022 Influenza vaccination Influenz a Vaccine (#1) [facility] Start: 12-18-2021 [facility] Work Phone: Start: 12-16-2021 Hospital admission [facility] Work Phone: Start: 12-15-2021 End: 12-15-2021 [facility] Work Phone: Start: 12-07-2021 [facility] Work Phone: Start: 12-07-2021 Hospital admission [facility] Work Phone: Start: 11-19-2021 End: 11-19-2021 Departed Referred Departed Referred [facility] [place] Start: 11-10-2021 [facility] Work Phone: Start: 11-10-2021 Hospital admission [facility] Work Phone: Patient Education [facility] Work Phone: Patient referral [facility] Work Phone: Reagin Ab [Presence] in Serum by RPR [facility] Work Phone: Payers Date Payer Category Payer Self-pay [id number] 2021 Unknown BCBS BCBS [id number] 2021-Present [phone] [address] [place] [address] [id number]. [id number] 1999 Unknown [id number] 1999 Unknown [id number] 840.1.638415.3.579.2.593 1999 Unknown [id number] 2.840.1.185606.3.579.2.1259 1999 Unknown [id number] 840.1.336177.3.579.2.1259 1999 Unknown [id number] 2840.1.547490.3.579.2.1259 1999 Unknown [id number] 2.16.840.1.504418.3.579.2.1259 1999 Unknown [id number] 2.16.840.1.251480.3.579.2.1259 1999 Unknown [id number] 2.16.840.1.096233.3.579.2.1259 1999 Unknown [id number] 2.16.840.1.137233.3.579.2.1259 1999 Unknown [id number] 2.16.840.1.316520.3.579.2.1259 1999 Unknown [id number] 2.16.840.1.253009.3.579.2.1259 1999 Unknown [id number] 2.16.840.1.160984.3.579.2.1259 1999 Unknown [id number] 2.840.1.238521.3.579.2.1259 1999 Unknown [id number] 2.16.840.1.062380.3.579.2.1259 1999 Unknown [id number] 2.16.840.1.601810.3.579.2.1259 1999 Unknown [id number] 2.16.840.1.227742.3.579.2.1259 1999 Unknown [id number] 2.840.1.456760.3.579.2.1259 1959 Unknown [id number] 1959 Unknown [id number] Unknown [id number] 2.16.840.1.469088.3.579.2.531 Unknown [id number] 2.16.840.1.181041.3.579.2.531 Unknown [id number] 2.16.840.1.351083.3.579.2.531 Unknown [id number] 2.840.1.596436.3.579.2.531 Unknown [id number] 2.16.840.1.920612.3.579.2.531 Social History Date Type Detail Facility Start: 08-28-2020 End: 12-04-2022 Tobacco smoking status NHIS Never smoked tobacco (finding) [facility] Start: 2000 Sex Assigned At Female [facility] Start: 12-04-2022 Tobacco use and exposure Smokeless tobacco non-user [facility] Start: 04-15-2023 Alcohol intake Ex-drinker (finding) [facility] Start: 04-15-2023 History of Social function [facility] Start: 04-15-2023 Tobacco use panel [facility] Start: 03-05-2023 [facility] Start: 11-06-2022 Gender identity Identifies as female gender (finding) [facility] Start: 11-06-2022 Sexual orientation Heterosexual (finding) [facility] Healthcare Goals Date Patient Goal Desired Activity /State Functional Status Date Assessment Result Facility 12-18-2021 Functional status Patient at Baseline [facility] Work Phone: Mental Status Date Assessment Result Facility 12-18-2021 Cognitive function Cognitive Sta tus Patient at Baseline [facility] Work Phone: History of Present illness Narrative [...] a routine visit. documented in this encounter [facility] Progress note 12-18-2021 Note Date & Type Note Facility 12-18-2021 Progress note Note Date/Time December 18, 2021 6:25am [facility] [address] [place] [address] PICTURES EDITOR Progress Note Signed Patient: Mahnaz River MR#: [id number] : 2000 Acct:[id number] Age/Sex: 21 / F Adm Date: 2 Loc: Room: [address] [place] [address] Type: ADM IN Attending Dr: Olga Santoyo [...] % (Auto) 71.1, Lymph % (Auto) 19.2, Peñuelas % (Auto) 8.5, Eos % (Auto) 0.8, Baso % (Auto) 0.4, Neut # (Auto) 11.5 H, Lymph # (Auto) 3.1, Peñuelas # (Auto) 1.4 H, Eos # (Auto) [...] in room for support Breast: Working with home performance consultant. She has been experiencing breast pain [...] Documented By: Ashli Cruz DO, RES 12/18/21 0624 Signed By: <Electronically signed by RES Ashli Cruz> 12/18/21 0717 <Electronically signed by MD FLOYD GAVIN> 12/18/21 0744 [facility] Work Phone: Progress note 12-17-2021 Note Date & Type Note Facility 12-17-2021 Progress note Note Date/Time December 17, 2021 6:25am [facility] [address] [place] [id number] PICTURES EDITOR Progress Note Signed Patient: Mahnaz River MR#: [id number] : 2000 Acct:[id number] Age/Sex: 21 / F Adm Date: 2 Loc: 3S Room: [address] [place] [address] Type: ADM IN Attending Dr: Olga Santoyo [...] in room for support Breast: Working with home performance consultant to breast feed. She was experiencing [...] signed by Max Sheridan DO> 12/17/21 1142 [facility] Work Phone: Procedure note 12-16-2021 Note Date & Type Note Facility 12-16-2021 Procedure note [facility] Clinical Note 11-12-2020 Note Date & Type Note Facility 11-12-2020 Note Patient Education Ma terials Name: Mahnaz Mata Current Date: 11/12/2020 14:04:51 [place] : 2000 The following sheet(s) are the [...] breast self-examination (BSE). These experts include the [employer], the [place]. Preventive Services Task Force, and the [place] [employer]. Some experts [...] This means they are not cancer. ? 3200-8444 [employer]. [address] [place] [address]. All rights reserved. This information is not intended as a substitute for professional medical care. Always follow your healthcare professional's instructions. [facility] Clinical Note 08-29-2020 Note Date & Type Note Facility 08-29-2020 Note Patient Education Ma terials Name: Mahnaz Mata Current Date: 08/29/2020 09:18:19 [place] : 2000 The following sheet(s) are [...] fiber increase to help prevent constipation. ? 7022-9232 [employer]. [address] [place] [address], [place] [address]. All rights reserved. This information is not intended as a substitute for professional medical care. Always follow your healthcare professional's instructions. [facility] Evaluation note Note Date & Type Note Facility Evaluation note No assessment information availa [facility] Work Phone: Evaluation note Note Date & Type Note Facility Evaluation note Diagnosis Onset Date Status post vaginal delivery [facility] Work Phone: Evaluation note Note [...] Date/ Time Advance Directives No August 21 2:19pm Chief Complaint and Reason for Visit Chief Complaint no baby movement z3A.35 Z36.85 Chief Complaint no baby movement z3A.35 Z36.85 IUP (Intrauterine ) Chief Complaint no baby movement z3A.35 Z36.85 IUP (Intrauterine ) IUP (Intrauterine ) Reason for Visit Status post vaginal delivery Additional Source Comments INFORMATION SOURCE (unrecogn ized section and content) DATE CREATED AUTHOR 11/02/2019 [facility] DATE CREATED AUTHOR AUTHOR'S ORGANIZ ATION 04/26/2021 [facility] DATE CREATED AUTHOR AUTHOR'S ORGANIZ ATION 05/14/2021 [facility] DATE CREATED AUTHOR AUTHOR'S ORGANIZ ATION 01/08/2022 [facility] DATE CREATED AUTHOR AUTHOR'S ORGANIZ ATION 11/23/2023 [facility] [employer] Care Teams (unrecognized sec tion and content) Team Status: Inactive Member Role Status Dates David Pascual MD Primary Care Provider Active Olga Santoyo DO Attending Provider Active Team Status: Inactive Member Role Status Dates Vesna Bourgeois DO Attending Provider Active David Pascual MD Primary Care Provider Active Team Status: Active Member Role Status Dates David Pascual MD Primary Care Provider Active Team Status: Inactive Member Role Status Dates David Pascual MD Primary Care Provider Active Vesna Bougreois DO Attending Provider Active Team Status: Inactive Member Role Status Dates David Pascual MD Primary Care Provider Active Olga Santoyo , DO Admit Provider, Attending Provide r Active Nailhead Operator Relationship Specialty Start Date End Date Yumiko Key MD [address] [place] [address] PCP - General Family Medicine 11/10/22 Nailhead Operator Relationship Specialty Start Date End Date Yumiko Key MD [address] [facility] [place] [address] PCP - General Family Medicine 11/10/22 Goals [...] BE BASED ON THE PRIMARY CLINICAL RECORDS. [facility]. provides no warranty or guarantee of the accuracy or completeness of information in this document.
--- NOTE | 2023-11-24 12:18 | PC.NURSE ---
Olaf Joya and 6 day old Vamshi arrive for follow up. Parents stated doing well Her awake time is from 10pm to 1am . Family adjusting well to new baby. Mahnaz states feels well except nipples remain sore. VSS and assessment WNL. No longer cramping with feeds, minimal bleeding spotting . Milk in and engorgement subsided. Nipples tender from latching infant with suspected lip tie. Left nipple small excoriated area and right nipple with crack developing. Discussed latch and positioning. Baby Vamshi awake and alert. VSS and assessment WNL. No bili as infant is pink in color. Weight obtained and is 1.2%down from weight. Has 10 wets and at least 8 stools daily, feeds every 2 hours around the clock. Baby to breast, mom uses cradle hold for latch and latch is shallow and painful. Demo of cross cradle hold, with deeper latch, able to return demo and obtain deepeer latch for herself. Surprised that pain nearly gone able to independently switch to second breast to finish feed. Weight after feed shows 60gm increase (3620 gms to 3680 gms) mom pleased with feed. Able to confidently continue feeding at breast, will follow up after evaluated by pediatric dentist for lip tie. Will call as needed for concerns and weight check. Olaf supportive and involved with mom and baby. Family leaves ambulatory.
[2023-11-24 12:20] VITALS: BP 113/72; PULSE 80; TEMP 36.6; O2SAT 96
== END 2023-11-24 11:45 | disposition home or self-care (01) ==
PROVIDERS: PCP Family Medicine; Visit Provider Obstetrics & Gynecology
DX: Z39.2 Encounter for routine postpartum follow-up (principal)

== ENCOUNTER 2023-12-04 07:58 | Outpatient (OUT) | payer BC, SELFPAY ==
--- OUTSIDE RECORDS SUMMARY | 2023-12-04 08:05 | XMS_ITS | CCD ---
Author Organization [facility] Care Team Providers Care Agile Coach Name Role Phone GARRET GOMEZ JR Admitting Unavailable GARRET GOMEZ JR Attending Unavailable JOSSE, DR NIALL Craft Primary Care Unavailable GARRET GOMEZ JR Consulting Unavailable ROSALINDA, DR HERNANDEZ Admitting Unavailable ROSALINDA, DR HERNANDEZ Attending Unavailable ROSALINDA, DR HERNANDEZ Primary Care Unavailable ROSALINDA, DR HERNANDEZ Consulting Unavailable Bk, DO Vesna Attending Provider [phone] MD David Pascual Primary Care Provider [phone] DO Olga Santoyo Attending Provider [phone] DO Olga Santoyo Admit Provider [phone] David Pascual Primary Care Unavailable Nataprtrentonra, Vesna [...] L Referring Unavailable CECILIA MADDEN Attending Unavailable [facility] Attending Unavailable [facility] Attending Unavailable [facility] Attending Unavailable [facility], CECILIA Funez Attending Unavailable CECILIA MADDEN Referring Unavailable CECILIA MADDEN Attending Unavailable Medications Current [...] pain; Translations: [Left lower quadrant pain] Onset: 06-28-2021 06-01-2021 Episodic Other female genital disorders (2 sources) [...] 3608 gm / 7 lbs, 15 oz (8463-1626) [place] Normal: 3359 gm (9561-4600 gm) [place] Wt%: 72% for 38.6 wk [...] 12-17-2021 Basophils (Bld) [#/Vol] 0.1 10*3/uL 0.0-0.2 [facility] Basophils/100 WBC Auto (Bld) Ordered By: Olga Santoyo on 12-17-2021 Basophils/100 WBC (Bld) 0.4 % . [facility] Blood hemoglobin measurement (mass/volume)Ordered By: Olga Santoyo on 12-17-2021 Hemoglobin (Bld) [Mass/Vol] 9.6 g/dL 11.8-15.4 [facility] Blood leukocytes automated c ount (number/volume)Ordered By: Olga Santoyo on 12-17-2021 WBC (Bld) [#/Vol] 16.1 10*3/uL 4.5-11.0 [facility] Complete Blood Count Auto Di ffon 12-17-2021 Basophils (Bld) [#/Vol] 0.1 10*3/uL Normal 0.0-0.2 [facility] Comment on above: Order Comment: Comme nt Draw at 630 am Result Comment: PERF ORMED BY: [place] [address] PATHOLOGIST PAPER MAKING MACHINE OPERATOR NATALYA ESTEBAN M.D. Performed By: #### C BC #### [facility] [address] Basophils/100 WBC (Bld) 0.4 % Normal . [facility] Comment on above: Order Comment: Comme nt Draw at 630 am Performed By: #### C BC #### [facility] [address] [place] [address] [place] Eosinophils (Bld) [#/Vol] 0.1 10*3/uL Normal 0.0-0.45 [facility] Comment on above: Order Comment: Comme nt Draw at 630 am Performed By: #### C BC #### [address] Eosinophils/100 WBC (Bld) 0.8 % Normal . [facility] Comment on above: Order Comment: Comme nt Draw at 630 am Performed By: #### C BC #### [address] Erythrocyte distribution width (RBC) [Ratio] 13.7 % Normal 11.9-15.3 [facility] Comment on above: Order Comment: Comme nt Draw at 630 am Performed By: #### C BC #### [address] Hematocrit (Bld) [Volume fraction] 29.4 % Low 34.0-46.4 [facility] Comment on above: Order Comment: Comme nt Draw at 630 am Performed By: #### C BC #### [address] Hemoglobin (Bld) [Mass/Vol] 9.6 g/dL Low 11.8-15.4 [facility] Comment on above: Order Comment: Comme nt Draw at 630 am Performed By: #### C BC #### [address] Lymphocytes (Bld) [#/Vol] 3.1 10*3/uL Normal 1.00-4.8 [facility] Comment on above: Order Comment: Comme nt Draw at 630 am Performed By: #### C BC #### [address] Lymphocytes/100 WBC (Bld) 19.2 % Normal . [facility] Comment on above: Order Comment: Comme nt Draw at 630 am Performed By: #### C BC #### [address] MCH (RBC) [Entitic mass] 28.4 pg Normal 24.7-34.3 [facility] Comment on above: Order Comment: Comme nt Draw at 630 am Performed By: #### C BC #### [facility] [address] [place] [address] [place] MCV (RBC) [Entitic vol] 86.6 fL Normal 80-100 [facility] Comment on above: Order Comment: Comme nt Draw at 630 am Performed By: #### C BC #### [address] Mean Corpuscular HGB Conc 32.8 g/dL Normal 32.0-35.0 [facility] Comment on above: Order Comment: Comme nt Draw at 630 am Performed By: #### C BC #### [place] [address] [place] Monocytes (Bld) [#/Vol] 1.4 10*3/uL High 0.0-0.8 [facility] Comment on above: Order Comment: Comme nt Draw at 630 am Performed By: #### C BC #### [place] [address] [place] Monocytes/100 WBC (Bld) 8.5 % Normal . [facility] Comment on above: Order Comment: Comme nt Draw at 630 am Performed By: #### C BC #### [address] Neutrophils (Bld) [#/Vol] 11.5 10*3/uL High 1.8-7.7 [facility] Comment on above: Order Comment: Comme nt Draw at 630 am Performed By: #### C BC #### [place] [address] [place] Neutrophils/100 WBC (Bld) 71.1 % Normal . [facility] Comment on above: Order Comment: Comme nt Draw at 630 am Performed By: #### C BC #### [place] [address] [place] Nucleated RBC/100 WBC (Bld) [Ratio] 0.1 % Normal 0-0.5 [facility] Comment on above: Order Comment: Comme nt Draw at 630 am Performed By: #### C BC #### [facility] [address] Platelet mean volume (Bld) [Entitic vol] 10.6 fL Normal 6.3-10.7 [facility] Comment on above: Order Comment: Comme nt Draw at 630 am Performed By: #### C BC #### [facility] [address] [place] [address] Platelets (Bld) [#/Vol] 182 10*3/uL Normal 150-450 [facility] Comment on above: Order Comment: Comme nt Draw at 630 am Performed By: #### C BC #### [address] RBC (Bld) [#/Vol] 3.39 10*6/uL Low 3.60-5.00 [facility] Comment on above: Order Comment: Comme nt Draw at 630 am Performed By: #### C BC #### [address] WBC (Bld) [#/Vol] 16.1 10*3/uL High 4.5-11.0 [facility] Comment on above: Order Comment: Comme nt Draw at 630 am Performed By: #### C BC #### [address] Eosinophils Auto (Bld) [#/Vo l]Ordered By: Olga Santoyo on 12-17-2021 Eosinophils (Bld) [#/Vol] 0.1 10*3/uL 0.0-0.45 [facility] Eosinophils/100 WBC Auto (Bl d)Ordered By: Olga Santoyo on 12-17-2021 Eosinophils/100 WBC (Bld) 0.8 % . [facility] Erythrocyte distribution wid th Auto (RBC) [Ratio]Ordered By: Olga Santoyo on 12-17-2021 Erythrocyte distribution width (RBC) [Ratio] 13.7 % 11.9-15.3 [facility] Hematocrit Auto (Bld) [Volum e fraction]Ordered By: Olga Santoyo on 12-17-2021 Hematocrit (Bld) [Volume fraction] 29.4 % 34.0-46.4 [facility] Laboratory - Hematology and Cell countsOrdered By: Olga Santoyo on 12-17-2021 Nucleated RBC/100 WBC (Bld) [Ratio] 0.1 % 0-0.5 [facility] Lymphocytes Auto (Bld) [#/Vo l]Ordered By: Olga Santoyo on 12-17-2021 Lymphocytes (Bld) [#/Vol] 3.1 10*3/uL 1.00-4.8 [facility] Lymphocytes/100 WBC Auto (Bl d)Ordered By: Olga Santoyo on 12-17-2021 Lymphocytes/100 WBC (Bld) 19.2 % . [facility] MCH Auto (RBC) [Entitic mass ]Ordered By: Olga Santoyo on 12-17-2021 MCH (RBC) [Entitic mass] 28.4 pg 24.7-34.3 [facility] MCHC Auto (RBC) [Mass/Vol]Or dered By: Olga Santoyo on 12-17-2021 MCHC (RBC) [Mass/Vol] 32.8 g/dL 32.0-35.[address] [facility] MCV Auto (RBC) [Entitic vol] Ordered By: Olga Santoyo on 12-17-2021 MCV (RBC) [Entitic vol] 86.6 fL 80-100 [facility] Monocytes Auto (Bld) [#/Vol] Ordered By: Olga Santoyo on 12-17-2021 Monocytes (Bld) [#/Vol] 1.4 10*3/uL 0.0-0.8 [facility] Monocytes/100 WBC Auto (Bld) Ordered By: Olga Santoyo on 12-17-2021 Monocytes/100 WBC (Bld) 8.5 % . [facility] Neutrophils Auto (Bld) [#/Vo l]Ordered By: Olga Santoyo on 12-17-2021 Neutrophils (Bld) [#/Vol] 11.5 10*3/uL 1.8-7.7 [facility] Neutrophils/100 WBC Auto (Bl d)Ordered By: Olga Santoyo on 12-17-2021 Neutrophils/100 WBC (Bld) 71.1 % . [facility] Platelet mean volume Auto (B ld) [Entitic vol]Ordered By: Olga Santoyo on 12-17-2021 Platelet mean volume (Bld) [Entitic vol] 10.6 fL 6.3-10.7 [facility] Platelets Auto (Bld) [#/Vol] Ordered By: Olga Divinaradha on 12-17-2021 Platelets (Bld) [#/Vol] 182 10*3/uL 150-450 [facility] RBC Auto (Bld) [#/Vol]Ordere d By: Loga Yarelis on 12-17-2021 RBC (Bld) [#/Vol] 3.39 10*6/uL 3.60-5.00 [facility] ABO/RH Typeon 12-16-2021 ABO and Rh group Nom (Bld) Blood group A Rh(D) positive Normal [facility] Comment on above: Result Comment: PERF ORMED BY: [facility] [address] [place] [address] PATHOLOGIST PAPER MAKING MACHINE OPERATOR NATALYA ESTEBAN M.D. COVID-19 Antigenon 2 COVID-19 [...] developed and its performance characteristic determined by Collections and validated at [facility]. This test has not been [...] for SARS Antigen by BRODY PERFORMED BY: [place] [address] PATHOLOGIST PAPER MAKING MACHINE OPERATOR NATALYA ESTEBAN M.D. Normal [facility] Comment on above: Performed By: #### U A, OBUDS #### [address] Complete Blood Count Auto Di ffon 12-16-2021 Basophils (Bld) [#/Vol] 0.1 10*3/uL Normal 0.0-0.2 [facility] Comment on above: Result Comment: PERF ORMED BY: [place] [address] PATHOLOGIST PAPER MAKING MACHINE OPERATOR NATALYA ESTEBAN M.D. Performed By: #### C BC #### [address] Basophils/100 WBC (Bld) 0.8 % Normal . [facility] Comment on above: Performed By: #### C BC #### [place] [address] [place] Eosinophils (Bld) [#/Vol] 0.2 10*3/uL Normal 0.0-0.45 [facility] Comment on above: Performed By: #### C BC #### [address] Eosinophils/100 WBC (Bld) 1.0 % Normal . [facility] Comment on above: Performed By: #### C BC #### [address] [place] [address] [place] Erythrocyte distribution width (RBC) [Ratio] 13.8 % Normal 11.9-15.3 [facility] Comment on above: Performed By: #### C BC #### [address] Hematocrit (Bld) [Volume fraction] 36.7 % Normal 34.0-46.4 [facility] Comment on above: Performed By: #### C BC #### [address] Hemoglobin (Bld) [Mass/Vol] 12.2 g/dL Normal 11.8-15.4 [facility] Comment on above: Performed By: #### C BC #### [address] Lymphocytes (Bld) [#/Vol] 3.1 10*3/uL Normal 1.00-4.8 [facility] Comment on above: Performed By: #### C BC #### [address] Lymphocytes/100 WBC (Bld) 18.2 % Normal . [facility] Comment on above: Performed By: #### C BC #### [address] MCH (RBC) [Entitic mass] 28.4 pg Normal 24.7-34.3 [facility] Comment on above: Performed By: #### C BC #### [address] MCV (RBC) [Entitic vol] 85.5 fL Normal 80-100 [facility] Comment on above: Performed By: #### C BC #### [address] Mean Corpuscular HGB Conc 33.2 g/dL Normal 32.0-35.0 [facility] Comment on above: Performed By: #### C BC #### [address] Monocytes (Bld) [#/Vol] 1.4 10*3/uL High 0.0-0.8 [facility] Comment on above: Performed By: #### C BC #### [facility] [address] [place] [address] [place] Monocytes/100 WBC (Bld) 8.1 % Normal . [facility] Comment on above: Performed By: #### C BC #### [facility] [address] [place] [address] [place] Neutrophils (Bld) [#/Vol] 12.2 10*3/uL High 1.8-7.7 [facility] Comment on above: Performed By: #### C BC #### [facility] [address] Neutrophils/100 WBC (Bld) 71.9 % Normal . [facility] Comment on above: Performed By: #### C BC #### [facility] [address] [place] [address] [place] Nucleated RBC/100 WBC (Bld) [Ratio] 0.1 % Normal 0-0.5 [facility] Comment on above: Performed By: #### C BC #### [facility] [address] [place] [address] [place] Platelet mean volume (Bld) [Entitic vol] 10.8 fL High 6.3-10.7 [facility] Comment on above: Performed By: #### C BC #### [facility] [address] [place] [address] [place] Platelets (Bld) [#/Vol] 220 10*3/uL Normal 150-450 [facility] Comment on above: Performed By: #### C BC #### [facility] [address] [place] [address] [place] RBC (Bld) [#/Vol] 4.29 10*6/uL Normal 3.60-5.00 [facility] Comment on above: Performed By: #### C BC #### [facility] [address] [place] [address] [place] WBC (Bld) [#/Vol] 17.0 10*3/uL High 4.5-11.0 [facility] Comment on above: Performed By: #### C BC #### [place] [address] [place] Dipstick and Microscopicon 0 12-16-2021 Appearance (U) Clear Normal Clear [facility] Comment on above: Order Comment: Name Collection Type:: Clean-Voided Midstream Performed By: #### O BUDS, ADDONUAPLUS #### [address] Bacteria,Urine None Seen Normal None Seen [facility] Comment on above: Order Comment: Name Collection Type:: Clean-Voided Midstream Performed By: #### O BUDS, ADDONUAPLUS #### [address] Bilirubin,Urine Negative Normal Negative [facility] Comment on above: Order Comment: Name Collection Type:: Clean-Voided Midstream Performed By: #### O BUDS, ADDONUAPLUS #### [address] Glucose Ql (U) Normal Normal Normal [facility] Comment on above: Order Comment: Name Collection Type:: Clean-Voided Midstream Performed By: #### O BUDS, ADDONUAPLUS #### [address] Hyaline Casts,Urine 0-8 Normal 0-8 [facility] Comment on above: Order Comment: Name Collection Type:: Clean-Voided Midstream Result Comment: PERF ORMED BY: [place] [address] PATHOLOGIST PAPER MAKING MACHINE OPERATOR NATALYA ESTEBAN M.D. Performed By: #### O BUDS, ADDONUAPLUS #### [address] Ketones Ql (U) Negative Normal Negative [facility] Comment on above: Order Comment: Name Collection Type:: Clean-Voided Midstream Performed By: #### O BUDS, ADDONUAPLUS #### [address] Leukocyte esterase Test strip Ql (U) Negative Normal Negative [facility] Comment on above: Order Comment: Name Collection Type:: Clean-Voided Midstream Performed By: #### O BUDS, ADDONUAPLUS #### [place] [address] [place] Nitrite,Urine Negative Normal Negative [facility] Comment on above: Order Comment: Name Collection Type:: Clean-Voided Midstream Performed By: #### O BUDS, ADDONUAPLUS #### [address] Occult Blood,Urine Negative Normal Negative [facility] Comment on above: Order Comment: Name Collection Type:: Clean-Voided Midstream Result Comment: PERF ORMED BY: [place] [address] PATHOLOGIST PAPER MAKING MACHINE OPERATOR NATALYA ESTEBAN M.D. Performed By: #### O BUDS, ADDONUAPLUS #### [address] Protein,Urine Trace High Negative [facility] Comment on above: Order Comment: Name Collection Type:: Clean-Voided Midstream Performed By: #### O BUDS, ADDONUAPLUS #### [address] RBC,Urine 1-2 Normal 0-4 [facility] Comment on above: Order Comment: Name Collection Type:: Clean-Voided Midstream Performed By: #### O BUDS, ADDONUAPLUS #### [address] Specificy [place],Urine 1.022 Normal 1.001-1.030 [facility] Comment on above: Order Comment: Name Collection Type:: Clean-Voided Midstream Performed By: #### O BUDS, ADDONUAPLUS #### [place] [address] [place] Squamous Epithelial Cell,Urine 0-1 Normal 0-2 [facility] Comment on above: Order Comment: Name Collection Type:: Clean-Voided Midstream Performed By: #### O BUDS, ADDONUAPLUS #### [facility] [address] [place] [address] [place] Urobilinogen,Urine Normal Normal Normal [facility] Comment on above: Order Comment: Name Collection Type:: Clean-Voided Midstream Performed By: #### O BUDS, ADDONUAPLUS #### [facility] [address] [place] [address] WBC,Urine 1-2 Normal 0-4 [facility] Comment on above: Order Comment: Name Collection Type:: Clean-Voided Midstream Performed By: #### O BUDS, ADDONUAPLUS #### [address] OB Urine Drug Screen (NO THC )on 12-16-2021 Amphetamine Screen,Urine Negative Normal Negative [facility] Comment on above: Performed By: #### O BUDS, ADDONUAPLUS #### [address] Barbiturate Screen,Urine Negative Normal Negative [facility] Comment on above: Performed By: #### O BUDS, ADDONUAPLUS #### [place] [address] [place] Benzodiazepines Screen,Urine Negative Normal Negative [facility] Comment on above: Performed By: #### O BUDS, ADDONUAPLUS #### [address] Cocaine Screen,Urine Negative Normal Negative [facility] Comment on above: Performed By: #### O BUDS, ADDONUAPLUS #### [facility] [address] [place] [address] Opiate Screen,Urine Negative Normal Negative [facility] Comment on above: Performed By: #### O BUDS, ADDONUAPLUS #### [facility] [address] [place] [address] Phencyclidine Screen, Urine Negative Normal Negative [facility] Comment on above: Result Comment: Thes e are unconfirmed results and should not be used for legal purposes. Drug Cut-Off Concentration: AMPH 1000 ng/mL RONEL 200 ng/mL JUANITO 200 ng/mL COCM 300 ng/mL OP 300 ng/mL PCP 25 ng/mL PERFORMED BY: [place] [address] PATHOLOGIST PAPER MAKING MACHINE OPERATOR NATALYA ESTEBAN M.D. Performed By: #### O KAROLINA ADDONUAPLUS #### [address] Lucy Ag Negativeon 12-17-19 Lucy Ag Negative Negative Normal Negative [facility] Comment on above: Result Comment: This is a duplicate Lucy SARS Antigen (BRODY) result to be used for statistical tracking purpose only. PERFORMED BY: [place] [address] PATHOLOGIST PAPER MAKING MACHINE OPERATOR NATALYA ESTEBAN M.D. Performed By: #### U A, OBUDS #### [address] Amphetamine Screen Ql (U)Ord ered By: Olga Santoyo on 12-15-2021 Amphetamines Ql (U) Negative Negative [facility] Automated erythrocytes count in urine sediment (number/area)Ordered By: Olga Santoyo on 12-15-2021 RBC Auto (Urine sed) [#/Area] 1-2 [HPF] 0-4 [facility] Automated leukocytes count i n urine sediment (number/area)Ordered By: Olga Santoyo on 12-15-2021 WBC Auto (Urine sed) [#/Area] 1-2 [HPF] 0-4 [facility] Automated urine color determ inationOrdered By: Olga Santoyo on 12-15-2021 Color (U) Yellow Normal Yellow [facility] Comment on above: Order Comment: Name Collection Type:: Clean-Voided Midstream Performed By: #### O BUDS, ADDONUAPLUS #### [facility] [address] [place] [address] [place] Barbiturates [Presence] in U rineOrdered By: Olga Santoyo on 12-15-2021 Barbiturates Ql (U) Negative Negative [facility] Benzodiazepines [Presence] i n UrineOrdered By: Olga Santoyo on 12-15-2021 Benzodiazepines Ql (U) Negative Negative [facility] Bilirubin Test strip Ql (U)O rdered By: Olga Santoyo on 12-15-2021 Bilirubin Ql (U) Negative Negative [facility] COVID-19 SOFIAOrdered By: Cem claireart Santoyo on 12-15-2021 SARS-CoV+SARS-CoV-2 (COVID-19) Ag IA.rapid Ql (Resp) Negative Negative [facility] Comment on above: This is a duplicate Lucy SARS Antigen (BRODY) result to be used for statistical tracking purpose only. Ketones Auto test strip (U) [Mass/Vol]Ordered By: Olga Santoyo on 12-15-2021 Ketones (U) [Mass/Vol] Negative Negative [facility] - Drug toxicology Ordered By: Olga Santoyo on 12-15-2021 Opiates Ql (U) Negative Negative [facility] - UrinalysisOrder ed By: Olga Santoyo on 12-15-2021 Hyaline casts LM Ql (Urine sed) 0-8 [LPF] 0-8 [facility] Nitrite Test strip Ql (U)Ord ered By: Olga Santoyo on 12-15-2021 Nitrite Ql (U) Negative Negative [facility] No Panel InformationOrdered By: Olga Santoyo on 12-15-2021 SARS Antigen (LFIA) [facility] Phencyclidine Screen Ql (U)O rdered By: Olga Santoyo on 12-15-2021 Phencyclidine Ql (U) Negative Negative [facility] Comment on above: These are unconfirme d results and should not be used for legal purposes. Drug Cut-Off Concentration: AMPH 1000 ng/mL RONEL 200 ng/mL JUANITO 200 ng/mL COCM 300 ng/mL OP 300 ng/mL PCP 25 ng/mL Protein Auto test strip (U) [Mass/Vol]Ordered By: Olag Santoyo on 12-15-2021 Protein (U) [Mass/Vol] Trace mg/dL Negative [facility] Specific gravity Auto test s trip (U) [Rel density]Ordered By: Olga Santoyo on 12-15-2021 Specific gravity (U) [Rel density] 1.022 1.001-1.030 [facility] Squamous epithelial cells de tection in urine sediment by light microscopyOrdered By: Olga Santoyo on 12-15-2021 Epithelial cells.squamous LM Ql (Urine sed) 0-1 [HPF] 0-2 [facility] Urine bacteria detection by automated methodOrdered By: Olga Santoyo on 12-15-2021 Bacteria Auto Ql (U) None seen None Seen [facility] Urine clarity by refractomet ry automatedOrdered By: Olga Santoyo on 12-15-2021 Clarity Refractometry automated (U) Clear Clear [facility] Urine cocaine detectionOrder ed By: Olga Santoyo on 12-15-2021 Cocaine Ql (U) Negative Negative [facility] Urine glucose measurement by automated test strip (mass/volume)Ordered By: Olga Santoyo on 12-15-2021 Glucose Auto test strip (U) [Mass/Vol] Normal mg/dL Normal [facility] Urine hemoglobin detection b y automated test stripOrdered By: Olga Santoyo on 12-15-2021 Hemoglobin Auto test strip Ql (U) Negative Negative [facility] Urine leukocyte esterase det ection by automated test stripOrdered By: Olga Santoyo on 12-15-2021 Leukocyte esterase Auto test strip Ql (U) Negative Negative [facility] Urine pH measurement by auto mated test stripOrdered By: Olga Santoyo on 12-15-2021 pH (U) 6.5 [pH] Normal 5.0-9.0 [facility] Comment on above: Order Comment: Name Collection Type:: Clean-Voided Midstream Performed By: #### O BUDS, ADDONUAPLUS #### [facility] [address] Urobilinogen Auto test strip (U) [Mass/Vol]Ordered By: Olga Santoyo on 12-15-2021 Urobilinogen (U) [Mass/Vol] Normal mg/dL Normal [facility] Amphetamine Screen Ql (U)Ord ered By: VESNA BOURGEOIS on 12-07-2021 Amphetamines Ql (U) Negative Negative [facility] Barbiturates [Presence] in U rineOrdered By: VESNA BOURGEOIS on 12-07-2021 Barbiturates Ql (U) Negative Negative [facility] Benzodiazepines [Presence] i n UrineOrdered By: VESNA BOURGEOIS on 12-07-2021 Benzodiazepines Ql (U) Negative Negative [facility] Bilirubin Test strip Ql (U)O rdered By: VESNA BOURGEOIS on 12-07-2021 Bilirubin Ql (U) Negative Negative [facility] Color Auto (U)Ordered By: ECHO BOURGEOIS on 12-07-2021 Color (U) Yellow Yellow [facility] Ketones Auto test strip (U) [Mass/Vol]Ordered By: VESNA BOURGEOIS on 12-07-2021 Ketones (U) [Mass/Vol] Negative Negative [facility] - Drug toxicology Ordered By: VESNA BOURGEOIS on 12-07-2021 Opiates Ql (U) Negative Negative [facility] Nitrite Test strip Ql (U)Ord ered By: VESNA BOURGEOIS on 12-07-2021 Nitrite Ql (U) Negative Negative [facility] OB Urine Drug Screen (NO THC )on 12-07-2021 Amphetamine Screen,Urine Negative Normal Negative [facility] Comment on above: Performed By: #### U A, OBUDS #### [facility] [address] [place] [address] [place] Barbiturate Screen,Urine Negative Normal Negative [facility] Comment on above: Performed By: #### U A, OBUDS #### [facility] [address] [place] [address] [place] Benzodiazepines Screen,Urine Negative Normal Negative [facility] Comment on above: Performed By: #### U A, OBUDS #### [facility] [address] [place] [address] [place] Cocaine Screen,Urine Negative Normal Negative [facility] Comment on above: Performed By: #### U A, OBUDS #### [facility] [address] [place] [address] [place] Opiate Screen,Urine Negative Normal Negative [facility] Comment on above: Performed By: #### U A, OBUDS #### [facility] [address] [place] [address] Phencyclidine Screen, Urine Negative Normal Negative [facility] Comment on above: Result Comment: Thes e are unconfirmed results and should not be used for legal purposes. Drug Cut-Off Concentration: AMPH 1000 ng/mL RONEL 200 ng/mL JUANITO 200 ng/mL COCM 300 ng/mL OP 300 ng/mL PCP 25 ng/mL PERFORMED BY: [place] [address] PATHOLOGIST PAPER MAKING MACHINE OPERATOR NATALYA ESTEBAN M.D. Performed By: #### U A, OBUDS #### [address] Phencyclidine Screen Ql (U)O rdered By: VESNA BOURGEOIS on 12-07-2021 Phencyclidine Ql (U) Negative Negative [facility] Comment on above: These are unconfirme d results and should not be used for legal purposes. Drug Cut-Off Concentration: AMPH 1000 ng/mL RONEL 200 ng/mL JUANITO 200 ng/mL COCM 300 ng/mL OP 300 ng/mL PCP 25 ng/mL Protein Auto test strip (U) [Mass/Vol]Ordered By: VESNA BOURGEOIS on 12-07-2021 Protein (U) [Mass/Vol] Negative Negative [facility] Specific gravity Auto test s trip (U) [Rel density]Ordered By: VESNA BOURGEOIS on 12-07-2021 Specific gravity (U) [Rel density] 1.009 1.001-1.030 [facility] Urinalysison 12-07-2021 Appearance (U) Clear Normal Clear [facility] Comment on above: Order Comment: Name Collection Type:: Clean-Voided Midstream Performed By: #### U A, OBUDS #### [facility] [address] [place] [address] Bilirubin,Urine Negative Normal Negative [facility] Comment on above: Order Comment: Name Collection Type:: Clean-Voided Midstream Performed By: #### U A, OBUDS #### [facility] [address] [place] [address] [place] Color (U) Yellow Normal Yellow [facility] Comment on above: Order Comment: Name Collection Type:: Clean-Voided Midstream Performed By: #### U A, OBUDS #### [facility] [address] [place] [address] [place] Glucose Ql (U) Normal Normal Normal [facility] Comment on above: Order Comment: Name Collection Type:: Clean-Voided Midstream Performed By: #### U A, OBUDS #### [facility] [address] [place] [address] [place] Ketones Ql (U) Negative Normal Negative [facility] Comment on above: Order Comment: Name Collection Type:: Clean-Voided Midstream Performed By: #### U A, OBUDS #### [facility] [address] [place] [address] Leukocyte esterase Test strip Ql (U) Negative Normal Negative [facility] Comment on above: Order Comment: Name Collection Type:: Clean-Voided Midstream Performed By: #### U A, OBUDS #### [facility] [address] [place] [address] [place] Nitrite,Urine Negative Normal Negative [facility] Comment on above: Order Comment: Name Collection Type:: Clean-Voided Midstream Performed By: #### U A, OBUDS #### [facility] [address] [place] [address] [place] Occult Blood,Urine Negative Normal Negative [facility] Comment on above: Order Comment: Name Collection Type:: Clean-Voided Midstream Result Comment: PERF ORMED BY: [place] [address] PATHOLOGIST PAPER MAKING MACHINE OPERATOR NATALYA ESTEBAN M.D. Performed By: #### U A, OBUDS #### [facility] [address] [place] [address] [place] pH (U) 7.0 [pH] Normal 5.0-9.0 [facility] Comment on above: Order Comment: Name Collection Type:: Clean-Voided Midstream Performed By: #### U A, OBUDS #### [facility] [address] [place] [address] [place] Protein,Urine Negative Normal Negative [facility] Comment on above: Order Comment: Name Collection Type:: Clean-Voided Midstream Performed By: #### U A, OBUDS #### [facility] [address] Specificy [place],Urine 1.009 Normal 1.001-1.030 [facility] Comment on above: Order Comment: Name Collection Type:: Clean-Voided Midstream Performed By: #### U A, OBUDS #### [facility] [address] Urobilinogen,Urine Normal Normal Normal [facility] Comment on above: Order Comment: Name Collection Type:: Clean-Voided Midstream Performed By: #### U A, OBUDS #### [facility] [address] [place] [address] Urine clarity by refractomet ry automatedOrdered By: VESNA BOURGEOIS on 12-07-2021 Clarity Refractometry automated (U) Clear Clear [facility] Urine cocaine detectionOrder ed By: VESNA BOURGEOIS on 12-07-2021 Cocaine Ql (U) Negative Negative [facility] Urine glucose measurement by automated test strip (mass/volume)Ordered By: VESNA BORUGEOIS on 12-07-2021 Glucose Auto test strip (U) [Mass/Vol] Normal mg/dL Normal [facility] Urine hemoglobin detection b y automated test stripOrdered By: VESNA BOURGEOIS on 12-07-2021 Hemoglobin Auto test strip Ql (U) Negative Negative [facility] Urine leukocyte esterase det ection by automated test stripOrdered By: VESNA BOURGEOIS on 12-07-2021 Leukocyte esterase Auto test strip Ql (U) Negative Negative [facility] Urobilinogen Auto test strip (U) [Mass/Vol]Ordered By: VESNA BOURGEOIS on 12-07-2021 Urobilinogen (U) [Mass/Vol] Normal mg/dL Normal [facility] pH Auto test strip (U)Ordere d By: VESNA BOURGEOIS on 12-07-2021 pH (U) 7.0 [pH] 5.0-9.0 [facility] S. agalactiae Org specific c x Ql (Unsp spec)Ordered By: Olga Santoyo on 11-23-2021 Streptococcus agalactiae culture No Group B Beta Streptococcus Isolated 3 Days [facility] Strep B Cultureon 11-19-2021 Strep B Culture Reason for Exam 35 weeks gestation of ; screening for stre Vaginal/Rectal Comment vaginal, ecc, rectal Reason for Exam: 35 weeks gestation of ; screening for stre : Vaginal/Rectal Comment: vaginal, ecc, rectal No Group B Beta Streptococcus Isolated 3 Days PERFORMED BY: [facility] [address] [place] [address] PATHOLOGIST PAPER MAKING MACHINE OPERATOR NATALYA ESTEBAN M.D. Normal [facility] Comment on above: Performed By: #### C USTB #### [facility] [address] Amphetamine Screen Ql (U)Ord ered By: VESNA BOURGEOIS on 11-10-2021 Amphetamines Ql (U) Negative Negative [facility] Barbiturates [Presence] in U rineOrdered By: VESNA BOURGEOIS on 11-10-2021 Barbiturates Ql (U) Negative Negative [facility] Benzodiazepines [Presence] i n UrineOrdered By: VESNA BOURGEOIS on 11-10-2021 Benzodiazepines Ql (U) Negative Negative [facility] Bilirubin Test strip Ql (U)O rdered By: VESNA BOURGEOIS on 11-10-2021 Bilirubin Ql (U) Negative Negative [facility] Color Auto (U)Ordered By: ECHO BOURGEOIS on 11-10-2021 Color (U) Yellow Yellow [facility] Ketones Auto test strip (U) [Mass/Vol]Ordered By: VESNA BOURGEOIS on 11-10-2021 Ketones (U) [Mass/Vol] Negative Negative Fi [facility] - Drug toxicology Ordered By: VESNA BOURGEOIS on 11-10-2021 Opiates Ql (U) Negative Negative [facility] Nitrite Test strip Ql (U)Ord ered By: VESNA BOURGEOIS on 11-10-2021 Nitrite Ql (U) Negative Negative [facility] OB Urine Drug Screen (NO THC )on 11-10-2021 Amphetamine Screen,Urine Negative Normal Negative [facility] Comment on above: Performed By: #### U A, OBUDS #### [facility] [address] [place] [address] [place] Barbiturate Screen,Urine Negative Normal Negative [facility] Comment on above: Performed By: #### U A, OBUDS #### [facility] [address] [place] [address] [place] Benzodiazepines Screen,Urine Negative Normal Negative [facility] Comment on above: Performed By: #### U A, OBUDS #### [facility] [address] [place] [address] [place] Cocaine Screen,Urine Negative Normal Negative [facility] Comment on above: Performed By: #### U A, OBUDS #### [facility] [address] [place] [address] [place] Opiate Screen,Urine Negative Normal Negative [facility] Comment on above: Performed By: #### U A, OBUDS #### [facility] [address] [place] [address] [place] Phencyclidine Screen, Urine Negative Normal Negative [facility] Comment on above: Result Comment: Thes e are unconfirmed results and should not be used for legal purposes. Drug Cut-Off Concentration: AMPH 1000 ng/mL RONEL 200 ng/mL JUANITO 200 ng/mL COCM 300 ng/mL OP 300 ng/mL PCP 25 ng/mL PERFORMED BY: [place] [address] PATHOLOGIST PAPER MAKING MACHINE OPERATOR NATALYA ESTEBAN M.D. Performed By: #### U A, OBUDS #### [facility] [address] [place] [address] Phencyclidine Screen Ql (U)O rdered By: VESNA BOURGEOIS on 11-10-2021 Phencyclidine Ql (U) Negative Negative [facility] Comment on above: These are unconfirme d results and should not be used for legal purposes. Drug Cut-Off Concentration: AMPH 1000 ng/mL RONEL 200 ng/mL JUANITO 200 ng/mL COCM 300 ng/mL OP 300 ng/mL PCP 25 ng/mL Protein Auto test strip (U) [Mass/Vol]Ordered By: VESNACorazon BOURGEOIS on 11-10-2021 Protein (U) [Mass/Vol] Negative Negative [facility] Specific gravity Auto test s trip (U) [Rel density]Ordered By: VESNA BOURGEOIS on 11-10-2021 Specific gravity (U) [Rel density] 1.004 1.001-1.030 [facility] Urinalysison 11-10-2021 Appearance (U) Clear Normal Clear [facility] Comment on above: Order Comment: Name Collection Type:: Clean-Voided Midstream Performed By: #### U A, OBUDS #### [facility] [address] [place] [address] [place] Bilirubin,Urine Negative Normal Negative [facility] Comment on above: Order Comment: Name Collection Type:: Clean-Voided Midstream Performed By: #### U A, OBUDS #### [facility] [address] [place] [address] [place] Color (U) Yellow Normal Yellow [facility] Comment on above: Order Comment: Name Collection Type:: Clean-Voided Midstream Performed By: #### U A, OBUDS #### [facility] [address] [place] [id number] [place] Glucose Ql (U) Normal Normal Normal [facility] Comment on above: Order Comment: Name Collection Type:: Clean-Voided Midstream Performed By: #### U A, OBUDS #### [facility] [address] [place] [id number] [place] Ketones Ql (U) Negative Normal Negative [facility] Comment on above: Order Comment: Name Collection Type:: Clean-Voided Midstream Performed By: #### U A, OBUDS #### [facility] [address] [place] [id number] [place] Leukocyte esterase Test strip Ql (U) Negative Normal Negative [facility] Comment on above: Order Comment: Name Collection Type:: Clean-Voided Midstream Performed By: #### U A, OBUDS #### [address] Nitrite,Urine Negative Normal Negative [facility] Comment on above: Order Comment: Name Collection Type:: Clean-Voided Midstream Performed By: #### U A, OBUDS #### [address] Occult Blood,Urine Negative Normal Negative [facility] Comment on above: Order Comment: Name Collection Type:: Clean-Voided Midstream Result Comment: PERF ORMED BY: [place] [address] PATHOLOGIST PAPER MAKING MACHINE OPERATOR NATALYA ESTEBAN M.D. Performed By: #### U A, OBUDS #### [address] pH (U) 7.0 [pH] Normal 5.0-9.0 [facility] Comment on above: Order Comment: Name Collection Type:: Clean-Voided Midstream Performed By: #### U A, OBUDS #### [address] Protein,Urine Negative Normal Negative [facility] Comment on above: Order Comment: Name Collection Type:: Clean-Voided Midstream Performed By: #### U A, OBUDS #### [address] Specificy [place],Urine 1.004 Normal 1.001-1.030 [facility] Comment on above: Order Comment: Name Collection Type:: Clean-Voided Midstream Performed By: #### U A, OBUDS #### [address] Urobilinogen,Urine Normal Normal Normal [facility] Comment on above: Order Comment: Name Collection Type:: Clean-Voided Midstream Performed By: #### U A, OBUDS #### [address] [place] [address] [facility] Urine clarity by refractomet ry automatedOrdered By: VESNA BOURGEOIS on 11-10-2021 Clarity Refractometry automated (U) Clear Clear [facility] Urine cocaine detectionOrder ed By: VESNA BOURGEOIS on 11-10-2021 Cocaine Ql (U) Negative Negative [facility] Urine glucose measurement by automated test strip (mass/volume)Ordered By: VESNA BOURGEOIS on 11-10-2021 Glucose Auto test strip (U) [Mass/Vol] Normal mg/dL Normal [facility] Urine hemoglobin detection b y automated test stripOrdered By: VESNA BOURGEOIS on 11-10-2021 Hemoglobin Auto test strip Ql (U) Negative Negative [facility] Urine leukocyte esterase det ection by automated test stripOrdered By: VESNA BOURGEOIS on 11-10-2021 Leukocyte esterase Auto test strip Ql (U) Negative Negative [facility] Urobilinogen Auto test strip (U) [Mass/Vol]Ordered By: VESNA BOURGEOIS on 11-10-2021 Urobilinogen (U) [Mass/Vol] Normal mg/dL Normal [facility] pH Auto test strip (U)Ordere d By: VESNA BOURGEOIS on 11-10-2021 pH (U) 7.0 [pH] 5.0-9.0 [facility] CBC AUTO DIFFon 12-28-2020 BASO # 0.0 103/ul Normal 0.0-0.1 [facility] Comment on above: Performed By: #### C BC #### [facility] [address] [place] [address] Dr. Annie Wright Basophils/100 WBC (Bld) 0.4 % Normal 0.2-2.0 [facility] Comment on above: Performed By: #### C BC #### [facility] [address] [place] [address] Dr. Annie Wright EO # 0.2 103/ul Normal 0.0-0.7 [facility] Comment on above: Performed By: #### C BC #### [facility] [address] [place] [address] Dr. Annie Wright Eosinophils/100 WBC (Bld) 2.3 % Normal 0.9-7.0 [facility] Comment on above: Performed By: #### C BC #### [facility] [address] [place] [address] Dr. Annie Wright Erythrocyte distribution width (RBC) [Ratio] 12.4 % Normal 11.0-15.0 [facility] Comment on above: Performed By: #### C BC #### [facility] [address] [place] [address] Dr. Annie Wright Hematocrit (Bld) [Volume fraction] 39.4 % Normal 36.0-48.0 [facility] Comment on above: Performed By: #### C BC #### [facility] [address] [place] [address] Dr. Annie Wright Hemoglobin (Bld) [Mass/Vol] 13.3 g/dL Normal 12.0-16.0 [facility] Comment on above: Performed By: #### C BC #### [facility] [address] [place] [address] Dr. Annie Wright IG # 0.03 10e3/ul Normal 0.00-0.03 [facility] Comment on above: Performed By: #### C BC #### [facility] [address] [place] [address] Dr. Annie Wright IG % 0.4 % Normal 0.0-0.5 [facility] Comment on above: Performed By: #### C BC #### [facility] [address] [place] [address] Dr. Annie Wright LYMPH # 3.1 103/ul Normal 1.2-3.8 [facility] Comment on above: Performed By: #### C BC #### [facility] [address] [place] [address] Dr. Annie Wright Lymphocytes/100 WBC (Bld) 38.3 % Normal 20.5-60.0 [facility] Comment on above: Performed By: #### C BC #### [facility] [address] [place] [address] Dr. Annie Wright MANUAL DIFF REQ NO Normal [facility] Comment on above: Performed By: #### C BC #### [facility] [address] [place] [address] Dr. Annie Wright MCH (RBC) [Entitic mass] 29.3 pg Normal 26.7-34.0 [facility] Comment on above: Performed By: #### C BC #### [facility] [address] [place] [address] Dr. Annie Wright MCHC (RBC) [Mass/Vol] 33.8 g/dL Normal 29.9-35.2 [facility] Comment on above: Performed By: #### C BC #### [facility] [address] [place] [address] Dr. Annie Wright MCV (RBC) [Entitic vol] 86.8 fL Normal 81.0-99.0 [facility] Comment on above: Performed By: #### C BC #### [facility] [address] [place] [address] Dr. Annie Wright MONO # 0.7 103/ul Normal 0.3-0.8 [facility] Comment on above: Performed By: #### C BC #### [facility] [address] [place] [address] Dr. Annie Wright Monocytes/100 WBC (Bld) 8.5 % Normal 1.7-12.0 [facility] Comment on above: Performed By: #### C BC #### [facility] [address] [place] [address] Dr. Annie Wright NEUT # 4.0 103/ul Normal 1.4-6.5 [facility] Comment on above: Performed By: #### C BC #### [facility] [address] [place] [address] Dr. Annie Wright Neutrophils/100 WBC (Bld) 50.1 % Normal 43.0-75.0 [facility] Comment on above: Performed By: #### C BC #### [facility] [address] [place] [address] Dr. Annie Wright Platelet mean volume (Bld) [Entitic vol] 10.9 fL Normal 9.5-13.5 [facility] Comment on above: Performed By: #### C BC #### [facility] [address] [place] [address] Dr. Annie Wright PLT 228 103/ul Normal 150-450 [facility] Comment on above: Performed By: #### C BC #### [facility] [address] [place] [address] Dr. Annie Wright RBC 4.54 106/ul Normal 4.20-5.40 [facility] Comment on above: Performed By: #### C BC #### [facility] [address] [place] [address] Dr. Annie Wright WBC 8.0 103/ul Normal 4.0-11.0 [facility] Comment on above: Performed By: #### C BC #### [facility] [address] [place] [address] Dr. Annie Wright FREE THYROXINE INDEX T7on FTI 2.02 Normal [facility] Comment on above: Performed By: #### T SH, LIPID, CMP, T7 #### [facility] [address] [place] [address] Dr. Annie Wright T3U 32.0 % Normal 23.5-40.5 [facility] Comment on above: Performed By: #### T SH, LIPID, CMP, T7 #### [facility] [address] [place] [address] Dr. Annie Wright T4 [Mass/Vol] 6.30 ug/dL Normal 5.53-11.00 [facility] Comment on above: Performed By: #### T SH, LIPID, CMP, T7 #### [facility] [address] [place] [address] Dr. Annie Wright GLYCOHEMOGLOBIN A1Con 2020 ADA RECOMMENDATION ADA THERAPEUTIC TARGET 6.0 - 7.0 ACTION SUGGESTED > 7.0 Normal [facility] Comment on above: Performed By: #### A 1C #### [facility] [address] [place] [address] Dr. Annie Wright Glucose [Mass/Vol] 100 mg/dL Normal [facility] Comment on above: Performed By: #### A 1C #### [facility] [address] [place] [address] [address] Annie Wright HbA1c (Bld) [Mass fraction] 5.1 % Normal <=6.0 [facility] Comment on above: Performed By: #### A 1C #### [facility] [address] [place] [address] [address] Annie Wright LIPID PROFILEon 12-28-2020 CHOL-HDL RATIO NORM SEE BELOW Normal [facility] Comment on above: Result Comment: 3.3 - 4.4 LOW RISK 4.4 - 7.1 AVERAGE RISK 7.1 - 11.0 MODERATE RISK >11.0 HIGH RISK Performed By: #### T SH, LIPID, CMP, T7 #### [facility] [address] [place] [address] [address] Annie Wright Cholesterol [Mass/Vol] 156 mg/dL Normal <=200 Th [facility] Comment on above: Performed By: #### T SH, LIPID, CMP, T7 #### [facility] [address] [place] [address] [address] Annie Wright Cholesterol in HDL [Mass/Vol] 62 mg/dL Normal [facility] Comment on above: Performed By: #### T SH, LIPID, CMP, T7 #### [facility] [address] [place] [address] [address] Annie Wright Cholesterol in LDL [Mass/Vol] 82.8 mg/dL Normal [facility] Comment on above: Performed By: #### T SH, LIPID, CMP, T7 #### [facility] [address] [place] [address] [address] Annie Wright Cholesterol.total/Choles terol in HDL [Mass ratio] 2.5 {ratio} Normal [facility] Comment on above: Performed By: #### T SH, LIPID, CMP, T7 #### [facility] [address] [place] [address] [address] Annie Wright HDL NORMAL > or = 60 mg/dl - LOW CARDIOVASCULAR RISK <40 mg/dl - HIGH CARDIOVASCULAR RISK Normal [facility] Comment on above: Performed By: #### T SH, LIPID, CMP, T7 #### [facility] [address] [place] [address] [address] Annie Wright LDL CALC NORMAL SEE BELOW Normal [facility] Comment on above: Result Comment: <100 mg/dl OPTIMAL 100 - 129 mg/dl NEAR OR ABOVE OPTIMAL 130 - 159 mg/dl BORDERLINE HIGH 160 - 189 mg/dl HIGH >190 mg/dl VERY HIGH Performed By: #### T SH, LIPID, CMP, T7 #### [facility] [address] [place] [address] [address] Annie Wrgiht Triglyceride [Mass/Vol] 56 mg/dL Normal <=150 [facility] Comment on above: Performed By: #### T SH, LIPID, CMP, T7 #### [facility] [address] [place] [address] [address] Annie Wright VLDL CALC 11.2 mg/dL Normal [facility] Comment on above: Performed By: #### T SH, LIPID, CMP, T7 #### [facility] [address] [place] [address] [address] Annie Wright PROF 14(COMP METB)on 021 Albumin [Mass/Vol] 4.2 g/dL Normal 3.5-5.0 [facility] Comment on above: Performed By: #### T SH, LIPID, CMP, T7 #### [facility] [address] [place] [address] [address] Annie Wright Albumin/Globulin [Mass ratio] 1.1 {ratio} Normal [facility] Comment on above: Performed By: #### T SH, LIPID, CMP, T7 #### [facility] [address] [place] [address] [address] Annie Wright ALP [Catalytic activity/Vol] 53 U/L Normal 38-126 [facility] Comment on above: Performed By: #### T SH, LIPID, CMP, T7 #### [facility] [address] [place] [address] [address] Annie Wright ALT [Catalytic activity/Vol] 36 U/L Normal 9-52 [facility] Comment on above: Performed By: #### T SH, LIPID, CMP, T7 #### [facility] [facility] [address] [address] [address] Annie Wright Anion gap [Moles/Vol] 11.3 mmol/L Normal Th e [facility] Comment on above: Performed By: #### T SH, LIPID, CMP, T7 #### [facility] [address] [place] [address] Dr. Annie Wright AST [Catalytic activity/Vol] 25 U/L Normal 14-36 [facility] Comment on above: Performed By: #### T SH, LIPID, CMP, T7 #### [facility] [address] [place] [address] Dr. Annie Wright Bilirubin [Mass/Vol] 0.4 mg/dL Normal 0.2-1.3 [facility] Comment on above: Performed By: #### T SH, LIPID, CMP, T7 #### [facility] [address] [place] [address] Dr. Annie Wright Calcium [Mass/Vol] 9.2 mg/dL Normal 8.4-10.2 [facility] Comment on above: Performed By: #### T SH, LIPID, CMP, T7 #### [facility] [address] [place] [address] Dr. Annie Wright Chloride [Moles/Vol] 105 mmol/L Normal 98-107 [facility] Comment on above: Performed By: #### T SH, LIPID, CMP, T7 #### [facility] [address] [place] [address] Dr. Annie Wright CO2 [Moles/Vol] 28.8 mmol/L Normal 22.0-30.0 [facility] Comment on above: Performed By: #### T SH, LIPID, CMP, T7 #### [facility] [address] [place] [address] Dr. Annie Wright Creatinine [Mass/Vol] 0.63 mg/dL Normal 0.52-1.04 [facility] Comment on above: Performed By: #### T SH, LIPID, CMP, T7 #### [facility] [id number] Annie Wright EGFR-AF TANZANIAN >60 Normal >=60 [facility] Comment on above: Performed By: #### T SH, LIPID, CMP, T7 #### [facility] [id number] Annie Wright EGFR-NON AF TANZANIAN >60 Normal >=60 [facility] Comment on above: Performed By: #### T SH, LIPID, CMP, T7 #### [facility] [address] [address] [address] Annie Wright Globulin (S) [Mass/Vol] 3.7 g/dL Normal T [facility] Comment on above: Performed By: #### T SH, LIPID, CMP, T7 #### [facility] [address] [address] [address] Annie Wright Glucose [Mass/Vol] 91 mg/dL Normal 74-106 [facility] Comment on above: Performed By: #### T SH, LIPID, CMP, T7 #### [facility] [address] [address] [address] Annie Wright Potassium [Moles/Vol] 4.1 mmol/L Normal 3.4-5.0 [facility] Comment on above: Performed By: #### T SH, LIPID, CMP, T7 #### [facility] [address] [address] [address] Annie Wright Protein [Mass/Vol] 7.9 g/dL Normal 6.1-8.2 [facility] Comment on above: Performed By: #### T SH, LIPID, CMP, T7 #### [facility] [address] [address] [address] Annie Wright Sodium [Moles/Vol] 141 mmol/L Normal 137-145 [facility] Comment on above: Performed By: #### T SH, LIPID, CMP, T7 #### [facility] [address] [address] [address] nAnie Wright Urea nitrogen [Mass/Vol] 11.0 mg/dL Normal 7.0-17.0 [facility] Comment on above: Performed By: #### T SH, LIPID, CMP, T7 #### [facility] [address] [address] [address] Annie Wright Urea nitrogen/Creatinine [Mass ratio] 17.5 mg/mg Normal [facility] Comment on above: Performed By: #### T SH, LIPID, CMP, T7 #### [facility] [address] [address] [address] Annie Wright TSHon 12-28-2020 TSH 1.702 uIU/mL Normal 0.470-4.680 [facility] Comment on above: Performed By: #### T SH, LIPID, CMP, T7 #### [facility] [address] [address] [address] Annie Wright TSH RANGE SEE BELOW Normal [facility] Comment on above: Result Comment: <0.3 4 UIU/ml HYPERTHYROID 0.34-5.60 UIU/ml EUTHYROID >5.60 UIU/ml HYPOTHYROID Performed By: #### T SH, LIPID, CMP, T7 #### [facility] [address] [address] [address] Annie Wright Director Of Instrumental Music Cytology Reporton 2020 Director Of Instrumental Music Cytology Report Clinical Information Specimen Collection Date: [...] smears in the future. GY Disclaimer Alpha Director Of Instrumental Music Disclaimer ANATOMICPATHOLOGY Normal [facility] Comment on above: Performed By: #### G YNCYTREP #### [facility] (DEFAULT) [address] [place] [address] Gynecology Office/Clinic Not cam 11-15-2020 Gynecology Office/Clinic [...] September and October. 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 Back pain starts [...] Not in her mother. Saw Dr. Gomez ([facility]) GI on 08/02/20. Had colonoscopy 08/28/20: [...] (more content not included)... Normal [facility] CELIAC ANTIBODIES PROFILEon 09-20-2020 Deamidated Gliadin Abs, IgA 11 units Normal 0-19 [facility] Comment on above: Result Comment: Nega tive 0 - 19 Weak Positive 20 - 30 Moderate to Strong Positive >30 Performed By: #### C ELIACP #### [facility] [address] [place] [address] Fredrick Jeannine Deamidated Gliadin Abs, IgG 2 units Normal 0-19 [facility] Comment on above: Result Comment: Nega tive 0 - 19 Weak Positive 20 - 30 Moderate to Strong Positive >30 Performed By: #### C ELIACP #### [facility] [address] [address] Fredrick Jeannine Endomysial Antibody IgA Negative Normal Negative T [facility] Comment on above: Performed By: #### C ELIACP #### [facility] [address] [address] Fredrick Jeannine Immunoglobulin A, Qn, Serum 223 mg/dL Normal 87-352 [facility] Comment on above: Performed By: #### C ELIACP #### [facility] [address] [address] Fredrick Jeannine t-Transglutaminase (tTG) IgA <2 Normal 0-3 [facility] Comment on above: Result Comment: Nega tive 0 - 3 Weak Positive 4 - 10 Positive >10 . Tissue Transglutaminase (tTG) has been identified as the endomysial antigen. Studies have demonstr- ated that endomysial IgA antibodies have over 99% specificity for gluten sensitive enteropathy. Performed By: #### C ELISHAYNEP #### [facility] [address] [place], [place] [id number] Fredrick Paez t-Transglutaminase (tTG) IgG 5 U/mL Normal 0-5 [facility] Comment on above: Result Comment: Nega tive 0 - 5 Weak Positive 6 - 9 Positive >9 Performed By: #### C ELIACP #### [facility] [address] [place] [address] Fredrick Jeannine CBC AUTO DIFFon 09-19-2020 BASO # 0.0 103/ul Normal 0.0-0.1 [facility] Comment on above: Performed By: #### C BC #### [facility] [address] [place] [address] Fredrick Jeannine Basophils/100 WBC (Bld) 0.5 % Normal 0.2-2.0 [facility] Comment on above: Performed By: #### C BC #### [facility] [address] [place], [place] [id number] Fredrick Jeannine EO # 0.2 103/ul Normal 0.0-0.7 [facility] Comment on above: Performed By: #### C BC #### [facility] [address] [place], [place] [id number] Fredrick Jeannine Eosinophils/100 WBC (Bld) 1.9 % Normal 0.9-7.0 [facility] Comment on above: Performed By: #### C BC #### [facility] [address] [place], [place] [id number] Fredrick Jeannine Erythrocyte distribution width (RBC) [Ratio] 12.5 % Normal 11.0-15.0 [facility] Comment on above: Performed By: #### C BC #### [facility] [address] [place], [place] [id number] Fredrick Jeannine Hematocrit (Bld) [Volume fraction] 40.1 % Normal 36.0-48.0 [facility] Comment on above: Performed By: #### C BC #### [facility] [address] [id number] Fredrick Jeannine Hemoglobin (Bld) [Mass/Vol] 13.1 g/dL Normal 12.0-16.0 [facility] Comment on above: Performed By: #### C BC #### [facility] [address] [place] [address] Fredrick Jeannine IG # 0.03 10e3/ul Normal 0.00-0.03 [facility] Comment on above: Performed By: #### C BC #### [facility] [address] [place] [address] Fredrcik Jeannine IG % 0.4 % Normal 0.0-0.5 [facility] Comment on above: Performed By: #### C BC #### [facility] [address] [place] [address] Fredrick Jeannine LYMPH # 2.5 103/ul Normal 1.2-3.8 [facility] Comment on above: Performed By: #### C BC #### [facility] [address] [place] [address] Fredrick Jeannine Lymphocytes/100 WBC (Bld) 32.0 % Normal 20.5-60.0 [facility] Comment on above: Performed By: #### C BC #### [facility] [address] [place] [address] Fredrick Jeannine MANUAL DIFF REQ NO Normal [facility] Comment on above: Performed By: #### C BC #### [facility] [address] [place] [address] Fredrick Jeannine MCH (RBC) [Entitic mass] 28.5 pg Normal 26.7-34.0 [facility] Comment on above: Performed By: #### C BC #### [facility] [address] [place], [place] [id number] Fredrick Jeannine MCHC (RBC) [Mass/Vol] 32.7 g/dL Normal 29.9-35.2 [facility] Comment on above: Performed By: #### C BC #### [facility] [address] [place] [address] Fredrick Jeannine MCV (RBC) [Entitic vol] 87.4 fL Normal 81.0-99.0 [facility] Comment on above: Performed By: #### C BC #### [facility] [address] [place] [address] Fredrick Paez MONO # 0.7 103/ul Normal 0.3-0.8 [facility] Comment on above: Performed By: #### C BC #### [facility] [address] [place] [address] Fredrick Paez Monocytes/100 WBC (Bld) 9.1 % Normal 1.7-12.0 [facility] Comment on above: Performed By: #### C BC #### [facility] [address] [place] [address] Fredrick Paez NEUT # 4.4 103/ul Normal 1.4-6.5 [facility] Comment on above: Performed By: #### C BC #### [facility] [address] [place] [address] Fredrick Paez Neutrophils/100 WBC (Bld) 56.1 % Normal 43.0-75.0 [facility] Comment on above: Performed By: #### C BC #### [facility] [address] [place], [place] [id number] Fredrick Paez Platelet mean volume (Bld) [Entitic vol] 10.8 fL Normal 9.5-13.5 [facility] Comment on above: Performed By: #### C BC #### [facility] [address] [place] [address] Fredrickmichele Jonesen PLT 266 103/ul Normal 150-450 [facility] Comment on above: Performed By: #### C BC #### [facility] [address] [place], [place] [address] Fredrick Jeannine RBC 4.59 106/ul Normal 4.20-5.40 [facility] Comment on above: Performed By: #### C BC #### [facility] [address] [place] [address] Fredrick Jeannine WBC 7.9 103/ul Normal 4.0-11.0 [facility] Comment on above: Performed By: #### C BC #### [facility] [address] [id number] Fredrickmichele Paez PROF 14(COMP METB)on 021 Albumin [Mass/Vol] 3.9 g/dL Normal 3.5-5.0 [facility] Comment on above: Performed By: #### C MP #### [facility] [address] [place], [place] [id number] Fredrick Jeannine Albumin/Globulin [Mass ratio] 1.0 {ratio} Normal [facility] Comment on above: Performed By: #### C MP #### [facility] [address] [place], [place] [id number] Fredrick Jeannine ALP [Catalytic activity/Vol] 55 U/L Normal 38-126 [facility] Comment on above: Performed By: #### C MP #### [facility] [address] [place] [address] Fredrick Jeannine ALT [Catalytic activity/Vol] 22 U/L Normal 9-52 [facility] Comment on above: Performed By: #### C MP #### [facility] [address] [place], [place] [id number] Fredrick Jeannine Anion gap [Moles/Vol] 13.2 mmol/L Normal [facility] Comment on above: Performed By: #### C MP #### [facility] [address] [place], [place] [id number] Fredrick Jeannine AST [Catalytic activity/Vol] 17 U/L Normal 14-36 [facility] Comment on above: Performed By: #### C MP #### [facility] [address] [place], [place] [address] Fredrick Jeannine Bilirubin [Mass/Vol] 0.3 mg/dL Normal 0.2-1.3 [facility] Comment on above: Performed By: #### C MP #### [facility] [address] [place], [place] [address] Fredrick Jeannine Calcium [Mass/Vol] 9.0 mg/dL Normal 8.4-10.2 [facility] Comment on above: Performed By: #### C MP #### [facility] [address] [place], [place] [address] Fredrick Jeannine Chloride [Moles/Vol] 105 mmol/L Normal 98-107 [facility] Comment on above: Performed By: #### C MP #### [facility] [address] [place], [place] [address] Fredrick Jeannine CO2 [Moles/Vol] 27.7 mmol/L Normal 22.0-30.0 [facility] Comment on above: Performed By: #### C MP #### [facility] [address] [place], [place] [address] Fredrick Jeannine Creatinine [Mass/Vol] 0.65 mg/dL Normal 0.52-1.04 [facility] Comment on above: Performed By: #### C MP #### [facility] [address] [place] [address] Fredrick Jeannine EGFR-AF TANZANIAN >60 Normal >=60 [facility] Comment on above: Performed By: #### C MP #### [facility] [address] [place], [place] [address] Fredrick Jeannine EGFR-NON AF TANZANIAN >60 Normal >=60 [facility] Comment on above: Performed By: #### C MP #### [facility] [address] [place], [place] [address] Fredrick Jeannine Globulin (S) [Mass/Vol] 4.1 g/dL Normal T [facility] Comment on above: Performed By: #### C MP #### [facility] [address] [place] [address] Fredrick Jeannine Glucose [Mass/Vol] 98 mg/dL Normal 74-106 [facility] Comment on above: Performed By: #### C MP #### [facility] [address] [place], [place] [id number] Fredrick Jeannine Potassium [Moles/Vol] 3.9 mmol/L Normal 3.4-5.0 [facility] Comment on above: Performed By: #### C MP #### [facility] [address] [place] [address] Fredrick Jeannine Protein [Mass/Vol] 8.0 g/dL Normal 6.1-8.2 [facility] Comment on above: Performed By: #### C MP #### [facility] [address] [id number] Fredrick Paez Sodium [Moles/Vol] 142 mmol/L Normal 137-145 [facility] Comment on above: Performed By: #### C MP #### [facility] [address] [id number] Fredrick Paez Urea nitrogen [Mass/Vol] 10.0 mg/dL Normal 7.0-17.0 [facility] Comment on above: Performed By: #### C MP #### [facility] [address] [place] [address] Fredrick Paez Urea nitrogen/Creatinine [Mass ratio] 15.4 mg/mg Normal [facility] Comment on above: Performed By: #### C MP #### [facility] [address] [id number] Fredrick Paez Gynecology Office/Clinic Not cam 09-03-2020 [...] got this past weekend. [facility] Menses: At age 10. [...] Not in her mother. Saw Dr. Gomez ([facility]) GI on 08/02/20. Had colonoscopy 08/28/20: [...] on this. Discussed food sensitivity testing at [facility] Follow up 3 months Medical Decision Making Chronic conditions NOT treated during this visit that affected my overall medical decision making: [none] Treatment plans discussed but not opted for at this time: [Diagnostic laparoscopy] Prescribed medication that (more content not included)... Normal [facility] Gynecology Office/Clinic Not cam 06-21-2020 Gynecology [...] mother request patient to see Dr. Paniagua Poplar. Referral is placed. Follow-up with Dr. Tuyet [...] (more content not included)... Normal [facility] US Transvaginalon 06-18-2020 US Transvaginal EXAM(S) [...] in Other Vendor System) Normal [facility] Gynecology Office/Clinic Not cam 06-13-2020 Gynecology [...] (more content not included)... Normal [facility] Dermatopathologyon 0 Dermatopathology [facility] [address] [place], [place] [id number] DERMATOPATHOLOGY REPORT Name:MAHNAZ MATAColeman [facility]. Rec #. [id number] Location: [facility] Date of Procedure: 10/27/2019 Race: Date Received: 10/31/2019 /Sex: 2000 (Age: 19) / F Date Reported: 11/01/2019 Other: Submitting Physician:KELLIE MCCORMICK APRN, SENIOR SYSTEMS ENGINEER-C FINAL DIAGNOSIS SKIN, MID BACK, BIOPSY: COMPOUND NEVUS, PRESENT ON THE DEEP AND PERIPHERAL MARGIN. Electronically Signed Out by SRINIVASA PERALES M.D. Electronically Signed Out By SRINIVASA PERALES MD/[facility] By the signature on this report, the individual or group listed as making the Final Interpretation/Diagn osis certifies that they have reviewed this case. Clinical History: 1.1 x 1.0cm IDN vs. dysplastic nevus. Biopsy. Specimens Submitted As: A: SKIN, MID BACK Gross Description: Received in formalin is one pineda-brown piece of skin measuring [id number]. The specimen is inked and embedded in toto. /10/31/2019 Microscopic Description: Microscopic analysis shows a symmetric proliferation of melanocytes in epidermis and dermis. Melanocytes nest regularly along the dermal-epidermal junction, and dermal melanocytes mature with increasing depth in dermis. The melanocytes show no cytologic atypia. Normal [facility] Comment on above: Performed By: #### D #### Dermatopathology Vital Signs Date Time Vital Sign Value Performing Clinician Robert harrison 05-14-2023 15:57-0500 Body mass index (BMI) [Ratio] 27.96 kg/m2 Cecilia [employer] [facility] Work Phone: [facility] 05-14-2023 15:57-0500 Body weight 76.2 kg [facility] Work Phone: [facility] 05-14-2023 15:57-0500 Diastolic blood pressure 78 mm[Hg] [facility] 05-14-2023 15:57-0500 Systolic blood pressure 120 mm[Hg] [facility] Work Phone: [facility] 12-18-2021 08:35-0400 Body temperature 97.8 [degF] DO Vesna Nataprawira Work Phone: [facility] 12-18-2021 08:35-0400 Diastolic blood pressure 74 mm[Hg] DO Vesna Nataprawira Work Phone: [facility] 12-18-2021 08:35-0400 Heart rate 75 /min DO Vesna Nataprawira Work Phone: [facility] 12-18-2021 08:35-0400 Respiratory rate 16 /min DO Vesna Nataprawira Work Phone: [facility] 12-18-2021 08:35-0400 SaO2% (BldA) [Mass fraction] 98 % DO Vesna Nataprawira Work Phone: [facility] 12-18-2021 08:35-0400 Systolic blood pressure 119 mm[Hg] DO Vesna Nataprawira Work Phone: [facility] 12-15-2021 22:59-0400 Body height 165.1 cm DO Vesna Nataprawira Work Phone: [facility] 12-15-2021 22:59-0400 Body weight 83.91 kg DO Vesna Nataprawira Work Phone: [facility] 12-07-2021 16:38-0400 Respiratory rate 20 /min DO Vesna Nataprawira Work Phone: [facility] 12-07-2021 15:02-0400 Body height 167.64 cm DO Vesna Nataprawira Work Phone: [facility] 12-07-2021 15:02-0400 Body weight 81.64 kg DO Vesna Nataprawira Work Phone: [facility] 12-07-2021 15:01-0400 Body temperature 98.1 [degF] DO Vensa Nataprawira Work Phone: [facility] 12-07-2021 15:01-0400 Diastolic blood pressure 70 mm[Hg] DO Vesna Nataprawira Work Phone: [facility] 12-07-2021 15:01-0400 Heart rate 85 /min DO Vesna Nataprawira Work Phone: [facility] 12-07-2021 15:01-0400 Systolic blood pressure 124 mm[Hg] DO Vesna Nataprawira Work Phone: [facility] 11-10-2021 16:47-0400 SaO2% (BldA) [Mass fraction] 100 % DO Vesna Nataprawira Work Phone: [facility] 11-10-2021 16:46-0400 Diastolic blood pressure 66 mm[Hg] DO Vesna Nataprawira Work Phone: [facility] 11-10-2021 16:46-0400 Heart rate 75 /min DO Vesna Nataprawira Work Phone: [facility] 11-10-2021 16:46-0400 Systolic blood pressure 122 mm[Hg] DO Vesna Nataprawira Work Phone: [facility] 11-10-2021 16:43-0400 Body height 165.1 cm DO Vesna Nataprawira Work Phone: [facility] 11-10-2021 16:43-0400 Body weight 77.11 kg DO Vesna Nataprawira Work Phone: [facility] Encounters Encounter Date Encounter Type Care Provider Facility Start: 12-02-2023 End: 12-02-2023 ambulatory CECILIA L FLORO Not Available Start: 11-17-2023 End: 11-17-2023 ambulatory CECILIA L [...] Available Start: 06-11-2023 End: 06-11-2023 ambulatory CECILIA DONAHUEO Not Available Start: 05-14-2023 End: 05-14-2023 Subsequent [...] 12-20-2021 End: 12-20-2021 ambulatory David M Hoy Facility:[facility] Start: 12-15-2021 End: 12-18-2021 Evaluation and management of inpatient Olga Rinkes Facility:[facility] Start: 12-15-2021 End: 12-18-2021 Evaluation and management of inpatient DO Vesna Nataprawira Work Phone: [facility] Start: 12-07-2021 End: 12-07-2021 ambulatory David M Hoy Facility:[facility] Start: 12-07-2021 End: 12-07-2021 Patient encounter procedure DO Vesna Nataprawira Work Phone: [facility] Start: 11-19-2021 End: 11-19-2021 ambulatory Olga Rinkes Facility:[facility] Start: 11-19-2021 End: 11-19-2021 Departed Referred DO Vesna Nataprawira Work Phone: [facility] [address] [place] Start: 11-10-2021 End: 08-14-2022 ambulatory David M Hoy Facility:[facility] Start: 11-10-2021 End: 11-10-2021 Patient encounter procedure DO Vesna Bourgeois Work Phone: [facility] Start: 01-04-2021 Encounter for genera l adult medical examination without abnormal findings DR DAVID PASCUAL [facility] Start: 12-28-2020 End: 12-29-[address] DAVID PASCUAL Facility:[facility] Start: 12-28-2020 End: 12-29-2020 Encounter for general adult medical examination without abnormal findings DR DAVID PASCUAL Facility:[facility] Start: 09-19-2020 End: 09-20-2020 ambulatory GARRET Dee Dee GOMEZ Facility:[facility] Procedures Date Procedure Procedure Detail Performing Clinician SARS Antigen (LFIA) DO Vesna Bourgeois Work Phone: St[facility]alactiae [facility] Work [facility]: Plan of Treatment Date Care Activity Detail Author Start: 06-11-2023 End: 06-11-2023 Patient encounter procedure 06/11/2023 4:30 PM EDT Routine [facility] [address] [place] [id number] Cecilia Madden, [facility] [address] [place] [address] [facility] Start: 05-14-2023 End: 05-14-2023 Patient encounter procedure 05/14/2023 4:00 PM EST Routine [facility] [address] [place] [id number] Cecilia Madden, [facility] [address] [place] [address] Arrived [facility] Comment on above: Arrived Start: 11-28-2022 Influenza vaccination Influenz a Vaccine (#1) [facility] Start: 12-18-2021 [facility] Work Phone: Start: 12-16-2021 Hospital admission [facility] Work Phone: Start: 12-15-2021 End: 12-15-2021 [facility] Work Phone: Start: 12-07-2021 [facility] Work Phone: Start: 12-07-2021 Hospital admission [facility] Work Phone: Start: 11-19-2021 End: 11-19-2021 Departed Referred Departed Referred [facility] Start: 11-10-2021 [facility] Work Phone: Start: 11-10-2021 Hospital admission [facility] Work Phone: Patient Education [facility] Work Phone: Patient referral [facility] Work Phone: Reagin Ab [Presence] in Serum by RPR [facility] Work Phone: Payers Date Payer Category Payer Self-pay [id number] 2021 Unknown BCBS BCBS [id number] 2021-Present [phone] [address] [place] [address] [id number].3. [id number] 1999 Unknown [id number] 2..840.1.229122.3.579.2.593 1999 Unknown [id number] 2..840.1.784210.3.579.2.593 1999 Unknown [id number] 2.16.840.1.982999.3.579.2.1259 1999 Unknown [id number] 2.16.840.1.858392.3.579.2.1259 1999 Unknown [id number] 2.16.840.1.215681.3.579.2.1259 1999 Unknown [id number] 2.16.840.1.254661.3.579.2.1259 1999 Unknown [id number] 2.16.840.1.117242.3.579.2.1259 1999 Unknown [id number] 2.16.840.1.913269.3.579.2.1259 1999 Unknown [id number] 2.16.840.1.850091.3.579.2.1259 1999 Unknown [id number] 2.16.840.1.339804.3.579.2.1259 1999 Unknown [id number] 2.16.840.1.147366.3.579.2.1259 1999 Unknown [id number] 2.16.840.1.157875.3.579.2.1259 1999 Unknown [id number] 2.16.840.1.795564.3.579.2.1259 1999 Unknown [id number] 2.16.840.1.601418.3.579.2.1259 1999 Unknown [id number] 2.16.840.1.896586.3.579.2.1259 1999 Unknown [id number] 2.16.840.1.385137.3.579.2.1259 1999 Unknown [id number] 2.16.840.1.156836.3.579.2.1259 1999 Unknown [id number] 2.16.840.1.060628.3.579.2.1259 1959 Unknown [id number] 1959 Unknown [id number] Unknown [id number] 2.16.840.1.272681.3.579.2.531 Unknown [id number] 2.16.840.1.537186.3.579.2.531 Unknown [id number] 2.16.840.1.076532.3.579.2.531 Unknown [id number] 2.16.840.1.724631.3.579.2.531 Unknown [id number] 2.16.840.1.405687.3.579.2.531 Social History Date Type Detail Facility Start: 08-28-2020 End: 12-04-2022 Tobacco smoking status NHIS Never smoked tobacco (finding) [facility] Start: 2000 Sex Assigned At Female [facility] Start: 12-04-2022 Tobacco use and [...] Facility 12-18-2021 Functional status Patient at [facility] Work Phone: Mental Status Date Assessment Result Facility 12-18-2021 Cognitive function Cognitive Sta tus Patient at [facility] Work Phone: History of Present illness Narrative [...] a routine visit. 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 She was experiencing [...] signed by Max Sheridan DO> 12/17/21 1142 [facility] Work Phone: Procedure note 12-16-2021 Note Date & Type Note Facility 12-16-2021 Procedure note [facility] Clinical Note 11-12-2020 Note Date & Type Note Facility 11-12-2020 Note Patient Education Ma terials Name: Mahnaz Mata Current Date: 11/12/2020 14:04:51 [place] : 2000 [...] breast self-examination (BSE). These experts include the [place] [employer], the [place]. Preventive Services Task Force, and the [place] [employer]nec[employer]. Some experts [...] This means they are not cancer. ? [phone] [employer]. [address] [place] [address], [place] [address]. All rights reserved. This information is not intended as a substitute for professional medical care. Always follow your healthcare professional's instructions. [facility] Clinical Note 08-29-2020 Note Date & Type Note Facility 08-29-2020 Note Patient Education Ma terials Name: Mahnaz Mata Current Date: 08/29/2020 09:18:19 [place] : 2000 [facility]: [id number] The following sheet(s) are the Patient Education [...] fiber increase to help prevent constipation. ? [phone] [employer]. [address] [place] [address]. All rights reserved. This information is not intended as a substitute for professional medical care. Always follow your healthcare professional's instructions. [facility] Evaluation note Note Date & Type Note Facility Evaluation note No assessment information availa ble [facility] Work Phone: Evaluation note Note Date & Type Note Facility Evaluation note Diagnosis Onset Date Status post vaginal delivery acute [facility] Work Phone: Evaluation note Note [...] section and content) DATE CREATED AUTHOR 11/02/2019 [facility] DATE CREATED AUTHOR AUTHOR'S ORGANIZ ATION 04/26/2021 [facility] DATE CREATED AUTHOR AUTHOR'S ORGANIZ ATION 05/14/2021 [facility] DATE CREATED AUTHOR AUTHOR'S ORGANIZ ATION 01/08/2022 [facility] DATE CREATED AUTHOR AUTHOR'S ORGANIZ ATION 12/04/2023 [facility] d[facility] Specialists EPIC Care Teams (unrecognized [...] MD Primary Care Provider Active Vesna Bourgeois DO Attending Provider Active Team Status: Inactive Member Role Status Doug Pascual MD Primary Care Provider Active Olga Santoyo DO Admit Provider, Attending Provide r Active Agile Coach Relationship Specialty Start Date End Date Yumiko Key MD [address] [place] [address] PCP - General Family Medicine 11/10/22 Agile Coach Relationship Specialty Start Date End Date Yumiko Key MD [address] [place], [place] [id number] PCP - General Family Medicine 11/10/22 Goals [...] BE BASED ON THE PRIMARY CLINICAL RECORDS. [facility] [employer] [facility]. provides no warranty or guarantee of the accuracy or completeness of information in this document.
== END 2023-12-04 11:45 | disposition home or self-care (01) ==
LOC: FBCO 07:59
PROVIDERS: PCP Family Medicine; Visit Provider Midwife
DX: Z39.1 Encounter for care and examination of lactating mother (principal)

== ENCOUNTER 2023-12-11 08:13 | Outpatient (OUT) | payer BC, SELFPAY ==
--- OUTSIDE RECORDS SUMMARY | 2023-12-11 08:31 | XMS_ITS | CCD ---
Author Organization [facility] Care Team Providers Care Transfusion Aide Name Role Phone GARRET GOMEZ JR Admitting Unavailable GARRET GOMEZ JR Attending Unavailable JOSSE, DR NIALL Craft Primary Care Unavailable GARRET GOMEZ JR Consulting Unavailable ROSALINDA, DR HERNANDEZ Admitting Unavailable ROSALINDA, DR HERNANDEZ Attending Unavailable ROSALINDA, DR HERNANDEZ Primary Care Unavailable ROSALINDA, DR HERNANDEZ Consulting Unavailable Bk, DO Vesna Attending Provider MD aDvid Pascual Primary Care Provider [phone] DO Olga Santoyo Attending Provider [phone] DO Olga Santoyo Admit Provider [phone] David Pascual Primary Care Unavailable Nataprtrentonra, Vesna [...] L Referring Unavailable CECILIA MADDEN Attending [facility] Attending Un[facility] Attending Unavailable [facility] Attending Unavailable [facility] CECILIA Funez Attending Unavailable CECILIA MADDEN Referring [...] 3608 gm / 7 lbs, 15 oz ([id number]) [place] Normal: 3359 gm (4456-7546 gm) [place] Wt%: 72% for 38.6 wk [...] 12-17-2021 Basophils (Bld) [#/Vol] 0.1 10*3/uL 0.0-0.2 [facility] Basophils/100 WBC Auto (Bld) Ordered By: Olga Santoyo on 12-17-2021 Basophils/100 WBC (Bld) 0.4 % . [facility] Blood hemoglobin measurement (mass/volume)Ordered By: Olga Santoyo on 12-17-2021 Hemoglobin (Bld) [Mass/Vol] 9.6 g/dL 11.8-15.4 [facility] Blood leukocytes automated c ount (number/volume)Ordered By: Olga Santoyo on 12-17-2021 WBC (Bld) [#/Vol] 16.1 10*3/uL 4.5-11.0 [facility] Complete Blood Count Auto Di ffon 12-17-2021 Basophils (Bld) [#/Vol] 0.1 10*3/uL Normal 0.0-0.2 [facility] Comment on above: Order Comment: Comme nt Draw at 630 am Result Comment: PERF ORMED BY: [place] [address] PATHOLOGIST ACCOUNT LEADER NATALYA ESTEBAN M.D. Performed By: #### C BC #### [facility] [address] Basophils/100 WBC (Bld) 0.4 % Normal . [facility] Comment on above: Order Comment: Comme nt Draw at 630 am Performed By: #### C BC #### [facility] [address] [place] [address] [place] Eosinophils (Bld) [#/Vol] 0.1 10*3/uL Normal 0.0-0.45 [facility] Comment on above: Order Comment: Comme nt Draw at 630 am Performed By: #### C BC #### [address] Eosinophils/100 WBC (Bld) 0.8 % Normal . [facility] Comment on above: Order Comment: Comme nt Draw at 630 am Performed By: #### C BC #### [address] Erythrocyte distribution width (RBC) [Ratio] 13.7 % Normal 11.9-15.3 [facility] Comment on above: Order Comment: Comme nt Draw at 630 am Performed By: #### C BC #### [address] Hematocrit (Bld) [Volume fraction] 29.4 % Low 34.0-46.4 [facility] Comment on above: Order Comment: Comme nt Draw at 630 am Performed By: #### C BC #### [address] Hemoglobin (Bld) [Mass/Vol] 9.6 g/dL Low 11.8-15.4 [facility] Comment on above: Order Comment: Comme nt Draw at 630 am Performed By: #### C BC #### [address] Lymphocytes (Bld) [#/Vol] 3.1 10*3/uL Normal 1.00-4.8 [facility] Comment on above: Order Comment: Comme nt Draw at 630 am Performed By: #### C BC #### [address] Lymphocytes/100 WBC (Bld) 19.2 % Normal . [facility] Comment on above: Order Comment: Comme nt Draw at 630 am Performed By: #### C BC #### [address] MCH (RBC) [Entitic mass] 28.4 pg Normal 24.7-34.3 [facility] Comment on above: Order Comment: Comme nt Draw at 630 am Performed By: #### C BC #### [facility] [address] [place] [address] [place] MCV (RBC) [Entitic vol] 86.6 fL Normal 80-100 [facility] Comment on above: Order Comment: Comme nt Draw at 630 am Performed By: #### C BC #### [address] Mean Corpuscular HGB Conc 32.8 g/dL Normal 32.0-35.0 [facility] Comment on above: Order Comment: Comme nt Draw at 630 am Performed By: #### C BC #### [place] [id number] [place] Monocytes (Bld) [#/Vol] 1.4 10*3/uL High 0.0-0.8 [facility] Comment on above: Order Comment: Comme nt Draw at 630 am Performed By: #### C BC #### [place] [id number] [place] Monocytes/100 WBC (Bld) 8.5 % Normal . [facility] Comment on above: Order Comment: Comme nt Draw at 630 am Performed By: #### C BC #### [address] Neutrophils (Bld) [#/Vol] 11.5 10*3/uL High 1.8-7.7 [facility] Comment on above: Order Comment: Comme nt Draw at 630 am Performed By: #### C BC #### [place] [id number] [place] Neutrophils/100 WBC (Bld) 71.1 % Normal . [facility] Comment on above: Order Comment: Comme nt Draw at 630 am Performed By: #### C BC #### [place] [id number] [place] Nucleated RBC/100 WBC (Bld) [Ratio] 0.1 % Normal 0-0.5 [facility] Comment on above: Order Comment: Comme nt Draw at 630 am Performed By: #### C BC #### [facility] [address] Platelet mean volume (Bld) [Entitic vol] 10.6 fL Normal 6.3-10.7 [facility] Comment on above: Order Comment: Comme nt Draw at 630 am Performed By: #### C BC #### [facility] [address] [place] [address] Platelets (Bld) [#/Vol] 182 10*3/uL Normal 150-450 [facility] Comment on above: Order Comment: Comme nt Draw at 630 am Performed By: #### C BC #### [address] RBC (Bld) [#/Vol] 3.39 10*6/uL Low 3.60-5.00 [facility] Comment on above: Order Comment: Comme nt Draw at 630 am Performed By: #### C BC #### [address] WBC (Bld) [#/Vol] 16.1 10*3/uL High 4.5-11.0 [facility] Comment on above: Order Comment: Comme nt Draw at 630 am Performed By: #### C BC #### [address] Eosinophils Auto (Bld) [#/Vo l]Ordered By: Olga Santoyo on 12-17-2021 Eosinophils (Bld) [#/Vol] 0.1 10*3/uL 0.0-0.45 [facility] Eosinophils/100 WBC Auto (Bl d)Ordered By: Olga Santoyo on 12-17-2021 Eosinophils/100 WBC (Bld) 0.8 % . [facility] Erythrocyte distribution wid th Auto (RBC) [Ratio]Ordered By: Olga Santoyo on 12-17-2021 Erythrocyte distribution width (RBC) [Ratio] 13.7 % 11.9-15.3 [facility] Hematocrit Auto (Bld) [Volum e fraction]Ordered By: Olga Santoyo on 12-17-2021 Hematocrit (Bld) [Volume fraction] 29.4 % 34.0-46.4 [facility] Laboratory - Hematology and Cell countsOrdered By: Olga Santoyo on 12-17-2021 Nucleated RBC/100 WBC (Bld) [Ratio] 0.1 % 0-0.5 [facility] Lymphocytes Auto (Bld) [#/Vo l]Ordered By: Olga Santoyo on 12-17-2021 Lymphocytes (Bld) [#/Vol] 3.1 10*3/uL 1.00-4.8 [facility] Lymphocytes/100 WBC Auto (Bl d)Ordered By: Olga Santoyo on 12-17-2021 Lymphocytes/100 WBC (Bld) 19.2 % . [facility] MCH Auto (RBC) [Entitic mass ]Ordered By: Olga Santoyo on 12-17-2021 MCH (RBC) [Entitic mass] 28.4 pg 24.7-34.3 [facility] MCHC Auto (RBC) [Mass/Vol]Or dered By: Olga Santoyo on 12-17-2021 MCHC (RBC) [Mass/Vol] 32.8 g/dL 32.0-35.0 [facility] MCV Auto (RBC) [Entitic vol] Ordered By: Olga Santoyo on 12-17-2021 MCV (RBC) [Entitic vol] 86.6 fL 80-100 [facility] Monocytes Auto (Bld) [#/Vol] Ordered By: Olga Santoyo on 12-17-2021 Monocytes (Bld) [#/Vol] 1.4 10*3/uL 0.0-0.8 [facility] Monocytes/100 WBC Auto (Bld) Ordered By: Olga Santoyo on 12-17-2021 Monocytes/100 WBC (Bld) 8.5 % . [facility] Neutrophils Auto (Bld) [#/Vo l]Ordered By: Olga Santoyo on 12-17-2021 Neutrophils (Bld) [#/Vol] 11.5 10*3/uL 1.8-7.7 [facility] Neutrophils/100 WBC Auto (Bl d)Ordered By: Olga Santoyo on 12-17-2021 Neutrophils/100 WBC (Bld) 71.1 % . [facility] Platelet mean volume Auto (B ld) [Entitic vol]Ordered By: Olga Santoyo on 12-17-2021 Platelet mean volume (Bld) [Entitic vol] 10.6 fL 6.3-10.7 [facility] Platelets Auto (Bld) [#/Vol] Ordered By: Olga Divinaradha on 12-17-2021 Platelets (Bld) [#/Vol] 182 10*3/uL 150-450 [facility] RBC Auto (Bld) [#/Vol]Ordere d By: Olga Yarelis on 12-17-2021 RBC (Bld) [#/Vol] 3.39 10*6/uL 3.60-5.00 [facility] ABO/RH Typeon 12-16-2021 ABO and Rh group Nom (Bld) Blood group A Rh(D) positive Normal [facility] Comment on above: Result Comment: PERF ORMED BY: [facility] [address] [place] [address] PATHOLOGIST ACCOUNT LEADER NATALYA ESTEBAN M.D. COVID-19 Antigenon 2 COVID-19 [...] developed and its performance characteristic determined by [employer] and validated at [facility]. This test has not been FDA [...] for SARS Antigen by [employer] PERFORMED BY: [place] [address] PATHOLOGIST ACCOUNT LEADER NATALYA ESTEBAN M.D. Normal [facility] Comment on above: Performed By: #### U A, OBUDS #### [address] Complete Blood Count Auto Di ffon 12-16-2021 Basophils (Bld) [#/Vol] 0.1 10*3/uL Normal 0.0-0.2 [facility] Comment on above: Result Comment: PERF ORMED BY: [place] [address] PATHOLOGIST ACCOUNT LEADER NATALYA ESTEBAN M.D. Performed By: #### C BC #### [address] Basophils/100 WBC (Bld) 0.8 % Normal . [facility] Comment on above: Performed By: #### C BC #### [place] [id number] [place] Eosinophils (Bld) [#/Vol] 0.2 10*3/uL Normal 0.0-0.45 [facility] Comment on above: Performed By: #### C BC #### [address] Eosinophils/100 WBC (Bld) 1.0 % Normal . [facility] Comment on above: Performed By: #### C BC #### [address] [place] [address] [place] Erythrocyte distribution width (RBC) [Ratio] 13.8 % Normal 11.9-15.3 [facility] Comment on above: Performed By: #### C BC #### [address] Hematocrit (Bld) [Volume fraction] 36.7 % Normal 34.0-46.4 [facility] Comment on above: Performed By: #### C BC #### [address] Hemoglobin (Bld) [Mass/Vol] 12.2 g/dL Normal 11.8-15.4 [facility] Comment on above: Performed By: #### C BC #### [address] Lymphocytes (Bld) [#/Vol] 3.1 10*3/uL Normal 1.00-4.8 [facility] Comment on above: Performed By: #### C BC #### [address] Lymphocytes/100 WBC (Bld) 18.2 % Normal . [facility] Comment on above: Performed By: #### C BC #### [address] MCH (RBC) [Entitic mass] 28.4 pg Normal 24.7-34.3 [facility] Comment on above: Performed By: #### C BC #### [address] MCV (RBC) [Entitic vol] 85.5 fL Normal 80-100 [facility] Comment on above: Performed By: #### C BC #### [address] Mean Corpuscular HGB Conc 33.2 g/dL Normal 32.0-35.0 [facility] Comment on above: Performed By: #### C BC #### [address] Monocytes (Bld) [#/Vol] 1.4 10*3/uL High 0.0-0.8 [facility] Comment on above: Performed By: #### C BC #### [facility] [address] [place] [address] [place] Monocytes/100 WBC (Bld) 8.1 % Normal . [facility] Comment on above: Performed By: #### C BC #### [facility] [address] [place] [address] [place] Neutrophils (Bld) [#/Vol] 12.2 10*3/uL High 1.8-7.7 [facility] Comment on above: Performed By: #### C BC #### [facility] [address] Neutrophils/100 WBC (Bld) 71.9 % Normal . [facility] Comment on above: Performed By: #### C BC #### [facility] [address] [place] [address] [place] Nucleated RBC/100 WBC (Bld) [Ratio] 0.1 % Normal 0-0.5 [facility] Comment on above: Performed By: #### C BC #### [facility] [address] [place] [address] [place] Platelet mean volume (Bld) [Entitic vol] 10.8 fL High 6.3-10.7 [facility] Comment on above: Performed By: #### C BC #### [facility] [address] [place] [address] [place] Platelets (Bld) [#/Vol] 220 10*3/uL Normal 150-450 [facility] Comment on above: Performed By: #### C BC #### [facility] [address] [place] [address] [place] RBC (Bld) [#/Vol] 4.29 10*6/uL Normal 3.60-5.00 [facility] Comment on above: Performed By: #### C BC #### [facility] [address] [place] [address] [place] WBC (Bld) [#/Vol] 17.0 10*3/uL High 4.5-11.0 [facility] Comment on above: Performed By: #### C BC #### [place] [id number] [place] Dipstick and Microscopicon 0 12-16-2021 Appearance (U) Clear Normal Clear [facility] Comment on above: Order Comment: Name Collection Type:: Clean-Voided Midstream Performed By: #### O BUDS, ADDONUAPLUS #### [address] Bacteria,Urine None Seen Normal None Seen [facility] Comment on above: Order Comment: Name Collection Type:: Clean-Voided Midstream Performed By: #### O BUDS, ADDONUAPLUS #### [address] Bilirubin,Urine Negative Normal Negative [facility] Comment on above: Order Comment: Name Collection Type:: Clean-Voided Midstream Performed By: #### O BUDS, ADDONUAPLUS #### [address] Glucose Ql (U) Normal Normal Normal [facility] Comment on above: Order Comment: Name Collection Type:: Clean-Voided Midstream Performed By: #### O BUDS, ADDONUAPLUS #### [address] Hyaline Casts,Urine 0-8 Normal 0-8 [facility] Comment on above: Order Comment: Name Collection Type:: Clean-Voided Midstream Result Comment: PERF ORMED BY: [place] [address] PATHOLOGIST ACCOUNT LEADER NATALYA ESTEBAN M.D. Performed By: #### O BUDS, ADDONUAPLUS #### [address] Ketones Ql (U) Negative Normal Negative [facility] Comment on above: Order Comment: Name Collection Type:: Clean-Voided Midstream Performed By: #### O BUDS, ADDONUAPLUS #### [address] Leukocyte esterase Test strip Ql (U) Negative Normal Negative [facility] Comment on above: Order Comment: Name Collection Type:: Clean-Voided Midstream Performed By: #### O BUDS, ADDONUAPLUS #### [place] [id number] [place] Nitrite,Urine Negative Normal Negative [facility] Comment on above: Order Comment: Name Collection Type:: Clean-Voided Midstream Performed By: #### O BUDS, ADDONUAPLUS #### [address] Occult Blood,Urine Negative Normal Negative [place] Comment on above: Order Comment: Name Collection Type:: Clean-Voided Midstream Result Comment: PERF ORMED BY: [place] [address] PATHOLOGIST ACCOUNT LEADER NATALYA ESTEBAN M.D. Performed By: #### O BUDS, ADDONUAPLUS #### [address] Protein,Urine Trace High Negative [facility] Comment on above: Order Comment: Name Collection Type:: Clean-Voided Midstream Performed By: #### O BUDS, ADDONUAPLUS #### [address] RBC,Urine 1-2 Normal 0-4 [facility] Comment on above: Order Comment: Name Collection Type:: Clean-Voided Midstream Performed By: #### O BUDS, ADDONUAPLUS #### [address] Specificy [place],Urine 1.022 Normal 1.001-1.030 [facility] Comment on above: Order Comment: Name Collection Type:: Clean-Voided Midstream Performed By: #### O BUDS, ADDONUAPLUS #### [place] [id number] [place] Squamous Epithelial Cell,Urine 0-1 Normal 0-2 [facility] Comment on above: Order Comment: Name Collection Type:: Clean-Voided Midstream Performed By: #### O BUDS, ADDONUAPLUS #### [facility] [address] [place] [address] [place] Urobilinogen,Urine Normal Normal Normal [place] Comment on above: Order Comment: Name Collection Type:: Clean-Voided Midstream Performed By: #### O BUDS, ADDONUAPLUS #### [facility] [address] [place] [address] WBC,Urine 1-2 Normal 0-4 [facility] Comment on above: Order Comment: Name Collection Type:: Clean-Voided Midstream Performed By: #### O BUDS, ADDONUAPLUS #### [address] OB Urine Drug Screen (NO THC )on 12-16-2021 Amphetamine Screen,Urine Negative Normal Negative [facility] Comment on above: Performed By: #### O BUDS, ADDONUAPLUS #### [address] Barbiturate Screen,Urine Negative Normal Negative [facility] Comment on above: Performed By: #### O BUDS, ADDONUAPLUS #### [place] [id number] [place] Benzodiazepines Screen,Urine Negative Normal Negative [facility] Comment on above: Performed By: #### O BUDS, ADDONUAPLUS #### [address] Cocaine Screen,Urine Negative Normal Negative [facility] Comment on above: Performed By: #### O BUDS, ADDONUAPLUS #### [facility] [address] [place] [address] Opiate Screen,Urine Negative Normal Negative [facility] Comment on above: Performed By: #### O BUDS, ADDONUAPLUS #### [facility] [address] [place] [address] Phencyclidine Screen, Urine Negative Normal Negative [facility] Comment on above: Result Comment: Thes e are unconfirmed results and should not be used for legal purposes. Drug Cut-Off Concentration: AMPH 1000 ng/mL RONEL 200 ng/mL JUANITO 200 ng/mL COCM 300 ng/mL OP 300 ng/mL PCP 25 ng/mL PERFORMED BY: [place] [address] PATHOLOGIST ACCOUNT LEADER NATALYA ESTEBAN M.D. Performed By: #### O KAROLINA ADDONUAPLUS #### [address] Lucy Ag Negativeon 12-17-19 Lucy Ag Negative Negative Normal Negative [facility] Comment on above: Result Comment: This is a duplicate Lucy SARS Antigen (BRODY) result to be used for statistical tracking purpose only. PERFORMED BY: [place] [address] PATHOLOGIST ACCOUNT LEADER NATALYA ESTEBAN M.D. Performed By: #### U A, OBUDS #### [address] Amphetamine Screen Ql (U)Ord ered By: Olga Santoyo on 12-15-2021 Amphetamines Ql (U) Negative Negative [facility] Automated erythrocytes count in urine sediment (number/area)Ordered By: Olga Santoyo on 12-15-2021 RBC Auto (Urine sed) [#/Area] 1-2 [HPF] 0-4 [facility] Automated leukocytes count i n urine sediment (number/area)Ordered By: Olga Santoyo on 12-15-2021 WBC Auto (Urine sed) [#/Area] 1-2 [HPF] 0-4 [facility] Automated urine color determ inationOrdered By: Olga Santoyo on 12-15-2021 Color (U) Yellow Normal Yellow [facility] Comment on above: Order Comment: Name Collection Type:: Clean-Voided Midstream Performed By: #### O BUDS, ADDONUAPLUS #### [facility] [address] [place] [address] [place] Barbiturates [Presence] in U rineOrdered By: Olga Santoyo on 12-15-2021 Barbiturates Ql (U) Negative Negative [facility] Benzodiazepines [Presence] i n UrineOrdered By: Olga Santoyo on 12-15-2021 Benzodiazepines Ql (U) Negative Negative [facility] Bilirubin Test strip Ql (U)O rdered By: Olga Santoyo on 12-15-2021 Bilirubin Ql (U) Negative Negative [facility] COVID-19 SOFIAOrdered By: Cem claireart Santoyo on 12-15-2021 SARS-CoV+SARS-CoV-2 (COVID-19) Ag IA.rapid Ql (Resp) Negative Negative [facility] Comment on above: This is a duplicate Lucy SARS Antigen (BRODY) result to be used for statistical tracking purpose only. Ketones Auto test strip (U) [Mass/Vol]Ordered By: Olga Santoyo on 12-15-2021 Ketones (U) [Mass/Vol] Negative Negative [facility] - Drug toxicology Ordered By: Olga Santoyo on 12-15-2021 Opiates Ql (U) Negative Negative [facility] - UrinalysisOrder ed By: Olga Santoyo on 12-15-2021 Hyaline casts LM Ql (Urine sed) 0-8 [LPF] 0-8 [facility] Nitrite Test strip Ql (U)Ord ered By: Olga Santoyo on 12-15-2021 Nitrite Ql (U) Negative Negative [facility] No Panel InformationOrdered By: Olga Santoyo on 12-15-2021 SARS Antigen (LFIA) [facility] Phencyclidine Screen Ql (U)O rdered By: Olga Santoyo on 12-15-2021 Phencyclidine Ql (U) Negative Negative [facility] Comment on above: These are unconfirme d results and should not be used for legal purposes. Drug Cut-Off Concentration: AMPH 1000 ng/mL RONEL 200 ng/mL JUANITO 200 ng/mL COCM 300 ng/mL OP 300 ng/mL PCP 25 ng/mL Protein Auto test strip (U) [Mass/Vol]Ordered By: Olga Santoyo on 12-15-2021 Protein (U) [Mass/Vol] Trace mg/dL Negative [facility] Specific gravity Auto test s trip (U) [Rel density]Ordered By: Olga Santoyo on 12-15-2021 Specific gravity (U) [Rel density] 1.022 1.001-1.030 [facility] Squamous epithelial cells de tection in urine sediment by light microscopyOrdered By: Olga Santoyo on 12-15-2021 Epithelial cells.squamous LM Ql (Urine sed) 0-1 [HPF] 0-2 [facility] Urine bacteria detection by automated methodOrdered By: Olga Santoyo on 12-15-2021 Bacteria Auto Ql (U) None seen None Seen [facility] Urine clarity by refractomet ry automatedOrdered By: Olga Santoyo on 12-15-2021 Clarity Refractometry automated (U) Clear Clear [facility] Urine cocaine detectionOrder ed By: Olga Santoyo on 12-15-2021 Cocaine Ql (U) Negative Negative [facility] Urine glucose measurement by automated test strip (mass/volume)Ordered By: Olga Santoyo on 12-15-2021 Glucose Auto test strip (U) [Mass/Vol] Normal mg/dL Normal [facility] Urine hemoglobin detection b y automated test stripOrdered By: Olga Santoyo on 12-15-2021 Hemoglobin Auto test strip Ql (U) Negative Negative [facility] Urine leukocyte esterase det ection by automated test stripOrdered By: Olga Santoyo on 12-15-2021 Leukocyte esterase Auto test strip Ql (U) Negative Negative [facility] Urine pH measurement by auto mated test stripOrdered By: Olga Santoyo on 12-15-2021 pH (U) 6.5 [pH] Normal 5.0-9.0 [facility] Comment on above: Order Comment: Name Collection Type:: Clean-Voided Midstream Performed By: #### O BUDS, ADDONUAPLUS #### [facility] [address] Urobilinogen Auto test strip (U) [Mass/Vol]Ordered By: Olga Santoyo on 12-15-2021 Urobilinogen (U) [Mass/Vol] Normal mg/dL Normal [facility] Amphetamine Screen Ql (U)Ord ered By: VESNA BOURGEOIS on 12-07-2021 Amphetamines Ql (U) Negative Negative [facility] Barbiturates [Presence] in U rineOrdered By: VESNA BOURGEOIS on 12-07-2021 Barbiturates Ql (U) Negative Negative [facility] Benzodiazepines [Presence] i n UrineOrdered By: VESNA BOURGEOIS on 12-07-2021 Benzodiazepines Ql (U) Negative Negative [facility] Bilirubin Test strip Ql (U)O rdered By: VESNA BOURGEOIS on 12-07-2021 Bilirubin Ql (U) Negative Negative [facility] Color Auto (U)Ordered By: ECHO BOURGEOIS on 12-07-2021 Color (U) Yellow Yellow [facility] Ketones Auto test strip (U) [Mass/Vol]Ordered By: VESNA BOURGEOIS on 12-07-2021 Ketones (U) [Mass/Vol] Negative Negative [facility] - Drug toxicology Ordered By: VESNA BOURGEOIS on 12-07-2021 Opiates Ql (U) Negative Negative [facility] Nitrite Test strip Ql (U)Ord ered By: VESNA BOURGEOIS on 12-07-2021 Nitrite Ql (U) Negative Negative [facility] OB Urine Drug Screen (NO THC )on 12-07-2021 Amphetamine Screen,Urine Negative Normal Negative [facility] Comment on above: Performed By: #### U A, OBUDS #### [facility] [address] [place] [address] [place] Barbiturate Screen,Urine Negative Normal Negative [facility] Comment on above: Performed By: #### U A, OBUDS #### [facility] [address] [place] [address] [place] Benzodiazepines Screen,Urine Negative Normal Negative [facility] Comment on above: Performed By: #### U A, OBUDS #### [facility] [address] [place] [address] [place] Cocaine Screen,Urine Negative Normal Negative [facility] Comment on above: Performed By: #### U A, OBUDS #### [facility] [address] [place] [address] [place] Opiate Screen,Urine Negative Normal Negative [facility] Comment on above: Performed By: #### U A, OBUDS #### [facility] [address] [place] [address] Phencyclidine Screen, Urine Negative Normal Negative [facility] Comment on above: Result Comment: Thes e are unconfirmed results and should not be used for legal purposes. Drug Cut-Off Concentration: AMPH 1000 ng/mL RONEL 200 ng/mL JUANITO 200 ng/mL COCM 300 ng/mL OP 300 ng/mL PCP 25 ng/mL PERFORMED BY: [place] [address] PATHOLOGIST ACCOUNT LEADER NATALYA ESTEBAN M.D. Performed By: #### U A, OBUDS #### [address] Phencyclidine Screen Ql (U)O rdered By: VESNA BOURGEOIS on 12-07-2021 Phencyclidine Ql (U) Negative Negative [facility] Comment on above: These are unconfirme d results and should not be used for legal purposes. Drug Cut-Off Concentration: AMPH 1000 ng/mL RONEL 200 ng/mL JUANITO 200 ng/mL COCM 300 ng/mL OP 300 ng/mL PCP 25 ng/mL Protein Auto test strip (U) [Mass/Vol]Ordered By: VESNA BOURGEOIS on 12-07-2021 Protein (U) [Mass/Vol] Negative Negative [facility] Specific gravity Auto test s trip (U) [Rel density]Ordered By: VESNA BOURGEOIS on 12-07-2021 Specific gravity (U) [Rel density] 1.009 1.001-1.030 [facility] Urinalysison 12-07-2021 Appearance (U) Clear Normal Clear [facility] Comment on above: Order Comment: Name Collection Type:: Clean-Voided Midstream Performed By: #### U A, OBUDS #### [facility] [address] [place] [address] Bilirubin,Urine Negative Normal Negative [facility] Comment on above: Order Comment: Name Collection Type:: Clean-Voided Midstream Performed By: #### U A, OBUDS #### [facility] [address] [place] [address] [place] Color (U) Yellow Normal Yellow [facility] Comment on above: Order Comment: Name Collection Type:: Clean-Voided Midstream Performed By: #### U A, OBUDS #### [facility] [address] [place] [address] [place] Glucose Ql (U) Normal Normal Normal [facility] Comment on above: Order Comment: Name Collection Type:: Clean-Voided Midstream Performed By: #### U A, OBUDS #### [facility] [address] [place] [address] [place] Ketones Ql (U) Negative Normal Negative [facility] Comment on above: Order Comment: Name Collection Type:: Clean-Voided Midstream Performed By: #### U A, OBUDS #### [facility] [address] [place] [address] Leukocyte esterase Test strip Ql (U) Negative Normal Negative [facility] Comment on above: Order Comment: Name Collection Type:: Clean-Voided Midstream Performed By: #### U A, OBUDS #### [facility] [address] [place] [address] [place] Nitrite,Urine Negative Normal Negative [facility] Comment on above: Order Comment: Name Collection Type:: Clean-Voided Midstream Performed By: #### U A, OBUDS #### [facility] [address] [place] [address] [place] Occult Blood,Urine Negative Normal Negative [place] Comment on above: Order Comment: Name Collection Type:: Clean-Voided Midstream Result Comment: PERF ORMED BY: [place] [address] PATHOLOGIST ACCOUNT LEADER NATALYA ESTEBAN M.D. Performed By: #### U A, OBUDS #### [facility] [address] [place] [address] [place] pH (U) 7.0 [pH] Normal 5.0-9.0 [facility] Comment on above: Order Comment: Name Collection Type:: Clean-Voided Midstream Performed By: #### U A, OBUDS #### [facility] [address] [place] [address] [place] Protein,Urine Negative Normal Negative [facility] Comment on above: Order Comment: Name Collection Type:: Clean-Voided Midstream Performed By: #### U A, OBUDS #### [facility] [address] Specificy [place],Urine 1.009 Normal 1.001-1.030 [facility] Comment on above: Order Comment: Name Collection Type:: Clean-Voided Midstream Performed By: #### U A, OBUDS #### [facility] [address] Urobilinogen,Urine Normal Normal Normal [place] Comment on above: Order Comment: Name Collection Type:: Clean-Voided Midstream Performed By: #### U A, OBUDS #### [facility] [address] [place] [address] Urine clarity by refractomet ry automatedOrdered By: VESNA BOURGEOIS on 12-07-2021 Clarity Refractometry automated (U) Clear Clear [facility] Urine cocaine detectionOrder ed By: VESNA BOURGEOIS on 12-07-2021 Cocaine Ql (U) Negative Negative [facility] Urine glucose measurement by automated test strip (mass/volume)Ordered By: VESNA BOURGEOIS on 12-07-2021 Glucose Auto test strip (U) [Mass/Vol] Normal mg/dL Normal [facility] Urine hemoglobin detection b y automated test stripOrdered By: VESNA BOURGEOIS on 12-07-2021 Hemoglobin Auto test strip Ql (U) Negative Negative [facility] Urine leukocyte esterase det ection by automated test stripOrdered By: VESNA BOURGEOIS on 12-07-2021 Leukocyte esterase Auto test strip Ql (U) Negative Negative [facility] Urobilinogen Auto test strip (U) [Mass/Vol]Ordered By: VESNA BOURGEOIS on 12-07-2021 Urobilinogen (U) [Mass/Vol] Normal mg/dL Normal [facility] pH Auto test strip (U)Ordere d By: VESNA BOURGEOIS on 12-07-2021 pH (U) 7.0 [pH] 5.0-9.0 [facility] S. agalactiae Org specific c x Ql (Unsp spec)Ordered By: Olga Santoyo on 11-23-2021 Streptococcus agalactiae culture No Group B Beta Streptococcus Isolated 3 Days [facility] Strep B Cultureon 11-19-2021 Strep B Culture Reason for Exam 35 weeks gestation of ; screening for stre Vaginal/Rectal Comment vaginal, ecc, rectal Reason for Exam: 35 weeks gestation of ; screening for stre : Vaginal/Rectal Comment: vaginal, ecc, rectal No Group B Beta Streptococcus Isolated 3 Days PERFORMED BY: [facility] [address] [place] [address] PATHOLOGIST ACCOUNT LEADER NATALYA ESTEBAN M.D. Normal [facility] Comment on above: Performed By: #### C USTB #### [facility] [address] Amphetamine Screen Ql (U)Ord ered By: VESNA BOURGEOIS on 11-10-2021 Amphetamines Ql (U) Negative Negative [facility] Barbiturates [Presence] in U rineOrdered By: VESNA BOURGEOIS on 11-10-2021 Barbiturates Ql (U) Negative Negative [facility] Benzodiazepines [Presence] i n UrineOrdered By: VESNA BOURGEOIS on 11-10-2021 Benzodiazepines Ql (U) Negative Negative [facility] Bilirubin Test strip Ql (U)O rdered By: VESNA BOURGEOIS on 11-10-2021 Bilirubin Ql (U) Negative Negative [facility] Color Auto (U)Ordered By: ECHO BOURGEOIS on 11-10-2021 Color (U) Yellow Yellow [facility] Ketones Auto test strip (U) [Mass/Vol]Ordered By: VESNA BOURGEOIS on 11-10-2021 Ketones (U) [Mass/Vol] Negative Negative [facility] - Drug toxicology Ordered By: VESNA BOURGEOIS on 11-10-2021 Opiates Ql (U) Negative Negative [facility] Nitrite Test strip Ql (U)Ord ered By: VESNA BOURGEOIS on 11-10-2021 Nitrite Ql (U) Negative Negative [facility] OB Urine Drug Screen (NO THC )on 11-10-2021 Amphetamine Screen,Urine Negative Normal Negative [facility] Comment on above: Performed By: #### U A, OBUDS #### [facility] [address] [place] [address] [place] Barbiturate Screen,Urine Negative Normal Negative [facility] Comment on above: Performed By: #### U A, OBUDS #### [facility] [address] [place] [address] [place] Benzodiazepines Screen,Urine Negative Normal Negative [facility] Comment on above: Performed By: #### U A, OBUDS #### [facility] [address] [place] [address] [place] Cocaine Screen,Urine Negative Normal Negative [facility] Comment on above: Performed By: #### U A, OBUDS #### [facility] [address] [place] [address] [place] Opiate Screen,Urine Negative Normal Negative [facility] Comment on above: Performed By: #### U A, OBUDS #### [facility] [address] [place] [address] [place] Phencyclidine Screen, Urine Negative Normal Negative [facility] Comment on above: Result Comment: Thes e are unconfirmed results and should not be used for legal purposes. Drug Cut-Off Concentration: AMPH 1000 ng/mL RONEL 200 ng/mL JUANITO 200 ng/mL COCM 300 ng/mL OP 300 ng/mL PCP 25 ng/mL PERFORMED BY: [place] [address] PATHOLOGIST ACCOUNT LEADER NATALYA ESTEBAN M.D. Performed By: #### U A, OBUDS #### [facility] [address] [place] [address] Phencyclidine Screen Ql (U)O rdered By: VESNA BOURGEOIS on 11-10-2021 Phencyclidine Ql (U) Negative Negative [facility] Comment on above: These are unconfirme d results and should not be used for legal purposes. Drug Cut-Off Concentration: AMPH 1000 ng/mL RONEL 200 ng/mL JUANITO 200 ng/mL COCM 300 ng/mL OP 300 ng/mL PCP 25 ng/mL Protein Auto test strip (U) [Mass/Vol]Ordered By: VESNACorazon BOURGEOIS on 11-10-2021 Protein (U) [Mass/Vol] Negative Negative [facility] Specific gravity Auto test s trip (U) [Rel density]Ordered By: VESNA BOURGEOIS on 11-10-2021 Specific gravity (U) [Rel density] 1.004 1.001-1.030 [facility] Urinalysison 11-10-2021 Appearance (U) Clear Normal Clear [facility] Comment on above: Order Comment: Name Collection Type:: Clean-Voided Midstream Performed By: #### U A, OBUDS #### [facility] [address] [place] [address] [place] Bilirubin,Urine Negative Normal Negative [facility] Comment on above: Order Comment: Name Collection Type:: Clean-Voided Midstream Performed By: #### U A, OBUDS #### [facility] [address] [place] [address] [place] Color (U) Yellow Normal Yellow [facility] Comment on above: Order Comment: Name Collection Type:: Clean-Voided Midstream Performed By: #### U A, OBUDS #### [facility] [address] [place] [id number] [place] Glucose Ql (U) Normal Normal Normal [facility] Comment on above: Order Comment: Name Collection Type:: Clean-Voided Midstream Performed By: #### U A, OBUDS #### [facility] [address] [place] [id number] [place] Ketones Ql (U) Negative Normal Negative [facility] Comment on above: Order Comment: Name Collection Type:: Clean-Voided Midstream Performed By: #### U A, OBUDS #### [facility] [address] [place] [id number] [place] Leukocyte esterase Test strip Ql (U) Negative Normal Negative [facility] Comment on above: Order Comment: Name Collection Type:: Clean-Voided Midstream Performed By: #### U A, OBUDS #### [address] Nitrite,Urine Negative Normal Negative [facility] Comment on above: Order Comment: Name Collection Type:: Clean-Voided Midstream Performed By: #### U A, OBUDS #### [address] Occult Blood,Urine Negative Normal Negative [place] Comment on above: Order Comment: Name Collection Type:: Clean-Voided Midstream Result Comment: PERF ORMED BY: [place] [address] PATHOLOGIST ACCOUNT LEADER NATALYA ESTEBAN M.D. Performed By: #### U A, OBUDS #### [address] pH (U) 7.0 [pH] Normal 5.0-9.0 [facility] Comment on above: Order Comment: Name Collection Type:: Clean-Voided Midstream Performed By: #### U A, OBUDS #### [address] Protein,Urine Negative Normal Negative [facility] Comment on above: Order Comment: Name Collection Type:: Clean-Voided Midstream Performed By: #### U A, OBUDS #### [address] Specificy [place],Urine 1.004 Normal 1.001-1.030 [facility] Comment on above: Order Comment: Name Collection Type:: Clean-Voided Midstream Performed By: #### U A, OBUDS #### [address] Urobilinogen,Urine Normal Normal Normal [place] Comment on above: Order Comment: Name Collection Type:: Clean-Voided Midstream Performed By: #### U A, OBUDS #### [address] [place] [address] [facility] Urine clarity by refractomet ry automatedOrdered By: VESNA BOURGEOIS on 11-10-2021 Clarity Refractometry automated (U) Clear Clear [facility] Urine cocaine detectionOrder ed By: VESNA BOURGEOIS on 11-10-2021 Cocaine Ql (U) Negative Negative [facility] Urine glucose measurement by automated test strip (mass/volume)Ordered By: VESNA BOURGEOIS on 11-10-2021 Glucose Auto test strip (U) [Mass/Vol] Normal mg/dL Normal [facility] Urine hemoglobin detection b y automated test stripOrdered By: VESNA BOURGEOIS on 11-10-2021 Hemoglobin Auto test strip Ql (U) Negative Negative [facility] Urine leukocyte esterase det ection by automated test stripOrdered By: VESNA BOURGEOIS on 11-10-2021 Leukocyte esterase Auto test strip Ql (U) Negative Negative [facility] Urobilinogen Auto test strip (U) [Mass/Vol]Ordered By: VESNA BOURGEOIS on 11-10-2021 Urobilinogen (U) [Mass/Vol] Normal mg/dL Normal [facility] pH Auto test strip (U)Ordere d By: VESNA BOURGEOIS on 11-10-2021 pH (U) 7.0 [pH] 5.0-9.0 [facility] CBC AUTO DIFFon 12-28-2020 BASO # 0.0 103/ul Normal 0.0-0.1 [facility] Comment on above: Performed By: #### C BC #### [facility] [address] [place] [address] Dr. Annie Wright Basophils/100 WBC (Bld) 0.4 % Normal 0.2-2.0 [facility] Comment on above: Performed By: #### C BC #### [facility] [address] [place] [address] Dr. Annie Wright EO # 0.2 103/ul Normal 0.0-0.7 [facility] Comment on above: Performed By: #### C BC #### [facility] [address] [place] [address] Dr. Annie Wright Eosinophils/100 WBC (Bld) 2.3 % Normal 0.9-7.0 [facility] Comment on above: Performed By: #### C BC #### [facility] [address] [place] [address] Dr. Annie Wright Erythrocyte distribution width (RBC) [Ratio] 12.4 % Normal 11.0-15.0 [facility] Comment on above: Performed By: #### C BC #### [facility] [address] [place] [address] Dr. Annie Wright Hematocrit (Bld) [Volume fraction] 39.4 % Normal 36.0-48.0 [facility] Comment on above: Performed By: #### C BC #### [facility] [address] [place] [address] Dr. Annie Wright Hemoglobin (Bld) [Mass/Vol] 13.3 g/dL Normal 12.0-16.0 [facility] Comment on above: Performed By: #### C BC #### [facility] [address] [place] [address] Dr. Annie Wright IG # 0.03 10e3/ul Normal 0.00-0.03 [facility] Comment on above: Performed By: #### C BC #### [facility] [address] [place] [address] Dr. Annie Wright IG % 0.4 % Normal 0.0-0.5 [facility] Comment on above: Performed By: #### C BC #### [facility] [address] [place] [address] Dr. Annie Wright LYMPH # 3.1 103/ul Normal 1.2-3.8 [facility] Comment on above: Performed By: #### C BC #### [facility] [address] [place] [address] Dr. Annie Wright Lymphocytes/100 WBC (Bld) 38.3 % Normal 20.5-60.0 [facility] Comment on above: Performed By: #### C BC #### [facility] [address] [place] [address] Dr. Annie Wright MANUAL DIFF REQ NO Normal [facility] Comment on above: Performed By: #### C BC #### [facility] [address] [place] [address] Dr. Annie Wright MCH (RBC) [Entitic mass] 29.3 pg Normal 26.7-34.0 [facility] Comment on above: Performed By: #### C BC #### [facility] [address] [place] [address] Dr. Annie Wright MCHC (RBC) [Mass/Vol] 33.8 g/dL Normal 29.9-35.2 [facility] Comment on above: Performed By: #### C BC #### [facility] [address] [place] [address] Dr. Annie Wright MCV (RBC) [Entitic vol] 86.8 fL Normal 81.0-99.0 [facility] Comment on above: Performed By: #### C BC #### [facility] [address] [place] [address] Dr. Annei Wright MONO # 0.7 103/ul Normal 0.3-0.8 [facility] Comment on above: Performed By: #### C BC #### [facility] [address] [place] [address] Dr. Annie Wright Monocytes/100 WBC (Bld) 8.5 % Normal 1.7-12.0 [facility] Comment on above: Performed By: #### C BC #### [facility] [address] [place] [address] Dr. Annie Wright NEUT # 4.0 103/ul Normal 1.4-6.5 [facility] Comment on above: Performed By: #### C BC #### [facility] [address] [place] [address] Dr. Annie Wright Neutrophils/100 WBC (Bld) 50.1 % Normal 43.0-75.0 [facility] Comment on above: Performed By: #### C BC #### [facility] [address] [place] [address] Dr. Annie Wright Platelet mean volume (Bld) [Entitic vol] 10.9 fL Normal 9.5-13.5 [facility] Comment on above: Performed By: #### C BC #### [facility] [address] [place] [address] Dr. Annie Wright PLT 228 103/ul Normal 150-450 [facility] Comment on above: Performed By: #### C BC #### [facility] [address] [place] [address] Dr. Annie Wright RBC 4.54 106/ul Normal 4.20-5.40 [facility] Comment on above: Performed By: #### C BC #### [facility] [address] [place] [address] Dr. Annie Wright WBC 8.0 103/ul Normal 4.0-11.0 [facility] Comment on above: Performed By: #### C BC #### [facility] [address] [place] [address] Dr. Annie Wright FREE THYROXINE INDEX T7on FTI 2.02 Normal [facility] Comment on above: Performed By: #### T SH, LIPID, CMP, T7 #### [facility] [address] [place] [address] Dr. Annie Wright T3U 32.0 % Normal 23.5-40.5 [facility] Comment on above: Performed By: #### T SH, LIPID, CMP, T7 #### [facility] [address] [place] [address] Dr. Annie Wright T4 [Mass/Vol] 6.30 ug/dL Normal 5.53-11.00 [facility] Comment on above: Performed By: #### T SH, LIPID, CMP, T7 #### [facility] [address] [place] [address] Dr. Annie Wright GLYCOHEMOGLOBIN A1Con 2020 ADA RECOMMENDATION ADA THERAPEUTIC TARGET 6.0 - 7.0 ACTION SUGGESTED > 7.0 Normal [facility] Comment on above: Performed By: #### A 1C #### [facility] [address] [place] [address] Dr. Annie Wright Glucose [Mass/Vol] 100 mg/dL Normal [facility] Comment on above: Performed By: #### A 1C #### [facility] [address] [place] [address] [address] Annie Wright HbA1c (Bld) [Mass fraction] 5.1 % Normal <=6.0 [facility] Comment on above: Performed By: #### A 1C #### [facility] [address] [place] [address] [address] Annie Wright LIPID PROFILEon 12-28-2020 CHOL-HDL RATIO NORM SEE BELOW Normal [facility] Comment on above: Result Comment: 3.3 - 4.4 LOW RISK 4.4 - 7.1 AVERAGE RISK 7.1 - 11.0 MODERATE RISK >11.0 HIGH RISK Performed By: #### T SH, LIPID, CMP, T7 #### [facility] [address] [place] [address] [address] Annie Wright Cholesterol [Mass/Vol] 156 mg/dL Normal <=200 [facility] Comment on above: Performed By: #### T SH, LIPID, CMP, T7 #### [facility] [address] [place] [address] [address] Annie Wright Cholesterol in HDL [Mass/Vol] 62 mg/dL Normal [facility] Comment on above: Performed By: #### T SH, LIPID, CMP, T7 #### [facility] [address] [place] [address] [address] Annie Wright Cholesterol in LDL [Mass/Vol] 82.8 mg/dL Normal [facility] Comment on above: Performed By: #### T SH, LIPID, CMP, T7 #### [facility] [address] [place] [address] [address] Annie Wright Cholesterol.total/Choles terol in HDL [Mass ratio] 2.5 {ratio} Normal [facility] Comment on above: Performed By: #### T SH, LIPID, CMP, T7 #### [facility] [address] [place] [address] [address] Annie Wright HDL NORMAL > or = 60 mg/dl - LOW CARDIOVASCULAR RISK <40 mg/dl - HIGH CARDIOVASCULAR RISK Normal [facility] Comment on above: Performed By: #### T SH, LIPID, CMP, T7 #### [facility] [address] [place] [address] [address] Annie Wright LDL CALC NORMAL SEE BELOW Normal [facility] Comment on above: Result Comment: <100 mg/dl OPTIMAL 100 - 129 mg/dl NEAR OR ABOVE OPTIMAL 130 - 159 mg/dl BORDERLINE HIGH 160 - 189 mg/dl HIGH >190 mg/dl VERY HIGH Performed By: #### T SH, LIPID, CMP, T7 #### [facility] [address] [place] [address] [address] Annie Wright Triglyceride [Mass/Vol] 56 mg/dL Normal <=150 [facility] Comment on above: Performed By: #### T SH, LIPID, CMP, T7 #### [facility] [address] [place] [address] [address] Annie Wright VLDL CALC 11.2 mg/dL Normal [facility] Comment on above: Performed By: #### T SH, LIPID, CMP, T7 #### [facility] [address] [place] [address] [address] Annie Wright PROF 14(COMP METB)on 021 Albumin [Mass/Vol] 4.2 g/dL Normal 3.5-5.0 [facility] Comment on above: Performed By: #### T SH, LIPID, CMP, T7 #### [facility] [address] [place] [address] [address] Annie Wright Albumin/Globulin [Mass ratio] 1.1 {ratio} Normal [facility] Comment on above: Performed By: #### T SH, LIPID, CMP, T7 #### [facility] [address] [place] [address] [address] Annie Wright ALP [Catalytic activity/Vol] 53 U/L Normal 38-126 [facility] Comment on above: Performed By: #### T SH, LIPID, CMP, T7 #### [facility] [address] [place] [address] [address] Annie Wright ALT [Catalytic activity/Vol] 36 U/L Normal 9-52 [facility] Comment on above: Performed By: #### T SH, LIPID, CMP, T7 #### [facility] [address] [place] [address] [address] Annie Wright Anion gap [Moles/Vol] 11.3 mmol/L Normal [facility] Comment on above: Performed By: #### T SH, LIPID, CMP, T7 #### [facility] [address] [place] [address] Dr. Annie Wright AST [Catalytic activity/Vol] 25 U/L Normal 14-36 [facility] Comment on above: Performed By: #### T SH, LIPID, CMP, T7 #### [facility] [address] [place] [address] Dr. Annie Wright Bilirubin [Mass/Vol] 0.4 mg/dL Normal 0.2-1.3 [facility] Comment on above: Performed By: #### T SH, LIPID, CMP, T7 #### [facility] [address] [place] [address] Dr. Annie Wright Calcium [Mass/Vol] 9.2 mg/dL Normal 8.4-10.2 [facility] Comment on above: Performed By: #### T SH, LIPID, CMP, T7 #### [facility] [address] [place] [address] Dr. Annie Wright Chloride [Moles/Vol] 105 mmol/L Normal 98-107 [facility] Comment on above: Performed By: #### T SH, LIPID, CMP, T7 #### [facility] [address] [place] [address] Dr. Annie Wright CO2 [Moles/Vol] 28.8 mmol/L Normal 22.0-30.0 [facility] Company Comment on above: Performed By: #### T SH, LIPID, CMP, T7 #### [facility] [address] [place] [address] Dr. Annie Wright Creatinine [Mass/Vol] 0.63 mg/dL Normal 0.52-1.04 [facility] Comment on above: Performed By: #### T SH, LIPID, CMP, T7 #### [facility] [id number] Annie Wright EGFR-AF [place]IZ[place] >60 Normal >=60 [facility] Comment on above: Performed By: #### T SH, LIPID, CMP, T7 #### [facility] [id number] Annie Wright EGFR-NON AF CITIZEN OF [place] >60 Normal >=60 [facility] Comment on above: Performed By: #### T SH, LIPID, CMP, T7 #### [facility] [address] [address] [address] Annie Wright Globulin (S) [Mass/Vol] 3.7 g/dL Normal T [facility] Comment on above: Performed By: #### T SH, LIPID, CMP, T7 #### [facility] [address] [address] [address] Annie Wright Glucose [Mass/Vol] 91 mg/dL Normal 74-106 [facility] Comment on above: Performed By: #### T SH, LIPID, CMP, T7 #### [facility] [address] [address] [address] Annie Wright Potassium [Moles/Vol] 4.1 mmol/L Normal 3.4-5.0 [facility] Comment on above: Performed By: #### T SH, LIPID, CMP, T7 #### [facility] [address] [address] [address] Annie Wright Protein [Mass/Vol] 7.9 g/dL Normal 6.1-8.2 [facility] Comment on above: Performed By: #### T SH, LIPID, CMP, T7 #### [facility] [address] [address] [address] Anine Wright Sodium [Moles/Vol] 141 mmol/L Normal 137-145 [facility] Comment on above: Performed By: #### T SH, LIPID, CMP, T7 #### [facility] [address] [address] [address] Annie Wright Urea nitrogen [Mass/Vol] 11.0 mg/dL Normal 7.0-17.0 [facility] Comment on above: Performed By: #### T SH, LIPID, CMP, T7 #### [facility] [address] [address] [address] Annie Wright Urea nitrogen/Creatinine [Mass ratio] 17.5 mg/mg Normal [facility] Comment on above: Performed By: #### T SH, LIPID, CMP, T7 #### [facility] [address] [address] [address] Annie Wright TSHon 12-28-2020 TSH 1.702 uIU/mL Normal 0.470-4.680 [facility] Comment on above: Performed By: #### T SH, LIPID, CMP, T7 #### [facility] [address] [address] [address] Annie Wright TSH RANGE SEE BELOW Normal [facility] Comment on above: Result Comment: <0.3 4 UIU/ml HYPERTHYROID 0.34-5.60 UIU/ml EUTHYROID >5.60 UIU/ml HYPOTHYROID Performed By: #### T SH, LIPID, CMP, T7 #### [facility] [address] [address] [address] Annie Wright Client Hr Manager Cytology Reporton 2020 Client Hr Manager Cytology Report Clinical Information Specimen Collection Date: [...] smears in the future. GY Disclaimer Alpha Client Hr Manager Disclaimer ANATOMICPATHOLOGY Normal [facility] Comment on above: Performed By: #### G YNCYTREP #### [facility] (DEFAULT) [address] [place] [address] Gynecology Office/Clinic Not cam 11-15-2020 Gynecology Office/Clinic [...] September and October. Menses are improved with rn security bleeding since starting [employer]. Back pain starts [...] Not in her mother. Saw Dr. Gomez ([facility]) GI on 08/02/20. Had colonoscopy 08/28/20: Normal [...] Chronic conditions (more content not included)... Normal [facility] CELIAC ANTIBODIES PROFILEon 09-20-2020 Deamidated Gliadin Abs, IgA 11 units Normal 0-19 [facility] Comment on above: Result Comment: Nega tive 0 - 19 Weak Positive 20 - 30 Moderate to Strong Positive >30 Performed By: #### C ELIACP #### [facility] [address] [place] [address] Fredrick Jeannine Deamidated Gliadin Abs, IgG 2 units Normal 0-19 [facility] Comment on above: Result Comment: Nega tive 0 - 19 Weak Positive 20 - 30 Moderate to Strong Positive >30 Performed By: #### C ELIACP #### [facility] [address] [address] Fredrick Jeannine Endomysial Antibody IgA Negative Normal Negative T [facility] Comment on above: Performed By: #### C ELIACP #### [facility] [address] [address] Fredrick Jeannine Immunoglobulin A, Qn, Serum 223 mg/dL Normal 87-352 [facility] Comment on above: Performed By: #### C ELIACP #### [facility] [address] [address] Fredrick Jeannine t-Transglutaminase (tTG) IgA <2 Normal 0-3 [facility] Comment on above: Result Comment: Nega tive 0 - 3 Weak Positive 4 - 10 Positive >10 . Tissue Transglutaminase (tTG) has been identified as the endomysial antigen. Studies have demonstr- ated that endomysial IgA antibodies have over 99% specificity for gluten sensitive enteropathy. Performed By: #### C ELISHAYNEP #### [facility] [address] [place], [place] [id number] Fredrick Paez t-Transglutaminase (tTG) IgG 5 U/mL Normal 0-5 [facility] Comment on above: Result Comment: Nega tive 0 - 5 Weak Positive 6 - 9 Positive >9 Performed By: #### C ELIACP #### [facility] [address] [place] [address] Fredrick Jeannine CBC AUTO DIFFon 09-19-2020 BASO # 0.0 103/ul Normal 0.0-0.1 [facility] Comment on above: Performed By: #### C BC #### [facility] [address] [place] [address] Fredrick Jeannine Basophils/100 WBC (Bld) 0.5 % Normal 0.2-2.0 [facility] Comment on above: Performed By: #### C BC #### [facility] [address] [place], [place] [id number] Fredrick Jeannine EO # 0.2 103/ul Normal 0.0-0.7 [facility] Comment on above: Performed By: #### C BC #### [facility] [address] [place], [place] [id number] Fredrick Jeannine Eosinophils/100 WBC (Bld) 1.9 % Normal 0.9-7.0 [facility] Comment on above: Performed By: #### C BC #### [facility] [address] [place], [place] [id number] Fredrick Jeannine Erythrocyte distribution width (RBC) [Ratio] 12.5 % Normal 11.0-15.0 [facility] Comment on above: Performed By: #### C BC #### [facility] [address] [place], [place] [id number] Fredrick Jeannine Hematocrit (Bld) [Volume fraction] 40.1 % Normal 36.0-48.0 [facility] Comment on above: Performed By: #### C BC #### [facility] [address] [phone] Fredrick Jeannine Hemoglobin (Bld) [Mass/Vol] 13.1 g/dL Normal 12.0-16.0 [facility] Comment on above: Performed By: #### C BC #### [facility] [address] [place] [address] Fredrick Jeannine IG # 0.03 10e3/ul Normal 0.00-0.03 [facility] Comment on above: Performed By: #### C BC #### [facility] [address] [place] [address] Fredrick Jeannine IG % 0.4 % Normal 0.0-0.5 [facility] Comment on above: Performed By: #### C BC #### [facility] [address] [place] [address] Fredrick Jeannine LYMPH # 2.5 103/ul Normal 1.2-3.8 [facility] Comment on above: Performed By: #### C BC #### [facility] [address] [place] [address] Fredrick Jeannine Lymphocytes/100 WBC (Bld) 32.0 % Normal 20.5-60.0 [facility] Comment on above: Performed By: #### C BC #### [facility] [address] [place] [address] Fredrick Jeannine MANUAL DIFF REQ NO Normal [facility] Comment on above: Performed By: #### C BC #### [facility] [address] [place] [address] Fredrick Jeannine MCH (RBC) [Entitic mass] 28.5 pg Normal 26.7-34.0 [facility] Comment on above: Performed By: #### C BC #### [facility] [address] [place], [place] [id number] Fredrick Jeannine MCHC (RBC) [Mass/Vol] 32.7 g/dL Normal 29.9-35.2 [facility] Comment on above: Performed By: #### C BC #### [facility] [address] [place] [address] Fredrick Jeannine MCV (RBC) [Entitic vol] 87.4 fL Normal 81.0-99.0 [facility] Comment on above: Performed By: #### C BC #### [facility] [address] [place] [address] Fredrick Paez MONO # 0.7 103/ul Normal 0.3-0.8 [facility] Comment on above: Performed By: #### C BC #### [facility] [address] [place] [address] Fredrick Paez Monocytes/100 WBC (Bld) 9.1 % Normal 1.7-12.0 [facility] Comment on above: Performed By: #### C BC #### [facility] [address] [place] [address] Fredrick Paez NEUT # 4.4 103/ul Normal 1.4-6.5 [facility] Comment on above: Performed By: #### C BC #### [facility] [address] [place] [address] Fredrick Paez Neutrophils/100 WBC (Bld) 56.1 % Normal 43.0-75.0 [facility] Comment on above: Performed By: #### C BC #### [facility] [address] [place], [place] [id number] Fredrick Paez Platelet mean volume (Bld) [Entitic vol] 10.8 fL Normal 9.5-13.5 [facility] Comment on above: Performed By: #### C BC #### [facility] [address] [place] [address] Fredrickmichele Jonesen PLT 266 103/ul Normal 150-450 [facility] Comment on above: Performed By: #### C BC #### [facility] [address] [place], [place] [id number] Fredrick Jeannine RBC 4.59 106/ul Normal 4.20-5.40 [facility] Comment on above: Performed By: #### C BC #### [facility] [address] [place] [address] Fredrick Jeannine WBC 7.9 103/ul Normal 4.0-11.0 [facility] Comment on above: Performed By: #### C BC #### [facility] [address] [id number] Fredrickmichele Paez PROF 14(COMP METB)on 021 Albumin [Mass/Vol] 3.9 g/dL Normal 3.5-5.0 [facility] Comment on above: Performed By: #### C MP #### [facility] [address] [place], [place] [id number] Fredrick Jeannine Albumin/Globulin [Mass ratio] 1.0 {ratio} Normal [facility] Comment on above: Performed By: #### C MP #### [facility] [address] [place], [place] [id number] Fredrick Jeannine ALP [Catalytic activity/Vol] 55 U/L Normal 38-126 [facility] Comment on above: Performed By: #### C MP #### [facility] [address] [place] [address] Fredrick Jeannine ALT [Catalytic activity/Vol] 22 U/L Normal 9-52 [facility] Comment on above: Performed By: #### C MP #### [facility] [address] [place], [place] [id number] Fredrick Jeannine Anion gap [Moles/Vol] 13.2 mmol/L Normal [facility] Comment on above: Performed By: #### C MP #### [facility] [address] [place], [place] [id number] Fredrick Jeannine AST [Catalytic activity/Vol] 17 U/L Normal 14-36 [facility] Comment on above: Performed By: #### C MP #### [facility] [address] [place], [place] [id number] Fredrick Jeannine Bilirubin [Mass/Vol] 0.3 mg/dL Normal 0.2-1.3 [facility] Comment on above: Performed By: #### C MP #### [facility] [address] [place], [place] [id number] Fredrick Jeannine Calcium [Mass/Vol] 9.0 mg/dL Normal 8.4-10.2 [facility] Comment on above: Performed By: #### C MP #### [facility] [address] [place], [place] [id number] Fredrick Jeannine Chloride [Moles/Vol] 105 mmol/L Normal 98-107 [facility] Comment on above: Performed By: #### C MP #### [facility] [address] [place], [place] [id number] Fredrick Jeannine CO2 [Moles/Vol] 27.7 mmol/L Normal 22.0-30.0 [facility] Comment on above: Performed By: #### C MP #### [facility] [address] [place], [place] [id number] Fredrick Jeannine Creatinine [Mass/Vol] 0.65 mg/dL Normal 0.52-1.04 [facility] Comment on above: Performed By: #### C MP #### [facility] [address] [place] [address] Fredrick Jeannine EGFR-AF [place] >60 Normal >=60 [facility] Comment on above: Performed By: #### C MP #### [facility] [address] [place], [place] [id number] Fredrick Jeannine EGFR-NON AF CITIZEN OF [place] >60 Normal >=60 [facility] Comment on above: Performed By: #### C MP #### [facility] [address] [place], [place] [id number] Fredrick Jeannine Globulin (S) [Mass/Vol] 4.1 g/dL Normal T [facility] Comment on above: Performed By: #### C MP #### [facility] [address] [place] [address] Fredrick Jeannine Glucose [Mass/Vol] 98 mg/dL Normal 74-106 [facility] Comment on above: Performed By: #### C MP #### [facility] [address] [place], [place] [id number] Fredrick Jeannine Potassium [Moles/Vol] 3.9 mmol/L Normal 3.4-5.0 [facility] Comment on above: Performed By: #### C MP #### [facility] [address] [place] [address] Fredrick Jeannine Protein [Mass/Vol] 8.0 g/dL Normal 6.1-8.2 [facility] Comment on above: Performed By: #### C MP #### [facility] [address] [id number] Fredrick Paez Sodium [Moles/Vol] 142 mmol/L Normal 137-145 [facility] Comment on above: Performed By: #### C MP #### [facility] [address] [id number] Fredrick Paez Urea nitrogen [Mass/Vol] 10.0 mg/dL Normal 7.0-17.0 [facility] Comment on above: Performed By: #### C MP #### [facility] [address] [place] [address] Fredrick Paez Urea nitrogen/Creatinine [Mass ratio] 15.4 mg/mg Normal [facility] Comment on above: Performed By: #### C MP #### [facility] [address] [id number] Fredrick Paez Gynecology Office/Clinic Not cam 09-03-2020 [...] got this past weekend. [facility]. Menses: At age [...] Not in her mother. Saw Dr. Gomez ([facility]) GI on 08/02/20. Had colonoscopy 08/28/20: Normal [...] on this. Discussed food sensitivity testing at [facility] Follow up 3 months Medical Decision Making Chronic conditions NOT treated during this visit that affected my overall medical decision making: [none] Treatment plans discussed but not opted for at this time: [Diagnostic laparoscopy] Prescribed medication that (more content not included)... Normal [facility] Gynecology Office/Clinic Not cam 06-21-2020 Gynecology Office/Clinic [...] mother request patient to see Dr. Paniagua Lenox. Referral is placed. Follow-up with Dr. Tuyet [...] Substance Abus (more content not included)... Normal [facility] US Transvaginalon 06-18-2020 US Transvaginal EXAM(S) PREFORMED: [...] Electronically Signed in Other Vendor System) Normal [facility] Gynecology Office/Clinic Not cam 06-13-2020 Gynecology Office/Clinic [...] data availa (more content not included)... Normal [facility] Dermatopathologyon [address] [facility] Dermatopathology Laboratory [address] [place], [place] [id number] DERMATOPATHOLOGY REPORT Name:MAHNAZ MATAColeman [facility]. Rec #. 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 Electronically Signed Out by SRINIVASA PERALES M.D. Electronically Signed Out By SRINIVASA PERALES MD/[facility] By the signature on this report, the individual or group listed as making the Final Interpretation/Diagn osis certifies that they have reviewed this case. Clinical History: 1.1 x 1.0cm IDN vs. dysplastic nevus. Biopsy. Specimens Submitted As: A: SKIN, MID BACK Gross Description: Received in formalin is one pineda-brown piece of skin measuring [id number]. The specimen is inked and embedded in toto. /10/31/2019 Microscopic Description: Microscopic analysis shows a symmetric proliferation of melanocytes in epidermis and dermis. Melanocytes nest regularly along the dermal-epidermal junction, and dermal melanocytes mature with increasing depth in dermis. The melanocytes show no cytologic atypia. Normal [facility] Comment on above: Performed By: #### D #### Dermatopathology Vital Signs Date Time Vital Sign Value Performing Clinician Robert harrison 05-14-2023 15:57-0500 Body mass index (BMI) [Ratio] 27.96 kg/m2 Cecilia bContext [facility] Work Phone: [facility] 05-14-2023 15:57-0500 Body weight 76.2 kg [facility] Work Phone: [facility] 05-14-2023 15:57-0500 Diastolic blood pressure 78 mm[Hg] [facility] Work [facility]: [facility] 05-14-2023 15:57-0500 Systolic blood pressure 120 mm[Hg] [facility] Work Phone: [facility] 12-18-2021 08:35-0400 Body temperature 97.8 [degF] DO Vesna Nataprawira Work Phone: [facility] 12-18-2021 08:35-0400 Diastolic blood pressure 74 mm[Hg] DO Vesna Nataprawira Work Phone: [facility] 12-18-2021 08:35-0400 Heart rate 75 /min DO Vensa Nataprawira Work Phone: [facility] 12-18-2021 08:35-0400 Respiratory rate 16 /min DO Vesna Nataprawira Work Phone: [facility] 12-18-2021 08:35-0400 SaO2% (BldA) [Mass fraction] 98 % DO Vesna Nataprawira Work Phone: [facility] 12-18-2021 08:35-0400 Systolic blood pressure 119 mm[Hg] DO Vesna Nataprawira Work Phone: [facility] 12-15-2021 22:59-0400 Body height 165.1 cm DO Vesna Nataprawira Work Phone: [facility] 12-15-2021 22:59-0400 Body weight 83.91 kg DO Vesna Nataprawira Work Phone: [facility] 12-07-2021 16:38-0400 Respiratory rate 20 /min DO Vesna Nataprawira Work Phone: [facility] 12-07-2021 15:02-0400 Body height 167.64 cm DO Vesna Nataprawira Work Phone: [facility] 12-07-2021 15:02-0400 Body weight 81.64 kg DO Vesna Nataprawira Work Phone: [facility] 12-07-2021 15:01-0400 Body temperature 98.1 [degF] DO Vesna Nataprawira Work Phone: [facility] 12-07-2021 15:01-0400 Diastolic blood pressure 70 mm[Hg] DO Vesna Nataprawira Work Phone: [facility] 12-07-2021 15:01-0400 Heart rate 85 /min DO Vesna Nataprawira Work Phone: [facility] 12-07-2021 15:01-0400 Systolic blood pressure 124 mm[Hg] DO Vesna Nataprawira Work Phone: [facility] 11-10-2021 16:47-0400 SaO2% (BldA) [Mass fraction] 100 % DO Vesna Nataprawira Work Phone: [facility] 11-10-2021 16:46-0400 Diastolic blood pressure 66 mm[Hg] DO Vesna Nataprawira Work Phone: [facility] 11-10-2021 16:46-0400 Heart rate 75 /min DO Vesna Nataprawira Work Phone: [facility] 11-10-2021 16:46-0400 Systolic blood pressure 122 mm[Hg] DO Vesna Nataprawira Work Phone: [facility] 11-10-2021 16:43-0400 Body height 165.1 cm DO Vesna Nataprawira Work Phone: [facility] 11-10-2021 16:43-0400 Body weight 77.11 kg DO Vesna Nataprawira Work Phone: [facility] Encounters Encounter Date Encounter Type Care [...] 12-20-2021 End: 12-20-2021 ambulatory David M Hoy Facility:[facility] Start: 12-15-2021 End: 12-18-2021 Evaluation and management of inpatient Olga Rinkes Facility:[facility] Start: 12-15-2021 End: 12-18-2021 Evaluation and management of inpatient DO Vesna Nataprawira Work Phone: [facility] Start: 12-07-2021 End: 12-07-2021 ambulatory David M Hoy Facility:[facility] Start: 12-07-2021 End: 12-07-2021 Patient encounter procedure DO Vesna Nataprawira Work Phone: [facility] Start: 11-19-2021 End: 11-19-2021 ambulatory Olga Rinkes Facility:[facility] Start: 11-19-2021 End: 11-19-2021 Departed Referred DO Vesna Nataprawira Work Phone: [facility] [place] Start: 11-10-2021 End: 08-14-2022 ambulatory David M Hoy Facility:[facility] Start: 11-10-2021 End: 11-10-2021 Patient encounter procedure DO Vesna Bourgeois Work Phone: [facility] Start: 01-04-2021 Encounter for genera l adult medical examination without abnormal findings DR DAVID PASCUAL [facility] Start: 12-28-2020 End: 12-29-[address] DAVID PASCUAL Facility:[facility] Start: 12-28-2020 End: 12-29-2020 Encounter for general adult medical examination without abnormal findings DR DAVID PASCUAL Facility:[facility] Start: 09-19-2020 End: 09-20-2020 ambulatory GARRET Dee Dee GOMEZ Facility:[facility] Procedures Date Procedure Procedure Detail Performing Clinician SARS Antigen (LFIA) DO Vesna Bourgeois Work Phone: Streptococcus agalactiae culture DO [facility] Work Phone: Plan of Treatment Date Care Activity Detail Author Start: 06-11-2023 End: 06-11-2023 Patient encounter procedure 06/11/2023 4:30 PM EDT Routine [facility] [address] [place] [id number] Cecilia Madden, [facility] [address] [place] [address] [facility] Start: 05-14-2023 End: 05-14-2023 Patient encounter procedure 05/14/2023 4:00 PM EST Routine [facility] [address] [place] [phone] Cecilia Madden, [facility] [address] [place] [address] Arrived [facility] Comment on above: Arrived Start: 11-28-2022 Influenza vaccination Influenz a Vaccine (#1) [facility] Start: 12-18-2021 [facility] Work Phone: Start: 12-16-2021 Hospital admission [facility] Work Phone: Start: 12-15-2021 End: 12-15-2021 [facility] Work Phone: Start: 12-07-2021 [facility] Work Phone: Start: 12-07-2021 Hospital admission [facility] Work Phone: Start: 11-19-2021 End: 11-19-2021 Departed Referred Departed Referred [facility] [place] Start: 11-10-2021 [facility] Work Phone: Start: 11-10-2021 Hospital admission [facility] Work Phone: Patient Education [facility] Work Phone: Patient referral [facility] Work Phone: Reagin Ab [Presence] in Serum by RPR [facility] Work Phone: Payers Date Payer Category Payer Self-pay [id number] 2021 Unknown BCBS BCBS [id number] 2021-Present [phone] [address] [place] [address] [id number] 1999 Unknown [id number] 1999 Unknown [id number] 1999 Unknown [id number] 1999 Unknown [id number] 1999 Unknown [id number] 1999 Unknown [id number] 1999 Unknown [id number] 1999 Unknown [id number] [id number] 1999 Unknown [id number] 2.16.840.1.045989.3.579.2.1259 1999 Unknown [id number] 2.16.840.1.623187.3.579.2.1259 1999 Unknown [id number] 2.16.840.1.213666.3.579.2.1259 1999 Unknown [id number] 2.16.840.1.433975.3.579.2.1259 1999 Unknown [id number] 2.16.840.1.306220.3.579.2.1259 1999 Unknown [id number] 2.16.840.1.021855.3.579.2.1259 1999 Unknown [id number] 2.16.840.1.308718.3.579.2.1259 1999 Unknown [id number] 2.16.840.1.245822.3.579.2.1259 1999 Unknown [id number] 2.16.840.1.113130.3.579.2.1259 1999 Unknown [id number] 2.16.840.1.150226.3.579.2.1259 1959 Unknown [id number] 1959 Unknown [id number] Unknown [id number] 2.16.840.1.632603.3.579.2.531 Unknown [id number] 2.16.840.1.512578.3.579.2.531 Unknown [id number] 2.16.840.1.771192.3.579.2.531 Unknown [id number] 2.16.840.1.666325.3.579.2.531 Unknown [id number] 2.16.840.1.508880.3.579.2.531 Social History Date Type Detail Facility Start: 08-28-2020 End: 12-04-2022 Tobacco smoking status NHIS Never smoked tobacco (finding) [facility] Start: 2000 Sex Assigned At Female [facility] Start: 12-04-2022 Tobacco use and exposure [...] Facility 12-18-2021 Functional status Patient at [facility] Work Phone: Mental Status Date Assessment Result Facility 12-18-2021 Cognitive function Cognitive Sta tus Patient at [facility] Work Phone: History of Present [...] a routine visit. 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 She was experiencing [...] signed by Max Sheridan DO> 12/17/21 1142 [facility] Work Phone: Procedure note 12-16-2021 Note Date & Type Note Facility 12-16-2021 Procedure note [place] Clinical Note 11-12-2020 Note Date & Type [...] breast self-examination (BSE). These experts include the [place] [employer], the [place] Preventive Services Task Force, and the [place] [employer]. Some experts [...] This means they are not cancer. ? 0513-8100 [employer] [address] [place] [address], [place] [address]. All rights reserved. This information is not intended as a substitute for professional medical care. Always follow your healthcare professional's instructions. [facility] Clinical Note 08-29-2020 Note Date & Type Note Facility 08-29-2020 Note Patient Education Ma terials Name: Mahnaz Mata Current Date: 08/29/2020 09:18:19 [place] : 2000 [facility]: [id number] The following sheet(s) are the Patient Education [...] fiber increase to help prevent constipation. ? 6492-1392 [employer] [address] [place] [address]. All rights reserved. This information is not intended as a substitute for professional medical care. Always follow your healthcare professional's instructions. [facility] Evaluation note Note Date & Type Note Facility Evaluation note No assessment information availa ble [facility] Work Phone: Evaluation note Note Date & Type Note Facility Evaluation note Diagnosis Onset Date Status post vaginal delivery acute [facility] Work Phone: Evaluation note Note [...] section and content) DATE CREATED AUTHOR 11/02/2019 [facility] [place] DATE CREATED AUTHOR AUTHOR'S ORGANIZ ATION 04/26/2021 [facility] DATE CREATED AUTHOR AUTHOR'S ORGANIZ ATION 05/14/2021 [facility] DATE CREATED AUTHOR AUTHOR'S ORGANIZ ATION 01/08/2022 [facility] DATE CREATED AUTHOR AUTHOR'S ORGANIZ ATION 12/04/2023 [facility] EPIC Care Teams (unrecognized sec [...] DO Admit Provider, Attending Provide r Active Transfusion Aide Relationship Specialty Start Date End Date Yumiko Key MD [address] [place] [address] PCP - General Family Medicine 11/10/22 Transfusion Aide Relationship Specialty Start Date End Date Yumiko Key MD [address], [place] [id number] PCP - General Family Medicine 11/10/22 Goals [...] BE BASED ON THE PRIMARY CLINICAL RECORDS. [facility] [employer] [facility]. provides no warranty or guarantee of the accuracy or completeness of information in this document.
== END 2023-12-11 15:33 | disposition home or self-care (01) ==
LOC: FBCO 08:13
PROVIDERS: PCP Family Medicine; Visit Provider Midwife
DX: Z39.1 Encounter for care and examination of lactating mother (principal)

== ENCOUNTER 2023-12-22 08:28 | Outpatient (OUT) | payer BC, SELFPAY ==
--- OUTSIDE RECORDS SUMMARY | 2023-12-22 08:34 | XMS_ITS | CCD ---
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 Name Role Phone GARRET GOMEZ JR Admitting Unavailable GARRET GOMEZ JR Attending Unavailable JOSSE, DR NIALL Craft Primary Care Unavailable GARRET GOMEZ JR Consulting Unavailable ROSALINDA, DR HERNANDEZ Admitting Unavailable ROSALINDA, DR HERNANDEZ Attending Unavailable ROSALINDA, DR HERNANDEZ Primary Care Unavailable ROSALINDA, DR HERNANDEZ Consulting Unavailable Bk, DO Vesna Attending Provider [phone] MD David Pascual Primary Care Provider [phone] DO Olga Santoyo Attending Provider [phone] DO Olga Santoyo Admit Provider [phone] David Pascual Primary Care Unavailable Nataprtrentonra, Vesna [...] L Referring Unavailable CECILIA MADDEN Attending Unavailable [facility] Att[facility] Attending Unavailable [facility] Attending Unavailable [facility] CECILIA Funez Attending Unavailable CECILIA MADDEN [...] 3608 gm / 7 lbs, 15 oz (6400-1325) [place] Normal: 3359 gm (3753-3192 gm) [place] Wt%: 72% for 38.6 wk [...] 12-17-2021 Basophils (Bld) [#/Vol] 0.1 10*3/uL 0.0-0.2 [facility] Basophils/100 WBC Auto (Bld) Ordered By: Olga Santoyo on 12-17-2021 Basophils/100 WBC (Bld) 0.4 % . [facility] Blood hemoglobin measurement (mass/volume)Ordered By: Olga Santoyo on 12-17-2021 Hemoglobin (Bld) [Mass/Vol] 9.6 g/dL 11.8-15.4 [facility] Blood leukocytes automated c ount (number/volume)Ordered By: Olga Santoyo on 12-17-2021 WBC (Bld) [#/Vol] 16.1 10*3/uL 4.5-11.0 [facility] Complete Blood Count Auto Di ffon 12-17-2021 Basophils (Bld) [#/Vol] 0.1 10*3/uL Normal 0.0-0.2 [facility] Comment on above: Order Comment: Comme nt Draw at 630 am Result Comment: PERF ORMED BY: [place] [address] PATHOLOGIST PARKING METER ATTENDANT NATALYA ESTEBAN M.D. Performed By: #### C BC #### [facility] [address] Basophils/100 WBC (Bld) 0.4 % Normal . [facility] Comment on above: Order Comment: Comme nt Draw at 630 am Performed By: #### C BC #### [facility] [address] [place] [address] [place] Eosinophils (Bld) [#/Vol] 0.1 10*3/uL Normal 0.0-0.45 [facility] Comment on above: Order Comment: Comme nt Draw at 630 am Performed By: #### C BC #### [address] Eosinophils/100 WBC (Bld) 0.8 % Normal . [facility] Comment on above: Order Comment: Comme nt Draw at 630 am Performed By: #### C BC #### [address] Erythrocyte distribution width (RBC) [Ratio] 13.7 % Normal 11.9-15.3 [facility] Comment on above: Order Comment: Comme nt Draw at 630 am Performed By: #### C BC #### [address] Hematocrit (Bld) [Volume fraction] 29.4 % Low 34.0-46.4 [facility] Comment on above: Order Comment: Comme nt Draw at 630 am Performed By: #### C BC #### [address] Hemoglobin (Bld) [Mass/Vol] 9.6 g/dL Low 11.8-15.4 [facility] Comment on above: Order Comment: Comme nt Draw at 630 am Performed By: #### C BC #### [address] Lymphocytes (Bld) [#/Vol] 3.1 10*3/uL Normal 1.00-4.8 [facility] Comment on above: Order Comment: Comme nt Draw at 630 am Performed By: #### C BC #### [address] Lymphocytes/100 WBC (Bld) 19.2 % Normal . [facility] Comment on above: Order Comment: Comme nt Draw at 630 am Performed By: #### C BC #### [address] MCH (RBC) [Entitic mass] 28.4 pg Normal 24.7-34.3 [facility] Comment on above: Order Comment: Comme nt Draw at 630 am Performed By: #### C BC #### [facility] [address] [place] [address] [place] MCV (RBC) [Entitic vol] 86.6 fL Normal 80-[address] [facility] Comment on above: Order Comment: Comme nt Draw at 630 am Performed By: #### C BC #### [address] Mean Corpuscular HGB Conc 32.8 g/dL Normal 32.0-35.0 [facility] Comment on above: Order Comment: Comme nt Draw at 630 am Performed By: #### C BC #### [place] [address] [place] Monocytes (Bld) [#/Vol] 1.4 10*3/uL High 0.0-0.8 [facility] Comment on above: Order Comment: Comme nt Draw at 630 am Performed By: #### C BC #### [place] [address] [place] Monocytes/100 WBC (Bld) 8.5 % Normal . [facility] Comment on above: Order Comment: Comme nt Draw at 630 am Performed By: #### C BC #### [address] Neutrophils (Bld) [#/Vol] 11.5 10*3/uL High 1.8-7.7 [facility] Comment on above: Order Comment: Comme nt Draw at 630 am Performed By: #### C BC #### [place] [address] [place] Neutrophils/100 WBC (Bld) 71.1 % Normal . [facility] Comment on above: Order Comment: Comme nt Draw at 630 am Performed By: #### C BC #### [place] [address] [place] Nucleated RBC/100 WBC (Bld) [Ratio] 0.1 % Normal 0-0.5 [facility] Comment on above: Order Comment: Comme nt Draw at 630 am Performed By: #### C BC #### [facility] [address] Platelet mean volume (Bld) [Entitic vol] 10.6 fL Normal 6.3-10.7 [facility] Comment on above: Order Comment: Comme nt Draw at 630 am Performed By: #### C BC #### [facility] [address] [place] [address] Platelets (Bld) [#/Vol] 182 10*3/uL Normal 150-450 [facility] Comment on above: Order Comment: Comme nt Draw at 630 am Performed By: #### C BC #### [address] RBC (Bld) [#/Vol] 3.39 10*6/uL Low 3.60-5.00 [facility] Comment on above: Order Comment: Comme nt Draw at 630 am Performed By: #### C BC #### [address] WBC (Bld) [#/Vol] 16.1 10*3/uL High 4.5-11.0 [facility] Comment on above: Order Comment: Comme nt Draw at 630 am Performed By: #### C BC #### [address] Eosinophils Auto (Bld) [#/Vo l]Ordered By: Olga Santoyo on 12-17-2021 Eosinophils (Bld) [#/Vol] 0.1 10*3/uL 0.0-0.45 [facility] Eosinophils/100 WBC Auto (Bl d)Ordered By: Olga Santoyo on 12-17-2021 Eosinophils/100 WBC (Bld) 0.8 % . [facility] Erythrocyte distribution wid th Auto (RBC) [Ratio]Ordered By: Olga Santoyo on 12-17-2021 Erythrocyte distribution width (RBC) [Ratio] 13.7 % 11.9-15.3 [facility] Hematocrit Auto (Bld) [Volum e fraction]Ordered By: Olga Santoyo on 12-17-2021 Hematocrit (Bld) [Volume fraction] 29.4 % 34.0-46.4 [facility] Laboratory - Hematology and Cell countsOrdered By: Olga Santoyo on 12-17-2021 Nucleated RBC/100 WBC (Bld) [Ratio] 0.1 % 0-0.5 [facility] Lymphocytes Auto (Bld) [#/Vo l]Ordered By: Olga Santoyo on 12-17-2021 Lymphocytes (Bld) [#/Vol] 3.1 10*3/uL 1.00-4.8 [facility] Lymphocytes/100 WBC Auto (Bl d)Ordered By: Olga Santoyo on 12-17-2021 Lymphocytes/100 WBC (Bld) 19.2 % . [facility] MCH Auto (RBC) [Entitic mass ]Ordered By: Olga Santoyo on 12-17-2021 MCH (RBC) [Entitic mass] 28.4 pg 24.7-34.3 [facility] MCHC Auto (RBC) [Mass/Vol]Or dered By: Olga Santoyo on 12-17-2021 MCHC (RBC) [Mass/Vol] 32.8 g/dL 32.0-35.[address] [facility] MCV Auto (RBC) [Entitic vol] Ordered By: Olga Santoyo on 12-17-2021 MCV (RBC) [Entitic vol] 86.6 fL 80-[address] [facility] Monocytes Auto (Bld) [#/Vol] Ordered By: Olga aSntoyo on 12-17-2021 Monocytes (Bld) [#/Vol] 1.4 10*3/uL 0.0-0.8 [facility] Monocytes/100 WBC Auto (Bld) Ordered By: Olga Santoyo on 12-17-2021 Monocytes/100 WBC (Bld) 8.5 % . [facility] Neutrophils Auto (Bld) [#/Vo l]Ordered By: Olga Santoyo on 12-17-2021 Neutrophils (Bld) [#/Vol] 11.5 10*3/uL 1.8-7.7 [facility] Neutrophils/100 WBC Auto (Bl d)Ordered By: Olga Santoyo on 12-17-2021 Neutrophils/100 WBC (Bld) 71.1 % . [facility] Platelet mean volume Auto (B ld) [Entitic vol]Ordered By: Olga Santoyo on 12-17-2021 Platelet mean volume (Bld) [Entitic vol] 10.6 fL 6.3-10.7 [facility] Platelets Auto (Bld) [#/Vol] Ordered By: Olga Divinaradha on 12-17-2021 Platelets (Bld) [#/Vol] 182 10*3/uL 150-450 [facility] RBC Auto (Bld) [#/Vol]Ordere d By: Olga Yarelis on 12-17-2021 RBC (Bld) [#/Vol] 3.39 10*6/uL 3.60-5.00 [facility] ABO/RH Typeon 12-16-2021 ABO and Rh group Nom (Bld) Blood group A Rh(D) positive Normal [facility] Comment on above: Result Comment: PERF ORMED BY: [facility] [address] [place] [address] PATHOLOGIST PARKING METER ATTENDANT NATALYA ESTEBAN M.D. COVID-19 Antigenon 2 COVID-19 [...] signs and symptoms consistent with COVID-19. The Ulcy SARS Antigen BRODY does not differentiate between SARS-CoV and SARS-CoV-2. This test was developed and its performance characteristic determined by [employer] and validated at [facility]. This test has not been FDA [...] for SARS Antigen by BRODY PERFORMED BY: [place] [address] PATHOLOGIST PARKING METER ATTENDANT NATALYA ESTEBAN M.D. Normal [facility] Comment on above: Performed By: #### U A, OBUDS #### [address] Complete Blood Count Auto Di ffon 12-16-2021 Basophils (Bld) [#/Vol] 0.1 10*3/uL Normal 0.0-0.2 [facility] Comment on above: Result Comment: PERF ORMED BY: [place] [address] PATHOLOGIST PARKING METER ATTENDANT NATALYA ESTEBAN M.D. Performed By: #### C BC #### [address] Basophils/100 WBC (Bld) 0.8 % Normal . [facility] Comment on above: Performed By: #### C BC #### [place] [address] [place] Eosinophils (Bld) [#/Vol] 0.2 10*3/uL Normal 0.0-0.45 [facility] Comment on above: Performed By: #### C BC #### [address] Eosinophils/100 WBC (Bld) 1.0 % Normal . [facility] Comment on above: Performed By: #### C BC #### [address] [place] [address] [place] Erythrocyte distribution width (RBC) [Ratio] 13.8 % Normal 11.9-15.3 [facility] Comment on above: Performed By: #### C BC #### [address] Hematocrit (Bld) [Volume fraction] 36.7 % Normal 34.0-46.4 [facility] Comment on above: Performed By: #### C BC #### [address] Hemoglobin (Bld) [Mass/Vol] 12.2 g/dL Normal 11.8-15.4 [facility] Comment on above: Performed By: #### C BC #### [address] Lymphocytes (Bld) [#/Vol] 3.1 10*3/uL Normal 1.00-4.8 [facility] Comment on above: Performed By: #### C BC #### [address] Lymphocytes/100 WBC (Bld) 18.2 % Normal . [facility] Comment on above: Performed By: #### C BC #### [address] MCH (RBC) [Entitic mass] 28.4 pg Normal 24.7-34.3 [facility] Comment on above: Performed By: #### C BC #### [address] MCV (RBC) [Entitic vol] 85.5 fL Normal 80-[address] [facility] Comment on above: Performed By: #### C BC #### [address] Mean Corpuscular HGB Conc 33.2 g/dL Normal 32.0-35.0 [facility] Comment on above: Performed By: #### C BC #### [address] Monocytes (Bld) [#/Vol] 1.4 10*3/uL High 0.0-0.8 [facility] Comment on above: Performed By: #### C BC #### [facility] [address] [place] [address] [place] Monocytes/100 WBC (Bld) 8.1 % Normal . [facility] Comment on above: Performed By: #### C BC #### [facility] [address] [place] [address] [place] Neutrophils (Bld) [#/Vol] 12.2 10*3/uL High 1.8-7.7 [facility] Comment on above: Performed By: #### C BC #### [facility] [address] Neutrophils/100 WBC (Bld) 71.9 % Normal . [facility] Comment on above: Performed By: #### C BC #### [facility] [address] [place] [address] [place] Nucleated RBC/100 WBC (Bld) [Ratio] 0.1 % Normal 0-0.5 [facility] Comment on above: Performed By: #### C BC #### [facility] [address] [place] [address] [place] Platelet mean volume (Bld) [Entitic vol] 10.8 fL High 6.3-10.7 [facility] Comment on above: Performed By: #### C BC #### [facility] [address] [place] [address] [place] Platelets (Bld) [#/Vol] 220 10*3/uL Normal 150-450 [facility] Comment on above: Performed By: #### C BC #### [facility] [address] [place] [address] [place] RBC (Bld) [#/Vol] 4.29 10*6/uL Normal 3.60-5.00 [facility] Comment on above: Performed By: #### C BC #### [facility] [address] [place] [address] [place] WBC (Bld) [#/Vol] 17.0 10*3/uL High 4.5-11.0 [facility] Comment on above: Performed By: #### C BC #### [place] [address] [place] Dipstick and Microscopicon 0 12-16-2021 Appearance (U) Clear Normal Clear [facility] Comment on above: Order Comment: Name Collection Type:: Clean-Voided Midstream Performed By: #### O BUDS, ADDONUAPLUS #### [address] Bacteria,Urine None Seen Normal None Seen [facility] Comment on above: Order Comment: Name Collection Type:: Clean-Voided Midstream Performed By: #### O BUDS, ADDONUAPLUS #### [address] Bilirubin,Urine Negative Normal Negative [facility] Comment on above: Order Comment: Name Collection Type:: Clean-Voided Midstream Performed By: #### O BUDS, ADDONUAPLUS #### [address] Glucose Ql (U) Normal Normal Normal [facility] Comment on above: Order Comment: Name Collection Type:: Clean-Voided Midstream Performed By: #### O BUDS, ADDONUAPLUS #### [address] Hyaline Casts,Urine 0-8 Normal 0-8 [facility] Comment on above: Order Comment: Name Collection Type:: Clean-Voided Midstream Result Comment: PERF ORMED BY: [place] [address] PATHOLOGIST PARKING METER ATTENDANT NATALYA ESTEBAN M.D. Performed By: #### O BUDS, ADDONUAPLUS #### [address] Ketones Ql (U) Negative Normal Negative [facility] Comment on above: Order Comment: Name Collection Type:: Clean-Voided Midstream Performed By: #### O BUDS, ADDONUAPLUS #### [address] Leukocyte esterase Test strip Ql (U) Negative Normal Negative [facility] Comment on above: Order Comment: Name Collection Type:: Clean-Voided Midstream Performed By: #### O BUDS, ADDONUAPLUS #### [place] [address] [place] Nitrite,Urine Negative Normal Negative [facility] Comment on above: Order Comment: Name Collection Type:: Clean-Voided Midstream Performed By: #### O BUDS, ADDONUAPLUS #### [address] Occult Blood,Urine Negative Normal Negative [facility] Comment on above: Order Comment: Name Collection Type:: Clean-Voided Midstream Result Comment: PERF ORMED BY: [place] [address] PATHOLOGIST PARKING METER ATTENDANT NATALYA ESTEBAN M.D. Performed By: #### O BUDS, ADDONUAPLUS #### [address] Protein,Urine Trace High Negative [facility] Comment on above: Order Comment: Name Collection Type:: Clean-Voided Midstream Performed By: #### O BUDS, ADDONUAPLUS #### [address] RBC,Urine 1-2 Normal 0-4 [facility] Comment on above: Order Comment: Name Collection Type:: Clean-Voided Midstream Performed By: #### O BUDS, ADDONUAPLUS #### [address] Specificy Mcdonald,Urine 1.022 Normal 1.001-1.030 [facility] Comment on above: Order Comment: Name Collection Type:: Clean-Voided Midstream Performed By: #### O BUDS, ADDONUAPLUS #### [place] [address] [place] Squamous Epithelial Cell,Urine 0-1 Normal 0-2 [facility] Comment on above: Order Comment: Name Collection Type:: Clean-Voided Midstream Performed By: #### O BUDS, ADDONUAPLUS #### [facility] [address] [place] [address] [place] Urobilinogen,Urine Normal Normal Normal [facility] Comment on above: Order Comment: Name Collection Type:: Clean-Voided Midstream Performed By: #### O BUDS, ADDONUAPLUS #### [facility] [address] [place] [address] WBC,Urine 1-2 Normal 0-4 [facility] Comment on above: Order Comment: Name Collection Type:: Clean-Voided Midstream Performed By: #### O BUDS, ADDONUAPLUS #### [address] OB Urine Drug Screen (NO THC )on 12-16-2021 Amphetamine Screen,Urine Negative Normal Negative [facility] Comment on above: Performed By: #### O BUDS, ADDONUAPLUS #### [address] Barbiturate Screen,Urine Negative Normal Negative [facility] Comment on above: Performed By: #### O BUDS, ADDONUAPLUS #### [place] [address] [place] Benzodiazepines Screen,Urine Negative Normal Negative [facility] Comment on above: Performed By: #### O BUDS, ADDONUAPLUS #### [address] Cocaine Screen,Urine Negative Normal Negative [facility] Comment on above: Performed By: #### O BUDS, ADDONUAPLUS #### [facility] [address] [place] [address] Opiate Screen,Urine Negative Normal Negative [facility] Comment on above: Performed By: #### O BUDS, ADDONUAPLUS #### [facility] [address] [place] [address] Phencyclidine Screen, Urine Negative Normal Negative [facility] Comment on above: Result Comment: Thes e are unconfirmed results and should not be used for legal purposes. Drug Cut-Off Concentration: AMPH 1000 ng/mL RONEL 200 ng/mL JUANITO 200 ng/mL COCM 300 ng/mL OP 300 ng/mL PCP 25 ng/mL PERFORMED BY: [place] [address] PATHOLOGIST PARKING METER ATTENDANT NATALYA ESTEBAN M.D. Performed By: #### O KAROLINA ADDONUAPLUS #### [address] Lucy Ag Negativeon 12-17-19 Lucy Ag Negative Negative Normal Negative [facility] Comment on above: Result Comment: This is a duplicate Lucy SARS Antigen (BRODY) result to be used for statistical tracking purpose only. PERFORMED BY: [place] [address] PATHOLOGIST PARKING METER ATTENDANT NATALYA ESTEBAN M.D. Performed By: #### U A, OBUDS #### [address] Amphetamine Screen Ql (U)Ord ered By: Olga Santoyo on 12-15-2021 Amphetamines Ql (U) Negative Negative [facility] Automated erythrocytes count in urine sediment (number/area)Ordered By: Olga Santoyo on 12-15-2021 RBC Auto (Urine sed) [#/Area] 1-2 [HPF] 0-4 [facility] Automated leukocytes count i n urine sediment (number/area)Ordered By: Olga Santoyo on 12-15-2021 WBC Auto (Urine sed) [#/Area] 1-2 [HPF] 0-4 [facility] Automated urine color determ inationOrdered By: Olga Santoyo on 12-15-2021 Color (U) Yellow Normal Yellow [facility] Comment on above: Order Comment: Name Collection Type:: Clean-Voided Midstream Performed By: #### O BUDS, ADDONUAPLUS #### [facility] [address] [place] [address] [place] Barbiturates [Presence] in U rineOrdered By: Olga Santoyo on 12-15-2021 Barbiturates Ql (U) Negative Negative [facility] Benzodiazepines [Presence] i n UrineOrdered By: Olga Santoyo on 12-15-2021 Benzodiazepines Ql (U) Negative Negative [facility] Bilirubin Test strip Ql (U)O rdered By: Olga Santoyo on 12-15-2021 Bilirubin Ql (U) Negative Negative [facility] COVID-19 SOFIAOrdered By: Cem claireart Santoyo on 12-15-2021 SARS-CoV+SARS-CoV-2 (COVID-19) Ag IA.rapid Ql (Resp) Negative Negative [facility] Comment on above: This is a duplicate Lucy SARS Antigen (BRODY) result to be used for statistical tracking purpose only. Ketones Auto test strip (U) [Mass/Vol]Ordered By: Olga Santoyo on 12-15-2021 Ketones (U) [Mass/Vol] Negative Negative [facility] - Drug toxicology Ordered By: Olga Santoyo on 12-15-2021 Opiates Ql (U) Negative Negative [facility] - UrinalysisOrder ed By: Olga Santoyo on 12-15-2021 Hyaline casts LM Ql (Urine sed) 0-8 [LPF] 0-8 [facility] Nitrite Test strip Ql (U)Ord ered By: Olga Santoyo on 12-15-2021 Nitrite Ql (U) Negative Negative [facility] No Panel InformationOrdered By: Olga Santoyo on 12-15-2021 SARS Antigen (LFIA) [facility] Phencyclidine Screen Ql (U)O rdered By: Olga Santoyo on 12-15-2021 Phencyclidine Ql (U) Negative Negative [facility] Comment on above: These are unconfirme d results and should not be used for legal purposes. Drug Cut-Off Concentration: AMPH 1000 ng/mL RONEL 200 ng/mL JUANITO 200 ng/mL COCM 300 ng/mL OP 300 ng/mL PCP 25 ng/mL Protein Auto test strip (U) [Mass/Vol]Ordered By: Olga Santoyo on 12-15-2021 Protein (U) [Mass/Vol] Trace mg/dL Negative [facility] Specific gravity Auto test s trip (U) [Rel density]Ordered By: Olga Santoyo on 12-15-2021 Specific gravity (U) [Rel density] 1.022 1.001-1.030 [facility] Squamous epithelial cells de tection in urine sediment by light microscopyOrdered By: Olga Santoyo on 12-15-2021 Epithelial cells.squamous LM Ql (Urine sed) 0-1 [HPF] 0-2 [facility] Urine bacteria detection by automated methodOrdered By: Olga Santoyo on 12-15-2021 Bacteria Auto Ql (U) None seen None Seen [facility] Urine clarity by refractomet ry automatedOrdered By: Olga Santoyo on 12-15-2021 Clarity Refractometry automated (U) Clear Clear [facility] Urine cocaine detectionOrder ed By: Olga Santoyo on 12-15-2021 Cocaine Ql (U) Negative Negative [facility] Urine glucose measurement by automated test strip (mass/volume)Ordered By: Olga Santoyo on 12-15-2021 Glucose Auto test strip (U) [Mass/Vol] Normal mg/dL Normal [facility] Urine hemoglobin detection b y automated test stripOrdered By: Olga Santoyo on 12-15-2021 Hemoglobin Auto test strip Ql (U) Negative Negative [facility] Urine leukocyte esterase det ection by automated test stripOrdered By: Olga Santoyo on 12-15-2021 Leukocyte esterase Auto test strip Ql (U) Negative Negative [facility] Urine pH measurement by auto mated test stripOrdered By: Olga Santoyo on 12-15-2021 pH (U) 6.5 [pH] Normal 5.0-9.0 [facility] Comment on above: Order Comment: Name Collection Type:: Clean-Voided Midstream Performed By: #### O BUDS, ADDONUAPLUS #### [facility] [address] Urobilinogen Auto test strip (U) [Mass/Vol]Ordered By: Olga Santoyo on 12-15-2021 Urobilinogen (U) [Mass/Vol] Normal mg/dL Normal [facility] Amphetamine Screen Ql (U)Ord ered By: VESNA BOURGEOIS on 12-07-2021 Amphetamines Ql (U) Negative Negative [facility] Barbiturates [Presence] in U rineOrdered By: VESNA BOURGEOIS on 12-07-2021 Barbiturates Ql (U) Negative Negative [facility] Benzodiazepines [Presence] i n UrineOrdered By: VESNA BOURGEOIS on 12-07-2021 Benzodiazepines Ql (U) Negative Negative [facility] Bilirubin Test strip Ql (U)O rdered By: VESNA BOURGEOIS on 12-07-2021 Bilirubin Ql (U) Negative Negative [facility] Color Auto (U)Ordered By: ECHO BOURGEOIS on 12-07-2021 Color (U) Yellow Yellow [facility] Ketones Auto test strip (U) [Mass/Vol]Ordered By: VESNA BOURGEOIS on 12-07-2021 Ketones (U) [Mass/Vol] Negative Negative [facility] - Drug toxicology Ordered By: VESNA BOURGEOIS on 12-07-2021 Opiates Ql (U) Negative Negative [facility] Nitrite Test strip Ql (U)Ord ered By: VESNA BOURGEOIS on 12-07-2021 Nitrite Ql (U) Negative Negative [facility] OB Urine Drug Screen (NO THC )on 12-07-2021 Amphetamine Screen,Urine Negative Normal Negative [facility] [facility] Comment on above: Performed By: #### U A, OBUDS #### [facility] [address] [place] [address] [place] Barbiturate Screen,Urine Negative Normal Negative [facility] Comment on above: Performed By: #### U A, OBUDS #### [facility] [address] [place] [address] [place] Benzodiazepines Screen,Urine Negative Normal Negative [facility] Comment on above: Performed By: #### U A, OBUDS #### [facility] [address] [place] [address] [place] Cocaine Screen,Urine Negative Normal Negative [facility] Comment on above: Performed By: #### U A, OBUDS #### [facility] [address] [place] [address] [place] Opiate Screen,Urine Negative Normal Negative [facility] Comment on above: Performed By: #### U A, OBUDS #### [facility] [address] [place] [address] Phencyclidine Screen, Urine Negative Normal Negative [facility] Comment on above: Result Comment: Thes e are unconfirmed results and should not be used for legal purposes. Drug Cut-Off Concentration: AMPH 1000 ng/mL RONEL 200 ng/mL JUANITO 200 ng/mL COCM 300 ng/mL OP 300 ng/mL PCP 25 ng/mL PERFORMED BY: [place] [address] PATHOLOGIST [employer] ATTENDANT NATALYA ESTEBAN M.D. Performed By: #### U A, OBUDS #### [address] Phencyclidine Screen Ql (U)O rdered By: VESNA BOURGEOIS on 12-07-2021 Phencyclidine Ql (U) Negative Negative [facility] Comment on above: These are unconfirme d results and should not be used for legal purposes. Drug Cut-Off Concentration: AMPH 1000 ng/mL RONEL 200 ng/mL JUANITO 200 ng/mL COCM 300 ng/mL OP 300 ng/mL PCP 25 ng/mL Protein Auto test strip (U) [Mass/Vol]Ordered By: VESNA BOURGEOIS on 12-07-2021 Protein (U) [Mass/Vol] Negative Negative [facility] Specific gravity Auto test s trip (U) [Rel density]Ordered By: VESNA BOURGEOIS on 12-07-2021 Specific gravity (U) [Rel density] 1.009 1.001-1.030 [facility] Urinalysison 12-07-2021 Appearance (U) Clear Normal Clear [facility] Comment on above: Order Comment: Name Collection Type:: Clean-Voided Midstream Performed By: #### U A, OBUDS #### [facility] [address] [place] [address] Bilirubin,Urine Negative Normal Negative [facility] Comment on above: Order Comment: Name Collection Type:: Clean-Voided Midstream Performed By: #### U A, OBUDS #### [facility] [address] [place] [address] [place] Color (U) Yellow Normal Yellow [facility] Comment on above: Order Comment: Name Collection Type:: Clean-Voided Midstream Performed By: #### U A, OBUDS #### [facility] [address] [place] [address] [place] Glucose Ql (U) Normal Normal Normal [facility] Comment on above: Order Comment: Name Collection Type:: Clean-Voided Midstream Performed By: #### U A, OBUDS #### [facility] [address] [place] [address] [place] Ketones Ql (U) Negative Normal Negative [facility] Comment on above: Order Comment: Name Collection Type:: Clean-Voided Midstream Performed By: #### U A, OBUDS #### [facility] [address] [place] [address] Leukocyte esterase Test strip Ql (U) Negative Normal Negative [facility] Comment on above: Order Comment: Name Collection Type:: Clean-Voided Midstream Performed By: #### U A, OBUDS #### [facility] [address] [place] [address] [place] Nitrite,Urine Negative Normal Negative [facility] Comment on above: Order Comment: Name Collection Type:: Clean-Voided Midstream Performed By: #### U A, OBUDS #### [facility] [address] [place] [address] [place] Occult Blood,Urine Negative Normal Negative [facility] Comment on above: Order Comment: Name Collection Type:: Clean-Voided Midstream Result Comment: PERF ORMED BY: [place] [address] PATHOLOGIST [employer] ATTENDANT NATALYA ESTEBAN M.D. Performed By: #### U A, OBUDS #### [facility] [address] [place] [address] [place] pH (U) 7.0 [pH] Normal 5.0-9.0 [facility] Comment on above: Order Comment: Name Collection Type:: Clean-Voided Midstream Performed By: #### U A, OBUDS #### [facility] [address] [place] [address] [place] Protein,Urine Negative Normal Negative [facility] Comment on above: Order Comment: Name Collection Type:: Clean-Voided Midstream Performed By: #### U A, OBUDS #### [facility] [address] Specificy Mcdonald,Urine 1.009 Normal 1.001-1.030 [facility] Comment on above: Order Comment: Name Collection Type:: Clean-Voided Midstream Performed By: #### U A, OBUDS #### [facility] [address] Urobilinogen,Urine Normal Normal Normal [facility] Comment on above: Order Comment: Name Collection Type:: Clean-Voided Midstream Performed By: #### U A, OBUDS #### [facility] [address] [place] [address] Urine clarity by refractomet ry automatedOrdered By: VESNA BOURGEOIS on 12-07-2021 Clarity Refractometry automated (U) Clear Clear [facility] Urine cocaine detectionOrder ed By: VESNA BOURGEOIS on 12-07-2021 Cocaine Ql (U) Negative Negative [facility] Urine glucose measurement by automated test strip (mass/volume)Ordered By: VESNA BOURGEOIS on 12-07-2021 Glucose Auto test strip (U) [Mass/Vol] Normal mg/dL Normal [facility] Urine hemoglobin detection b y automated test stripOrdered By: VESNA BOURGEOIS on 12-07-2021 Hemoglobin Auto test strip Ql (U) Negative Negative [facility] Urine leukocyte esterase det ection by automated test stripOrdered By: VESNA BOURGEOIS on 12-07-2021 Leukocyte esterase Auto test strip Ql (U) Negative Negative [facility] Urobilinogen Auto test strip (U) [Mass/Vol]Ordered By: VESNA BOURGEOIS on 12-07-2021 Urobilinogen (U) [Mass/Vol] Normal mg/dL Normal [facility] pH Auto test strip (U)Ordere d By: VESNA BOURGEOIS on 12-07-2021 pH (U) 7.0 [pH] 5.0-9.0 [facility] S. agalactiae Org specific c x Ql (Unsp spec)Ordered By: Olga Santoyo on 11-23-2021 Streptococcus agalactiae culture No Group B Beta Streptococcus Isolated 3 Days [facility] Strep B Cultureon 11-19-2021 Strep B Culture Reason for Exam 35 weeks gestation of ; screening for stre Vaginal/Rectal Comment vaginal, ecc, rectal Reason for Exam: 35 weeks gestation of ; screening for stre : Vaginal/Rectal Comment: vaginal, ecc, rectal No Group B Beta Streptococcus Isolated 3 Days PERFORMED BY: [facility] [address] [place] [address] PATHOLOGIST [employer] ATTENDANT NATALYA ESTEBAN M.D. Normal [facility] Comment on above: Performed By: #### C USTB #### [facility] [address] Amphetamine Screen Ql (U)Ord ered By: VESNA BOURGEOIS on 11-10-2021 Amphetamines Ql (U) Negative Negative [facility] Barbiturates [Presence] in U rineOrdered By: VESNA BOURGEOIS on 11-10-2021 Barbiturates Ql (U) Negative Negative [facility] Benzodiazepines [Presence] i n UrineOrdered By: VESNA BOURGEOIS on 11-10-2021 Benzodiazepines Ql (U) Negative Negative [facility] Bilirubin Test strip Ql (U)O rdered By: VESNA BOURGEOIS on 11-10-2021 Bilirubin Ql (U) Negative Negative [facility] Color Auto (U)Ordered By: ECHO BOURGEOIS on 11-10-2021 Color (U) Yellow Yellow [facility] Ketones Auto test strip (U) [Mass/Vol]Ordered By: VESNA BOURGEOIS on 11-10-2021 Ketones (U) [Mass/Vol] Negative Negative [facility] - Drug toxicology Ordered By: VESNA BOURGEOIS on 11-10-2021 Opiates Ql (U) Negative Negative [facility] Nitrite Test strip Ql (U)Ord ered By: VESNA BOURGEOIS on 11-10-2021 Nitrite Ql (U) Negative Negative [facility] OB Urine Drug Screen (NO THC )on 11-10-2021 Amphetamine Screen,Urine Negative Normal Negative [facility] Comment on above: Performed By: #### U A, OBUDS #### [facility] [address] [place] [address] [place] Barbiturate Screen,Urine Negative Normal Negative [facility] Comment on above: Performed By: #### U A, OBUDS #### [facility] [address] [place] [address] [place] Benzodiazepines Screen,Urine Negative Normal Negative [facility] Comment on above: Performed By: #### U A, OBUDS #### [facility] [address] [place] [address] [place] Cocaine Screen,Urine Negative Normal Negative [facility] Comment on above: Performed By: #### U A, OBUDS #### [facility] [address] [place] [address] [place] Opiate Screen,Urine Negative Normal Negative [facility] Comment on above: Performed By: #### U A, OBUDS #### [facility] [address] [place] [address] [place] Phencyclidine Screen, Urine Negative Normal Negative [facility] Comment on above: Result Comment: Thes e are unconfirmed results and should not be used for legal purposes. Drug Cut-Off Concentration: AMPH 1000 ng/mL RONEL 200 ng/mL JUANITO 200 ng/mL COCM 300 ng/mL OP 300 ng/mL PCP 25 ng/mL PERFORMED BY: [place] [address] PATHOLOGIST [employer] ATTENDANT NATALYA ESTEBAN M.D. Performed By: #### U A, OBUDS #### [facility] [address] [place] [address] Phencyclidine Screen Ql (U)O rdered By: VESNA BOURGEOIS on 11-10-2021 Phencyclidine Ql (U) Negative Negative [facility] Comment on above: These are unconfirme d results and should not be used for legal purposes. Drug Cut-Off Concentration: AMPH 1000 ng/mL RONEL 200 ng/mL JUANITO 200 ng/mL COCM 300 ng/mL OP 300 ng/mL PCP 25 ng/mL Protein Auto test strip (U) [Mass/Vol]Ordered By: VESNACorazon BOURGEOIS on 11-10-2021 Protein (U) [Mass/Vol] Negative Negative [facility] Specific gravity Auto test s trip (U) [Rel density]Ordered By: VESNA BOURGEOIS on 11-10-2021 Specific gravity (U) [Rel density] 1.004 1.001-1.030 [facility] Urinalysison 11-10-2021 Appearance (U) Clear Normal Clear [facility] Comment on above: Order Comment: Name Collection Type:: Clean-Voided Midstream Performed By: #### U A, OBUDS #### [facility] [address] [place] [address] [place] Bilirubin,Urine Negative Normal Negative [facility] Comment on above: Order Comment: Name Collection Type:: Clean-Voided Midstream Performed By: #### U A, OBUDS #### [facility] [address] [place] [address] [place] Color (U) Yellow Normal Yellow [facility] Comment on above: Order Comment: Name Collection Type:: Clean-Voided Midstream Performed By: #### U A, OBUDS #### [facility] [address] [place] [id number] [place] Glucose Ql (U) Normal Normal Normal [facility] Comment on above: Order Comment: Name Collection Type:: Clean-Voided Midstream Performed By: #### U A, OBUDS #### [facility] [address] [place] [id number] [place] Ketones Ql (U) Negative Normal Negative [facility] Comment on above: Order Comment: Name Collection Type:: Clean-Voided Midstream Performed By: #### U A, OBUDS #### [facility] [address] [place] [id number] [place] Leukocyte esterase Test strip Ql (U) Negative Normal Negative [facility] Comment on above: Order Comment: Name Collection Type:: Clean-Voided Midstream Performed By: #### U A, OBUDS #### [address] Nitrite,Urine Negative Normal Negative [facility] Comment on above: Order Comment: Name Collection Type:: Clean-Voided Midstream Performed By: #### U A, OBUDS #### [address] Occult Blood,Urine Negative Normal Negative [facility] Comment on above: Order Comment: Name Collection Type:: Clean-Voided Midstream Result Comment: PERF ORMED BY: [place] [address] PATHOLOGIST P[employer] ATTENDANT NATALYA ESTEBAN M.D. Performed By: #### U A, OBUDS #### [address] pH (U) 7.0 [pH] Normal 5.0-9.0 [facility] Comment on above: Order Comment: Name Collection Type:: Clean-Voided Midstream Performed By: #### U A, OBUDS #### [address] Protein,Urine Negative Normal Negative [facility] Comment on above: Order Comment: Name Collection Type:: Clean-Voided Midstream Performed By: #### U A, OBUDS #### [address] Specificy Mcdonald,Urine 1.004 Normal 1.001-1.030 [facility] Comment on above: Order Comment: Name Collection Type:: Clean-Voided Midstream Performed By: #### U A, OBUDS #### [address] Urobilinogen,Urine Normal Normal Normal [facility] Comment on above: Order Comment: Name Collection Type:: Clean-Voided Midstream Performed By: #### U A, OBUDS #### [address] [place] [address] [facility] Urine clarity by refractomet ry automatedOrdered By: VESNA BOURGEOIS on 11-10-2021 Clarity Refractometry automated (U) Clear Clear [facility] Urine cocaine detectionOrder ed By: VESNA BOURGEOIS on 11-10-2021 Cocaine Ql (U) Negative Negative [facility] Urine glucose measurement by automated test strip (mass/volume)Ordered By: VESNA BOURGEOIS on 11-10-2021 Glucose Auto test strip (U) [Mass/Vol] Normal mg/dL Normal [facility] Urine hemoglobin detection b y automated test stripOrdered By: VESNA BOURGEOIS on 11-10-2021 Hemoglobin Auto test strip Ql (U) Negative Negative [facility] Urine leukocyte esterase det ection by automated test stripOrdered By: VESNA BOURGEOIS on 11-10-2021 Leukocyte esterase Auto test strip Ql (U) Negative Negative [facility] Urobilinogen Auto test strip (U) [Mass/Vol]Ordered By: VESNA BOURGEOIS on 11-10-2021 Urobilinogen (U) [Mass/Vol] Normal mg/dL Normal [facility] pH Auto test strip (U)Ordere d By: VESNA BOURGEOIS on 11-10-2021 pH (U) 7.0 [pH] 5.0-9.0 [facility] CBC AUTO DIFFon 12-28-2020 BASO # 0.0 103/ul Normal 0.0-0.1 [facility] Comment on above: Performed By: #### C BC #### [facility] [address] [place] [address] Dr. Annie Wright Basophils/100 WBC (Bld) 0.4 % Normal 0.2-2.0 [facility] Comment on above: Performed By: #### C BC #### [facility] [address] [place] [address] Dr. Annie Wright EO # 0.2 103/ul Normal 0.0-0.7 [facility] Comment on above: Performed By: #### C BC #### [facility] [address] [place] [address] Dr. Annie Wright Eosinophils/100 WBC (Bld) 2.3 % Normal 0.9-7.0 [facility] Comment on above: Performed By: #### C BC #### [facility] [address] [place] [address] Dr. Annie Wright Erythrocyte distribution width (RBC) [Ratio] 12.4 % Normal 11.0-15.0 [facility] Comment on above: Performed By: #### C BC #### [facility] [address] [place] [address] Dr. Annie Wright Hematocrit (Bld) [Volume fraction] 39.4 % Normal 36.0-48.0 [facility] Comment on above: Performed By: #### C BC #### [facility] [address] [place] [address] Dr. Annie Wright Hemoglobin (Bld) [Mass/Vol] 13.3 g/dL Normal 12.0-16.0 [facility] Comment on above: Performed By: #### C BC #### [facility] [address] [place] [address] Dr. Annie Wright IG # 0.03 10e3/ul Normal 0.00-0.03 [facility] Comment on above: Performed By: #### C BC #### [facility] [address] [place] [address] Dr. Annie Wright IG % 0.4 % Normal 0.0-0.5 [facility] Comment on above: Performed By: #### C BC #### [facility] [address] [place] [address] Dr. Annie Wright LYMPH # 3.1 103/ul Normal 1.2-3.8 [facility] Comment on above: Performed By: #### C BC #### [facility] [address] [place] [address] Dr. Annie Wright Lymphocytes/100 WBC (Bld) 38.3 % Normal 20.5-60.0 [facility] Comment on above: Performed By: #### C BC #### [facility] [address] [place] [address] Dr. Annie Wright MANUAL DIFF REQ NO Normal [facility] Comment on above: Performed By: #### C BC #### [facility] [address] [place] [address] Dr. Annie Wright MCH (RBC) [Entitic mass] 29.3 pg Normal 26.7-34.0 [facility] Comment on above: Performed By: #### C BC #### [facility] [address] [place] [address] Dr. Annie Wright MCHC (RBC) [Mass/Vol] 33.8 g/dL Normal 29.9-35.2 [facility] Comment on above: Performed By: #### C BC #### [facility] [address] [place] [address] Dr. Annie Wright MCV (RBC) [Entitic vol] 86.8 fL Normal 81.0-99.0 [facility] Comment on above: Performed By: #### C BC #### [facility] [address] [place] [address] Dr. Annie Wright MONO # 0.7 103/ul Normal 0.3-0.8 [facility] Comment on above: Performed By: #### C BC #### [facility] [address] [place] [address] Dr. Annie Wright Monocytes/100 WBC (Bld) 8.5 % Normal 1.7-12.0 [facility] Comment on above: Performed By: #### C BC #### [facility] [address] [place] [address] Dr. Annie Wright NEUT # 4.0 103/ul Normal 1.4-6.5 [facility] Comment on above: Performed By: #### C BC #### [facility] [address] [place] [address] Dr. Annie Wright Neutrophils/100 WBC (Bld) 50.1 % Normal 43.0-75.0 [facility] Comment on above: Performed By: #### C BC #### [facility] [address] [place] [address] Dr. Annie Wright Platelet mean volume (Bld) [Entitic vol] 10.9 fL Normal 9.5-13.5 [facility] Comment on above: Performed By: #### C BC #### [facility] [address] [place] [address] Dr. Annie Wright PLT 228 103/ul Normal 150-450 [facility] Comment on above: Performed By: #### C BC #### [facility] [address] [place] [address] Dr. Annie Wright RBC 4.54 106/ul Normal 4.20-5.40 [facility] Comment on above: Performed By: #### C BC #### [facility] [address] [place] [address] Dr. Annie Wright WBC 8.0 103/ul Normal 4.0-11.0 [facility] Comment on above: Performed By: #### C BC #### [facility] [address] [place] [address] Dr. Annie Wright FREE THYROXINE INDEX T7on FTI 2.02 Normal [facility] Comment on above: Performed By: #### T SH, LIPID, CMP, T7 #### [facility] [address] [place] [address] Dr. Annie Wright T3U 32.0 % Normal 23.5-40.5 [facility] Comment on above: Performed By: #### T SH, LIPID, CMP, T7 #### [facility] [address] [place] [address] Dr. Annie Wright T4 [Mass/Vol] 6.30 ug/dL Normal 5.53-11.00 [facility] Comment on above: Performed By: #### T SH, LIPID, CMP, T7 #### [facility] [address] [place] [address] Dr. Annie Wright GLYCOHEMOGLOBIN A1Con 2020 ADA RECOMMENDATION ADA THERAPEUTIC TARGET 6.0 - 7.0 ACTION SUGGESTED > 7.0 Normal [facility] Comment on above: Performed By: #### A 1C #### [facility] [address] [place] [address] Dr. Annie Wright Glucose [Mass/Vol] 100 mg/dL Normal [facility] Comment on above: Performed By: #### A 1C #### [facility] [address] [place] [address] [address] Annie Wright HbA1c (Bld) [Mass fraction] 5.1 % Normal <=6.0 [facility] Comment on above: Performed By: #### A 1C #### [facility] [address] [place] [address] [address] Annie Wright LIPID PROFILEon 12-28-2020 CHOL-HDL RATIO NORM SEE BELOW Normal [facility] Comment on above: Result Comment: 3.3 - 4.4 LOW RISK 4.4 - 7.1 AVERAGE RISK 7.1 - 11.0 MODERATE RISK >11.0 HIGH RISK Performed By: #### T SH, LIPID, CMP, T7 #### [facility] [address] [place] [address] [address] Annie Wright Cholesterol [Mass/Vol] 156 mg/dL Normal <=200 [facility] Comment on above: Performed By: #### T SH, LIPID, CMP, T7 #### [facility] [address] [place] [address] [address] Annie Wright Cholesterol in HDL [Mass/Vol] 62 mg/dL Normal [facility] Comment on above: Performed By: #### T SH, LIPID, CMP, T7 #### [facility] [address] [place] [address] [address] Annie Wright Cholesterol in LDL [Mass/Vol] 82.8 mg/dL Normal [facility] Comment on above: Performed By: #### T SH, LIPID, CMP, T7 #### [facility] [address] [place] [address] [address] Annie Wright Cholesterol.total/Choles terol in HDL [Mass ratio] 2.5 {ratio} Normal [facility] Comment on above: Performed By: #### T SH, LIPID, CMP, T7 #### [facility] [address] [place] [address] [address] Annie Wright HDL NORMAL > or = 60 mg/dl - LOW CARDIOVASCULAR RISK <40 mg/dl - HIGH CARDIOVASCULAR RISK Normal [facility] Comment on above: Performed By: #### T SH, LIPID, CMP, T7 #### [facility] [address] [place] [address] [address] Annie Wright LDL CALC NORMAL SEE BELOW Normal [facility] Comment on above: Result Comment: <100 mg/dl OPTIMAL 100 - 129 mg/dl NEAR OR ABOVE OPTIMAL 130 - 159 mg/dl BORDERLINE HIGH 160 - 189 mg/dl HIGH >190 mg/dl VERY HIGH Performed By: #### T SH, LIPID, CMP, T7 #### [facility] [address] [place] [address] [address] Annie Wright Triglyceride [Mass/Vol] 56 mg/dL Normal <=150 [facility] Comment on above: Performed By: #### T SH, LIPID, CMP, T7 #### [facility] [address] [place] [address] [address] Annie Wright VLDL CALC 11.2 mg/dL Normal [facility] Comment on above: Performed By: #### T SH, LIPID, CMP, T7 #### [facility] [address] [place] [address] [address] Annie Wright PROF 14(COMP METB)on 021 Albumin [Mass/Vol] 4.2 g/dL Normal 3.5-5.0 [facility] Comment on above: Performed By: #### T SH, LIPID, CMP, T7 #### [facility] [address] [place] [address] [address] Annie Wright Albumin/Globulin [Mass ratio] 1.1 {ratio} Normal [facility] Comment on above: Performed By: #### T SH, LIPID, CMP, T7 #### [facility] [address] [place] [address] [address] Annie Wright ALP [Catalytic activity/Vol] 53 U/L Normal 38-126 [facility] Comment on above: Performed By: #### T SH, LIPID, CMP, T7 #### [facility] [address] [place] [address] [address] Annie Wright ALT [Catalytic activity/Vol] 36 U/L Normal 9-52 [facility] Comment on above: Performed By: #### T SH, LIPID, CMP, T7 #### [facility] [address] [place] [address] [address] Annie Wright Anion gap [Moles/Vol] 11.3 mmol/L Normal [facility] Comment on above: Performed By: #### T SH, LIPID, CMP, T7 #### [facility] [address] [place] [address] Dr. Annie Wright AST [Catalytic activity/Vol] 25 U/L Normal 14-36 [facility] Comment on above: Performed By: #### T SH, LIPID, CMP, T7 #### [facility] [address] [place] [address] Dr. Annie Wright Bilirubin [Mass/Vol] 0.4 mg/dL Normal 0.2-1.3 [facility] Comment on above: Performed By: #### T SH, LIPID, CMP, T7 #### [facility] [address] [place] [address] Dr. Annie Wright Calcium [Mass/Vol] 9.2 mg/dL Normal 8.4-10.2 [facility] Comment on above: Performed By: #### T SH, LIPID, CMP, T7 #### [facility] [address] [place] [address] Dr. Annie Wright Chloride [Moles/Vol] 105 mmol/L Normal 98-107 [facility] Comment on above: Performed By: #### T SH, LIPID, CMP, T7 #### [facility] [address] [place] [address] Dr. Annie Wright CO2 [Moles/Vol] 28.8 mmol/L Normal 22.0-30.0 [facility] Comment on above: Performed By: #### T SH, LIPID, CMP, T7 #### [facility] [address] [place] [address] Dr. Annie Wright Creatinine [Mass/Vol] 0.63 mg/dL Normal 0.52-1.04 [facility] Comment on above: Performed By: #### T SH, LIPID, CMP, T7 #### [facility] [id number] Annie Wright EGFR-AF CONGOLESE >60 Normal >=60 [facility] Comment on above: Performed By: #### T SH, LIPID, CMP, T7 #### [facility] [id number] Annie Wright EGFR-NON AF CONGOLESE >60 Normal >=60 [facility] Comment on above: Performed By: #### T SH, LIPID, CMP, T7 #### [facility] [address] [address] [address] Annie Wright Globulin (S) [Mass/Vol] 3.7 g/dL Normal [facility] Comment on above: Performed By: #### T SH, LIPID, CMP, T7 #### [facility] [address] [address] [address] Annie Wright Glucose [Mass/Vol] 91 mg/dL Normal 74-106 [facility] Comment on above: Performed By: #### T SH, LIPID, CMP, T7 #### [facility] [address] [address] [address] Annie Wright Potassium [Moles/Vol] 4.1 mmol/L Normal 3.4-5.0 [facility] Comment on above: Performed By: #### T SH, LIPID, CMP, T7 #### [facility] [address] [address] [address] Annie Wright Protein [Mass/Vol] 7.9 g/dL Normal 6.1-8.2 [facility] Comment on above: Performed By: #### T SH, LIPID, CMP, T7 #### [facility] [address] [address] [address] Annie Wright Sodium [Moles/Vol] 141 mmol/L Normal 137-145 [facility] Comment on above: Performed By: #### T SH, LIPID, CMP, T7 #### [facility] [address] [address] [address] Annie Wright Urea nitrogen [Mass/Vol] 11.0 mg/dL Normal 7.0-17.0 [facility] Comment on above: Performed By: #### T SH, LIPID, CMP, T7 #### [facility] [address] [address] [address] Annie Wright Urea nitrogen/Creatinine [Mass ratio] 17.5 mg/mg Normal [facility] Comment on above: Performed By: #### T SH, LIPID, CMP, T7 #### [facility] [address] [address] [address] Annie Wright TSHon 12-28-2020 TSH 1.702 uIU/mL Normal 0.470-4.680 [facility] Comment on above: Performed By: #### T SH, LIPID, CMP, T7 #### [facility] [address] [address] [address] Annie Wright TSH RANGE SEE BELOW Normal [facility] Comment on above: Result Comment: <0.3 4 UIU/ml HYPERTHYROID 0.34-5.60 UIU/ml EUTHYROID >5.60 UIU/ml HYPOTHYROID Performed By: #### T SH, LIPID, CMP, T7 #### [facility] [address] [address] [address] Annie Wright Hand Umbrella Tipper Cytology Reporton 2020 Hand Umbrella Tipper Cytology Report Clinical Information Specimen Collection Date: [...] smears in the future. GY Disclaimer Alpha Hand Umbrella Tipper Disclaimer ANATOMICPATHOLOGY Normal [facility] Comment on above: Performed By: #### G YNCYTREP #### [facility] (DEFAULT) [address] [place] [address] Gynecology Office/Clinic Not cam 11-15-2020 Gynecology Office/Clinic [...] September and October. 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 Back pain starts [...] Not in her mother. Saw Dr. Gomez ([facility]) GI on 08/02/20. Had colonoscopy [...] Chronic conditions (more content not included)... Normal [facility] CELIAC ANTIBODIES PROFILEon 09-20-2020 Deamidated Gliadin Abs, IgA 11 units Normal 0-19 [facility] Comment on above: Result Comment: Nega tive 0 - 19 Weak Positive 20 - 30 Moderate to Strong Positive >30 Performed By: #### C ELIACP #### [facility] [address] [place] [address] Fredrick Jeannine Deamidated Gliadin Abs, IgG 2 units Normal 0-19 [facility] Comment on above: Result Comment: Nega tive 0 - 19 Weak Positive 20 - 30 Moderate to Strong Positive >30 Performed By: #### C ELIACP #### [facility] [address] [address] Fredrick Jeannine Endomysial Antibody IgA Negative Normal Negative [facility] Comment on above: Performed By: #### C ELIACP #### [facility] [address] [address] Fredrick Jeannine Immunoglobulin A, Qn, Serum 223 mg/dL Normal 87-352 [facility] Comment on above: Performed By: #### C ELIACP #### [facility] [address] [address] Fredrick Jeannine t-Transglutaminase (tTG) IgA <2 Normal 0-3 [facility] Comment on above: Result Comment: Nega tive 0 - 3 Weak Positive 4 - 10 Positive >10 . Tissue Transglutaminase (tTG) has been identified as the endomysial antigen. Studies have demonstr- ated that endomysial IgA antibodies have over 99% specificity for gluten sensitive enteropathy. Performed By: #### C ELISHAYNEP #### [facility] [address] [place], [place] [id number] Fredrick Paez t-Transglutaminase (tTG) IgG 5 U/mL Normal 0-5 [facility] Comment on above: Result Comment: Nega tive 0 - 5 Weak Positive 6 - 9 Positive >9 Performed By: #### C ELIACP #### [facility] [address] [place] [address] Fredrick Jeannine CBC AUTO DIFFon 09-19-2020 BASO # 0.0 103/ul Normal 0.0-0.1 [facility] Comment on above: Performed By: #### C BC #### [facility] [address] [place] [address] Fredrick Jeannine Basophils/100 WBC (Bld) 0.5 % Normal 0.2-2.0 [facility] Comment on above: Performed By: #### C BC #### [facility] [address] [place], [place] [id number] Fredrick Jeannine EO # 0.2 103/ul Normal 0.0-0.7 [facility] Comment on above: Performed By: #### C BC #### [facility] [address] [place], [place] [id number] Fredrick Jeannine Eosinophils/100 WBC (Bld) 1.9 % Normal 0.9-7.0 [facility] Comment on above: Performed By: #### C BC #### [facility] [address] [place], [place] [id number] Fredrick Jeannine Erythrocyte distribution width (RBC) [Ratio] 12.5 % Normal 11.0-15.0 [facility] Comment on above: Performed By: #### C BC #### [facility] [address] [place], [place] [id number] Fredrick Jeannine Hematocrit (Bld) [Volume fraction] 40.1 % Normal 36.0-48.0 [facility] Comment on above: Performed By: #### C BC #### [facility] [address] [id number] Fredrick Jeannine Hemoglobin (Bld) [Mass/Vol] 13.1 g/dL Normal 12.0-16.0 [facility] Comment on above: Performed By: #### C BC #### [facility] [address] [place] [address] Ferdrick Jeannine IG # 0.03 10e3/ul Normal 0.00-0.03 [facility] Comment on above: Performed By: #### C BC #### [facility] [address] [place] [address] Fredrick Jeannine IG % 0.4 % Normal 0.0-0.5 [facility] Comment on above: Performed By: #### C BC #### [facility] [address] [place] [address] Fredrick Jeannine LYMPH # 2.5 103/ul Normal 1.2-3.8 [facility] Comment on above: Performed By: #### C BC #### [facility] [address] [place] [address] Fredrick Jeannine Lymphocytes/100 WBC (Bld) 32.0 % Normal 20.5-60.0 [facility] Comment on above: Performed By: #### C BC #### [facility] [address] [place] [address] Fredrick Jeannine MANUAL DIFF REQ NO Normal [facility] Comment on above: Performed By: #### C BC #### [facility] [address] [place] [address] Fredrick Jeannine MCH (RBC) [Entitic mass] 28.5 pg Normal 26.7-34.0 [facility] Comment on above: Performed By: #### C BC #### [facility] [address] [place], [place] [id number] Fredrick Jeannine MCHC (RBC) [Mass/Vol] 32.7 g/dL Normal 29.9-35.2 [facility] Comment on above: Performed By: #### C BC #### [facility] [address] [place] [address] Fredrick Jeannine MCV (RBC) [Entitic vol] 87.4 fL Normal 81.0-99.0 [facility] Comment on above: Performed By: #### C BC #### [facility] [address] [place] [address] Fredrick Paez MONO # 0.7 103/ul Normal 0.3-0.8 [facility] Comment on above: Performed By: #### C BC #### [facility] [address] [place] [address] Fredrick Paez Monocytes/100 WBC (Bld) 9.1 % Normal 1.7-12.0 [facility] Comment on above: Performed By: #### C BC #### [facility] [address] [place] [address] Fredrick Paez NEUT # 4.4 103/ul Normal 1.4-6.5 [facility] Comment on above: Performed By: #### C BC #### [facility] [address] [place] [address] Fredrick Paez Neutrophils/100 WBC (Bld) 56.1 % Normal 43.0-75.0 [facility] Comment on above: Performed By: #### C BC #### [facility] [address] [place], [place] [id number] Fredrick Paez Platelet mean volume (Bld) [Entitic vol] 10.8 fL Normal 9.5-13.5 [facility] Comment on above: Performed By: #### C BC #### [facility] [address] [place] [address] Fredrickmichele Jonesen PLT 266 103/ul Normal 150-450 [facility] Comment on above: Performed By: #### C BC #### [facility] [address] [place], [place] [id number] Fredrick Jeannine RBC 4.59 106/ul Normal 4.20-5.40 [facility] Comment on above: Performed By: #### C BC #### [facility] [address] [place] [address] Fredrick Jeannine WBC 7.9 103/ul Normal 4.0-11.0 [facility] Comment on above: Performed By: #### C BC #### [facility] [address] [id number] Fredrickmichele Paez PROF 14(COMP METB)on 021 Albumin [Mass/Vol] 3.9 g/dL Normal 3.5-5.0 [facility] Comment on above: Performed By: #### C MP #### [facility] [address] [place], [place] [id number] Fredrick Jeannine Albumin/Globulin [Mass ratio] 1.0 {ratio} Normal [facility] Comment on above: Performed By: #### C MP #### [facility] [address] [place], [place] [id number] Fredrick Jeannine ALP [Catalytic activity/Vol] 55 U/L Normal 38-126 [facility] Comment on above: Performed By: #### C MP #### [facility] [address] [place] [address] Fredrick Jeannine ALT [Catalytic activity/Vol] 22 U/L Normal 9-52 [facility] Comment on above: Performed By: #### C MP #### [facility] [address] [place], [place] [id number] Fredrick Jeannine Anion gap [Moles/Vol] 13.2 mmol/L Normal [facility] Comment on above: Performed By: #### C MP #### [facility] [address] [place], [place] [id number] Fredrick Jeannine AST [Catalytic activity/Vol] 17 U/L Normal 14-36 [facility] Comment on above: Performed By: #### C MP #### [facility] [address] [place], [place] [address] Fredrick Jeannine Bilirubin [Mass/Vol] 0.3 mg/dL Normal 0.2-1.3 [facility] Comment on above: Performed By: #### C MP #### [facility] [address] [place], [place] [address] Fredrick Jeannine Calcium [Mass/Vol] 9.0 mg/dL Normal 8.4-10.2 [facility] Comment on above: Performed By: #### C MP #### [facility] [address] [place], [place] [address] Fredrick Jeannine Chloride [Moles/Vol] 105 mmol/L Normal 98-107 [facility] Comment on above: Performed By: #### C MP #### [facility] [address] [place], [place] [address] Fredrick Jeannine CO2 [Moles/Vol] 27.7 mmol/L Normal 22.0-30.0 [facility] Comment on above: Performed By: #### C MP #### [facility] [address] [place], [place] [address] Fredrick Jeannine Creatinine [Mass/Vol] 0.65 mg/dL Normal 0.52-1.04 [facility] Comment on above: Performed By: #### C MP #### [facility] [address] [place] [address] Fredrick Jeannine EGFR-AF CONGOLESE >60 Normal >=60 [facility] Comment on above: Performed By: #### C MP #### [facility] [address] [place], [place] [address] Fredrick Jeannine EGFR-NON AF CONGOLESE >60 Normal >=60 [facility] Comment on above: Performed By: #### C MP #### [facility] [address] [place], [place] [id number] Fredrick Jeannine Globulin (S) [Mass/Vol] 4.1 g/dL Normal [facility] Comment on above: Performed By: #### C MP #### [facility] [address] [place] [address] Fredrick Jeannine Glucose [Mass/Vol] 98 mg/dL Normal 74-106 [facility] Comment on above: Performed By: #### C MP #### [facility] [address] [place], [place] [address] Fredrick Jeannine Potassium [Moles/Vol] 3.9 mmol/L Normal 3.4-5.0 [facility] Comment on above: Performed By: #### C MP #### [facility] [address] [place] [address] Fredrick Jeannine Protein [Mass/Vol] 8.0 g/dL Normal 6.1-8.2 [facility] Comment on above: Performed By: #### C MP #### [facility] [address] [id number] Fredrick Paez Sodium [Moles/Vol] 142 mmol/L Normal 137-145 [facility] Comment on above: Performed By: #### C MP #### [facility] [address] [id number] Fredrick Paez Urea nitrogen [Mass/Vol] 10.0 mg/dL Normal 7.0-17.0 [facility] Comment on above: Performed By: #### C MP #### [facility] [address] [place] [address] Fredrick Paez Urea nitrogen/Creatinine [Mass ratio] 15.4 mg/mg Normal [facility] Comment on above: Performed By: #### C MP #### [facility] [address] [id number] Fredrick Paez Gynecology Office/Clinic Not cam 09-03-2020 [...] got this past weekend. [facility]. Menses: At age [...] Not in her mother. Saw Dr. Gomez ([facility]) GI on 08/02/20. Had colonoscopy [...] on this. Discussed food sensitivity testing at [facility] Follow up 3 months Medical Decision Making Chronic conditions NOT treated during this visit that affected my overall medical decision making: [none] Treatment plans discussed but not opted for at this time: [Diagnostic laparoscopy] Prescribed medication that (more content not included)... Normal [facility] Gynecology Office/Clinic Not cam 06-21-2020 Gynecology [...] mother request patient to see Dr. Paniagua [place]. Referral is placed. Follow-up with Dr. Tuyet [...] Substance Abus (more content not included)... Normal [facility] US Transvaginalon 06-18-2020 US Transvaginal EXAM(S) [...] Electronically Signed in Other Vendor System) Normal [facility] Gynecology Office/Clinic Not cam 06-13-2020 Gynecology [...] data availa (more content not included)... Normal [facility] Dermatopathologyon 0 Dermatopathology [facility] [address] [place], [place] [id number] DERMATOPATHOLOGY REPORT Name:MAHNAZ [facility]oleman [facility]. Rec #. 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 Electronically Signed Out by SRINIVASA PERALES M.D. Electronically Signed Out By SRINIVASA PERALES MD/[facility] By the signature on this report, the individual or group listed as making the Final Interpretation/Diagn osis certifies that they have reviewed this case. Clinical History: 1.1 x 1.0cm IDN vs. dysplastic nevus. Biopsy. Specimens Submitted As: A: SKIN, MID BACK Gross Description: Received in formalin is one pineda-brown piece of skin measuring [id number]. The specimen is inked and embedded in toto. /10/31/2019 Microscopic Description: Microscopic analysis shows a symmetric proliferation of melanocytes in epidermis and dermis. Melanocytes nest regularly along the dermal-epidermal junction, and dermal melanocytes mature with increasing depth in dermis. The melanocytes show no cytologic atypia. Normal [facility] Comment on above: Performed By: #### D #### Dermatopathology Vital Signs Date Time Vital Sign Value Performing Clinician Robert harrison 05-14-2023 15:57-0500 Body mass index (BMI) [Ratio] 27.96 kg/m2 Cecilia [employer] [facility] Work Phone: [facility] 05-14-2023 15:57-0500 Body weight 76.2 kg [facility] Work [facility]: [facility] 05-14-2023 15:57-0500 Diastolic blood pressure 78 mm[Hg] [facility] Work [facility]: [facility] 05-14-2023 15:57-0500 Systolic blood pressure 120 mm[Hg] [facility] Work Phone: [facility] 12-18-2021 08:35-0400 Body temperature 97.8 [degF] DO Vesna Nataprawira Work Phone: [facility] 12-18-2021 08:35-0400 Diastolic blood pressure 74 mm[Hg] DO Vesna Nataprawira Work Phone: [facility] 12-18-2021 08:35-0400 Heart rate 75 /min DO Vesna Nataprawira Work Phone: [facility] 12-18-2021 08:35-0400 Respiratory rate 16 /min DO Vesna Nataprawira Work Phone: [facility] 12-18-2021 08:35-0400 SaO2% (BldA) [Mass fraction] 98 % DO Vesna Nataprawira Work Phone: [facility] 12-18-2021 08:35-0400 Systolic blood pressure 119 mm[Hg] DO Vesna Nataprawira Work Phone: [facility] 12-15-2021 22:59-0400 Body height 165.1 cm DO Vesna Nataprawira Work Phone: [facility] 12-15-2021 22:59-0400 Body weight 83.91 kg DO Vesna Nataprawira Work Phone: [facility] 12-07-2021 16:38-0400 Respiratory rate 20 /min DO Vesna Nataprawira Work Phone: [facility] 12-07-2021 15:02-0400 Body height 167.64 cm DO Vesna Nataprawira Work Phone: [facility] 12-07-2021 15:02-0400 Body weight 81.64 kg DO Vesna Nataprawira Work Phone: [facility] 12-07-2021 15:01-0400 Body temperature 98.1 [degF] DO Vesna Nataprawira Work Phone: [facility] 12-07-2021 15:01-0400 Diastolic blood pressure 70 mm[Hg] DO Vesna Nataprawira Work Phone: [facility] 12-07-2021 15:01-0400 Heart rate 85 /min DO Vesna Nataprawira Work Phone: [facility] 12-07-2021 15:01-0400 Systolic blood pressure 124 mm[Hg] DO Vesna Nataprawira Work Phone: [facility] 11-10-2021 16:47-0400 SaO2% (BldA) [Mass fraction] 100 % DO Vesna Nataprawira Work Phone: [facility] 11-10-2021 16:46-0400 Diastolic blood pressure 66 mm[Hg] DO Vesna Nataprawira Work Phone: [facility] 11-10-2021 16:46-0400 Heart rate 75 /min DO Vesna Nataprawira Work Phone: [facility] 11-10-2021 16:46-0400 Systolic blood pressure 122 mm[Hg] DO Vesna Nataprawira Work Phone: [facility] 11-10-2021 16:43-0400 Body height 165.1 cm DO Vesna Nataprawira Work Phone: [facility] 11-10-2021 16:43-0400 Body weight 77.11 kg DO Vesan Nataprawira Work Phone: [facility] Encounters Encounter Date Encounter Type Care [...] Not Available Start: 08-05-2023 End: 08-05-2023 ambulatory CECILAI L FLORO Not Available Start: 07-09-2023 End: [...] 12-20-2021 End: 12-20-2021 ambulatory David M Hoy Facility:[facility] Start: 12-15-2021 End: 12-18-2021 Evaluation and management of inpatient Olga Rinkes Facility:[facility] Start: 12-15-2021 End: 12-18-2021 Evaluation and management of inpatient DO Vesna Nataprawira Work Phone: [facility] [address] Start: 12-07-2021 End: 12-07-2021 ambulatory David M Hoy Facility:[facility] Start: 12-07-2021 End: 12-07-2021 Patient encounter procedure DO Vesna Nataprawira Work Phone: [facility] - O/P Start: 11-19-2021 End: 11-19-2021 ambulatory Olga Rinkes Facility:[facility] Start: 11-19-2021 End: 11-19-2021 Departed Referred DO Vesna Nataprawira Work Phone: [facility] Main [place] Start: 11-10-2021 End: 08-14-2022 ambulatory David M Hoy Facility:[facility] Start: 11-10-2021 End: 11-10-2021 Patient encounter procedure DO Vesna Bourgeois Work Phone: [facility] - O/P Start: 01-04-2021 Encounter for genera l adult medical examination without abnormal findings DR DAVID PASCUAL [facility] Start: 12-28-2020 End: 12-29-[address] DAVID PASCUAL Facility:[facility] Start: 12-28-2020 End: 12-29-2020 Encounter for general adult medical examination without abnormal findings DR DAVID PASCUAL Facility:[facility] Start: 09-19-2020 End: 09-20-2020 ambulatory GARRET Dee Dee GOMEZ Facility:[facility] Procedures Date Procedure Procedure Detail Performing Clinician SARS Antigen (LFIA) DO Vesna Bourgeois Work Phone: Streptococcus agalactiae culture [facility] Work Phone: Plan of Treatment Date Care Activity Detail Author Start: 06-11-2023 End: 06-11-2023 Patient encounter procedure 06/11/2023 4:30 PM EDT Routine [facility] [address] [place] [id number] Cecilia Madden, [facility] [address] [place] [address] [facility] Start: 05-14-2023 End: 05-14-2023 Patient encounter procedure 05/14/2023 4:00 PM EST Routine [facility] [address] [place] [id number] Cecilia Madden, [facility] [address] [place] [address] Arrived [facility] Comment on above: Arrived Start: 11-28-2022 Influenza vaccination Influenz a Vaccine (#1) [facility] Start: 12-18-2021 [facility] Work Phone: Start: 12-16-2021 Hospital admission [facility] Work Phone: Start: 12-15-2021 End: 12-15-2021 [facility] Work Phone: Start: 12-07-2021 [facility] Work Phone: Start: 12-07-2021 Hospital admission [facility] Work Phone: Start: 11-19-2021 End: 11-19-2021 Departed Referred Departed Referred [facility] Main [place] Start: 11-10-2021 [facility] Work Phone: Start: 11-10-2021 Hospital admission [facility] Work Phone: Patient Education [facility] Work Phone: Patient referral [facility] Work Phone: [facility] [Presence] in Serum by [employer] [facility] Work Phone: Payers Date Payer Category Payer Self-pay [id number] 2021 Unknown BCBS BCBS [id number] 2021-Present [phone] [id number] [place] [address] 1.2.840.872448.1.13.693.2.7.3. 434126.315 1999 Unknown [id number] 2..840.1.783878.3.579.2.593 1999 Unknown [id number] 2..840.1.342445.3.579.2.593 1999 Unknown [id number] 2.16.840.1.933748.3.579.2.1259 1999 Unknown [id number] 2.16.840.1.651729.3.579.2.1259 1999 Unknown [id number] 2.16.840.1.984840.3.579.2.1259 1999 Unknown [id number] 2.16.840.1.211625.3.579.2.1259 1999 Unknown [id number] 2.16.840.1.777584.3.579.2.1259 1999 Unknown [id number] 2.16.840.1.269867.3.579.2.1259 1999 Unknown [id number] 2.16.840.1.045468.3.579.2.1259 1999 Unknown [id number] 2.16.840.1.115391.3.579.2.1259 1999 Unknown [id number] 2.16.840.1.271819.3.579.2.1259 1999 Unknown [id number] 2.16.840.1.917385.3.579.2.1259 1999 Unknown [id number] 2.16.840.1.491645.3.579.2.1259 1999 Unknown [id number] 2.16.840.1.497827.3.579.2.1259 1999 Unknown [id number] 2.16.840.1.986690.3.579.2.1259 1999 Unknown [id number] 2.16.840.1.601065.3.579.2.1259 1999 Unknown [id number] 2.16.840.1.710213.3.579.2.1259 1999 Unknown [id number] 2.16.840.1.206858.3.579.2.1259 1959 Unknown [id number] 1959 Unknown [id number] Unknown [id number] 2.16.840.1.956331.3.579.2.531 Unknown [id number] 2.16.840.1.960403.3.579.2.531 Unknown [id number] 2.16.840.1.095780.3.579.2.531 Unknown [id number] 2.16.840.1.344012.3.579.2.531 Unknown [id number] 2.16.840.1.115297.3.579.2.531 Social History Date Type Detail Facility Start: 08-28-2020 End: 12-04-2022 Tobacco smoking status NHIS Never smoked tobacco (finding) [facility] Start: 2000 Sex Assigned At Female [facility] Start: 12-04-2022 Tobacco use and exposure [...] Facility 12-18-2021 Functional status Patient at [facility] Work Phone: Mental Status Date Assessment Result Facility 12-18-2021 Cognitive function Cognitive Sta tus Patient at [facility] Work Phone: History of Present illness Narrative [...] a routine visit. documented in this encounter [facility] Progress note 12-18-2021 Note Date & Type Note Facility 12-18-2021 Progress note Note Date/Time December 18, 2021 6:25am 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 She was experiencing [...] signed by Max Sheridan DO> 12/17/21 1142 [facility] Work Phone: Procedure note 12-16-2021 Note Date & Type Note Facility 12-16-2021 Procedure note [facility] Clinical Note 11-12-2020 Note Date & [...] breast self-examination (BSE). These experts include the [place] [employer], the [place] Preventive Services Task Force, and the [place] [employer]. Some experts [...] This means they are not cancer. ? [phone] [employer] [address] [place] [address], [place] [address]. All rights reserved. This information is not intended as a substitute for professional medical care. Always follow your healthcare professional's instructions. [facility] Clinical Note 08-29-2020 Note Date & Type Note Facility 08-29-2020 Note Patient Education Ma terials Name: Mahnaz Mata Current Date: 08/29/2020 09:18:19 [place] : 2000 [facility]: [id number] The following sheet(s) are the Patient Education [...] fiber increase to help prevent constipation. ? [phone] [employer] [address] [place] [address]. All rights reserved. This information is not intended as a substitute for professional medical care. Always follow your healthcare professional's instructions. [facility] Evaluation note Note Date & Type Note Facility Evaluation note No assessment information availa ble [facility] Work Phone: Evaluation note Note Date & Type Note Facility Evaluation note Diagnosis Onset Date Status post vaginal delivery acute [facility] Work Phone: Evaluation note Note Date [...] section and content) DATE CREATED AUTHOR 11/02/2019 [facility] DATE CREATED AUTHOR AUTHOR'S ORGANIZ ATION 04/26/2021 [facility] DATE CREATED AUTHOR AUTHOR'S ORGANIZ ATION 05/14/2021 [facility] DATE CREATED AUTHOR AUTHOR'S ORGANIZ ATION 01/08/2022 [facility] DATE CREATED AUTHOR AUTHOR'S ORGANIZ ATION 12/04/2023 [facility] EPIC Care Teams (unrecognized sec [...] DO Admit Provider, Attending Provide r Active 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 [facility] [employer] [facility]. provides no warranty or guarantee of the accuracy or completeness of information in this document.
== END 2023-12-22 09:51 | disposition home or self-care (01) ==
LOC: FBCO 08:29
PROVIDERS: PCP Family Medicine; Visit Provider Obstetrics & Gynecology
DX: Z39.1 Encounter for care and examination of lactating mother (principal)

== ENCOUNTER 2023-12-29 08:09 | Outpatient (OUT) | payer BC, SELFPAY ==
--- OUTSIDE RECORDS SUMMARY | 2023-12-29 08:29 | XMS_ITS | CCD ---
Author Organization [facility] Care Team Providers Care Rn Access Name Role Phone GARRET GOMEZ JR Admitting Unavailable GARRET GOMEZ JR Attending Unavailable JOSSE, DR NIALL Craft Primary Care Unavailable GARRET GOMEZ JR Consulting Unavailable ROSALINDA, DR HERNANDEZ Admitting Unavailable ROSALINDA, DR HERNANDEZ Attending Unavailable ROSALINDA, DR HERNANDEZ Primary Care Unavailable ROSALINDA, DR HERNANDEZ Consulting Unavailable Bk, DO Vesna Attending Provider MD David Pascual Primary Care Provider [phone] DO Olga Santoyo Attending Provider DO Olga Santoyo Admit Provider [phone] David Pascual Primary Care Unavailable Nataprtrentonra, Vesna [...] L Referring Unavailable CECILIA MADDEN Attending Unavailable [facility] Attending Un[facility] Attending Unavailable [facility] Attending Unavailable [facility], CECILIA Funez Attending Unavailable CECILIA MADDEN [...] 3608 gm / 7 lbs, 15 oz ([id number]) [place] Normal: 3359 gm (5851-2632 gm) [place] Wt%: 72% for 38.6 wk [...] 12-17-2021 Basophils (Bld) [#/Vol] 0.1 10*3/uL 0.0-0.2 [facility] Basophils/100 WBC Auto (Bld) Ordered By: Olga Santoyo on 12-17-2021 Basophils/100 WBC (Bld) 0.4 % . [facility] Blood hemoglobin measurement (mass/volume)Ordered By: Olga Santoyo on 12-17-2021 Hemoglobin (Bld) [Mass/Vol] 9.6 g/dL 11.8-15.4 [facility] Blood leukocytes automated c ount (number/volume)Ordered By: Olga Santoyo on 12-17-2021 WBC (Bld) [#/Vol] 16.1 10*3/uL 4.5-11.0 [facility] Complete Blood Count Auto Di ffon 12-17-2021 Basophils (Bld) [#/Vol] 0.1 10*3/uL Normal 0.0-0.2 [facility] Comment on above: Order Comment: Comme nt Draw at 630 am Result Comment: PERF ORMED BY: [place] [address] PATHOLOGIST [employer] NATALYA ESTEBAN M.D. Performed By: #### C BC #### [facility] [address] Basophils/100 WBC (Bld) 0.4 % Normal . [facility] Comment on above: Order Comment: Comme nt Draw at 630 am Performed By: #### C BC #### [facility] [address] [place] [address] [place] Eosinophils (Bld) [#/Vol] 0.1 10*3/uL Normal 0.0-0.45 [facility] Comment on above: Order Comment: Comme nt Draw at 630 am Performed By: #### C BC #### [address] Eosinophils/100 WBC (Bld) 0.8 % Normal . [facility] Comment on above: Order Comment: Comme nt Draw at 630 am Performed By: #### C BC #### [address] Erythrocyte distribution width (RBC) [Ratio] 13.7 % Normal 11.9-15.3 [facility] Comment on above: Order Comment: Comme nt Draw at 630 am Performed By: #### C BC #### [address] Hematocrit (Bld) [Volume fraction] 29.4 % Low 34.0-46.4 [facility] Comment on above: Order Comment: Comme nt Draw at 630 am Performed By: #### C BC #### [address] Hemoglobin (Bld) [Mass/Vol] 9.6 g/dL Low 11.8-15.4 [facility] Comment on above: Order Comment: Comme nt Draw at 630 am Performed By: #### C BC #### [address] Lymphocytes (Bld) [#/Vol] 3.1 10*3/uL Normal 1.00-4.8 [facility] Comment on above: Order Comment: Comme nt Draw at 630 am Performed By: #### C BC #### [address] Lymphocytes/100 WBC (Bld) 19.2 % Normal . [facility] Comment on above: Order Comment: Comme nt Draw at 630 am Performed By: #### C BC #### [address] MCH (RBC) [Entitic mass] 28.4 pg Normal 24.7-34.3 [facility] Comment on above: Order Comment: Comme nt Draw at 630 am Performed By: #### C BC #### [facility] [address] [place] [address] [place] MCV (RBC) [Entitic vol] 86.6 fL Normal 80-100 [facility] Comment on above: Order Comment: Comme nt Draw at 630 am Performed By: #### C BC #### [address] Mean Corpuscular HGB Conc 32.8 g/dL Normal 32.0-35.0 [facility] Comment on above: Order Comment: Comme nt Draw at 630 am Performed By: #### C BC #### [place] [address] [place] Monocytes (Bld) [#/Vol] 1.4 10*3/uL High 0.0-0.8 [facility] Comment on above: Order Comment: Comme nt Draw at 630 am Performed By: #### C BC #### [place] [address] [place] Monocytes/100 WBC (Bld) 8.5 % Normal . [facility] Comment on above: Order Comment: Comme nt Draw at 630 am Performed By: #### C BC #### [address] Neutrophils (Bld) [#/Vol] 11.5 10*3/uL High 1.8-7.7 [facility] Comment on above: Order Comment: Comme nt Draw at 630 am Performed By: #### C BC #### [place] [address] [place] Neutrophils/100 WBC (Bld) 71.1 % Normal . [facility] Comment on above: Order Comment: Comme nt Draw at 630 am Performed By: #### C BC #### [place] [address] [place] Nucleated RBC/100 WBC (Bld) [Ratio] 0.1 % Normal 0-0.5 [facility] Comment on above: Order Comment: Comme nt Draw at 630 am Performed By: #### C BC #### [facility] [address] Platelet mean volume (Bld) [Entitic vol] 10.6 fL Normal 6.3-10.7 [facility] Comment on above: Order Comment: Comme nt Draw at 630 am Performed By: #### C BC #### [facility] [address] [place] [address] Platelets (Bld) [#/Vol] 182 10*3/uL Normal 150-450 [facility] Comment on above: Order Comment: Comme nt Draw at 630 am Performed By: #### C BC #### [address] RBC (Bld) [#/Vol] 3.39 10*6/uL Low 3.60-5.00 [facility] Comment on above: Order Comment: Comme nt Draw at 630 am Performed By: #### C BC #### [address] WBC (Bld) [#/Vol] 16.1 10*3/uL High 4.5-11.0 [facility] Comment on above: Order Comment: Comme nt Draw at 630 am Performed By: #### C BC #### [address] Eosinophils Auto (Bld) [#/Vo l]Ordered By: Olga Santoyo on 12-17-2021 Eosinophils (Bld) [#/Vol] 0.1 10*3/uL 0.0-0.45 [facility] Eosinophils/100 WBC Auto (Bl d)Ordered By: Olga Santoyo on 12-17-2021 Eosinophils/100 WBC (Bld) 0.8 % . [facility] Erythrocyte distribution wid th Auto (RBC) [Ratio]Ordered By: Olga Santoyo on 12-17-2021 Erythrocyte distribution width (RBC) [Ratio] 13.7 % 11.9-15.3 [facility] Hematocrit Auto (Bld) [Volum e fraction]Ordered By: Olga Santoyo on 12-17-2021 Hematocrit (Bld) [Volume fraction] 29.4 % 34.0-46.4 [facility] Laboratory - Hematology and Cell countsOrdered By: Olga Santoyo on 12-17-2021 Nucleated RBC/100 WBC (Bld) [Ratio] 0.1 % 0-0.5 [facility] Lymphocytes Auto (Bld) [#/Vo l]Ordered By: Olga Santoyo on 12-17-2021 Lymphocytes (Bld) [#/Vol] 3.1 10*3/uL 1.00-4.8 [facility] Lymphocytes/100 WBC Auto (Bl d)Ordered By: Olga Santoyo on 12-17-2021 Lymphocytes/100 WBC (Bld) 19.2 % . [facility] MCH Auto (RBC) [Entitic mass ]Ordered By: Olga Santoyo on 12-17-2021 MCH (RBC) [Entitic mass] 28.4 pg 24.7-34.3 [facility] MCHC Auto (RBC) [Mass/Vol]Or dered By: Olga Santoyo on 12-17-2021 MCHC (RBC) [Mass/Vol] 32.8 g/dL 32.0-35.0 [facility] MCV Auto (RBC) [Entitic vol] Ordered By: Olga Santoyo on 12-17-2021 MCV (RBC) [Entitic vol] 86.6 fL 80-100 [facility] Monocytes Auto (Bld) [#/Vol] Ordered By: Olga Santoyo on 12-17-2021 Monocytes (Bld) [#/Vol] 1.4 10*3/uL 0.0-0.8 [facility] Monocytes/100 WBC Auto (Bld) Ordered By: Olga Santoyo on 12-17-2021 Monocytes/100 WBC (Bld) 8.5 % . [facility] Neutrophils Auto (Bld) [#/Vo l]Ordered By: Olga Santoyo on 12-17-2021 Neutrophils (Bld) [#/Vol] 11.5 10*3/uL 1.8-7.7 [facility] Neutrophils/100 WBC Auto (Bl d)Ordered By: Olga Santoyo on 12-17-2021 Neutrophils/100 WBC (Bld) 71.1 % . [facility] Platelet mean volume Auto (B ld) [Entitic vol]Ordered By: Olga Santoyo on 12-17-2021 Platelet mean volume (Bld) [Entitic vol] 10.6 fL 6.3-10.7 [facility] Platelets Auto (Bld) [#/Vol] Ordered By: Olga Divinaradha on 12-17-2021 Platelets (Bld) [#/Vol] 182 10*3/uL 150-450 [facility] RBC Auto (Bld) [#/Vol]Ordere d By: Olga Yarelis on 12-17-2021 RBC (Bld) [#/Vol] 3.39 10*6/uL 3.60-5.00 [facility] ABO/RH Typeon 12-16-2021 ABO and Rh group Nom (Bld) Blood group A Rh(D) positive Normal [facility] Comment on above: Result Comment: PERF ORMED BY: [facility] [address] [place] [address] PATHOLOGIST [employer] NATALYA ESTEBAN M.D. COVID-19 Antigenon 2 COVID-19 [...] developed and its performance characteristic determined by [employer] and validated at [facility]. This test has not been [...] for SARS Antigen by [facility] PERFORMED BY: [place] [address] PATHOLOGIST [employer] NATALYA ESTEBAN M.D. Normal [facility] Comment on above: Performed By: #### U A, OBUDS #### [address] Complete Blood Count Auto Di ffon 12-16-2021 Basophils (Bld) [#/Vol] 0.1 10*3/uL Normal 0.0-0.2 [facility] Comment on above: Result Comment: PERF ORMED BY: [place] [address] PATHOLOGIST [employer] NATALYA ESTEBAN M.D. Performed By: #### C BC #### [address] Basophils/100 WBC (Bld) 0.8 % Normal . [facility] Comment on above: Performed By: #### C BC #### [place] [address] [place] Eosinophils (Bld) [#/Vol] 0.2 10*3/uL Normal 0.0-0.45 [facility] Comment on above: Performed By: #### C BC #### [address] Eosinophils/100 WBC (Bld) 1.0 % Normal . [facility] Comment on above: Performed By: #### C BC #### [address] [place] [address] [place] Erythrocyte distribution width (RBC) [Ratio] 13.8 % Normal 11.9-15.3 [facility] Comment on above: Performed By: #### C BC #### [address] Hematocrit (Bld) [Volume fraction] 36.7 % Normal 34.0-46.4 [facility] Comment on above: Performed By: #### C BC #### [address] Hemoglobin (Bld) [Mass/Vol] 12.2 g/dL Normal 11.8-15.4 [facility] Comment on above: Performed By: #### C BC #### [address] Lymphocytes (Bld) [#/Vol] 3.1 10*3/uL Normal 1.00-4.8 [facility] Comment on above: Performed By: #### C BC #### [address] Lymphocytes/100 WBC (Bld) 18.2 % Normal . [facility] Comment on above: Performed By: #### C BC #### [address] MCH (RBC) [Entitic mass] 28.4 pg Normal 24.7-34.3 [facility] Comment on above: Performed By: #### C BC #### [address] MCV (RBC) [Entitic vol] 85.5 fL Normal 80-100 [facility] Comment on above: Performed By: #### C BC #### [address] Mean Corpuscular HGB Conc 33.2 g/dL Normal 32.0-35.0 [facility] Comment on above: Performed By: #### C BC #### [address] Monocytes (Bld) [#/Vol] 1.4 10*3/uL High 0.0-0.8 [facility] Comment on above: Performed By: #### C BC #### [facility] [address] [place] [address] [place] Monocytes/100 WBC (Bld) 8.1 % Normal . [facility] Comment on above: Performed By: #### C BC #### [facility] [address] [place] [address] [place] Neutrophils (Bld) [#/Vol] 12.2 10*3/uL High 1.8-7.7 [facility] Comment on above: Performed By: #### C BC #### [facility] [address] Neutrophils/100 WBC (Bld) 71.9 % Normal . [facility] Comment on above: Performed By: #### C BC #### [facility] [address] [place] [address] [place] Nucleated RBC/100 WBC (Bld) [Ratio] 0.1 % Normal 0-0.5 [facility] Comment on above: Performed By: #### C BC #### [facility] [address] [place] [address] [place] Platelet mean volume (Bld) [Entitic vol] 10.8 fL High 6.3-10.7 [facility] Comment on above: Performed By: #### C BC #### [facility] [address] [place] [address] [place] Platelets (Bld) [#/Vol] 220 10*3/uL Normal 150-450 [facility] Comment on above: Performed By: #### C BC #### [facility] [address] [place] [address] [place] RBC (Bld) [#/Vol] 4.29 10*6/uL Normal 3.60-5.00 [facility] Comment on above: Performed By: #### C BC #### [facility] [address] [place] [address] [place] WBC (Bld) [#/Vol] 17.0 10*3/uL High 4.5-11.0 [facility] Comment on above: Performed By: #### C BC #### [place] [address] [place] Dipstick and Microscopicon 0 12-16-2021 Appearance (U) Clear Normal Clear [facility] Comment on above: Order Comment: Name Collection Type:: Clean-Voided Midstream Performed By: #### O BUDS, ADDONUAPLUS #### [address] Bacteria,Urine None Seen Normal None Seen [facility] Comment on above: Order Comment: Name Collection Type:: Clean-Voided Midstream Performed By: #### O BUDS, ADDONUAPLUS #### [address] Bilirubin,Urine Negative Normal Negative [facility] Comment on above: Order Comment: Name Collection Type:: Clean-Voided Midstream Performed By: #### O BUDS, ADDONUAPLUS #### [address] Glucose Ql (U) Normal Normal Normal [facility] Comment on above: Order Comment: Name Collection Type:: Clean-Voided Midstream Performed By: #### O BUDS, ADDONUAPLUS #### [address] Hyaline Casts,Urine 0-8 Normal 0-8 [facility] Comment on above: Order Comment: Name Collection Type:: Clean-Voided Midstream Result Comment: PERF ORMED BY: [place] [address] PATHOLOGIST [employer] NATALYA ESTEBAN M.D. Performed By: #### O BUDS, ADDONUAPLUS #### [address] Ketones Ql (U) Negative Normal Negative [facility] Comment on above: Order Comment: Name Collection Type:: Clean-Voided Midstream Performed By: #### O BUDS, ADDONUAPLUS #### [address] Leukocyte esterase Test strip Ql (U) Negative Normal Negative [facility] Comment on above: Order Comment: Name Collection Type:: Clean-Voided Midstream Performed By: #### O BUDS, ADDONUAPLUS #### [place] [address] [place] Nitrite,Urine Negative Normal Negative [facility] Comment on above: Order Comment: Name Collection Type:: Clean-Voided Midstream Performed By: #### O BUDS, ADDONUAPLUS #### [address] Occult Blood,Urine Negative Normal Negative [facility] Comment on above: Order Comment: Name Collection Type:: Clean-Voided Midstream Result Comment: PERF ORMED BY: [place] [address] PATHOLOGIST [employer] NATALYA ESTEBAN M.D. Performed By: #### O BUDS, ADDONUAPLUS #### [address] Protein,Urine Trace High Negative [facility] Comment on above: Order Comment: Name Collection Type:: Clean-Voided Midstream Performed By: #### O BUDS, ADDONUAPLUS #### [address] RBC,Urine 1-2 Normal 0-4 [facility] Comment on above: Order Comment: Name Collection Type:: Clean-Voided Midstream Performed By: #### O BUDS, ADDONUAPLUS #### [address] Specificy [place],Urine 1.022 Normal 1.001-1.030 [facility] Comment on above: Order Comment: Name Collection Type:: Clean-Voided Midstream Performed By: #### O BUDS, ADDONUAPLUS #### [place] [address] [place] Squamous Epithelial Cell,Urine 0-1 Normal 0-2 [facility] Comment on above: Order Comment: Name Collection Type:: Clean-Voided Midstream Performed By: #### O BUDS, ADDONUAPLUS #### [facility] [address] [place] [address] [place] Urobilinogen,Urine Normal Normal Normal [facility] Comment on above: Order Comment: Name Collection Type:: Clean-Voided Midstream Performed By: #### O BUDS, ADDONUAPLUS #### [facility] [address] [place] [address] WBC,Urine 1-2 Normal 0-4 [facility] Comment on above: Order Comment: Name Collection Type:: Clean-Voided Midstream Performed By: #### O BUDS, ADDONUAPLUS #### [address] OB Urine Drug Screen (NO THC )on 12-16-2021 Amphetamine Screen,Urine Negative Normal Negative [facility] Comment on above: Performed By: #### O BUDS, ADDONUAPLUS #### [address] Barbiturate Screen,Urine Negative Normal Negative [facility] Comment on above: Performed By: #### O BUDS, ADDONUAPLUS #### [place] [address] [place] Benzodiazepines Screen,Urine Negative Normal Negative [facility] Comment on above: Performed By: #### O BUDS, ADDONUAPLUS #### [address] Cocaine Screen,Urine Negative Normal Negative [facility] Comment on above: Performed By: #### O BUDS, ADDONUAPLUS #### [facility] [address] [place] [address] Opiate Screen,Urine Negative Normal Negative [facility] Comment on above: Performed By: #### O BUDS, ADDONUAPLUS #### [facility] [address] [place] [address] Phencyclidine Screen, Urine Negative Normal Negative [facility] Comment on above: Result Comment: Thes e are unconfirmed results and should not be used for legal purposes. Drug Cut-Off Concentration: AMPH 1000 ng/mL RONEL 200 ng/mL JUANITO 200 ng/mL COCM 300 ng/mL OP 300 ng/mL PCP 25 ng/mL PERFORMED BY: [place] [address] PATHOLOGIST [employer] NATALYA ESTEBAN M.D. Performed By: #### O KAROLINA ADDONUAPLUS #### [address] Lucy Ag Negativeon 12-17-19 Lucy Ag Negative Negative Normal Negative [facility] Comment on above: Result Comment: This is a duplicate Luyc SARS Antigen (BRODY) result to be used for statistical tracking purpose only. PERFORMED BY: [place] [address] PATHOLOGIST [employer] NATALYA ESTEBAN M.D. Performed By: #### U A, OBUDS #### [address] Amphetamine Screen Ql (U)Ord ered By: Olga Santoyo on 12-15-2021 Amphetamines Ql (U) Negative Negative [facility] Automated erythrocytes count in urine sediment (number/area)Ordered By: Olga Santoyo on 12-15-2021 RBC Auto (Urine sed) [#/Area] 1-2 [HPF] 0-4 [facility] Automated leukocytes count i n urine sediment (number/area)Ordered By: Olga Santoyo on 12-15-2021 WBC Auto (Urine sed) [#/Area] 1-2 [HPF] 0-4 [facility] Automated urine color determ inationOrdered By: Olga Santoyo on 12-15-2021 Color (U) Yellow Normal Yellow [facility] Comment on above: Order Comment: Name Collection Type:: Clean-Voided Midstream Performed By: #### O BUDS, ADDONUAPLUS #### [facility] [address] [place] [address] [place] Barbiturates [Presence] in U rineOrdered By: Olga Santoyo on 12-15-2021 Barbiturates Ql (U) Negative Negative [facility] Benzodiazepines [Presence] i n UrineOrdered By: Olga Santoyo on 12-15-2021 Benzodiazepines Ql (U) Negative Negative [facility] Bilirubin Test strip Ql (U)O rdered By: Olga Santoyo on 12-15-2021 Bilirubin Ql (U) Negative Negative [facility] COVID-19 SOFIAOrdered By: Cem claireart Santoyo on 12-15-2021 SARS-CoV+SARS-CoV-2 (COVID-19) Ag IA.rapid Ql (Resp) Negative Negative [facility] Comment on above: This is a duplicate Lucy SARS Antigen (BRODY) result to be used for statistical tracking purpose only. Ketones Auto test strip (U) [Mass/Vol]Ordered By: Olga Santoyo on 12-15-2021 Ketones (U) [Mass/Vol] Negative Negative [facility] Laboratory - Drug toxicology Ordered By: Olga Santoyo on 12-15-2021 Opiates Ql (U) Negative Negative [facility] Laboratory - UrinalysisOrder ed By: Olga Santoyo on 12-15-2021 Hyaline casts LM Ql (Urine sed) 0-8 [LPF] 0-8 [facility] Nitrite Test strip Ql (U)Ord ered By: Olga Santoyo on 12-15-2021 Nitrite Ql (U) Negative Negative [facility] No Panel InformationOrdered By: Olga Santoyo on 12-15-2021 SARS Antigen (LFIA) [facility] Phencyclidine Screen Ql (U)O rdered By: Olga Santoyo on 12-15-2021 Phencyclidine Ql (U) Negative Negative [facility] Comment on above: These are unconfirme d results and should not be used for legal purposes. Drug Cut-Off Concentration: AMPH 1000 ng/mL RONEL 200 ng/mL JUANITO 200 ng/mL COCM 300 ng/mL OP 300 ng/mL PCP 25 ng/mL Protein Auto test strip (U) [Mass/Vol]Ordered By: Olga Santoyo on 12-15-2021 Protein (U) [Mass/Vol] Trace mg/dL Negative [facility] Specific gravity Auto test s trip (U) [Rel density]Ordered By: Olga Santoyo on 12-15-2021 Specific gravity (U) [Rel density] 1.022 1.001-1.030 [facility] Squamous epithelial cells de tection in urine sediment by light microscopyOrdered By: Olga Santoyo on 12-15-2021 Epithelial cells.squamous LM Ql (Urine sed) 0-1 [HPF] 0-2 [facility] Urine bacteria detection by automated methodOrdered By: Olga Santoyo on 12-15-2021 Bacteria Auto Ql (U) None seen None Seen [facility] Urine clarity by refractomet ry automatedOrdered By: Olga Santoyo on 12-15-2021 Clarity Refractometry automated (U) Clear Clear [facility] Urine cocaine detectionOrder ed By: Olga Santoyo on 12-15-2021 Cocaine Ql (U) Negative Negative [facility] Urine glucose measurement by automated test strip (mass/volume)Ordered By: Olga Santoyo on 12-15-2021 Glucose Auto test strip (U) [Mass/Vol] Normal mg/dL Normal [facility] Urine hemoglobin detection b y automated test stripOrdered By: Olga Santoyo on 12-15-2021 Hemoglobin Auto test strip Ql (U) Negative Negative [facility] Urine leukocyte esterase det ection by automated test stripOrdered By: Olga Santoyo on 12-15-2021 Leukocyte esterase Auto test strip Ql (U) Negative Negative [facility] Urine pH measurement by auto mated test stripOrdered By: Olga Santoyo on 12-15-2021 pH (U) 6.5 [pH] Normal 5.0-9.0 [facility] Comment on above: Order Comment: Name Collection Type:: Clean-Voided Midstream Performed By: #### O BUDS, ADDONUAPLUS #### [facility] [address] Urobilinogen Auto test strip (U) [Mass/Vol]Ordered By: Olga Santoyo on 12-15-2021 Urobilinogen (U) [Mass/Vol] Normal mg/dL Normal [facility] Amphetamine Screen Ql (U)Ord ered By: VESNA BOURGEOIS on 12-07-2021 Amphetamines Ql (U) Negative Negative [facility] Barbiturates [Presence] in U rineOrdered By: VESNA BOURGEOIS on 12-07-2021 Barbiturates Ql (U) Negative Negative [facility] Benzodiazepines [Presence] i n UrineOrdered By: VESNA BOURGEOIS on 12-07-2021 Benzodiazepines Ql (U) Negative Negative [facility] Bilirubin Test strip Ql (U)O rdered By: VESNA BOURGEOIS on 12-07-2021 Bilirubin Ql (U) Negative Negative [facility] Color Auto (U)Ordered By: ECHO BOURGEOIS on 12-07-2021 Color (U) Yellow Yellow [facility] Ketones Auto test strip (U) [Mass/Vol]Ordered By: VESNA BOURGEOIS on 12-07-2021 Ketones (U) [Mass/Vol] Negative Negative [facility] - Drug toxicology Ordered By: VESNA BOURGEOIS on 12-07-2021 Opiates Ql (U) Negative Negative [facility] Nitrite Test strip Ql (U)Ord ered By: VESNA BOURGEOIS on 12-07-2021 Nitrite Ql (U) Negative Negative [facility] OB Urine Drug Screen (NO THC )on 12-07-2021 Amphetamine Screen,Urine Negative Normal Negative [facility] Comment on above: Performed By: #### U A, OBUDS #### [facility] [address] [place] [address] [place] Barbiturate Screen,Urine Negative Normal Negative [facility] Comment on above: Performed By: #### U A, OBUDS #### [facility] [address] [place] [address] [place] Benzodiazepines Screen,Urine Negative Normal Negative [facility] Comment on above: Performed By: #### U A, OBUDS #### [facility] [address] [place] [address] [place] Cocaine Screen,Urine Negative Normal Negative [facility] Comment on above: Performed By: #### U A, OBUDS #### [facility] [address] [place] [address] [place] Opiate Screen,Urine Negative Normal Negative [facility] Comment on above: Performed By: #### U A, OBUDS #### [facility] [address] [place] [address] Phencyclidine Screen, Urine Negative Normal Negative [facility] Comment on above: Result Comment: Thes e are unconfirmed results and should not be used for legal purposes. Drug Cut-Off Concentration: AMPH 1000 ng/mL RONEL 200 ng/mL JUANITO 200 ng/mL COCM 300 ng/mL OP 300 ng/mL PCP 25 ng/mL PERFORMED BY: [place] [address] PATHOLOGIST [employer] NATALYA ESTEBAN M.D. Performed By: #### U A, OBUDS #### [address] Phencyclidine Screen Ql (U)O rdered By: VESNA BOURGEOIS on 12-07-2021 Phencyclidine Ql (U) Negative Negative [facility] Comment on above: These are unconfirme d results and should not be used for legal purposes. Drug Cut-Off Concentration: AMPH 1000 ng/mL RONEL 200 ng/mL JUANITO 200 ng/mL COCM 300 ng/mL OP 300 ng/mL PCP 25 ng/mL Protein Auto test strip (U) [Mass/Vol]Ordered By: VESNA BOURGEOIS on 12-07-2021 Protein (U) [Mass/Vol] Negative Negative [facility] Specific gravity Auto test s trip (U) [Rel density]Ordered By: VESNA BOURGEOIS on 12-07-2021 Specific gravity (U) [Rel density] 1.009 1.001-1.030 [facility] Urinalysison 12-07-2021 Appearance (U) Clear Normal Clear [facility] Comment on above: Order Comment: Name Collection Type:: Clean-Voided Midstream Performed By: #### U A, OBUDS #### [facility] [address] [place] [address] Bilirubin,Urine Negative Normal Negative [facility] Comment on above: Order Comment: Name Collection Type:: Clean-Voided Midstream Performed By: #### U A, OBUDS #### [facility] [address] [place] [address] [place] Color (U) Yellow Normal Yellow [facility] Comment on above: Order Comment: Name Collection Type:: Clean-Voided Midstream Performed By: #### U A, OBUDS #### [facility] [address] [place] [address] [place] Glucose Ql (U) Normal Normal Normal [facility] Comment on above: Order Comment: Name Collection Type:: Clean-Voided Midstream Performed By: #### U A, OBUDS #### [facility] [address] [place] [address] [place] Ketones Ql (U) Negative Normal Negative [facility] Comment on above: Order Comment: Name Collection Type:: Clean-Voided Midstream Performed By: #### U A, OBUDS #### [facility] [address] [place] [address] Leukocyte esterase Test strip Ql (U) Negative Normal Negative [facility] Comment on above: Order Comment: Name Collection Type:: Clean-Voided Midstream Performed By: #### U A, OBUDS #### [facility] [address] [place] [address] [place] Nitrite,Urine Negative Normal Negative [facility] Comment on above: Order Comment: Name Collection Type:: Clean-Voided Midstream Performed By: #### U A, OBUDS #### [facility] [address] [place] [address] [place] Occult Blood,Urine Negative Normal Negative [facility] Comment on above: Order Comment: Name Collection Type:: Clean-Voided Midstream Result Comment: PERF ORMED BY: [place] [address] PATHOLOGIST [employer] NATALYA ESTEBAN M.D. Performed By: #### U A, OBUDS #### [facility] [address] [place] [address] [place] pH (U) 7.0 [pH] Normal 5.0-9.0 [facility] Comment on above: Order Comment: Name Collection Type:: Clean-Voided Midstream Performed By: #### U A, OBUDS #### [facility] [address] [place] [address] [place] Protein,Urine Negative Normal Negative [facility] Comment on above: Order Comment: Name Collection Type:: Clean-Voided Midstream Performed By: #### U A, OBUDS #### [facility] [address] Specificy [place],Urine 1.009 Normal 1.001-1.030 [facility] Comment on above: Order Comment: Name Collection Type:: Clean-Voided Midstream Performed By: #### U A, OBUDS #### [facility] [address] Urobilinogen,Urine Normal Normal Normal [facility] Comment on above: Order Comment: Name Collection Type:: Clean-Voided Midstream Performed By: #### U A, OBUDS #### [facility] [address] [place] [address] Urine clarity by refractomet ry automatedOrdered By: VESNA BOURGEOIS on 12-07-2021 Clarity Refractometry automated (U) Clear Clear [facility] Urine cocaine detectionOrder ed By: VESNA BOURGEOIS on 12-07-2021 Cocaine Ql (U) Negative Negative [facility] Urine glucose measurement by automated test strip (mass/volume)Ordered By: VESNA BOURGEOIS on 12-07-2021 Glucose Auto test strip (U) [Mass/Vol] Normal mg/dL Normal [facility] Urine hemoglobin detection b y automated test stripOrdered By: VESNA BOURGEOIS on 12-07-2021 Hemoglobin Auto test strip Ql (U) Negative Negative [facility] Urine leukocyte esterase det ection by automated test stripOrdered By: VESNA BOURGEOIS on 12-07-2021 Leukocyte esterase Auto test strip Ql (U) Negative Negative [facility] Urobilinogen Auto test strip (U) [Mass/Vol]Ordered By: VESNA BOURGEOIS on 12-07-2021 Urobilinogen (U) [Mass/Vol] Normal mg/dL Normal [facility] pH Auto test strip (U)Ordere d By: VESNA BOURGEOIS on 12-07-2021 pH (U) 7.0 [pH] 5.0-9.0 [facility] S. agalactiae Org specific c x Ql (Unsp spec)Ordered By: Olga Santoyo on 11-23-2021 Streptococcus agalactiae culture No Group B Beta Streptococcus Isolated 3 Days [facility] Strep B Cultureon 11-19-2021 Strep B Culture Reason for Exam 35 weeks gestation of ; screening for stre Vaginal/Rectal Comment vaginal, ecc, rectal Reason for Exam: 35 weeks gestation of ; screening for stre : Vaginal/Rectal Comment: vaginal, ecc, rectal No Group B Beta Streptococcus Isolated 3 Days PERFORMED BY: [facility] [address] [place] [address] PATHOLOGIST [employer] NATALYA ESTEBAN M.D. Normal [facility] Comment on above: Performed By: #### C USTB #### [facility] [address] Amphetamine Screen Ql (U)Ord ered By: VESNA BOURGEOIS on 11-10-2021 Amphetamines Ql (U) Negative Negative [facility] Barbiturates [Presence] in U rineOrdered By: VESNA BOURGEOIS on 11-10-2021 Barbiturates Ql (U) Negative Negative [facility] Benzodiazepines [Presence] i n UrineOrdered By: VESNA BOURGEOIS on 11-10-2021 Benzodiazepines Ql (U) Negative Negative [facility] Bilirubin Test strip Ql (U)O rdered By: VESNA BOURGEOIS on 11-10-2021 Bilirubin Ql (U) Negative Negative [facility] Color Auto (U)Ordered By: ECHO BOURGEOIS on 11-10-2021 Color (U) Yellow Yellow [facility] Ketones Auto test strip (U) [Mass/Vol]Ordered By: VESNA BOURGEOIS on 11-10-2021 Ketones (U) [Mass/Vol] Negative Negative Fi [facility] Laboratory - Drug toxicology Ordered By: VESNA BOURGEOIS on 11-10-2021 Opiates Ql (U) Negative Negative [facility] Nitrite Test strip Ql (U)Ord ered By: VESNA BOURGEOIS on 11-10-2021 Nitrite Ql (U) Negative Negative [facility] OB Urine Drug Screen (NO THC )on 11-10-2021 Amphetamine Screen,Urine Negative Normal Negative [facility] Comment on above: Performed By: #### U A, OBUDS #### [facility] [address] [place] [address] [place] Barbiturate Screen,Urine Negative Normal Negative [facility] Comment on above: Performed By: #### U A, OBUDS #### [facility] [address] [place] [address] [place] Benzodiazepines Screen,Urine Negative Normal Negative [facility] Comment on above: Performed By: #### U A, OBUDS #### [facility] [address] [place] [address] [place] Cocaine Screen,Urine Negative Normal Negative [facility] Comment on above: Performed By: #### U A, OBUDS #### [facility] [address] [place] [address] [place] Opiate Screen,Urine Negative Normal Negative [facility] Comment on above: Performed By: #### U A, OBUDS #### [facility] [address] [place] [address] [place] Phencyclidine Screen, Urine Negative Normal Negative [facility] Comment on above: Result Comment: Thes e are unconfirmed results and should not be used for legal purposes. Drug Cut-Off Concentration: AMPH 1000 ng/mL RONEL 200 ng/mL JUANITO 200 ng/mL COCM 300 ng/mL OP 300 ng/mL PCP 25 ng/mL PERFORMED BY: [place] [address] PATHOLOGIST [employer] NATALYA ESTEBAN M.D. Performed By: #### U A, OBUDS #### [facility] [address] [place] [address] Phencyclidine Screen Ql (U)O rdered By: VESNA BOURGEOIS on 11-10-2021 Phencyclidine Ql (U) Negative Negative [facility] Comment on above: These are unconfirme d results and should not be used for legal purposes. Drug Cut-Off Concentration: AMPH 1000 ng/mL RONEL 200 ng/mL JUANITO 200 ng/mL COCM 300 ng/mL OP 300 ng/mL PCP 25 ng/mL Protein Auto test strip (U) [Mass/Vol]Ordered By: VESNACorazon BOURGEOIS on 11-10-2021 Protein (U) [Mass/Vol] Negative Negative [facility] Specific gravity Auto test s trip (U) [Rel density]Ordered By: VESNA BOURGEOIS on 11-10-2021 Specific gravity (U) [Rel density] 1.004 1.001-1.030 [facility] Urinalysison 11-10-2021 Appearance (U) Clear Normal Clear [facility] Comment on above: Order Comment: Name Collection Type:: Clean-Voided Midstream Performed By: #### U A, OBUDS #### [facility] [address] [place] [address] [place] Bilirubin,Urine Negative Normal Negative [facility] Comment on above: Order Comment: Name Collection Type:: Clean-Voided Midstream Performed By: #### U A, OBUDS #### [facility] [address] [place] [address] [place] Color (U) Yellow Normal Yellow [facility] Comment on above: Order Comment: Name Collection Type:: Clean-Voided Midstream Performed By: #### U A, OBUDS #### [facility] [address] [place] [id number] [place] Glucose Ql (U) Normal Normal Normal [facility] Comment on above: Order Comment: Name Collection Type:: Clean-Voided Midstream Performed By: #### U A, OBUDS #### [facility] [address] [place] [id number] [place] Ketones Ql (U) Negative Normal Negative [facility] Comment on above: Order Comment: Name Collection Type:: Clean-Voided Midstream Performed By: #### U A, OBUDS #### [facility] [address] [place] [id number] [place] Leukocyte esterase Test strip Ql (U) Negative Normal Negative [facility] Comment on above: Order Comment: Name Collection Type:: Clean-Voided Midstream Performed By: #### U A, OBUDS #### [address] Nitrite,Urine Negative Normal Negative [facility] Comment on above: Order Comment: Name Collection Type:: Clean-Voided Midstream Performed By: #### U A, OBUDS #### [address] Occult Blood,Urine Negative Normal Negative [facility] Comment on above: Order Comment: Name Collection Type:: Clean-Voided Midstream Result Comment: PERF ORMED BY: [place] [address] PATHOLOGIST [employer] NATALYA ESTEBAN M.D. Performed By: #### U A, OBUDS #### [address] pH (U) 7.0 [pH] Normal 5.0-9.0 [facility] Comment on above: Order Comment: Name Collection Type:: Clean-Voided Midstream Performed By: #### U A, OBUDS #### [address] Protein,Urine Negative Normal Negative [facility] Comment on above: Order Comment: Name Collection Type:: Clean-Voided Midstream Performed By: #### U A, OBUDS #### [address] Specificy [place],Urine 1.004 Normal 1.001-1.030 [facility] Comment on above: Order Comment: Name Collection Type:: Clean-Voided Midstream Performed By: #### U A, OBUDS #### [address] Urobilinogen,Urine Normal Normal Normal [facility] Comment on above: Order Comment: Name Collection Type:: Clean-Voided Midstream Performed By: #### U A, OBUDS #### [address] [place] [address] [facility] U[facility] clarity by refractomet ry automatedOrdered By: VESNA BOURGEOIS on 11-10-2021 Clarity Refractometry automated (U) Clear Clear [facility] Urine cocaine detectionOrder ed By: VESNA BOURGEOIS on 11-10-2021 Cocaine Ql (U) Negative Negative [facility] Urine glucose measurement by automated test strip (mass/volume)Ordered By: VESNA BOURGEOIS on 11-10-2021 Glucose Auto test strip (U) [Mass/Vol] Normal mg/dL Normal [facility] Urine hemoglobin detection b y automated test stripOrdered By: VESNA BOURGEOIS on 11-10-2021 Hemoglobin Auto test strip Ql (U) Negative Negative [facility] Urine leukocyte esterase det ection by automated test stripOrdered By: VESNA BOURGEOIS on 11-10-2021 Leukocyte esterase Auto test strip Ql (U) Negative Negative [facility] Urobilinogen Auto test strip (U) [Mass/Vol]Ordered By: VESNA BOURGEOIS on 11-10-2021 Urobilinogen (U) [Mass/Vol] Normal mg/dL Normal [facility] pH Auto test strip (U)Ordere d By: VESNA BOURGEOIS on 11-10-2021 pH (U) 7.0 [pH] 5.0-9.0 [facility] CBC AUTO DIFFon 12-28-2020 BASO # 0.0 103/ul Normal 0.0-0.1 [facility] Comment on above: Performed By: #### C BC #### [facility] [address] [place] [address] Dr. Annie Wright Basophils/100 WBC (Bld) 0.4 % Normal 0.2-2.0 [facility] Comment on above: Performed By: #### C BC #### [facility] [address] [place] [address] Dr. Annie Wright EO # 0.2 103/ul Normal 0.0-0.7 [facility] Comment on above: Performed By: #### C BC #### [facility] [address] [place] [address] Dr. Annie Wright Eosinophils/100 WBC (Bld) 2.3 % Normal 0.9-7.0 [facility] Comment on above: Performed By: #### C BC #### [facility] [address] [place] [address] Dr. Annie Wright Erythrocyte distribution width (RBC) [Ratio] 12.4 % Normal 11.0-15.0 [facility] Comment on above: Performed By: #### C BC #### [facility] [address] [place] [address] Dr. Annie Wright Hematocrit (Bld) [Volume fraction] 39.4 % Normal 36.0-48.[address] [facility] Comment on above: Performed By: #### C BC #### [facility] [address] [place] [address] Dr. Annie Wright Hemoglobin (Bld) [Mass/Vol] 13.3 g/dL Normal 12.0-16.0 [facility] Comment on above: Performed By: #### C BC #### [facility] [address] [place] [address] Dr. Annie Wright IG # 0.03 10e3/ul Normal 0.00-0.[address] [facility] Comment on above: Performed By: #### C BC #### [facility] [address] [place] [address] Dr. Annie Wright IG % 0.4 % Normal 0.0-0.[address] [facility] Comment on above: Performed By: #### C BC #### [facility] [address] [place] [address] Dr. Annie Wright LYMPH # 3.1 103/ul Normal 1.2-3.[address] [facility] Comment on above: Performed By: #### C BC #### [facility] [address] [place] [address] Dr. Annie Wright Lymphocytes/100 WBC (Bld) 38.3 % Normal 20.5-60.[address] [facility] Comment on above: Performed By: #### C BC #### [facility] [address] [place] [address] Dr. Annie Wright MANUAL DIFF REQ NO Normal [facility] Comment on above: Performed By: #### C BC #### [facility] [address] [place] [address] Dr. Annie Wright MCH (RBC) [Entitic mass] 29.3 pg Normal 26.7-34.0 [facility] Comment on above: Performed By: #### C BC #### [facility] [address] [place] [address] Dr. Annie Wright MCHC (RBC) [Mass/Vol] 33.8 g/dL Normal 29.9-35.2 [facility] Comment on above: Performed By: #### C BC #### [facility] [address] [place] [address] Dr. Annie Wright MCV (RBC) [Entitic vol] 86.8 fL Normal 81.0-99.0 [facility] Comment on above: Performed By: #### C BC #### [facility] [address] [place] [address] Dr. Annie Wright MONO # 0.7 103/ul Normal 0.3-0.8 [facility] Comment on above: Performed By: #### C BC #### [facility] [address] [place] [address] Dr. Annie Wright Monocytes/100 WBC (Bld) 8.5 % Normal 1.7-12.0 [facility] Comment on above: Performed By: #### C BC #### [facility] [address] [place] [address] Dr. Annie Wright NEUT # 4.0 103/ul Normal 1.4-6.5 [facility] Comment on above: Performed By: #### C BC #### [facility] [address] [place] [address] Dr. Annie Wright Neutrophils/100 WBC (Bld) 50.1 % Normal 43.0-75.0 [facility] Comment on above: Performed By: #### C BC #### [facility] [address] [place] [address] Dr. Annie Wright Platelet mean volume (Bld) [Entitic vol] 10.9 fL Normal 9.5-13.5 [facility] Comment on above: Performed By: #### C BC #### [facility] [address] [place] [address] Dr. Annie Wright PLT 228 103/ul Normal 150-[address] [facility] Comment on above: Performed By: #### C BC #### [facility] [address] [place] [address] Dr. Annie Wright RBC 4.54 106/ul Normal 4.20-5.40 [facility] Comment on above: Performed By: #### C BC #### [facility] [address] [place] [address] Dr. Annie Wright WBC 8.0 103/ul Normal 4.0-11.0 [facility] Comment on above: Performed By: #### C BC #### [facility] [address] [place] [address] Dr. Annie Wright FREE THYROXINE INDEX T7on FTI 2.02 Normal [facility] Comment on above: Performed By: #### T SH, LIPID, CMP, T7 #### [facility] [address] [place] [address] Dr. Annie Wright T3U 32.0 % Normal 23.5-40.5 [facility] Comment on above: Performed By: #### T SH, LIPID, CMP, T7 #### [facility] [address] [place] [address] Dr. Annie Wright T4 [Mass/Vol] 6.30 ug/dL Normal 5.53-11.00 [facility] Comment on above: Performed By: #### T SH, LIPID, CMP, T7 #### [facility] [address] [place] [address] Dr. Annie Wright GLYCOHEMOGLOBIN A1Con 2020 ADA RECOMMENDATION ADA THERAPEUTIC TARGET 6.0 - 7.0 ACTION SUGGESTED > 7.0 Normal [facility] Comment on above: Performed By: #### A 1C #### [facility] [address] [place] [address] Dr. Annie Wright Glucose [Mass/Vol] 100 mg/dL Normal [facility] Comment on above: Performed By: #### A 1C #### [facility] [address] [place] [address] [address] Annie Wright HbA1c (Bld) [Mass fraction] 5.1 % Normal <=6.0 [facility] Comment on above: Performed By: #### A 1C #### [facility] [address] [place] [address] [address] Annie Wright LIPID PROFILEon 12-28-2020 CHOL-HDL RATIO NORM SEE BELOW Normal [facility] Comment on above: Result Comment: 3.3 - 4.4 LOW RISK 4.4 - 7.1 AVERAGE RISK 7.1 - 11.0 MODERATE RISK >11.0 HIGH RISK Performed By: #### T SH, LIPID, CMP, T7 #### [facility] [address] [place] [address] [address] Annie Wright Cholesterol [Mass/Vol] 156 mg/dL Normal <=200 [facility] Comment on above: Performed By: #### T SH, LIPID, CMP, T7 #### [facility] [address] [place] [address] [address] Annie Wright Cholesterol in HDL [Mass/Vol] 62 mg/dL Normal [facility] Comment on above: Performed By: #### T SH, LIPID, CMP, T7 #### [facility] [address] [place] [address] [address] Annie Wright Cholesterol in LDL [Mass/Vol] 82.8 mg/dL Normal [facility] Comment on above: Performed By: #### T SH, LIPID, CMP, T7 #### [facility] [address] [place] [address] [address] Annie Wright Cholesterol.total/Choles terol in HDL [Mass ratio] 2.5 {ratio} Normal [facility] Comment on above: Performed By: #### T SH, LIPID, CMP, T7 #### [facility] [address] [place] [address] [address] Annie Wright HDL NORMAL > or = 60 mg/dl - LOW CARDIOVASCULAR RISK <40 mg/dl - HIGH CARDIOVASCULAR RISK Normal [facility] Comment on above: Performed By: #### T SH, LIPID, CMP, T7 #### [facility] [address] [place] [address] [address] Annie Wright LDL CALC NORMAL SEE BELOW Normal [facility] Comment on above: Result Comment: <100 mg/dl OPTIMAL 100 - 129 mg/dl NEAR OR ABOVE OPTIMAL 130 - 159 mg/dl BORDERLINE HIGH 160 - 189 mg/dl HIGH >190 mg/dl VERY HIGH Performed By: #### T SH, LIPID, CMP, T7 #### [facility] [address] [address] [address] Annie Wright Triglyceride [Mass/Vol] 56 mg/dL Normal <=150 [facility] Comment on above: Performed By: #### T SH, LIPID, CMP, T7 #### [facility] [address] [address] [address] Annie Wright VLDL CALC 11.2 mg/dL Normal [facility] Comment on above: Performed By: #### T SH, LIPID, CMP, T7 #### [facility] [address] [address] [address] Annie Wright PROF 14(COMP METB)on 021 Albumin [Mass/Vol] 4.2 g/dL Normal 3.5-5.0 [facility] Comment on above: Performed By: #### T SH, LIPID, CMP, T7 #### [facility] [address] [address] [address] Annie Wright Albumin/Globulin [Mass ratio] 1.1 {ratio} Normal [facility] Comment on above: Performed By: #### T SH, LIPID, CMP, T7 #### [facility] [address] [address] [address] Annie Wright ALP [Catalytic activity/Vol] 53 U/L Normal 38-126 [facility] Comment on above: Performed By: #### T SH, LIPID, CMP, T7 #### [facility] [address] [address] [address] Annie Wright ALT [Catalytic activity/Vol] 36 U/L Normal 9-52 [facility] Comment on above: Performed By: #### T SH, LIPID, CMP, T7 #### [facility] [address] [address] [address] Annie Wright Anion gap [Moles/Vol] 11.3 mmol/L Normal [facility] Comment on above: Performed By: #### T SH, LIPID, CMP, T7 #### [facility] [address] [place] [address] Dr. Annie Wright AST [Catalytic activity/Vol] 25 U/L Normal 14-36 [facility] Comment on above: Performed By: #### T SH, LIPID, CMP, T7 #### [facility] [address] [place] [address] Dr. Annie Wright Bilirubin [Mass/Vol] 0.4 mg/dL Normal 0.2-1.[address] [facility] Comment on above: Performed By: #### T SH, LIPID, CMP, T7 #### [facility] [address] [place] [address] Dr. Annie Wright Calcium [Mass/Vol] 9.2 mg/dL Normal 8.4-10.2 [facility] Comment on above: Performed By: #### T SH, LIPID, CMP, T7 #### [facility] [address] [place] [address] Dr. Annie Wright Chloride [Moles/Vol] 105 mmol/L Normal 98-[address] [facility] Comment on above: Performed By: #### T SH, LIPID, CMP, T7 #### [facility] [address] [place] [address] Dr. Annie Wright CO2 [Moles/Vol] 28.8 mmol/L Normal 22.0-30.0 [facility] Comment on above: Performed By: #### T SH, LIPID, CMP, T7 #### [facility] [address] [place] [address] Dr. Annie Wright Creatinine [Mass/Vol] 0.63 mg/dL Normal 0.52-1.[address] [facility] Comment on above: Performed By: #### T SH, LIPID, CMP, T7 #### [facility] [id number] Annie Wright EGFR-AF GRENADIAN >60 Normal >=60 [facility] Comment on above: Performed By: #### T SH, LIPID, CMP, T7 #### [facility] [id number] Annie Wright EGFR-NON AF GRENADIAN >60 Normal >=[address] [facility] Comment on above: Performed By: #### T SH, LIPID, CMP, T7 #### [facility] [address] [address] [address] Annie Wright Globulin (S) [Mass/Vol] 3.7 g/dL Normal T [facility] Comment on above: Performed By: #### T SH, LIPID, CMP, T7 #### [facility] [address] [address] [address] Annie Wright Glucose [Mass/Vol] 91 mg/dL Normal 74-106 [facility] Comment on above: Performed By: #### T SH, LIPID, CMP, T7 #### [facility] [address] [address] [address] Annie Wright Potassium [Moles/Vol] 4.1 mmol/L Normal 3.4-5.0 [facility] Comment on above: Performed By: #### T SH, LIPID, CMP, T7 #### [facility] [address] [address] [address] Annie Wright Protein [Mass/Vol] 7.9 g/dL Normal 6.1-8.2 [facility] Comment on above: Performed By: #### T SH, LIPID, CMP, T7 #### [facility] [address] [address] [address] Annie Wright Sodium [Moles/Vol] 141 mmol/L Normal 137-145 [facility] Comment on above: Performed By: #### T SH, LIPID, CMP, T7 #### [facility] [address] [address] [address] Annie Wright Urea nitrogen [Mass/Vol] 11.0 mg/dL Normal 7.0-17.0 [facility] Comment on above: Performed By: #### T SH, LIPID, CMP, T7 #### [facility] [address] [address] [address] Annie Wright Urea nitrogen/Creatinine [Mass ratio] 17.5 mg/mg Normal [facility] Comment on above: Performed By: #### T SH, LIPID, CMP, T7 #### [facility] [address] [address] [address] Annie Wright TSHon 12-28-2020 TSH 1.702 uIU/mL Normal 0.470-4.680 [facility] Comment on above: Performed By: #### T SH, LIPID, CMP, T7 #### [facility] [address] [address] [address] Annie Wright TSH RANGE SEE BELOW Normal [facility] Comment on above: Result Comment: <0.3 4 UIU/ml HYPERTHYROID 0.34-5.60 UIU/ml EUTHYROID >5.60 UIU/ml HYPOTHYROID Performed By: #### T SH, LIPID, CMP, T7 #### [facility] [address] [address] [address] Annie Wright Business Development Specialist Cytology Reporton 2020 Business Development Specialist Cytology Report Clinical Information Specimen Collection Date: [...] smears in the future. GY Disclaimer [employer] Specialist Disclaimer ANATOMICPATHOLOGY Normal [facility] Comment on above: Performed By: #### G YNCYTREP #### [facility] (DEFAULT) [address] [place] [address] Gynecology Office/Clinic Not cam 11-15-2020 Gynecology Office/Clinic [...] September and October. 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 Back pain starts [...] Not in her mother. Saw Dr. Gomez ([facility]) GI on 08/02/20. Had colonoscopy 08/28/20: [...] conditions (more content not included)... Normal [facility] CELIAC ANTIBODIES PROFILEon 09-20-2020 Deamidated Gliadin Abs, IgA 11 units Normal 0-19 [facility] Comment on above: Result Comment: Nega tive 0 - 19 Weak Positive 20 - 30 Moderate to Strong Positive >30 Performed By: #### C ELIACP #### [facility] [address] [place] [address] Fredrick Jeannine Deamidated Gliadin Abs, IgG 2 units Normal 0-19 [facility] Comment on above: Result Comment: Nega tive 0 - 19 Weak Positive 20 - 30 Moderate to Strong Positive >30 Performed By: #### C ELIACP #### [facility] [address] [address] Fredrick Jeannine Endomysial Antibody IgA Negative Normal Negative T [facility] Comment on above: Performed By: #### C ELIACP #### [facility] [address] [address] Fredrick Jeannine Immunoglobulin A, Qn, Serum 223 mg/dL Normal 87-352 [facility] Comment on above: Performed By: #### C ELIACP #### [facility] [address] [address] Fredrick Jeannine t-Transglutaminase (tTG) IgA <2 Normal 0-3 [facility] Comment on above: Result Comment: Nega tive 0 - 3 Weak Positive 4 - 10 Positive >10 . Tissue Transglutaminase (tTG) has been identified as the endomysial antigen. Studies have demonstr- ated that endomysial IgA antibodies have over 99% specificity for gluten sensitive enteropathy. Performed By: #### C ELISHAYNEP #### [facility] [address] [place], [place] [id number] Fredrick Paez t-Transglutaminase (tTG) IgG 5 U/mL Normal 0-5 [facility] Comment on above: Result Comment: Nega tive 0 - 5 Weak Positive 6 - 9 Positive >9 Performed By: #### C ELIACP #### [facility] [address] [place] [address] Fredrick Jeannine CBC AUTO DIFFon 09-19-2020 BASO # 0.0 103/ul Normal 0.0-0.1 [facility] Comment on above: Performed By: #### C BC #### [facility] [address] [place] [address] Fredrick Jeannine Basophils/100 WBC (Bld) 0.5 % Normal 0.2-2.0 [facility] Comment on above: Performed By: #### C BC #### [facility] [address] [place], [place] [id number] Fredrick Jeannine EO # 0.2 103/ul Normal 0.0-0.7 [facility] Comment on above: Performed By: #### C BC #### [facility] [address] [place], [place] [address] Fredrick Jeannine Eosinophils/100 WBC (Bld) 1.9 % Normal 0.9-7.0 [facility] Comment on above: Performed By: #### C BC #### [facility] [address] [place], [place] [address] Fredrick Jeannine Erythrocyte distribution width (RBC) [Ratio] 12.5 % Normal 11.0-15.0 [facility] Comment on above: Performed By: #### C BC #### [facility] [address] [place], [place] [address] Fredrick Jeannine Hematocrit (Bld) [Volume fraction] 40.1 % Normal 36.0-48.0 [facility] Comment on above: Performed By: #### C BC #### [facility] [address] [id number] Fredrick Jeannine Hemoglobin (Bld) [Mass/Vol] 13.1 g/dL Normal 12.0-16.0 [facility] Comment on above: Performed By: #### C BC #### [facility] [address] [place] [address] Fredrick Jeannine IG # 0.03 10e3/ul Normal 0.00-0.03 [facility] Comment on above: Performed By: #### C BC #### [facility] [address] [place] [address] Fredrick Jeannine IG % 0.4 % Normal 0.0-0.5 [facility] Comment on above: Performed By: #### C BC #### [facility] [address] [place] [address] Fredrick Jeannine LYMPH # 2.5 103/ul Normal 1.2-3.[address] [facility] Comment on above: Performed By: #### C BC #### [facility] [address] [place] [address] Fredrick Jeannine Lymphocytes/100 WBC (Bld) 32.0 % Normal 20.5-60.0 [facility] Comment on above: Performed By: #### C BC #### [facility] [address] [place] [address] Fredrick Jeannine MANUAL DIFF REQ NO Normal [facility] Comment on above: Performed By: #### C BC #### [facility] [address] [place] [address] Fredrick Jeannine MCH (RBC) [Entitic mass] 28.5 pg Normal 26.7-34.0 [facility] Comment on above: Performed By: #### C BC #### [facility] [address] [place], [place] [id number] Fredrick Jeannine MCHC (RBC) [Mass/Vol] 32.7 g/dL Normal 29.9-35.[address] [facility] Comment on above: Performed By: #### C BC #### [facility] [address] [place] [address] Fredrick Jeannine MCV (RBC) [Entitic vol] 87.4 fL Normal 81.0-99.0 [facility] Comment on above: Performed By: #### C BC #### [facility] [address] [place] [address] Fredrick Paez MONO # 0.7 103/ul Normal 0.3-0.8 [facility] Comment on above: Performed By: #### C BC #### [facility] [address] [place] [address] Fredrick Paez Monocytes/100 WBC (Bld) 9.1 % Normal 1.7-12.0 [facility] Comment on above: Performed By: #### C BC #### [facility] [address] [place] [address] Fredrick Paez NEUT # 4.4 103/ul Normal 1.4-6.5 [facility] Comment on above: Performed By: #### C BC #### [facility] [address] [place] [address] Fredrick Paez Neutrophils/100 WBC (Bld) 56.1 % Normal 43.0-75.0 [facility] Comment on above: Performed By: #### C BC #### [facility] [address] [place], [place] [address] Fredrick Paez Platelet mean volume (Bld) [Entitic vol] 10.8 fL Normal 9.5-13.5 [facility] Comment on above: Performed By: #### C BC #### [facility] [address] [place] [address] Fredrickmichele Jonesen PLT 266 103/ul Normal 150-[address] [facility] Comment on above: Performed By: #### C BC #### [facility] [address] [place], [place] [address] Fredrick Jeannine RBC 4.59 106/ul Normal 4.20-5.[address] [facility] Comment on above: Performed By: #### C BC #### [facility] [address] [place] [address] Fredrick Jeannine WBC 7.9 103/ul Normal 4.0-11.[address] [facility] Comment on above: Performed By: #### C BC #### [facility] [address] [id number] Fredrickmichele Paez PROF 14(COMP METB)on 021 Albumin [Mass/Vol] 3.9 g/dL Normal 3.5-5.0 [facility] Comment on above: Performed By: #### C MP #### [facility] [address] [place], [place] [address] Fredrick Jeannine Albumin/Globulin [Mass ratio] 1.0 {ratio} Normal [facility] Comment on above: Performed By: #### C MP #### [facility] [address] [place], [place] [address] Fredrick Jeannine ALP [Catalytic activity/Vol] 55 U/L Normal 38-126 [facility] Comment on above: Performed By: #### C MP #### [facility] [address] [place] [address] Fredrick Jeannine ALT [Catalytic activity/Vol] 22 U/L Normal 9-52 [facility] Comment on above: Performed By: #### C MP #### [facility] [address] [place], [place] [address] Fredrick Jeannine Anion gap [Moles/Vol] 13.2 mmol/L Normal [facility] Comment on above: Performed By: #### C MP #### [facility] [address] [place], [place] [address] Fredrick Jeannine AST [Catalytic activity/Vol] 17 U/L Normal 14-[address] [facility] Comment on above: Performed By: #### C MP #### [facility] [address] [place], [place] [address] Fredrick Jeannine Bilirubin [Mass/Vol] 0.3 mg/dL Normal 0.2-1.[address] [facility] Comment on above: Performed By: #### C MP #### [facility] [address] [place], [place] [address] Fredrick Jeannine Calcium [Mass/Vol] 9.0 mg/dL Normal 8.4-10.2 [facility] Comment on above: Performed By: #### C MP #### [facility] [address] [place], [place] [address] Fredrick Jeannine Chloride [Moles/Vol] 105 mmol/L Normal 98-107 [facility] Comment on above: Performed By: #### C MP #### [facility] [address] [place], [place] [address] Fredrick Jeannine CO2 [Moles/Vol] 27.7 mmol/L Normal 22.0-30.0 [facility] Comment on above: Performed By: #### C MP #### [facility] [address] [place], [place] [address] Fredrick Jeannine Creatinine [Mass/Vol] 0.65 mg/dL Normal 0.52-1.04 [facility] Comment on above: Performed By: #### C MP #### [facility] [address] [place] [address] Fredrick Jeannine EGFR-AF GRENADIAN >60 Normal >=60 [facility] Comment on above: Performed By: #### C MP #### [facility] [address] [place], [place] [address] Fredrick Jeannine EGFR-NON AF GRENADIAN >60 Normal >=60 [facility] Comment on above: Performed By: #### C MP #### [facility] [address] [place], [place] [address] Fredrick Jeannine Globulin (S) [Mass/Vol] 4.1 g/dL Normal T [facility] Comment on above: Performed By: #### C MP #### [facility] [address] [place] [address] Fredrick Jeannine Glucose [Mass/Vol] 98 mg/dL Normal 74-106 [facility] Comment on above: Performed By: #### C MP #### [facility] [address] [place], [place] [address] Fredrick Jeannine Potassium [Moles/Vol] 3.9 mmol/L Normal 3.4-5.0 [facility] Comment on above: Performed By: #### C MP #### [facility] [address] [place] [address] Fredrick Jeannine Protein [Mass/Vol] 8.0 g/dL Normal 6.1-8.2 [facility] Comment on above: Performed By: #### C MP #### [facility] [address] [id number] Fredrick Paez Sodium [Moles/Vol] 142 mmol/L Normal 137-145 [facility] Comment on above: Performed By: #### C MP #### [facility] [address] [id number] Fredrick Paez Urea nitrogen [Mass/Vol] 10.0 mg/dL Normal 7.0-17.0 [facility] Comment on above: Performed By: #### C MP #### [facility] [address] [place] [address] Fredrick Paez Urea nitrogen/Creatinine [Mass ratio] 15.4 mg/mg Normal [facility] Comment on above: Performed By: #### C MP #### [facility] [address] [id number] Fredrick Peaz Gynecology Office/Clinic Not cam 09-03-2020 Gynecology Office/Clinic [...] got this past weekend. [facility]. Menses: At age 10. [...] Not in her mother. Saw Dr. Gomez ([facility]) GI on 08/02/20. Had colonoscopy 08/28/20: [...] on this. Discussed food sensitivity testing at [facility] Follow up 3 months Medical Decision Making Chronic conditions NOT treated during this visit that affected my overall medical decision making: [none] Treatment plans discussed but not opted for at this time: [Diagnostic laparoscopy] Prescribed medication that (more content not included)... Normal [facility] Gynecology Office/Clinic Not cam 06-21-2020 Gynecology [...] mother request patient to see Dr. P[place]. Referral is placed. Follow-up with Dr. Tuyet [...] Abus (more content not included)... Normal [facility] US Transvaginalon 06-18-2020 US Transvaginal EXAM(S) [...] Signed in Other Vendor System) Normal [facility] Gynecology Office/Clinic Not cam 06-13-2020 Gynecology [...] availa (more content not included)... Normal [facility] Dermatopathologyon 0 Dermatopathology [facility] Derm[facility] Laboratory [address] [place], [place] [id number] DERMATOPATHOLOGY REPORT Name[facility] 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 Electronically Signed Out by SRINIVASA PERALES M.D. Electronically Signed Out By SRINIVASA PERALES MD/[facility] By the signature on this report, the individual or group listed as making the Final Interpretation/Diagn osis certifies that they have reviewed this case. Clinical History: 1.1 x 1.0cm IDN vs. dysplastic nevus. Biopsy. Specimens Submitted As: A: SKIN, MID BACK Gross Description: Received in formalin is one pineda-brown piece of skin measuring [id number]. The specimen is inked and embedded in toto. /10/31/2019 Microscopic Description: Microscopic analysis shows a symmetric proliferation of melanocytes in epidermis and dermis. Melanocytes nest regularly along the dermal-epidermal junction, and dermal melanocytes mature with increasing depth in dermis. The melanocytes show no cytologic atypia. Normal [facility] Comment on above: Performed By: #### D #### Dermatopathology Vital Signs Date Time Vital Sign Value Performing Clinician Robert harrison 05-14-2023 15:57-0500 Body mass index (BMI) [Ratio] 27.96 kg/m2 Cecilia [employer] [facility] Work Phone: [facility] 05-14-2023 15:57-0500 Body weight 76.2 kg [facility] 05-14-2023 15:57-0500 Diastolic blood pressure 78 mm[Hg] [facility]: [facility] 05-14-2023 15:57-0500 Systolic blood pressure 120 mm[Hg] [facility] Work [facility]: [facility] 12-18-2021 08:35-0400 Body temperature 97.8 [degF] DO Vesna Nataprawira Work Phone: [facility] 12-18-2021 08:35-0400 Diastolic blood pressure 74 mm[Hg] DO Vesna Nataprawira Work Phone: [facility] 12-18-2021 08:35-0400 Heart rate 75 /min DO Vesna Nataprawira Work Phone: [facility] 12-18-2021 08:35-0400 Respiratory rate 16 /min DO Vesna Nataprawira Work Phone: [facility] 12-18-2021 08:35-0400 SaO2% (BldA) [Mass fraction] 98 % DO Vesna Nataprawira Work Phone: [facility] 12-18-2021 08:35-0400 Systolic blood pressure 119 mm[Hg] DO Vesna Nataprawira Work Phone: [facility] 12-15-2021 22:59-0400 Body height 165.1 cm DO Vesna Nataprawira Work Phone: [facility] 12-15-2021 22:59-0400 Body weight 83.91 kg DO Vesna Nataprawira Work Phone: [facility] 12-07-2021 16:38-0400 Respiratory rate 20 /min DO Vesna Nataprawira Work Phone: [facility] 12-07-2021 15:02-0400 Body height 167.64 cm DO Vesna Nataprawira Work Phone: [facility] 12-07-2021 15:02-0400 Body weight 81.64 kg DO Vesna Nataprawira Work Phone: [facility] 12-07-2021 15:01-0400 Body temperature 98.1 [degF] DO Vesna Nataprawira Work Phone: [facility] 12-07-2021 15:01-0400 Diastolic blood pressure 70 mm[Hg] DO Vesna Nataprawira Work Phone: [facility] 12-07-2021 15:01-0400 Heart rate 85 /min DO Vesna Nataprawira Work Phone: [facility] 12-07-2021 15:01-0400 Systolic blood pressure 124 mm[Hg] DO Vesna Nataprawira Work Phone: [facility] 11-10-2021 16:47-0400 SaO2% (BldA) [Mass fraction] 100 % DO Vesna Nataprawira Work Phone: [facility] 11-10-2021 16:46-0400 Diastolic blood pressure 66 mm[Hg] DO Vesna Nataprawira Work Phone: [facility] 11-10-2021 16:46-0400 Heart rate 75 /min DO Vesna Nataprawira Work Phone: [facility] 11-10-2021 16:46-0400 Systolic blood pressure 122 mm[Hg] DO Vesna Nataprawira Work Phone: [facility] 11-10-2021 16:43-0400 Body height 165.1 cm DO Vesna Nataprawira Work Phone: [facility] 11-10-2021 16:43-0400 Body weight 77.11 kg DO Vesna Nataprawira Work Phone: [facility] Encounters Encounter Date Encounter Type [...] 12-20-2021 End: 12-20-2021 ambulatory David M Hoy Facility:[facility] Start: 12-15-2021 End: 12-18-2021 Evaluation and management of inpatient Olga Rinkes Facility:[facility] Start: 12-15-2021 End: 12-18-2021 Evaluation and management of inpatient DO Vesna Nataprawira Work Phone: [facility] Start: 12-07-2021 End: 12-07-2021 ambulatory David M Hoy Facility:[facility] Start: 12-07-2021 End: 12-07-2021 Patient encounter procedure DO Vesna Nataprawira Work Phone: [facility] - O/P Start: 11-19-2021 End: 11-19-2021 ambulatory Olga Rinkes Facility:[facility] Start: 11-19-2021 End: 11-19-2021 Departed Referred DO Vesna Nataprawira Work Phone: [facility] [place] Start: 11-10-2021 End: 08-14-2022 ambulatory David M Hoy Facility:[facility] Start: 11-10-2021 End: 11-10-2021 Patient encounter procedure DO Vesna Bourgeois Work Phone: [facility] - O/P Start: 01-04-2021 Encounter for genera l adult medical examination without abnormal findings DR DAVID PASCUAL [facility] Start: 12-28-2020 End: 12-29-[address] DAVID PASCUAL Facility:[facility] Start: 12-28-2020 End: 12-29-2020 Encounter for general adult medical examination without abnormal findings DR DAVID PASCUAL Facility:[facility] Start: 09-19-2020 End: 09-20-2020 ambulatory GARRET Dee Dee GOMEZ Facility:[facility] Procedures Date Procedure Procedure Detail Performing Clinician SARS Antigen (LFIA) DO Vesna Bourgeois Work Phone: Streptococcus agalactiae culture [facility] Work Phone: Plan of Treatment Date Care Activity Detail Author Start: 06-11-2023 End: 06-11-2023 Patient encounter procedure 06/11/2023 4:30 PM EDT Routine [facility] [address] [place] [id number] Cecilia Madden, [facility] [address] [place] [address] [facility] Start: 05-14-2023 End: 05-14-2023 Patient encounter procedure 05/14/2023 4:00 PM EST Routine [facility] [address] [place] [id number] Cecilia Madden, [facility] [address] [place] [address] Arrived [facility] Comment on above: Arrived Start: 11-28-2022 Influenza vaccination Influenz a Vaccine (#1) [facility] Start: 12-18-2021 [facility] Work Phone: Start: 12-16-2021 Hospital admission [facility] Work Phone: Start: 12-15-2021 End: 12-15-2021 [facility] Work Phone: Start: 12-07-2021 [facility] Work Phone: Start: 12-07-2021 Hospital admission [facility] Work Phone: Start: 11-19-2021 End: 11-19-2021 Departed Referred Departed Referred [facility] [place] Start: 11-10-2021 [facility] Work Phone: Start: 11-10-2021 Hospital admission [facility] Work Phone: Patient Education [facility] Work Phone: Patient referral [facility] Work Phone: Reagin Ab [Presence] in Serum by RPR [facility] Work Phone: Payers Date Payer Category Payer Self-pay [id number] 2021 Unknown BCBS BCBS xxxxxx [id number] 2021-Present [phone] [address] [place] [address] [id number]. [id number] 1999 Unknown [id number] 2..840.1.947152.3.579.2.593 1999 Unknown [id number] 2..840.1.649151.3.579.2.593 1999 Unknown [id number] 2.16.840.1.169348.3.579.2.1259 1999 Unknown [id number] 2.16.840.1.109374.3.579.2.1259 1999 Unknown [id number] 2.16.840.1.501617.3.579.2.1259 1999 Unknown [id number] 2.16.840.1.890105.3.579.2.1259 1999 Unknown [id number] 2.16.840.1.259227.3.579.2.1259 1999 Unknown [id number] 2.16.840.1.327485.3.579.2.1259 1999 Unknown [id number] 2.16.840.1.072985.3.579.2.1259 1999 Unknown [id number] 2.16.840.1.218792.3.579.2.1259 1999 Unknown [id number] 2.16.840.1.678225.3.579.2.1259 1999 Unknown [id number] 2.16.840.1.789826.3.579.2.1259 1999 Unknown [id number] 2.16.840.1.749229.3.579.2.1259 1999 Unknown [id number] 2.16.840.1.769565.3.579.2.1259 1999 Unknown [id number] 2.16.840.1.402152.3.579.2.1259 1999 Unknown [id number] 2.16.840.1.490777.3.579.2.1259 1999 Unknown [id number] 2.16.840.1.213007.3.579.2.1259 1999 Unknown [id number] 2.16.840.1.936799.3.579.2.1259 1959 Unknown [id number] 1959 Unknown [id number] Unknown [id number] 2.16.840.1.596100.3.579.2.531 Unknown [id number] 2.16.840.1.300221.3.579.2.531 Unknown [id number] 2.16.840.1.402044.3.579.2.531 Unknown [id number] 2.16.840.1.210292.3.579.2.531 Unknown [id number] 2.16.840.1.054807.3.579.2.531 Social History Date Type Detail Facility Start: 08-28-2020 End: 12-04-2022 Tobacco smoking status NHIS Never smoked tobacco (finding) [facility] Start: 2000 Sex Assigned At Female [facility] Start: 12-04-2022 Tobacco use and [...] Facility 12-18-2021 Functional status Patient at [facility] Work Phone: Mental Status Date Assessment Result Facility 12-18-2021 Cognitive function Cognitive Sta tus Patient at [facility] Work Phone: History of Present [...] a routine visit. documented in this encounter [facility] Progress note 12-18-2021 Note Date & Type Note Facility 12-18-2021 Progress note Note Date/Time December 18, 2021 6:25am [facility] ENTER [address] [place] [address] POLICY SERVICE COORDINATOR Progress Note Signed Patient: Mahnaz River MR#: [id number] : 2000 Acct:[id number] Age/Sex: 21 / F Adm Date: 2 Loc: Room: [address] [place] [address] Type: ADM IN Attending Dr: Olga Santoyo [...] % (Auto) 71.1, Lymph % (Auto) 19.2, [place]on % (Auto) 8.5, Eos % (Auto) 0.8, Baso % (Auto) 0.4, Neut # (Auto) 11.5 H, Lymph # (Auto) 3.1, [place]on # (Auto) 1.4 H, Eos # (Auto) [...] in room for support Breast: Working with strategic consultant. She has been experiencing breast pain [...] <Electronically signed by MD FLOYD GAVIN> 12/18/21 0721 [facility] Work Phone: Progress note 12-17-2021 Note Date & Type Note Facility 12-17-2021 Progress note Note Date/Time December 17, 2021 6:25am [facility] [address] [place] [id number] POLICY SERVICE COORDINATOR Progress Note Signed Patient: Mahnaz River MR#: [id number] : 2000 Acct:[id number] Age/Sex: 21 / F Adm Date: 2 Loc: 3S Room: 6M8387-2 Type: ADM IN Attending Dr: Olga Santoyo [...] in room for support Breast: Working with strategic consultant to breast feed. She was experiencing [...] signed by Max Sheridan DO> 12/17/21 1142 [facility] Work Phone: Procedure note 12-16-2021 Note Date & Type Note Facility 12-16-2021 Procedure note [facility] Clinical Note 11-12-2020 Note Date & Type [...] breast self-examination (BSE). These experts include the [place] [employer], the [place]. Preventive Services Task Force, and the [place] [employer]stetricians and Gynec[employer]. Some experts [...] This means they are not cancer. ? [id number] [employer]. [address] [place] [address], [place] [address]. All rights reserved. This information is not intended as a substitute for professional medical care. Always follow your healthcare professional's instructions. [facility] Clinical Note 08-29-2020 Note Date & Type Note Facility 08-29-2020 Note Patient Education Ma terials Name: Mahnaz Mata Current Date: 08/29/2020 09:18:19 [place] : 2000 [facility]: [id number] The following sheet(s) are the Patient Education [...] fiber increase to help prevent constipation. ? [id number] [employer]. [address] [place] [address]. All rights reserved. This information is not intended as a substitute for professional medical care. Always follow your healthcare professional's instructions. [facility] Evaluation note Note Date & Type Note Facility Evaluation note No assessment information availa ble [facility] Work Phone: Evaluation note Note Date & Type Note Facility Evaluation note Diagnosis Onset Date Status post vaginal delivery acute [facility] Work Phone: Evaluation note [...] section and content) DATE CREATED AUTHOR 11/02/2019 [facility] DATE CREATED AUTHOR AUTHOR'S ORGANIZ ATION 04/26/2021 [facility] DATE CREATED AUTHOR AUTHOR'S ORGANIZ ATION 05/14/2021 [facility] DATE CREATED AUTHOR AUTHOR'S ORGANIZ ATION 01/08/2022 [facility] DATE CREATED AUTHOR AUTHOR'S ORGANIZ ATION 12/04/2023 [facility] EPIC Care Teams (unrecognized sec [...] DO Admit Provider, Attending Provide r Active Rn Access Relationship Specialty Start Date End Date Yumiko Key MD [address] [place] [address] PCP - General Family Medicine 11/10/22 Rn Access Relationship Specialty Start Date End Date Yumiko Key MD [address] [place], [place] [id number] PCP - General Family Medicine 11/10/22 Goals [...] BE BASED ON THE PRIMARY CLINICAL RECORDS. [facility] [employer] [facility]. provides no warranty or guarantee of the accuracy or completeness of information in this document.
--- NOTE | 2023-12-29 15:10 | PC.NURSE ---
Mahnaz and 6 week old Vamshi arrive for support. Mahnaz continues to work through sore nipples due to tongue tie, lip tie shallow latches. Nipples slightly healed, continues to have soreness with wearable pump, states I can't be tied down to a plug in pump like last time . Is aware that pump may be contributing to soreness as nipples did feel better for 2 days as she tried spectra pump. Baby continues with care trainer and will see [employer] soon. Mom here for demo of side lying position for nursing. Demo given and pt able to independently latch both sides without discomfort. States this will really be helpful during night feeds and when I want to rest Support given and pt leaves ambulatory. Will call as needed for support.
== END 2023-12-29 11:40 | disposition home or self-care (01) ==
LOC: FBCO 08:10
PROVIDERS: PCP Family Medicine; Visit Provider Midwife
DX: Z39.1 Encounter for care and examination of lactating mother (principal)